=== PATIENT | male | born 1960 | race Caucasian/White ===

== ENCOUNTER 2017-05-17 15:23 | Emergency (ER) | payer BC, OTHER ==
[~2017-05-17 15:23] MED LIST: LISI20TA3 PO; MULT-513 PO; THIA1TAB11 PO
[2017-05-17 15:32] VITALS: TEMP 36.4
[2017-05-17 15:35] VITALS: O2SAT 97
--- NOTE | 2017-05-17 15:36 | EMERGENCY ROOM VISIT NOTE ---
History Report prepared by Nadeen: Edward Gupta Under the Supervision of: Dr. Kayla Iyer M.D. First contact with patient: 15:30 Chief Complaint: ALCOHOL OVERDOSE Stated Complaint: ETOH History of Present Illness This HPI is limited due to the alcohol intoxication level of the patient. The patient is a 57 year old male who presents to the Emergency Room via EMS from the [facility] for alcohol intoxication. Per EMS the [facility] staff was trying to get him to check out due to his behavior. When he realized he was being kicked out he became agitated and violent. Source of History: EMS History Limited By: intoxication Review of Systems ROS limited secondary to EtOH. Past Medical & Surgical Medical Problems: (1) Alcoholic Social History Smoking Status: Unknown if Ever Smoked Alcohol Use: heavy Marital Status: Housing Status: lives with significant other Occupation Status: employed Current/Historical Medications Scheduled Lisinopril (Prinivil), 20 MG PO DAILY Multivitamins/Minerals (Mvi With Minerals), 1 TAB PO DAILY Thiamine Mononitrate (Vitamin B1), 100 MG PO DAILY Allergies Coded Allergies: No Known Allergies (Unverified , 01/17/16) Physical Exam Vital Signs Date Time Temp Pulse Resp B/P (MAP) Pulse Ox O2 Delivery O2 Flow Rate FiO2 05/17/17 18:00 54 124/81 100 Room Air 05/17/17 17:03 83 123/75 100 Room Air 05/17/17 16:14 58 05/17/17 15:35 97 Nasal Cannula 05/17/17 15:32 36.4 72 120/80 99 Room Air Physical Exam Vital signs reviewed. General: Obese. Non-responsive to verbal stimuli, Odor of EtOH in the breath, disheveled 57-year-old male. No signs of trauma. HEENT: Mild scleral injection bilaterally, PERRLA, neck supple, dry mucous membranes. Cardiovascular: Regular rate and rhythm, no extra sounds. Pulmonary: Clear to auscultation bilaterally, normal work of breathing. Abdomen: Soft, nontender, nondistended, positive bowel sounds. Musculoskeletal: Upper and lower extremities atraumatic, no peripheral edema Skin: Warm, dry, no rash. Atraumatic. Neurologic: Patient is currently nonverbal, nonresponsive. Medical Decision & Procedures Laboratory Results 05/17/17 15:48 Red Blood Count 4.90, Mean Corpuscular Volume 91.6, Mean Corpuscular Hemoglobin 30.8, Mean Corpuscular Hemoglobin Concent 33.6, Mean Platelet Volume 9.9, Neutrophils (%) (Auto) 64.7, Lymphocytes (%) (Auto) 26.4, Monocytes (%) (Auto) 4.9, Eosinophils (%) (Auto) 3.2, Basophils (%) (Auto) 0.4, Neutrophils # (Auto) 3.01, Lymphocytes # (Auto) 1.23, Monocytes # (Auto) 0.23, Eosinophils # (Auto) 0.15, Basophils # (Auto) 0.02 05/17/17 15:48 Test 05/17/17 15:48 White Blood Count 4.66 K/uL (4.8-10.8) Red Blood Count 4.90 M/uL (4.7-6.1) Hemoglobin 15.1 g/dL (14.0-18.0) Hematocrit 44.9 % (42-52) Mean Corpuscular Volume 91.6 fL (80-100) Mean Corpuscular Hemoglobin 30.8 pg (25-34) Mean Corpuscular Hemoglobin Concent 33.6 g/dl (32-36) Platelet Count 231 K/uL (130-400) Mean Platelet Volume 9.9 fL (7.4-10.4) Neutrophils (%) (Auto) 64.7 % Lymphocytes (%) (Auto) 26.4 % Monocytes (%) (Auto) 4.9 % Eosinophils (%) (Auto) 3.2 % Basophils (%) (Auto) 0.4 % Neutrophils # (Auto) 3.01 K/uL (1.4-6.5) Lymphocytes # (Auto) 1.23 K/uL (1.2-3.4) Monocytes # (Auto) 0.23 K/uL (0.11-0.59) Eosinophils # (Auto) 0.15 K/uL (0-0.5) Basophils # (Auto) 0.02 K/uL (0-0.2) RDW Standard Deviation 46.3 fL (36.4-46.3) RDW Coefficient of Variation 13.9 % (11.5-14.5) Immature Granulocyte % (Auto) 0.4 % Immature Granulocyte # (Auto) 0.02 K/uL (0.00-0.02) Anion Gap 9.0 mmol/L (3-11) Estimated GFR () 115.4 Estimated GFR (Non- 99.6 BUN/Creatinine Ratio 19.3 (10-20) Calcium Level 8.5 mg/dl (8.5-10.1) Magnesium Level 2.2 mg/dl (1.8-2.4) Total Bilirubin 0.4 mg/dl (0.2-1) Direct Bilirubin 0.1 mg/dl (0-0.2) Aspartate Amino Transf (AST/SGOT) 22 U/L (15-37) Alanine Aminotransferase (ALT/SGPT) 31 U/L (12-78) Alkaline Phosphatase 51 U/L (45-117) Total Protein 6.9 gm/dl (6.4-8.2) Albumin 3.6 gm/dl (3.4-5.0) Lipase 136 U/L (73-393) Ethyl Alcohol mg/dL 259.9 mg/dl (0-3) Laboratory results per my review. Medications Administered Medications (Trade) Dose Ordered Sig/Lia Route Start Time Stop Time Status Last Admin Dose Admin Multivitamins 10 ml/Thiamine HCl 100 mg/Folic Acid 1 mg/Sodium Chloride 1,011.2 ml @ 300 mls/ hr [id number] ONCE IV 05/17/17 15:45 05/17/17 19:07 05/17/17 16:10 300 MLS/HR ED Course 1531: Past medical records reviewed. The patient was evaluated in room A12B. A complete history and physical examination was performed. 1545: Ordered banana bag@ 300 mL/hr IV. 1707: I reevaluated the patient at this time. He is now speaking coherently after previously being unresponsive. He claims that he "doesn't drink often." He states that we may call his parents to come pick him up. Medical Decision Differential diagnosis: Etiologies such as alcohol intoxication, toxicologic, infection, hypoglycemia, electrolyte abnormalities, cardiac sources, intracerebral event, neurologic, as well as others were entertained. This patient was evaluated and appeared to be unresponsive. He is apparently alcohol intoxicated for EMS report. The patient did require police intervention for agitation and disruptive behavior. He has been here 3 times previously for alcohol intoxication. Patient was placed on the cardiac surgeon. He has no signs of trauma but is somewhat unresponsive. He was hydrated with a banana bag and reassessed frequently. Approximately an hour and half after arrival the patient was reassessed and was easily arousable. He was answering questions appropriately. He is able to tolerate a by mouth trial. When asked if the patient had family to pick him up, patient stated that he would contact his parents. He denied significant alcohol intake today however he was informed that his blood alcohol is 260. He stated he drank excessive amounts of vodka. The patient was observed in the emergency department until he reached a more sober state. The patient was ambulatory and called his parents for a ride home. Blood Pressure Screening Patient's blood pressure: Normal blood pressure Impression Primary Impression: Acute alcohol intoxication Scribe Attestation The scribe's documentation has been prepared under my direction and personally reviewed by me in its entirety. I confirm that the note above accurately reflects all work, treatment, procedures, and medical decision making performed by me. Departure Information Dispostion Home / Self-Care Referrals Stephen Diaz M.D. (PCP) Forms HOME CARE DOCUMENTATION FORM, IMPORTANT VISIT INFORMATION Patient Instructions My [facility] Additional Instructions Diagnosis: Alcohol intoxication Please drink plenty of clear fluids, avoid alcohol. Continue any medications as prescribed. Follow-up with your physician for reevaluation and consider drug and alcohol counseling as indicated. Return to the emergency department for worsening of symptoms or any medical concerns.
[2017-05-17] MEDS ORDERED: MULTI-VITAMIN INFUSION INJ 10 ML, THIAMINE HCL INJ 100 MG, FoLIC ACID INJ 1 MG in SODIU... IV ONE (15:45)
[2017-05-17 16:39] LABS: BASO % 0.4 %; BASO ABS # 0.02 K/uL (0-0.2); EOS % 3.2 %; EOS ABS # 0.15 K/uL (0-0.5); HEMATOCRIT 44.9 % (42-52); HEMOGLOBIN 15.1 g/dL (14.0-18.0); IG# 0.02 K/uL (0.00-0.02); LYMPH % 26.4 %; LYMPH ABS # 1.23 K/uL (1.2-3.4); MEAN CELL VOLUME 91.6 fL (80-100); MEAN CORPUSCULAR HEMOGLOBIN 30.8 pg (25-34); MEAN CORPUSCULAR HGB CONC 33.6 g/dl (32-36); MEAN PLATELET VOLUME 9.9 fL (7.4-10.4); MONO % 4.9 %; MONO ABS # 0.23 K/uL (0.11-0.59); NEUT % 64.7 %; NEUT ABS # 3.01 K/uL (1.4-6.5); PLATELET COUNT 231 K/uL (130-400); RED CELL DISTRIBUTION WIDTH CV 13.9 % (11.5-14.5); RED CELL DISTRIBUTION WIDTH SD 46.3 fL (36.4-46.3); WHITE BLOOD COUNT 4.66 K/uL (4.8-10.8)
[2017-05-17 16:56] LABS: ALBUMIN 3.6 gm/dl (3.4-5.0); ALT/SGPT 31 U/L (12-78); BLOOD UREA NITROGEN 16 mg/dl (7-18); CALCIUM 8.5 mg/dl (8.5-10.1); CARBON DIOXIDE 25 mmol/L (21-32); CREATININE 0.82 mg/dl (0.60-1.40); GLUCOSE 92 mg/dl (70-99); LIPASE 136 U/L (73-393); POTASSIUM 3.4 mmol/L (3.5-5.1); SODIUM 138 mmol/L (136-145)
[2017-05-17 16:58] LABS: ALKALINE PHOSPHATASE 51 U/L (45-117); AST/SGOT 22 U/L (15-37); TOTAL PROTEIN 6.9 gm/dl (6.4-8.2)
--- NOTE | 2017-05-17 18:10 | EMERGENCY ROOM VISIT NOTE ---
ED Visit Note Received patient in signout. History and physical verified by me.
[2017-05-17 19:17] VITALS: BP 122/84; PULSE 71; O2SAT 97
== END 2017-05-17 19:23 | disposition home or self-care (01) ==
LOC: EDBD 15:23 → C.EDA 15:27
DX: F10.229 Alcohol dependence with intoxication, unspecified (principal); Y90.8 Blood alcohol level of 240 mg/100 ml or more; Z79.899 Other long term (current) drug therapy; E66.9 Obesity, unspecified

== ENCOUNTER 2017-06-10 16:26 | Emergency (ER) | payer OTHER ==
[~2017-06-10] VITALS: Ht 185.4 cm; Wt 124.0 kg
[2017-06-10 16:42] VITALS: TEMP 36.8; Ht 185.4 cm; Wt 124.0 kg
--- NOTE | 2017-06-10 17:07 | EMERGENCY ROOM VISIT NOTE ---
History First contact with patient: 16:40 Chief Complaint: ALCOHOL OVERDOSE Stated Complaint: ETOH Nursing Triage Summary: Patient arrives to ED via EMS and [facility]. Police report that patient was stumbling downtown and appeared intoxicated. Denies any vomiting. Patient reports that he has been drinking vodka today. Denies any falls or any physical complaints. Patient is not sure why he is here in the ED. Patient was able to walk self from EMS litter to ED bed. Patient A &O x4. History of Present Illness The patient is a 57 year old male who presents to the Emergency Room via EMS for evaluation of alcohol intoxication. Per EMS, the patient was found downtown drinking and was stumbling. He was stopped by police, who felt he needed to be evaluated in the ED. Patient admits to drinking about one quarter of a bottle of vodka today. He admits that he drinks daily and states he typically has one half bottle of vodka per day. He denies any history of alcohol withdrawal. He has no intentions to quit drinking alcohol at this time. He denies any complaints. He denies falling or hurting himself in any way. He denies any drug use today. Review of Systems A complete 10 point review of systems was reviewed with the patient with pertinent positives and negatives as per history of present illness. All else were negative. Past Medical/Surgical History Medical Problems: (1) Alcoholic Social History Smoking Status: Never Smoker Alcohol Use: heavy Marital Status: Housing Status: lives with significant other Occupation Status: employed Current/Historical Medications Scheduled Escitalopram (Lexapro), 10 MG PO DAILY Losartan Potassium (Losartan Potassium), 1 TAB PO DAILY Physical Exam Vital Signs Date Time Temp Pulse Resp B/P (MAP) Pulse Ox O2 Delivery O2 Flow Rate FiO2 06/10/17 19:45 66 110/69 100 Room Air 06/10/17 16:42 36.8 58 118/81 98 Room Air Physical Exam VITALS: Vitals are noted on the nurse's note and reviewed by myself. Vital signs stable. GENERAL: This is a 57-year-old male, sitting up in bed, appears to be visibly intoxicated but is cooperative with examiner, smells of ETOH. SKIN: The skin was without erythema, edema, or bruising. HEAD: Normocephalic atraumatic. EARS: External auditory canals clear. No hemotympanum. EYES: Pupils equal round and reactive to light and accommodation. NOSE: No deformities noted. MOUTH: Mucous membranes moist. No loose or chipped teeth. NECK: No cervical spine tenderness. HEART: Regular rate and rhythm without murmurs gallops or rubs. LUNGS: Clear to auscultation bilaterally without wheezes, rales or rhonchi. ABDOMEN: Soft, nontender. MUSCULOSKELETAL: Full range of motion throughout. Strength intact throughout. NEURO: Patient was alert and oriented to person place and time. Gross sensation intact. Patient cooperative with examiner and answers all questions appropriately. Medical Decision & Procedures Laboratory Results 06/10/17 18:24 Test 06/10/17 18:24 06/10/17 18:29 Anion Gap 5.0 mmol/L (3-11) Est Creatinine Clear Calc Drug Dose 126.5 ml/min Estimated GFR () 109.6 Estimated GFR (Non- 94.5 BUN/Creatinine Ratio 13.2 (10-20) Calcium Level 8.9 mg/dl (8.5-10.1) Ethyl Alcohol mg/dL 210.3 mg/dl (0-3) Medical Decision Differential diagnosis includes alcohol intoxication, drug use, infection, hypoglycemia, head trauma, among others. The patient is a 57-year-old male who presents today for evaluation of probable alcohol intoxication. Labs revealed an alcohol of 210. Kidney function was found to be within normal limits. Labs were otherwise unremarkable. There is no evidence of head trauma or infection on exam. The patient was placed on the campus monitor. He was alert and able to answer all questions appropriately. They were monitored for an appropriate amount of time and when they were more sober, they were reassessed and discharged home with a taxi. Patient was advised to follow-up with his primary care provider regarding his chronic alcohol use. Head Trauma GCS Score: 15 Medication Reconcilliation Current Medication List: was personally reviewed by me Blood Pressure Screening Patient's blood pressure: Normal blood pressure Impression Primary Impression: Alcohol abuse Departure Information Dispostion Home / Self-Care Condition GOOD Referrals Stephen Diaz M.D. (PCP) Patient Instructions My [facility] Additional Instructions Decrease your alcohol use. For pain control, you can use the following [id number] medicines (if >12 yo): - Regular strength (325mg/tab) Tylenol (acetaminophen) 2 tabs every 4-6 hours as needed. Do not exceed 12 tablets in a 24 hour period. Avoid taking more than 4 grams (4000 mg) of Tylenol per day. This includes any other sources of acetaminophen you may take on a regular basis. - Regular strength (200 mg/tab) Advil (ibuprofen) 1-2 tabs every 4-6 hours as needed. Do not exceed a dose of 3200 mg per day. Rest and stay well hydrated. Follow-up with your primary care provider as needed.
[2017-06-10] MEDS ORDERED: ESCI10TA17 PO (17:13)
[2017-06-10] MEDS ORDERED: CZR25 PO (17:13)
[2017-06-10 19:10] LABS: CALCIUM 8.9 mg/dl (8.5-10.1); CREATININE 0.91 mg/dl (0.60-1.40); POTASSIUM 3.2 mmol/L (3.5-5.1)
[2017-06-10 19:45] VITALS: BP 110/69; PULSE 66; O2SAT 100
== END 2017-06-10 20:15 | disposition home or self-care (01) ==
LOC: EDBD 16:26 → C.EDC 16:28
DX: F10.129 Alcohol abuse with intoxication, unspecified (principal); Y90.7 Blood alcohol level of 200-239 mg/100 ml

== ENCOUNTER 2023-08-31 14:16 | Inpatient (IN) ==
--- OUTSIDE RECORDS SUMMARY | 2023-08-31 14:22 | External Medical Summary | Summary of Care ---
Author Name Unknown Organization [facility] Address [address] [place] [address] Phone [phone] Care Team Providers Care Director Of Retail Marketing Name Role Phone Stephen Diaz MD Primary Care Provider [phone] Reason for Visit * Reason Comments dysphagia Encounter Details Date Type Department Care Team (Latest Contact Info) Description 07/16/2023 10:30 AM EDT [facility], [place] [address] [place] [address] Kamila Hoskins, [facility] [address] [place] [address] Oropharyngeal dysphagia*; Primary cancer of base of tongue (HCC) Allergies No known active allergiesdocumented as of this encounter (statuses as of 07/17/2023) Medications Medication Sig Dispensed Refills Start Date End Date Status Multiple Vitamins-Minerals (CENTRUM SILVER ULTRA MENS) Tablet Take 1 Tablet by mouth in the morning. 0 Active Triamcinolone Acetonide 0.1 % External Cream (Aristocort)Indicat ions:Stasis dermatitis of both legs Apply topically to affected area 2 times a day . To affected area - lower legs. 453 g 5 02/06/2022 Active Apixaban 5 MG Oral Tablet (Eliquis) Take 1 Tablet by mouth in the morning and 1 Tablet before bedtime. 60 Tablet 1 10/04/2022 Active Additional Information Patient not taking.Reported on 06/04/2023 Ondansetron HCl 8 MG Oral TabletIndications:O ropharyngeal cancer (HCC) Take 1 Tablet by mouth every 8 hours as needed for Nausea. 30 Tablet 0 11/06/2022 Active Prochlorperazine Maleate 10 MG Oral Tablet (Compazine)Indicati ons:Oropharyngeal cancer (HCC) Take 1 Tablet by mouth every 6 hours as needed for Nausea. 30 Tablet 0 11/06/2022 Active Escitalopram Oxalate 10 MG Oral Tablet (Lexapro)Indication s:Major depressive disorder, single episode, moderate (HCC) TAKE 1 TABLET BY MOUTH EVERY DAY 90 Tablet 2 12/02/2022 Active Losartan Potassium 100 MG Oral Tablet (Cozaar)Indications :HTN, goal below 140/90 TAKE 1 TABLET BY MOUTH EVERY DAY IN THE MORNING 90 Tablet 2 04/08/2023 Active amLODIPine Besylate 10 MG Oral Tablet (Norvasc)Indication s:HTN, goal below 140/90 Take 0.5 Tablets by mouth in the morning. 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 0 to 49.9 in adult 01/28/2023 03/07/2023 Overview: Per Obesity protocol - Per Obesity protocol - Per Obesity protocol - Per Obesity protocol Body mass index (BMI) of 50. 0 to 59.9 in adult 03/05/2022 01/31/2023 Overview: Per Obesity protocol - Per Obesity protocol - Per Obesity protocol Body mass index (BMI) of 45. 0 to 49.9 in adult 08/28/2021 03/08/2022 Overview: Per Obesity protocol - Per Obesity protocol Body mass index (BMI) of 40. 0 to 44.9 in adult 05/04/2019 08/31/2021 Overview: Per Obesity protocol documented as of this encounter (statuses as of 07/17/2023) Immunizations Name Administration Dates Next Due Pneumococcal Conjugate Vacci ne, 20-valent ([id number]) 02/06/2022 Season Influenza, Quad, PF, Adjuvanted, 65+ Yrs, IM (FLUAD) 01/25/2020 Seasonal Influenza, PF, 6 M & above, IM , (FluLaval or Fluzone) 02/01/2023,02/06/2022,2021,2017 TDAP (age 10 and older)(Boostrix) 09/05/2017 TDAP (age 11 and older)(Adacel) 04/22/2007 Zoster Vaccine Recombinant (Shingrix) 04/26/2020 ,12/01/2019 documented as of this encounter Social History Tobacco Use Types Packs/Day Years Used Date Smoking Tobacco: Never Passive Smoke Exposure: Never Smokeless Tobacco: Never Alcohol Use Standard Drinks/Week Comments Yes 15 (1 standard drink = 0.6 oz pu re alcohol) PHQ-2 Answer Date Recorded PHQ-2 Score 0 10/29/2019 Hunger Vital Sign Answer Date Recorded Within the past 12 months, y ou worried that your food would run out before you got the money to buy more. Never true 10/10/19 23 Within the past 12 months, t he food you bought just didn't last and you didn't have money to get more. Never true 10/09/2022 Sex and Gender Information Value Date Recorded Sex Assigned at Male 04/09/2019 12:46 PM EST Gender Identity Male 04/09/2019 12:46 PM EST Sexual Orientation Straight 04/09/2019 12 :46 PM EST Job Start Date Occupation Industry Not on file Not on file Not on file documented as of this encounter Functional Status Functional Status Response Date of Assess ment Are you deaf or do you have serious difficulty h earing? No 09/21/2022 Are you blind or do you have serious difficulty seeing, even when wearing glasses? No 09/21/2022 Do you have serious difficul ty walking or climbing stairs? (5 years old or older) No 09/21/2022 Do you have difficulty dress ing or bathing? (5 years old or older) No 09/21/2022 Because of a physical, menta l, or emotional condition, do you have difficulty doing errands alone such as visiting a doctor s office or shopping? (15 years old or older) No 09/22/19 Cognitive Status Response Date of Assessm ent Because of a physical, menta l, or emotional condition, do you have serious difficulty concentrating, remembering, or making decisions? (5 years old or older) No 09/21/2022 documented as of this encounter Progress Notes * Kamila Hoskins [facility] - 07/16/2023 4:00 PM EDT Images from the original note were not included. Flexible Endoscopic Evaluation of Swallowing (FEES) [facility] Referring MD: Dr. Ashford FEES Endoscopist: Kamila Hoskins CCC-[facility] Reason for Referral: Instrumental swallow assessment to assess oropharyngeal swallow function, oralfeeding safety and potential for diet advancement. The severity of the patients medical condition (described below) and/or dysphagia warranted a FEES study. 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 Initial imaging showed a large BOT lesion with bilateral cervical lymphadenopathy. Post treatment imaging shows residual avidity in the right BOT. Chemo/xrt completed Jan. - Did not have a pre-treatment NavDx so will hold off on this. Imaging shows stable nodes that are not obviously pathologic. Will plan on another CT in 6 months but will otherwise follow clinically. LUIS ENRIQUE on exam today. RTC 3-4 months or PRN. 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 There is no other head and neck pneumatic compression device, other than the Flexitouch, to address this region of lymphedema that is appropriate. Pt presents with highly sensitive skin and significant head and neck lymphedema which also makes the basic pump not appropriate. Patient has participated in 4 weeks or more of conservative treatment utilizing compression, elevation, and exercise with symptoms of head and neck lymphedema remaining. Patient will benefit from the Flexitouch advanced compression device to appropriate manage their lymphedema in the head and neck region. " Cognitive/communicative status: Pt alert; followed directions, communicated wants and needs, and conversed appropriately PO status/Dysphagia history: PO regular solids with thin liquids. First time seeing SPECIAL SH[facility]PER today. He is s/p chemoradiation 01/2023. Noting weight loss of 60 lbs during his treatment. Positive for occasional globus and coughing with PO intake. He does feel like he is aspirating, but denies concerns forpulmonary infection. Pneumonia History: pt denies recent PNA CT Chest 06/05/23 - No suspicious pulmonary lesion. Oral mechanism exam: Facial Symmetry Within functional limits Labial Function Within functional limits Lingual Function Within functional limits Velar Function DNT Dentition: Natural Protective mechanisms: Volitional Swallow Within Functional Limits Volitional Throat Clearing Did not test Volitional Cough Did not test Vocal Quality Mildly rough Tracheostomy Tube: Not Present Ventilator Status: Not Applicable Procedure: Patient was sitting upright in chair at a 90 degree angle The Ranjith Storz scope was inserted into the R nare. Pt given PO trials of thin liquids, applesauce, diced peaches, and ysabel cracker Patient tolerated the procedure well with the findings outlined below. Findings: View of larynx before PO trials showed adequate VF mobility during phonation. No pooling of secretions. Severe internal lymphedema at the epiglottis, posterior pharyngeal wall, false vocal folds, andbilteral arytenoids. Swallowing efficiency: Limited to absent epiglottic inversion given edema resulting in mod-max vallecular residue with all solids. Pt instructed in multiple, effortful swallows with lack of improvement. A liquid wash was successful in grossly clearing the vallecular residue. Airway protection: Aspiration of thin liquids (and juice from peaches) due to poor epiglottic inversion given the extent of his internal lymphedema. There was also laryngeal penetration of applesaucethat cleared with completion of a subsequent swallow. Pt with delayed cough which was effective in clearance, but continued aspiration after the swallow given the mechanical issues of his swallow at this time. Media Information: Post thin Post applesauce Post diced peaches Post peaches/aspiration Impression: Aspiration of thin liquids Mod-max residue of all solids; cleared with liquid wash DIGEST-FEES: Safety grade: S3 Efficiency grade: E3 Score (Interaction of Assigned Safety and Efficiency Grades): 3 (severe) Goals: 1) Pt will tolerate oral diet without risk of malnourishment or aspiration PNA Anticipated frequency/return follow up: Will see in follow up matched with Dr. Ashford Additional comments: -Pt has been asymptomatic of his aspiration at this time. We will not modify his diet given this. He was made aware of the risk for developing aspiration PNA. He will continue to stay mobile and complete thorough oral care. -Discussed lymphedema management therapy. RECOMMENDATIONS: PO status regular solids with thin liquids Meds as tolerated or crushed RTC matched with Dr. Ashford documented in this encounter Plan of Treatment Upcoming Encounters Date Type Department Care Team (Late st Contact Info) Description 08/12/2023 2:15 PM EDT Imaging Radiology [address] [address] 09/10/2023 2:15 PM EDT Office Visit Otolaryngology/Head & Neck/Facial Plastic Surgery [address] [address] Parisa Ashford MD [address] [address] 12/03/2023 3:00 PM EDT Office Visit [address] [address] Stephen Diaz MD [address] [place] [address] Scheduled Orders Name Type Priority Associated Diagnoses Orde r Schedule FLEX ENDO EVAL SWAL FUNC REC Procedures Routine Oropharyngeal dysphagia Primary cancer of base of tongue (HCC) Ordered: 07/17/2023 Scheduled Procedures Name Priority Associated Diagnoses Date/Ti me COLONOSCOPY FLEXIBLE PROXIMAL DIAGNOSTIC Recall History of colon polyps Health Maintenance Due Date Last Done Comments Albumin/Creatinine Ratio 02/04/1980 Depression Screening 10/28/2020 10/29/2019 COLONOSCOPY-EVERY 5 YRS AGES 18-100 12/05/2020 12/06/2015, 12/06/2015 COVID-19 Vaccine (3 - 2022- season) 2022 09/15/2020, 08/25/2020 GFR 05/22/2024 05/22/2023, 12/22, 01/07/2023, Additional history exists Diabetes Screening 05/22/2026 05/22/2023, 0 01/14/2023, 01/07/2023, Additional history exists DTaP,Tdap,and Td Vaccines (3 - Td or Tdap) 09/06/2027 09/05/2017, 04/22/2007 Lipid Panel 12/13/2027 12/12/2022, 08/20, 2021, Additional history exists Pneumococcal Vaccine: Pediatrics (0 to 5 Years) and At-Risk Patients (6 to 64 Years) Aged Out 02/06/2022 No longer eligible based on patient's age to complete this topic Influenza Vaccine (FLU shot) Completed , 02/06/2022, 2021, Additional history exists GARDASIL-HPV IMMUNIZATION SERIES Aged Out No longer eligible based on patient's age to complete this topic Hepatitis B Aged Out No longer eligi ble based on patient's age to complete this topic MENINGOCOCCAL (MENACTRA/MENVEO) Aged Out No longer eligible based on patient's age to complete this topic documented as of this encounter Medical Devices Not on filedocumented as of this encounter Visit Diagnoses Diagnosis Oropharyngeal dysphagia- Primary Dysphagia, oropharyngeal phase Primary cancer of base of tongue (HCC) documented in this encounter Advance Directives Latest Code Status on File Code Status Date Activated Date Inactivated Comments Full Code 09/21/2022 12:08 AM 10/04/2022 5:08 PM This order reflects the patients wishes and were consensually agreed upon. IF he is unable to decide for himself his parents will decide for him. Question Answer Comments Discussion of Advance Directives occurred with: Patient Care Teams Director Of Retail Marketing Relationship Specialty Start Date End Date Stephen Diaz MD [address] [place] [address] PCP - General Family Medicine 05/29/13 documented as of this encounter
--- OUTSIDE RECORDS SUMMARY | 2023-08-31 14:22 | External Medical Summary | Summary of Care ---
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) Procedures CT NECK W CONTRAST Parisa Ashford MD [address] [place] [address] Referral ID Status Reason Start Date Expiration Date V isits Requested Visits Authorized [id number] Pending Review 01/16/2024 [id number] Reason for Visit * Reason Comments Follow Up Encounter Details Date Type Department Care Team (Late st Contact Info) Description 07/16/2023 2:15 PM EDT Office Visit Otolaryngology/Head & Neck/Facial Plastic Surgery [address] [place] [address] Parisa Ashford MD [address] [place] [address] Primary cancer of base of tongue (HCC)*; Squamous cell carcinoma of oropharynx (HCC) Allergies No known active allergiesdocumented as of this encounter (statuses as of 07/16/2023) Medications Medication Sig Dispensed Refills Start Date [...] as of this encounter (statuses as of 07/16/2023) Active Problems Problem Noted Date Diagnosed Date Body mass index (BMI) of 40.0 to 44.9 in adult 1 05/04/2022 Overview: Per Obesity protocol - Per Obesity protocol - Per Obesity protocol - Per Obesity protocol - Per Obesity protocol Low blood pressure 12/03/2022 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 Encounter for antineoplastic chemotherapy 2022 Squamous cell carcinoma in situ (SCCIS) of [place] 09/30/2022 Atrial fibrillation 09/21/2022 Dyspnea on exertion 09/21/2022 Bradycardia, unspecified 02/06/2022 Major depressive disorder, single episode, moder ate 10/29/2019 Personal history of alcoholism 05/24/2016 Vitamin D deficiency 09/25/2013 HTN (hypertension) 09/25/2013 Dyslipidemia, goal LDL below 100 09/25/2013 Overview: 10 year CV risk = 5.9% Rosacea 05/29/2013 documented as of this encounter (statuses as of 07/16/2023) Resolved Problems Problem Noted Date Diagnosed Date [...] as of this encounter (statuses as of 07/16/2023) Immunizations Name Administration Dates Next Due Pneumococcal Conjugate Vacci ne, 20-valent ([id number]) 02/06/2022 Season Influenza, Quad, PF, Adjuvanted, 65+ [...] Passive Smoke Exposure: Never Smokeless Tobacco: Never Tobacco Cessation:Counseling Given: Not Answered Alcohol Use Standard Drinks/Week Comments Yes 15 [...] on file documented as of this encounter Last Filed Vital Signs Vital Sign Reading Time Taken Comments Blood Pressure - - Pulse - - Temperature 36.3 C (97.3 F) 07/16/2023 1:50 PM ED T Respiratory Rate - - Oxygen Saturation - - Inhaled Oxygen Concentration - - Weight - - Height - - Body Mass Index - - documented in this encounter Functional Status Functional Status Response [...] as of this encounter Progress Notes * Parisa Ashford MD - 07/16/2023 1:51 PM EDT [facility] Otolaryngology - Head and Neck Surgery Progress Note 07/16/2023 S: The patient feels like his submental area is more full. He also feels like it is getting a bit harder to swallow. He has been massaging the area but it has not helped. He otherwise feels like his is doing well. He is here for follow up CT of a residual [address] neck 06/05/23: IMPRESSION: 1. No right lateral/posterior tongue lesion. Finding at this site on 03/2023 PET/CT is favored to represent artifact secondary to dental hardware. 2. Enlarged 19 mm axial short axis right level VB and 16 mm right level IIA lymph nodes, stable in size compared with 03/2023. No additional cervical lymphadenopathy. 3. Post-radiation changes. 4. At least moderate right carotid bifurcation and left internal carotid artery proximal cervical segment stenoses. Neck CT angiogram with contrast may be performed for further evaluation. Chest CT was clear at the same time. O: Temp 36.3 C (97.3 F) (Infrared ) Gen: NAD, AAO Face: No lesions OC/OP: Neck: Past Medical History: Diagnosis Date HTN, goal below 140/90 Past Surgical History: Procedure Laterality Date BRONCHOSCOPY, DIAGNOSTIC N/A 10/03/2022 BRONCHOSCOPY DIAGNOSTIC WITH OR WITHOUT WASHING performed by Mazin Mccoy MD at ENDOSCOPY [facility] COLONOSCOPY, DIAGNOSTIC (RECTUM) 12/06/2015 adenomatous polyp, diverticulosis, repeat 5 yrs/COLONOSCOPY FLEXIBLE PROXIMAL DIAGNOSTIC performed by Darren Meyers MD at ENDOSCOPY [facility] ELECTROCONVERSION, EXTERNAL 09/26/2022 DC CARDIOVERSION performed by Hattie Terrell MD at CARDIAC LABS [facility] A/P: Booker Dobbins is a 63 year old male with a history of cT4 cN2 M0 p16 positive oropharyngealSCC (right BOT) who was treated with chemoradiotherapy. [...] lymphedema in the head and neck region. 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) Expected: 01/16/2024, Expires: 08/15/2024 CREATININE Lab Routine 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 IF he is unable to decide for himself his parents will decide for him. Question Answer Comments Discussion of Advance Directives occurred with: Patient Care Teams Ticket Dispenser Changer Relationship Specialty Start Date End Date Stephen Diaz MD [address] [place] [facility] [place] [address] PCP - General Family Medicine 05/29/13 documented as of this encounter
--- OUTSIDE RECORDS SUMMARY | 2023-08-31 14:22 | External Medical Summary | Summary of Care ---
Author Name Unknown Organization [facility] Address [address] [place] [address] Phone [phone] Care Team Providers Care Heavy Equipment Field Mechanic Name Role Phone Stephen Diaz MD Primary Care Provider [phone] Reason for Visit * Reason Comments dysphagia Encounter Details Date Type Department Care Team (Latest Contact Info) Description 07/16/2023 10:30 AM EDT Rehab Services Voice Lab, [place] [address] [place] [address] Kamila Hoskins, [facility]-[employer]ANT [address] [place] [address] Oropharyngeal dysphagia*; Primary cancer of base of tongue (HCC) Allergies No known active allergiesdocumented as of this encounter (statuses as of 07/29/2023) Medications Medication Sig Dispensed Refills Start Date [...] as of this encounter (statuses as of 07/29/2023) Active Problems Problem Noted Date Diagnosed Date [...] as of this encounter (statuses as of 07/29/2023) Resolved Problems Problem Noted Date Diagnosed Date [...] as of this encounter (statuses as of 07/29/2023) Immunizations Name Administration Dates Next Due Pneumococcal Conjugate Vacci ne, 20-valent ([id number]) 02/06/2022 Season Influenza, Quad, PF, Adjuvanted, 65+ [...] this encounter Progress Notes * Kamila Hoskins CCC-[employer] CONSULTANT - 07/16/2023 4:00 PM EDT Images from the original note were not included. Flexible Endoscopic Evaluation of Swallowing (FEES) [facility] Referring MD: Dr. Ashford FEES Endoscopist: Kamila Hoskins CCC-[employer] CONSULTANT Reason for Referral: Instrumental swallow assessment to assess oropharyngeal swallow function, oralfeeding safety and potential for diet advancement. The severity of the patients medical condition (described below) and/or dysphagia warranted a FEES study. Medical History: Per [facility] chart review, pt is a "63 year [...] solids with thin liquids. First time seeing [employer] CONSULTANT today. He is s/p chemoradiation 01/2023. Noting [...] complete thorough oral care. 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 There is no other head and neck pneumatic compression device, other than the Flexitouch, to address this region of lymphedema that is appropriate. Pt presents with highly sensitive skin, fibrosis, and significant head and neck lymphedema which also makes the basic pump not appropriate. Patient has participated in 4 weeks or more of conservative treatment utilizing compression, elevation, and exercise with symptoms of head and neck lymphedema remaining. Patient will benefit from the Flexitouchadvanced compression device to appropriate manage their lymphedema in the head and neck region. RECOMMENDATIONS: PO status regular solids with thin liquids Meds as tolerated or crushed RTC matched with Dr. Ashford documented in this encounter Plan of Treatment Upcoming Encounters Date Type Department Care Team (Late st Contact Info) Description 07/30/2023 1:30 PM EDT Laboratory Laboratory [address] [place], [place] [address] Urszula Patel [address] [place] [address] 07/30/2023 2:30 PM EDT Imaging Vascular Lab, [facility] 2nd [facility], [place] [address] [place] [address] 08/12/2023 2:15 PM EDT Imaging Radiology [facility] 1st [facility] [address] [place] [address] 09/10/2023 2:15 PM EDT Office Visit Otolaryngology/Head & Neck/Facial Plastic Surgery [address] [place] [address] Parisa Ashford MD [address] [place] [address] 09/10/2023 2:30 PM EDT Rehab Services Voice Lab, [place] [address] [place] [address] Kamila Hoskins, [facility]-[employer] CONSULTANT [address] [place] [address] 12/03/2023 3:00 PM EDT Office Visit [facility] [address] [place] [address] Stehpen Diaz MD [address] [place] [address] Scheduled Orders Name Type Priority Associated Diagnoses Orde r Schedule FLEX ENDO EVAL SWAL FUNC REC Procedures Routine Oropharyngeal dysphagia Primary cancer of base of tongue (HCC) Ordered: 07/17/2023 Scheduled Procedures Name Priority Associated Diagnoses Date/Ti me COLONOSCOPY FLEXIBLE PROXIMAL DIAGNOSTIC Recall History of colon polyps Health Maintenance Due Date Last Done Comments Albumin/Creatinine Ratio 02/04/1980 COLONOSCOPY-EVERY 5 YRS AGES 18-100 12/05/2020 12/06/2015, 12/06/2015 COVID-19 Vaccine (3 - 2022-24 season) 2022 09/15/2020, 08/25/2020 GFR 05/22/2024 05/22/2023, [...] Advance Directives occurred with: Patient Care Teams Heavy Equipment Field Mechanic Relationship Specialty Start Date End Date Stephen Diaz MD [address] [place] [address] PCP - General Family Medicine 05/29/13 documented as of this encounter
--- OUTSIDE RECORDS SUMMARY | 2023-08-31 14:22 | External Medical Summary ---
Author Name Unknown Address Unknown Organization [id number] [address] [place] [address] Laboratory Report Ordering Provider Test Date Status JESSICA CALZADA 07/30/2023 14:02:41 Final Observation Date Value Abnormality Reference (Units ) Status BUN 07/30/2023 14:02:41 16 6-20 (mg/dL) Final Creatinine 07/30/2023 14:02:41 0.8 0.6-1.2 (mg/dL) Final Glomerular filtration rate/1.73 sq M.predicted [Volume Rate/Area] in Serum, Plasma or Blood by Creatinine-based formula (CKD-EPI) 07/30/2023 14:02:41 >90 >=60 (mL/min) Final eGFR is calculated based on the CKD-EPI 2020 equation Sodium 07/30/2023 14:02:41 136 135-146 (m mol/L) Final Potassium 07/30/2023 14:02:41 3.9 3.5-5.1 (m mol/L) Final Cl 07/30/2023 14:02:41 101 98-107 (mm ol/L) Final CO2 07/30/2023 14:02:41 25 22-32 (mmo l/L) Final Anion gap 07/30/2023 14:02:41 10 7-15 (mmol /L) Final Glucose 07/30/2023 14:02:41 88 70-120 (mg /dL) Final Albumin 07/30/2023 14:02:41 3.8 3.8-5.0 (g /dL) Final AST (Aspartate aminotransferase) 07/30/2023 14:02:41 33 10-50 (U/L) Final Alk Phos 07/30/2023 14:02:41 65 35-130 (U/ L) Final Bilirubin, Total 07/30/2023 14:02:41 0.5 <=1 .2 (mg/dL) Final Calcium 07/30/2023 14:02:41 9.1 8.4-10.2 ( mg/dL) Final Protein 07/30/2023 14:02:41 7.0 6.0-8.3 (g /dL) Final ALT (Alanine aminotransferase) 07/30/2023 14:02:41 12 10-50 (U/L) Final Performing Location [facility] [place] [address] [facility] [id number]
--- OUTSIDE RECORDS SUMMARY | 2023-08-31 14:22 | External Medical Summary | Summary of Care ---
Author Name Unknown Organization [facility] Address [address] [place] [address] Phone [phone] Care Team Providers Care Fixture Relamper Name Role Phone Stephen Diaz MD Primary Care Provider [phone] Reason for Visit * Reason Comments Outpatient Testing Encounter Details Date Type Department Care Team (Late st Contact Info) Description 07/30/2023 2:10 PM EDT Laboratory Laboratory, [facility] [address] [place] [id number] [facility] [address] [place] [address] Oropharyngeal cancer (HCC) Allergies No known active allergiesdocumented as of this encounter (statuses as of 07/30/2023) Medications Medication Sig Dispensed Refills Start Date [...] as of this encounter (statuses as of 07/30/2023) Active Problems Problem Noted Date Diagnosed Date [...] as of this encounter (statuses as of 07/30/2023) Resolved Problems Problem Noted Date Diagnosed Date [...] as of this encounter (statuses as of 07/30/2023) Immunizations Name Administration Dates Next Due Pneumococcal Conjugate Vacci ne, 20-valent ([id number]) 02/06/2022 Season Influenza, Quad, PF, Adjuvanted, 65+ [...] No 09/21/2022 documented as of this encounter Plan of Treatment Upcoming Encounters Date Type Department Care Team (Late st Contact Info) Description 08/12/2023 2:15 PM EDT Imaging Radiology [address] [address] 09/10/2023 2:15 PM EDT Office Visit Otolaryngology/Head & Neck/Facial Plastic Surgery [address] [place] [address] Parisa Ashford MD [address] [place] [address] 09/10/2023 2:30 PM EDT Rehab Services Voice Lab, [place] [address] [place] [address] Kamila Hoskins, [facility]-INTERVENTIONAL PAIN PHYSICIAN [address] [place] [address] 12/03/2023 3:00 PM EDT Office Visit [facility] [address] [place] [address] Stephen Diaz MD [address] [place] [address] Scheduled Procedures Name Priority Associated Diagnoses Date/Ti me COLONOSCOPY FLEXIBLE PROXIMAL DIAGNOSTIC Recall History of colon polyps Health Maintenance Due Date Last Done Comments Albumin/Creatinine Ratio 02/04/1980 COLONOSCOPY-EVERY 5 YRS AGES 18-100 12/05/2020 12/06/2015, 12/06/2015 COVID-19 Vaccine (3 - 2022- season) 2022 09/15/2020, 08/25/2020 GFR 05/22/2024 07/30/2023, 04/24, 01/14/2023, Additional history exists Diabetes Screening 05/22/2026 07/30/2023, 0 05/22/2023, 01/14/2023, Additional history exists DTaP,Tdap,and Td Vaccines (3 [...] Not on filedocumented as of this encounter Procedures Procedure Name Priority Date/Time Associated Diagnosis Comments DIFFERENTIAL, AUTOMATED STAT 07/30/2023 2:02 PM EDT Oropharyngeal cancer (HCC) COMPREHENSIVE METABOLIC PANEL STAT 07/30/2023 2:02 PM EDT Oropharyngeal cancer (HCC) CBC STAT 07/30/2023 2:02 PM EDT Oropharyngeal cancer (HCC) CBC STAT 07/30/2023 2:02 PM EDT Oropharyngeal cancer (HCC) documented in this encounter Results * (ABNORMAL) DIFFERENTIAL, AUTOMATED (07/30/2023 2:02 PM EDT) WBC 3.86(L) 4.00 - 10.80 K/uL 07/30/2023 2:07 PM EDT [facility] [place] [facility] Neutrophils % 47.3 40.0 - 75.0 % 07/30/2023 2:07 PM EDT [facility] [place] [facility] Lymphocytes % 19.2 18.0 - 42.0 % 07/30/2023 2:07 PM EDT [facility] [place] [facility] Monocytes % 29.3(H) 1.0 - 11.0 % 07/30/2023 2:07 PM EDT [facility] [place] [facility] Eosinophils % 3.9 0.0 - 6.0 % 07/30/2023 2:07 PM EDT [facility] [place] [facility] Basophils % 0.3 0.0 - 2.0 % 07/30/2023 2:07 PM EDT [facility] [place] [facility] Absolute Neutrophils 1.83 1.80 - 7.70 K/uL 07/30/2023 2:07 PM EDT [facility] [place] [facility] Absolute Lymphocytes 0.74(L) 1.00 - 4.80 K/ul 07/30/2023 2:07 PM EDT [facility] [place] [facility] Absolute Monocytes 1.13(H) 0.00 - 1.10 K/uL 07/30/2023 2:07 PM EDT [facility] [place] [facility] Absolute Eosinophils 0.15 0.00 - 0.70 K/uL 07/30/2023 2:07 PM EDT [facility] [place] [facility] Absolute Basophils 0.01 0.00 - 0.20 K/uL 07/30/2023 2:07 PM EDT [facility] [place] [facility] Blood Venous blood specimen / Unknown Venipuncture / Unknown 07/30/2023 2:02 PM EDT 07/30/2023 2:02 PM EDT Jenifer Lopez MD LAB BLOOD [facility] [place] [address] [place] [address] * (ABNORMAL) CBC (07/30/2023 2:02 PM EDT) WBC 3.86(L) 4.00 - 10.80 K/uL 07/30/2023 2:07 PM EDT [facility] [place] [facility] RBC 3.62 4.50 - 5.25 M/uL 07/30/2023 2:07 PM EDT [facility] [place] [facility] HGB 10.9(L) 14.0 - 16.8 g/dL 07/30/2023 2:07 PM EDT [facility] [place] [facility] HCT 34.3(L) 40.0 - 48.4 % 07/30/2023 2:07 PM EDT [facility] [place] [facility] MCV 94.8 82.0 - 99.5 fL 07/30/2023 2:07 PM EDT [facility] [place] [address] MCH 30.1 27.0 - 34.0 pg 07/30/2023 2:07 PM EDT [facility] [place] [facility] MCHC 31.8 32.0 - 36.0 g/dL 07/30/2023 2:07 PM EDT [facility] [place] [address] RDW 14.8 11.5 - 15.5 % 07/30/2023 2:07 PM EDT [facility] [place] [address] PLT 246 140 - 400 K/uL 07/30/2023 2:07 PM EDT [facility] [place] [facility] MPV 9.9 6.6 - 11.1 fL 07/30/2023 2:07 PM EDT [facility] Blood Venous blood specimen / Unknown Venipuncture / Unknown 07/30/2023 2:02 PM EDT 07/30/2023 2:02 PM EDT Jenifer Lopez MD LAB BLOOD [facility] [address] [facility] [place] [address] * COMPREHENSIVE METABOLIC PANEL (07/30/2023 2:02 PM EDT) BUN 16 6 - 20 mg/dL 07/30/2023 2:26 PM EDT [facility] Creatinine 0.8 0.6 - 1.2 mg/dL 07/30/2023 2:26 PM EDT [facility] Estimated Glomerular Filtration Rate >90 >=60 mL/min 07/30/2023 2:26 PM EDT [facility] Comment:eGFR is calculated b ased on the CKD-EPI 2020 equation Sodium 136 135 - 146 mmol/L 07/30/2023 2:26 PM EDT [facility] Potassium 3.9 3.5 - 5.1 mmol/L 07/30/2023 2:26 PM EDT [facility] Chloride 101 98 - 107 mmol/L 07/30/2023 2:26 PM EDT [facility] CO2 25 22 - 32 mmol/L 07/30/2023 2:26 PM EDT [facility] [place] [facility] Anion Gap 10 7 - 15 mmol/L 07/30/2023 2:26 PM EDT [facility] Glucose 88 70 - 120 mg/dL 07/30/2023 2:26 PM EDT [facility] Albumin 3.8 3.8 - 5.0 g/dL 07/30/2023 2:26 PM EDT [facility] AST 33 10 - 50 U/L 07/30/2023 2:26 PM EDT [facility] Alkaline Phosphatase 65 35 - 130 U/L 07/30/2023 2:26 PM EDT [facility] [place] [facility] Bilirubin, Total 0.5 <=1.2 mg/dL 07/30/2023 2:26 PM EDT [facility] [place] [address] Calcium 9.1 8.4 - 10.2 mg/dL 07/30/2023 2:26 PM EDT [facility] [place] [facility] Protein 7.0 6.0 - 8.3 g/dL 07/30/2023 2:26 PM EDT [facility] [place] [address] ALT 12 10 - 50 U/L 07/30/2023 2:26 PM EDT [facility] [place] [facility] Blood Venous blood specimen / Unknown Venipuncture / Unknown 07/30/2023 2:02 PM EDT 07/30/2023 2:02 PM EDT Jenifer Lopez MD LAB BLOOD [facility] [place] [address] [facility] [place] [address] documented in this encounter Visit Diagnoses Diagnosis Oropharyngeal cancer (HCC) Malignant neoplasm of oropharynx, unspecified site [...] Advance Directives occurred with: Patient Care Teams Fixture Relamper Relationship Specialty Start Date End Date Stephen Diaz MD [address] [facility] [place] [address] PCP - General Family Medicine 05/29/13 documented as of this encounter
--- OUTSIDE RECORDS SUMMARY | 2023-08-31 14:22 | External Medical Summary | Summary of Care ---
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 0 Active Triamcinolone Acetonide 0.1 % External Cream (Aristocort)Nga cations:Stasis dermatitis of both legs Apply topically to affected area 2 times a day . To affected area - lower legs. 453 g 5 02/06/2022 Active Apixaban 5 MG Oral Tablet (Eliquis) Take 1 Tablet by mouth in the morning and 1 Tablet before bedtime. 60 Tablet 1 10/04/2022 Active Additional Information Patient not taking.Reported on 06/04/2023 Ondansetron HCl 8 MG Oral TabletIndication s:Oropharyngeal cancer (HCC) Take 1 Tablet by mouth every 8 hours as needed for Nausea. 30 Tablet 0 11/06/2022 Active Prochlorperazine Maleate 10 MG Oral Tablet (Compazine)Indic ations:Oropharyn geal cancer (HCC) Take 1 Tablet by mouth every 6 hours as needed for Nausea. 30 Tablet 0 11/06/2022 Active Escitalopram Oxalate 10 MG Oral Tablet (Lexapro)Indicat ions:Major depressive disorder, single episode, moderate (HCC) TAKE 1 TABLET BY MOUTH EVERY DAY 90 Tablet 2 12/02/2022 Active Losartan Potassium 100 MG Oral Tablet (Cozaar)Indicati ons:HTN, goal below 140/90 TAKE 1 TABLET BY MOUTH EVERY DAY IN THE MORNING 90 Tablet 2 04/08/2023 Active amLODIPine Besylate 10 MG Oral Tablet (Norvasc)Indicat ions:HTN, goal below 140/90 Take 0.5 Tablets by mouth in the morning. 90 Tablet 3 06/04/2023 Active Furosemide 40 MG Oral Tablet (Lasix)Indicatio ns:HTN, goal below 140/90 Take 1 Tablet by mouth in the morning. 90 Tablet 3 09/26/2022 4 Discontinue d(Medicatio n List Clean Up) OLANZapine 10 MG Oral Tablet (ZyPREXA)Indicat ions:Oropharynge al cancer (HCC) Take 10mg (1 tab) before bed x4 nights starting the day of chemotherapy 12 Tablet 0 11/11/2022 4 Discontinue d(Medicatio n List Clean Up) amLODIPine Besylate 10 MG Oral Tablet (Norvasc)Indicat ions:HTN, goal below 140/90 Take 0.5 Tablets by mouth in the morning. 90 Tablet 3 12/03/2022 4 Discontinue d(Refill) documented as of this encounter (statuses as of 06/07/2023) Active Problems Problem Noted Date Diagnosed Date [...] as of this encounter (statuses as of 06/07/2023) Resolved Problems Problem Noted Date Diagnosed Date [...] as of this encounter (statuses as of 06/07/2023) Immunizations Name Administration Dates Next Due Pneumococcal Conjugate Vacci ne, 20-valent ([id number]) 02/06/2022 Season Influenza, Quad, PF, Adjuvanted, 65+ [...] Sign Reading Time Taken Comments Blood Pressure 130/80 06/04/2023 3:14 PM EST Pulse 101 06/04/2023 3:14 PM EST Temperature 36.6 C (97.8 F) 06/04/2023 3:14 PM ES T Respiratory Rate 16 06/04/2023 3:14 PM EST Oxygen Saturation 99% 06/04/2023 3:14 PM EST Inhaled Oxygen Concentration - - Weight 121.8 kg (268 lb 9.6 oz) 06/04/2023 3:14 PM EST Height - - Body Mass Index 38.27 02/01/2023 3:55 PM EDT documented in this encounter Functional Status Functional [...] as of this encounter Progress Notes * Stephen Diaz MD - 06/04/2023 3:39 PM EST Subjective: Booker Dobbins is a 63 year old male. Chief Complaint Patient presents with Follow Up HPI: 63-year-old seen today per scheduled visit. 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 He finished all of his treatment in late December of 2022. He feels as if he has been doing well. He does have some hoar seness of his voice especially if he talks for awhile. Breathing is okay. We had talked about likelihood of sleep apnea in wanted to get him tested before the cancer diagnosis. He is willing to reschedule with sleep medicine. He had developed transient atrial fibrillation in the perioperative timeframe. He was on Eliquis therapy for awhile but is off of all medicine in that regard. Before surgeryhe had labile but usually uncontrolled blood pressure. He actually has been able to get off of a number of his blood pressure medicines and now is only on losartan 100 mg a day and amlodipine 5 mg a day. He still sees Dr. Lopez his oncologist as well as Dr. Gutierrez or 1 of his physician assistance inradiation Oncology. He is going to set up an [facility] He has some fullness in his anterior neck. Radiation Oncology told him they thought it was edema. He just had a PET-CT scan in March. This did not show any uptake peripherally. There was some uptake at the site of his original tumor in his thought that this most likely represented post surgical changes but persistent tumor at the site could not be totally ruled out. He is scheduled for CT scanof the neck as ordered by Dr. Lopez for tomorrow. He admits to drinking intermittently i.e. bingeing. Last time he drank alcohol was about 2 weeks ago. He does have arrangements to be [facility]. [facility] continues to [facility] at [facility] in [place]. [facility] with his mother in personal care in his father in skilled care. 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 Triamcinolone Acetonide 0.1 % External Cream (Aristocort) Apply topically to affected area 2 times a day . To affected area - lower legs. 453 g 5 Ondansetron HCl 8 MG Oral Tablet Take 1 Tablet by mouth every 8 hours as needed for Nausea. 30 Tablet 0 Prochlorperazine Maleate 10 MG Oral Tablet (Compazine) Take 1 Tablet by mouth every 6 hours as needed for Nausea. 30 Tablet 0 Escitalopram Oxalate 10 MG Oral Tablet (Lexapro) TAKE 1 TABLET BY MOUTH EVERY DAY 90 Tablet 2 amLODIPine Besylate 10 MG Oral Tablet (Norvasc) Take 0.5 Tablets by mouth in the morning. 90 Tablet3 Losartan Potassium 100 MG Oral Tablet (Cozaar) TAKE 1 TABLET BY MOUTH EVERY DAY IN THE MORNING 90 Tablet 2 Apixaban 5 MG Oral Tablet (Eliquis) Take 1 Tablet by mouth in the morning and 1 Tablet before bedtime. (Patient not taking: Reported on 06/04/2023) 60 Tablet 1 No current facility-administered medications for this visit. Review of patient's allergies indicates: No Known Allergies Objective: BP 130/80 | Pulse 101 | Temp 36.6 C (97.8 F) (Infrared ) | Resp 16 | Wt 121.8 kg (268 lb 9.6 oz) | SpO2 99% | BMI 38.27 kg/m | BSA 2.46 m Note his current weight 268 lb compared to about 300 lb before being diagnosed with the squamouscell cancer. Physical Exam: CONST: alert, pleasant, no acute distress HEAD: normocephalic, atraumatic NECK: Has a marked fullness in the anterior aspect of the neck Um under the chin. This is minimallytender. I do not feel any lumps within this bulky area- consistent with diffuse edema. EARS: canals normal, TMs normal Eyes - PERRLA, EOM'I OROPHARYNX: I do not see any mass in the right posterior pharynx or around the right tonsillar pillar where his original tumor was present. CV: regular rate and rhythm, no murmur CHEST: clear to auscultation bilaterally, no rales or wheezing ABD: soft, non tender, non distended, no masses or hepatosplenomegaly EXT: Trace to 1+ bilateral ankle edema, no joint swelling or deformities, ASSESSMENT/PLAN: HTN, goal below 140/90-markedly improved. Continue losartan 100 mg daily and amlodipine a total of 5 mg daily. Squamous cell in-situ U of tongue-he is done quite well with the treatment regimen. He will continue to follow with Dr. Reynolds in Radiation Oncology. He will get CT scan of the neck tomorrow High-risk sleep apnea-she is going to schedule evaluation with sleep medicine Alcoholism-highly encouraged to keep his appointment with [facility] and remain sober. He just had a CBC and comprehensive metabolic panel 2 weeks ago. I do not need any additional Stephen Diaz MD documented in this encounter Nursing Notes * Mona Marroquin LPN - 06/04/2023 3:12 PM EST Chief Complaint Patient presents with Follow Up documented in this encounter Plan of Treatment Upcoming Encounters Date Type Department Care Team (Late st Contact Info) Description 12/03/2023 3:00 PM EDT Office Visit [facility] [address] [place] [address] Stephen Diaz MD [address] [place] [address] Scheduled Procedures Name Priority Associated Diagnoses Date/Ti [...] as of this encounter Visit Diagnoses Diagnosis 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 IF he is unable to decide for himself his parents will decide for him. Question Answer Comments Discussion of Advance Directives occurred with: Patient Care Teams Electrical Assembler Relationship Specialty Start Date End Date Setphen Diaz MD [address] [place] [address] PCP - General Family Medicine 05/29/13 documented as of this encounter"
--- OUTSIDE RECORDS SUMMARY | 2023-08-31 14:22 | External Medical Summary | Summary of Care ---
Author Name Unknown Organization [facility] Address [address] [place] [address] Phone [phone] Care Team Providers Care Nursing Assistant Name Role Phone Stephen Diaz MD Primary Care Provider [phone] Encounter Details Date Type Department Care Team (Late st Contact Info) Description 07/19/2023 Orders Only PATIENT PORTAL DO NOT DELETE THIS DEPT USED BY W[facility] GALO [id number] Allergies No known active allergiesdocumented as of this encounter (statuses as of 07/19/2023) Medications Medication Sig Dispensed Refills Start Date [...] as of this encounter (statuses as of 07/19/2023) Active Problems Problem Noted Date Diagnosed Date Body mass index (BMI) of 40.0 to 44.9 in adult 1 05/04/2022 Overview: Per Obesity protocol - Per Obesity protocol - Per Obesity protocol - Per Obesity protocol - Per Obesity protocol Low blood pressure 12/03/2022 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 Encounter for antineoplastic chemotherapy 2022 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 Atrial fibrillation 09/21/2022 Dyspnea on exertion 09/21/2022 Bradycardia, unspecified 02/06/2022 Major depressive disorder, single episode, moder ate 10/29/2019 Personal history of alcoholism 05/24/2016 Vitamin D deficiency 09/25/2013 HTN (hypertension) 09/25/2013 Dyslipidemia, goal LDL below 100 09/25/2013 Overview: 10 year CV risk = 5.9% Rosacea 05/29/2013 documented as of this encounter (statuses as of 07/19/2023) Resolved Problems Problem Noted Date Diagnosed Date [...] as of this encounter (statuses as of 07/19/2023) Immunizations Name Administration Dates Next Due Pneumococcal Conjugate Vacci ne, 20-valent ([id number]) 02/06/2022 Season Influenza, Quad, PF, Adjuvanted, 65+ [...] Description 08/12/2023 2:15 PM EDT Imaging Radiology [address] [address] 09/10/2023 2:15 PM EDT Office Visit Otolaryngology/Head & Neck/Facial Plastic Surgery [address] [place] [address] Parisa Ashford MD [address] [place] [address] 12/03/2023 3:00 PM EDT Office Visit [facility] [address] [place] [address] Stephen Diaz MD [address], [place] [id number] Scheduled Procedures Name Priority Associated Diagnoses Date/Ti [...] Not on filedocumented as of this encounter Advance Directives Latest Code Status on File Code Status Date Activated Date Inactivated Comments Full Code 09/21/2022 12:08 AM 10/04/2022 5:08 PM This order reflects the patients wishes and were consensually agreed upon. IF he is unable to decide for himself his parents will decide for him. Question Answer Comments Discussion of Advance Directives occurred with: Patient Care Teams Nursing Assistant Relationship Specialty Start Date End Date Stephen Diaz MD [address] [place] [address] PCP - General Family Medicine 05/29/13 documented as of this encounter
--- OUTSIDE RECORDS SUMMARY | 2023-08-31 14:22 | External Medical Summary ---
Author Name Unknown Address Unknown Organization [facility] [address] [place] [address] Laboratory Report Ordering Provider Test Date Status JESSICA CALZADA 07/30/2023 14:02:41 Final Observation Date Value Abnormality Reference (Units ) Status SYNC LEUKOCYTES IN BLOOD BY AUTOMATED COUNT 07/30/2023 14:02:41 3.86 Below low normal 4.00-10.80 (K/uL) Final Segs 07/30/2023 14:02:41 47.3 40.0-75.0 (%) Final Lymphs % 07/30/2023 14:02:41 19.2 18.0-42.0 (%) Final Monos 07/30/2023 14:02:41 29.3 Above high normal 1.0-11.0 (%) Final Eosinophils 07/30/2023 14:02:41 3.9 0.0-6.0 (%) Final Basos 07/30/2023 14:02:41 0.3 0.0-2.0 (%) Final Absolute Segs 07/30/2023 14:02:41 1.83 1.80-7.70 (K/uL) Final Lymphs, absolute 07/30/2023 14:02:41 0.74 Below low normal 1.00-4.80 (K/ul) Final Monos, Abs 07/30/2023 14:02:41 1.13 Above high normal 0.00-1.10 (K/uL) Final Eos, Abs 07/30/2023 14:02:41 0.15 0.00-0.70 (K/uL) Final Basos, Abs 07/30/2023 14:02:41 0.01 0.00-0.20 (K/uL) Final Performing Location [facility] [address] [place] [address]
--- OUTSIDE RECORDS SUMMARY | 2023-08-31 14:22 | External Medical Summary | Summary of Care ---
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) Procedures CT NECK W CONTRAST Parisa Ashford MD [address] [place] [address] Referral ID Status Reason Start Date Expiration Date V isits Requested Visits Authorized [id number] Pending Review 01/16/2024 999 999 Reason for Visit * Reason Comments Follow Up Encounter Details Date Type Department Care Team (Late st Contact Info) Description 07/16/2023 2:15 PM EDT Office Visit Otolaryngology/Head & Neck/Facial Plastic Surgery [address] [place] [address] Parisa Ashford MD [address] [place] [address] Primary cancer of base of [...] Next Due Pneumococcal Conjugate Vacci ne, 20-valent ([id number]) 02/06/2022 Season Influenza, Quad, PF, Adjuvanted, 65+ [...] Ashford MD - 07/16/2023 1:51 PM EDT [facility] [place] - [place] and Neck Surgery Progress [...] performed by Mazin Mccoy MD at [place] [facility] [place]ONOSCOPY, DIAGNOSTIC (RECTUM) 12/06/2015 adenomatous polyp, diverticulosis, repeat 5 yrs/COLONOSCOPY FLEXIBLE PROXIMAL DIAGNOSTIC performed by Darren Meyers MD at ENDOSCOPY [facility] HE[facility] ELECTROCONVERSION, EXTERNAL 09/26/2022 DC CARDIOVERSION performed by Hattie Terrell MD at [facility]ARD[place] [facility] A/P: Booker Dobbins is a 63 year [...] Description 12/03/2023 3:00 PM EDT Office Visit [facility] [address] [place] [address] Stephen Diaz MD [address] [place] [address] Scheduled Orders Name Type Priority [...] Advance Directives occurred with: Patient Care Teams Research Microbiologist Relationship Specialty Start Date End Date Stephen Diaz MD [address] [place] [address] PCP - General Family Medicine 05/29/13 documented as of this encounter
--- OUTSIDE RECORDS SUMMARY | 2023-08-31 14:22 | External Medical Summary ---
Author Name Unknown Address Unknown Organization [facility]0G:[facility] [address] [place] [address] Laboratory Report Ordering Provider Test Date Status JESSICA CALZADA 07/30/2023 14:02:41 Final Observation Date Value Abnormality Reference (Units ) Status WBC, Total 07/30/2023 14:02:41 3.86 Below low normal 4. 00-10.80 (K/uL) Final RBC 07/30/2023 14:02:41 3.62 4.50-5.25 (M/uL) Final Hemoglobin 07/30/2023 14:02:41 10.9 Below low normal 14 .0-16.8 (g/dL) Final HCT 07/30/2023 14:02:41 34.3 Below low normal 40. 0-48.4 (%) Final MCV 07/30/2023 14:02:41 94.8 82.0-99.5 (fL) Final MCH 07/30/2023 14:02:41 30.1 27.0-34.0 (pg) Final MCHC 07/30/2023 14:02:41 31.8 32.0-36.0 (g/dL) Final RDW 07/30/2023 14:02:41 14.8 11.5-15.5 (%) Final Platelets 07/30/2023 14:02:41 246 140-400 (K /uL) Final MPV 07/30/2023 14:02:41 9.9 6.6-11.1 ( fL) Final Performing Location [facility] [address] [place] [address]
--- OUTSIDE RECORDS SUMMARY | 2023-08-31 14:23 | External Medical Summary | Summary of Care ---
Author Name Unknown Organization [facility] Address [address] [place] [address] Phone [phone] Care Team Providers Care Carpet Layer Helper Name Role Phone Stephen Diaz MD Primary Care Provider [phone] Encounter Details Date Type Department Care Team (Late st Contact Info) Description 06/04/2023 Population Health External Data Unspecified Department Allergies No known active allergiesdocumented as of this encounter (statuses as of 06/04/2023) Medications Medication Sig Dispensed Refills Start Date End Date Status Multiple Vitamins-Minerals (CENTRUM SILVER ULTRA MENS) Tablet Take 1 Tablet by mouth in the morning. 0 Active Triamcinolone Acetonide 0.1 % External Cream (Aristocort)Indica tions:Stasis dermatitis of both legs Apply topically to affected area 2 times a day . To affected area - lower legs. 453 g 5 02/06/2022 Active Furosemide 40 MG Oral Tablet (Lasix)Indications :HTN, goal below 140/90 Take 1 Tablet by mouth in the morning. 90 Tablet 3 09/26/2022 Active Apixaban 5 MG Oral Tablet (Eliquis) Take 1 Tablet by mouth in the morning and 1 Tablet before bedtime. 60 Tablet 1 10/04/2022 Active Ondansetron HCl 8 MG Oral TabletIndications: Oropharyngeal cancer (HCC) Take 1 Tablet by mouth every 8 hours as needed for Nausea. 30 Tablet 0 11/06/2022 Active Prochlorperazine Maleate 10 MG Oral Tablet (Compazine)Indicat ions:Oropharyngeal cancer (HCC) Take 1 Tablet by mouth every 6 hours as needed for Nausea. 30 Tablet 0 11/06/2022 Active OLANZapine 10 MG Oral Tablet (ZyPREXA)Indicatio ns:Oropharyngeal cancer (HCC) Take 10mg (1 tab) before bed x4 nights starting the day of chemotherapy 12 Tablet 0 11/11/2022 Active Escitalopram Oxalate 10 MG Oral Tablet (Lexapro)Indicatio ns:Major depressive disorder, single episode, moderate (HCC) TAKE 1 TABLET BY MOUTH EVERY DAY 90 Tablet 2 12/02/2022 Active amLODIPine Besylate 10 MG Oral Tablet (Norvasc)Indicatio ns:HTN, goal below 140/90 Take 0.5 Tablets by mouth in the morning. 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 09/30/2022 Atrial fibrillation 09/21/2022 Dyspnea on exertion 09/21/2022 Bradycardia, unspecified 02/06/2022 Major depressive disorder, single episode, moder ate 10/29/2019 Personal history of alcoholism 05/24/2016 Vitamin D deficiency 09/25/2013 HTN (hypertension) 09/25/2013 Dyslipidemia, goal LDL below 100 09/25/2013 Overview: 10 year CV risk = 5.9% Rosacea 05/29/2013 documented as of this encounter (statuses as of 06/04/2023) Resolved Problems Problem Noted Date Diagnosed Date [...] as of this encounter (statuses as of 06/04/2023) Immunizations Name Administration Dates Next Due Pneumococcal Conjugate Vacci ne, 20-valent ([id number]) 02/06/2022 Season Influenza, Quad, PF, Adjuvanted, 65+ Yrs, IM (FLUAD) 01/25/2020 Seasonal Influenza, PF, 6 M & above, IM , (FluLaval or Fluzone) 02/01/2023,02/06/2022,2021,2017 TDAP (age 10 and older)(Boostrix) 09/05/2017 TDAP (age 11 and older)(Adacel) 04/22/2007 Zoster Vaccine Recombinant (Shingrix) 04/26/2020 ,12/01/2019 documented as of this encounter Social History Tobacco Use Types Packs/Day Years Used Date Smoking Tobacco: Never Smokeless Tobacco: Never Alcohol Use Standard [...] Description 06/04/2023 3:00 PM EST Office Visit [facility] [address] [place] [address] Stephen Diaz MD [address] [place] [address] 06/05/2023 4:15 PM EST Imaging Radiology [address] [facility] [place] [address] 06/05/2023 4:30 PM EST Imaging Radiology [address] [facility] [place] [address] Scheduled Procedures Name Priority Associated Diagnoses Date/Ti [...] Advance Directives occurred with: Patient Care Teams Carpet Layer Helper Relationship Specialty Start Date End Date Stephen Diaz MD [address] [place] [address] PCP - General Family Medicine 05/29/13 documented as of this encounter
--- OUTSIDE RECORDS SUMMARY | 2023-08-31 14:23 | External Medical Summary | Summary of Care ---
Author Name Unknown Organization [facility] Address [address] [place] [address] Phone [phone] Care Team Providers Care Associate Curator Name Role Phone Stephen Diaz MD Primary Care Provider [phone] Encounter Details Date Type Department Care Team (Late st Contact Info) Description 05/29/2023 Population Health External Data Unspecified Department Allergies No known active allergiesdocumented as of this encounter (statuses as of 05/29/2023) Medications Medication Sig Dispensed Refills Start Date [...] as of this encounter (statuses as of 05/29/2023) Active Problems Problem Noted Date Diagnosed Date [...] as of this encounter (statuses as of 05/29/2023) Resolved Problems Problem Noted Date Diagnosed Date [...] as of this encounter (statuses as of 05/29/2023) Immunizations Name Administration Dates Next Due Pneumococcal Conjugate Vacci ne, 20-valent ([id number]) 02/06/2022 Season Influenza, Quad, PF, Adjuvanted, 65+ [...] Description 06/04/2023 3:00 PM EST Office Visit [facility] [address] [place] [address] Stephen Diaz MD [address] [place] [address] Scheduled Procedures Name Priority Associated Diagnoses Date/Ti me COLONOSCOPY FLEXIBLE PROXIMAL DIAGNOSTIC Recall History of colon polyps Health Maintenance Due Date Last Done Comments Albumin/Creatinine Ratio 02/04/1980 Depression Screening 10/28/2020 10/29/2019 COLONOSCOPY-EVERY 5 YRS AGES 18-100 12/05/2020 12/06/2015, 12/06/2015 COVID-19 Vaccine ( season) 2022 09/15/2020, 08/25/2020 GFR 05/22/2024 05/22/2023, [...] Advance Directives occurred with: Patient Care Teams Associate Curator Relationship Specialty Start Date End Date Stephen Diaz MD [address] [place] [facility] [place] [place] [address] PCP - General Family Medicine 05/29/13 documented as of this encounter
--- OUTSIDE RECORDS SUMMARY | 2023-08-31 14:23 | External Medical Summary | Summary of Care ---
Author Name Unknown Organization [facility] Address [address] [place] [address] Phone [phone] Care Team Providers Care Fire Hydrant Operator Name Role Phone Stephen Diaz MD Primary Care Provider [phone] Encounter Details Date Type Department Care Team (Late st Contact Info) Description 05/30/2023 Population Health External Data Unspecified Department Allergies No known active allergiesdocumented as of this encounter (statuses as of 05/30/2023) Medications Medication Sig Dispensed Refills Start Date [...] as of this encounter (statuses as of 05/30/2023) Active Problems Problem Noted Date Diagnosed Date [...] as of this encounter (statuses as of 05/30/2023) Resolved Problems Problem Noted Date Diagnosed Date [...] as of this encounter (statuses as of 05/30/2023) Immunizations Name Administration Dates Next Due Pneumococcal Conjugate Vacci ne, 20-valent ([id number]) 02/06/2022 Season Influenza, Quad, PF, Adjuvanted, 65+ [...] Description 06/04/2023 3:00 PM EST Office Visit [facility] [address] [place] [id number] Stephen Diaz MD [address] [place] [address] Scheduled Procedures Name Priority Associated [...] Advance Directives occurred with: Patient Care Teams Fire Hydrant Operator Relationship Specialty Start Date End Date Stephen Diaz MD [address] [place] [id number] PCP - General Family Medicine 05/29/13 documented as of this encounter
[2023-08-31 14:40] LABS: Base Excess ABG -8.7 mEq/L (-9-1.8); HCO3 ABG 23 mmol/L (19-24); PCO2 ABG 74 mmHg (35-46); PO2 ABG 65 mmHg (80-95)
[2023-08-31] MEDS: AMIODARONE 150MG / 100ML D5W IV ONE (14:42)
[2023-08-31 14:46] LABS: Basophils # (auto) 0.08 K/uL (0.00-0.20); Eosinophils # (auto) 0.11 K/uL (0.00-0.50); Eosinophils % (auto) 1.3 %; Hematocrit (blood only) 46.1 % (42.0-52.0); Hemoglobin 14.5 g/dl (14.0-18.0); Immature Granulocytes # (auto) 0.35 K/uL (0.01-0.20); Immature Granulocytes % (auto) 4.2 %; Lymphocytes # (auto) 2.88 K/uL (1.20-3.40); Lymphocytes % (auto) 34.8 %; Mean Corpuscular Hgb Conc 31.5 g/dL (32.0-36.0); Mean Corpuscular Volume 95.2 fL (80.0-100.0); Monocytes # (auto) 0.64 K/uL (0.11-0.59); Monocytes % (auto) 7.7 %; Neutrophils # (auto) 4.21 K/uL (1.40-6.50); Platelet Count 320 K/uL (130-400); RDW Coefficient of Variation 15.9 % (11.5-14.5); Red Blood Count 4.84 M/uL (4.70-6.10); White Blood Count 8.27 K/ul (4.8-10.8)
[2023-08-31 14:53] LABS: INR 1.1 (0.9-1.1); Partial Thromboplastin Time 27 Seconds (21-31); Prothrombin Time 11.7 Seconds (9.0-12.0)
[2023-08-31 14:53] LABS: Allen Test Pos (Pos); Oxygen Saturation ABG 87.1 % (90-95)
[2023-08-31] MEDS: NOREPINEPHRINE/D5W 4 MG/250 ML PLCT IV SCH (14:56)
[2023-08-31] MEDS ORDERED: PROPOFOL BOLUS FROM BAG IV PRN (14:59)
[2023-08-31 15:02] LABS: Alanine Aminotransferase 84 U/L (7-52); Albumin Level 3.8 gm/dl (3.4-5.0); Alkaline Phosphatase 71 U/L (34-104); Anion Gap 18 (3-11); Aspartate Aminotransferase 162 U/L (13-39); BUN Creatinine Ratio 10.5 (10-20); Bilirubin Direct 0.2 mg/dl (0-0.2); Bilirubin,Total 0.9 mg/dl (0.2-1.0); Blood Urea Nitrogen 9 mg/dl (6-23); Calcium 8.1 mg/dl (8.6-10.3); Carbon Dioxide 24 mmol/L (21-32); Chloride 100 mmol/L (98-107); Est GFR (African American) 108.5 ml/min; Est GFR (Non-African American) 93.6 ml/min; Glucose 120 mg/dl (70-99(Fasting)); Magnesium 2.1 mg/dl (1.7-2.4); Potassium 3.2 mmol/L (3.5-5.1); Sodium 142 mmol/L (136-145); Total Protein 6.8 gm/dl (6.0-8.3)
[2023-08-31] MEDS ORDERED: STAT IV Infusion **Titration per Protocol STA ×2 (15:02→17:25)
[2023-08-31 15:15] LABS: Troponin I High Sensitivity 140.1 pg/ml (0-20)
[2023-08-31] MEDS ORDERED: NOREPINEPHRINE/D5W 4 MG/250 ML PLCT IV SCH (15:15)
--- NOTE | 2023-08-31 15:15 | Communication Note ---
Date of Service: August 31, 2023 Patient seen in ED after heart alert activated en route. [facility] ~15 minutes of CPR for PEA until ROSC Unresponsive and intubated in ED. Patient with a history perioperative AF not on anticoagulation and prior RBBB. Other medical history included oral SCC in remission, HTN, SIMRAN and lymphedema with prior venous ulcers. Also reported history of alcoholism with prior fall/trauma. ECG post ROSC with EMS shows AF with very wide RBBB and lateral ST depressions. On follow-up ECG in ED AF with RVR, iRBBB with less prominent lateral ST changes. With no ST elevation or ventricular arrhythmia will defer urgent cardiac catheterization at this time. Can reconsider further ischemic evaluation pending clinical course.
--- NOTE | 2023-08-31 15:18 | Emergency Department Note ---
Impression & Plan Cardiac arrest, Acute alcohol intoxication, Respiratory arrest, Acidosis, Atrial fibrillation with RVR, Fracture, ribs ED Provider Note ED Provider Note NAME: SAGE OLIVERA AGE: 63 SEX: M : 1960 ARRIVES VIA: INFORMANT: EMS, outpatient records ED PROVIDER(S): Sly Almodovar MD CHIEF COMPLAINT: Found down, cardiac arrest, respiratory arrest MEDICAL DECISION MAKING: Patient presented as a postarrest. Unsure as to whether or not has cardiac or respiratory etiology as the patient's end-tidal was elevated in the 90s. This did improve upon presentation with persistent bagging. Patient did receive 2 A of bicarb a gram of calcium IV fluids and Acosta was placed as well as 2 peripheral IVs. The patient did seem to be trying to take breaths versus agonal breathing. Patient did have a manual blood pressure of 130/60 and did receive etomidate and rocuronium. Intubation was slightly difficult as the patient's arytenoids were severely enlarged tube was placed without complication with good bilateral breath sounds. Postintubation chest x-ray ordered along with blood work IV fluids amiodarone 150 mg. Patient did have a drop in his blood pressure which is mainly checked which was still low so Levophed was started which showed improvement in the patient's blood pressure. I did speak the on-call hospital service. After further discussion with Dr. Kowalski he does not believe that he requires cardiac catheterization at this time. I did speak with Dr. Flower and TELLY Marrero. Apple Picking Supervisor Dr. Gallardo was made aware of the patient by the inpatient service. Patient went over to CAT scan after improvement in the blood pressure on low-dose Levophed. After discussion with the inpatient service they will place on heparin in light of outpatient note shows that the patient may not be taking his Eliquis. Patient's blood work showed a white count of 8's. Hemoglobin is normal. The patient's platelet count was normal. Kidney function was normal. Initial lactate of 9.8. Calcium of 8.1. Patient's initial troponin of 140. Procalcitonin negative. Urinalysis without evidence of obvious infection. Alcohol level was positive at 305. The patient was admitted to the intensive care unit after CAT scans. Patient CT of the head was negative cervical spine negative. CT of the chest does show possible aspiration as well as rib fractures. CT abdomen pelvis showed no acute abnormalities. Critical Care: I have personally spent 125 minutes of critical care time in direct management of this patient. This includes bedside care, interpretation of diagnostic studies, and testing, discussion with consultants, patient, and family members, and other require inpatient management activities. This 125 minutes is in excess of all separately billable procedures. Procedures: Endotracheal Intubation performed by Dr. Almodovar Indication respiratory and cardiac arrest. The patient was on 100% oxygen via NRB prior to the procedure. Suction, airway equipment, RSI drugs, respiratory equipment, and appropriate personnel were prepared prior to the initiation of the procedure. A time out was taken. Induction was performed with etomidate and paralysis performed using rocuronium. After observing the clinical benefit of the medications, the patient did have a large tongue and the patient's arytenoids did appear to be edematous and there was fluid coming from the trachea, cords were visualized utilizing a MAC 3. A 7.5 size ETT tube was placed atraumatically to 25 cm using standard technique. The cuff inflated without signs of malfunction. There were bilateral breath sounds, positive colormetric change, no gastric sounds, a good capnography waveform, and post procedure pulse oximetry was 97%. Post intubation sedation with propofol there were no complications. Discussion w/ other healthcare providers: Dr. Kowalski interventional cardiology TELLY Marrero and Dr. Flower with [facility] inpatient medicine service Prior /Outside records reviewed: I reviewed and patient discharge note from Dr. 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 Medication list lists Eliquis the patient's note reports that he may not be on this. Differential diagnosis: Cardiac arrest, respiratory arrest, alcohol intoxication, drug use, acidosis, Diagnostics, as interpreted by me: ECG: Prior prehospital EKG shows atrial flutter versus fibrillation with a QRS, rate of [address] depressions in the lateral leads. A-fib with RVR, rate 150, normal QRS duration, normal axis no ST elevations ST depressions noted in the lateral leads. Incomplete right bundle branch block noted. Cardiac monitoring: An order was placed for continuous cardiac monitoring. The monitor shows a rate of 135 with irregularly irregular and tachycardic rhythm. Patient was placed on pulse oximetry Medical decision rules: None Imaging studies: I informally interpreted the patient's Chest x-ray that shows satisfactory positioning of the ET tube but is above the lilliana with formal report to follow. HPI: Patient presents as a cardiac arrest who did get ROSC. Report was that the patient was found down on the [address] on [facility] in [place]. EMS arrived noticed patient to be apneic and pulseless. They provided CPR for 15 minutes given 3 rounds of epi and had return of spontaneous circulation. No shocks. The patient was noted to be in wide-complex tachycardia prior to arrival and upon presentation. Patient does have a known history of A-fib per review of the patient's medical records and may be on Eliquis. Patient also with a history of squamous cell carcinoma. Patient is unable to provide any history given the patient's acuity. PAST MEDICAL HISTORY: See Below PAST SURGICAL HISTORY: See Below SOCIAL HISTORY: See Below HOME MEDICATIONS: See Below ALLERGIES: See Below VITALS: See Below PHYSICAL EXAMINATION: GENERAL: Severe distress. I gel in place with [id number] respirations being administered EYE EXAM: Normal conjunctiva. PERRL, no anisocoria and EOM's grossly intact w/o pain. OROPHARYNX: Moist mucus membranes, grossly normal dentition. Large tongue. Arytenoid cartilage did appear to be swollen. NECK: Trachea midline, no stridor. Supple, no nuchal rigidity, no adenopathy, non-tender. No signs of meningismus. FROM of the neck with good chin to chest and neck extension. LUNGS: Clear to auscultation. Normal chest wall mechanics. HEART: Tachycardic and irregularly irregular, no MRG. ABDOMEN: Abdomen soft, no masses. BACK: No obvious bruising. SKIN: No rashes and no bruising. UPPER EXTREMITIES: Upper extremities are grossly normal. LOWER EXTREMITIES: Grossly normal, no edema. IO in LLE. NEURO EXAM: GCS of 3T no spontaneous movement of extremities. Past Med/Surg History Medical History (Updated 09/03/23 @ 12:49 by Sly Almodovar MD) Compound fracture right humerous History of cardioversion (09/26/22) Hattie Terrell [place] [facility] [facility] [facility] [place] History History of bronchoscopy (10/03/22) Mazin Mccoy MD [place] [facility] History of colonoscopy (12/06/15) Darren Meyers MD at [facility]COPY [facility] Family History Father Prostate cancer Mother No problems noted. Sister No problems noted. Sister No problems noted. Sister No problems noted. Brother No problems noted. Daughter No problems noted. Daughter No problems noted. Social History Smoking Status: Never smoker packs per day: 1; Second Hand Exposure: No; Do You Dip or Chew Tobacco: No; Hx Alcohol Use: Yes Hx Substance Use: No Preferred Language: Yakut Communication Ability: Unable Visual Impairment: Limited Hearing Ability: Normal Airdox Fitter Required: No Beliefs That Will Affect Care: None How many Children do You have: 2 Feels Safe at Home: Yes Childhood Exposure to Second-Hand Smoke: No Diet: regular during the past year weight has: remained stable Dental Care, Regularly: No Assistive Devices: Glasses Allergies Allergies Allergy/AdvReac Type Severity Reaction Status Date / Time No Known Allergies Allergy Unverified 01/15/23 08:15 Home Meds Home Medications Medication Instructions Recorded Confirmed amlodipine 5 mg tablet 5 mg PO DAILY 02/29/20 08/31/23 escitalopram oxalate 10 mg tablet 10 mg PO DAILY 02/29/20 08/31/23 losartan 100 mg tablet (Cozaar) 100 mg PO DAILY 10/16/22 08/31/23 multivitamin 1 tab PO DAILY 10/16/22 08/31/23 Results & Data (ED) Vital Signs Vital Signs - 24 hr 08/31/23 14:17 08/31/23 14:21 08/31/23 14:25 Temperature 35.9 C L Temperature Source Acosta Cath ( Temp Sensing) Pulse Rate 167 H 170 H 169 H Pulse Rate [Apical] Pulse Rate from SpO2 Sensor 168 H 155 H Respiratory Rate 18 25 H 21 Respiratory Effort / Characteristics Mechanically Ventilated Blood Pressure 132/68 Blood Pressure [Right Arm] Blood Pressure Mean 89 Blood Pressure Mean [Right Arm] Pulse Oximetry 100 100 100 Oxygen Delivery Method Mechanical Vent Mechanical Vent Fraction of Inspired Oxygen Sepsis Recent Fever Within 48 Hours No Sepsis New/Unexplained Change in Mental Status Yes Sepsis Action Taken by Nursing Physician Notified End-Tidal CO2 49 08/31/23 14:30 08/31/23 14:35 08/31/23 14:35 Temperature Temperature Source Pulse Rate 174 H Pulse Rate [Apical] Pulse Rate from SpO2 Sensor 156 H Respiratory Rate 14 Respiratory Effort / Characteristics Blood Pressure Blood Pressure [Right Arm] Blood Pressure Mean Blood Pressure Mean [Right Arm] Pulse Oximetry 100 100 100 Oxygen Delivery Method Mechanical Vent Mechanical Vent Fraction of Inspired Oxygen Sepsis Recent Fever Within 48 Hours Sepsis New/Unexplained Change in Mental Status Sepsis Action Taken by Nursing End-Tidal CO2 49 08/31/23 14:35 08/31/23 14:35 08/31/23 14:35 Temperature 35.7 C L Temperature Source Pulse Rate 157 H Pulse Rate [Apical] 165 H Pulse Rate from SpO2 Sensor 158 H Respiratory Rate 17 Respiratory Effort / Characteristics Blood Pressure Blood Pressure [Right Arm] 85/72 L Blood Pressure Mean Blood Pressure Mean [Right Arm] 76 Pulse Oximetry 100 100 Oxygen Delivery Method Mechanical Vent Fraction of Inspired Oxygen Sepsis Recent Fever Within 48 Hours Sepsis New/Unexplained Change in Mental Status Sepsis Action Taken by Nursing End-Tidal CO2 36 08/31/23 14:37 08/31/23 14:37 08/31/23 14:40 Temperature 35.7 C L 36.0 C L Temperature Source Pulse Rate 149 H 154 H Pulse Rate [Apical] Pulse Rate from SpO2 Sensor 150 H 142 H Respiratory Rate 24 24 Respiratory Effort / Characteristics Blood Pressure 85/72 L Blood Pressure [Right Arm] Blood Pressure Mean 75 Blood Pressure Mean [Right Arm] Pulse Oximetry 96 94 Oxygen Delivery Method Fraction of Inspired Oxygen Sepsis Recent Fever Within 48 Hours Sepsis New/Unexplained Change in Mental Status Sepsis Action Taken by Nursing End-Tidal CO2 39 36 08/31/23 14:41 08/31/23 14:41 08/31/23 14:45 Temperature 36.0 C L 36.2 C L Temperature Source Pulse Rate 146 H 130 H Pulse Rate [Apical] Pulse Rate from SpO2 Sensor 138 H 124 H Respiratory Rate 24 24 Respiratory Effort / Characteristics Blood Pressure 96/46 L Blood Pressure [Right Arm] Blood Pressure Mean 75 Blood Pressure Mean [Right Arm] Pulse Oximetry 94 97 Oxygen Delivery Method Fraction of Inspired Oxygen Sepsis Recent Fever Within 48 Hours Sepsis New/Unexplained Change in Mental Status Sepsis Action Taken by Nursing End-Tidal CO2 36 34 08/31/23 14:47 08/31/23 14:47 08/31/23 14:50 Temperature 36.1 C L 36.2 C L Temperature Source Pulse Rate 128 H 122 H Pulse Rate [Apical] Pulse Rate from SpO2 Sensor 117 H 91 H Respiratory Rate 24 24 Respiratory Effort / Characteristics Blood Pressure 53/34 L Blood Pressure [Right Arm] Blood Pressure Mean 44 Blood Pressure Mean [Right Arm] Pulse Oximetry 94 91 Oxygen Delivery Method Fraction of Inspired Oxygen Sepsis Recent Fever Within 48 Hours Sepsis New/Unexplained Change in Mental Status Sepsis Action Taken by Nursing End-Tidal CO2 34 33 08/31/23 14:52 08/31/23 14:52 08/31/23 14:55 Temperature 36.3 C L 36.3 C L Temperature Source Pulse Rate 115 H 120 H Pulse Rate [Apical] Pulse Rate from SpO2 Sensor 99 H 92 H Respiratory Rate 24 24 Respiratory Effort / Characteristics Blood Pressure 46/35 L Blood Pressure [Right Arm] Blood Pressure Mean 37 Blood Pressure Mean [Right Arm] Pulse Oximetry 91 90 Oxygen Delivery Method Fraction of Inspired Oxygen Sepsis Recent Fever Within 48 Hours Sepsis New/Unexplained Change in Mental Status Sepsis Action Taken by Nursing End-Tidal CO2 33 31 08/31/23 14:56 08/31/23 14:56 08/31/23 15:00 Temperature 36.3 C L 36.3 C L Temperature Source Pulse Rate 130 H 140 H Pulse Rate [Apical] Pulse Rate from SpO2 Sensor 75 140 H Respiratory Rate 24 24 Respiratory Effort / Characteristics Blood Pressure 51/31 L Blood Pressure [Right Arm] Blood Pressure Mean 35 Blood Pressure Mean [Right Arm] Pulse Oximetry 90 93 Oxygen Delivery Method Fraction of Inspired Oxygen Sepsis Recent Fever Within 48 Hours Sepsis New/Unexplained Change in Mental Status Sepsis Action Taken by Nursing End-Tidal CO2 31 33 08/31/23 15:00 08/31/23 15:02 08/31/23 15:05 Temperature 36.3 C L Temperature Source Pulse Rate 150 H 138 H Pulse Rate [Apical] Pulse Rate from SpO2 Sensor 143 H Respiratory Rate 24 24 Respiratory Effort / Characteristics Blood Pressure 74/55 L Blood Pressure [Right Arm] Blood Pressure Mean 61 Blood Pressure Mean [Right Arm] Pulse Oximetry 95 94 Oxygen Delivery Method Fraction of Inspired Oxygen 100 Sepsis Recent Fever Within 48 Hours Sepsis New/Unexplained Change in Mental Status Sepsis Action Taken by Nursing End-Tidal CO2 37 33 08/31/23 15:05 08/31/23 15:10 08/31/23 15:11 Temperature 36.2 C L Temperature Source Pulse Rate 142 H Pulse Rate [Apical] Pulse Rate from SpO2 Sensor 139 H Respiratory Rate 20 Respiratory Effort / Characteristics Blood Pressure 79/57 L 69/51 L Blood Pressure [Right Arm] Blood Pressure Mean 59 59 Blood Pressure Mean [Right Arm] Pulse Oximetry 94 Oxygen Delivery Method Fraction of Inspired Oxygen Sepsis Recent Fever Within 48 Hours Sepsis New/Unexplained Change in Mental Status Sepsis Action Taken by Nursing End-Tidal CO2 31 08/31/23 15:11 08/31/23 15:15 08/31/23 15:15 Temperature 36.2 C L 36.1 C L Temperature Source Pulse Rate 143 H 141 H Pulse Rate [Apical] Pulse Rate from SpO2 Sensor 135 H 134 H Respiratory Rate 24 24 Respiratory Effort / Characteristics Blood Pressure Blood Pressure [Right Arm] Blood Pressure Mean Blood Pressure Mean [Right Arm] Pulse Oximetry 99 100 99 Oxygen Delivery Method Mechanical Vent Mechanical Vent Fraction of Inspired Oxygen Sepsis Recent Fever Within 48 Hours Sepsis New/Unexplained Change in Mental Status Sepsis Action Taken by Nursing End-Tidal CO2 35 36 08/31/23 15:17 08/31/23 15:17 Temperature 36.0 C L Temperature Source Pulse Rate 138 H Pulse Rate [Apical] Pulse Rate from SpO2 Sensor 104 H Respiratory Rate 24 Respiratory Effort / Characteristics Blood Pressure 75/52 L Blood Pressure [Right Arm] Blood Pressure Mean 59 Blood Pressure Mean [Right Arm] Pulse Oximetry 100 Oxygen Delivery Method Fraction of Inspired Oxygen Sepsis Recent Fever Within 48 Hours Sepsis New/Unexplained Change in Mental Status Sepsis Action Taken by Nursing End-Tidal CO2 33 Home Medications Current Medication List: was personally reviewed by me Laboratory Data Attestation: I reviewed the patient's lab results. 09/03/23 04:15 09/03/23 04:15 Lab Results 08/31/23 08/31/23 08/31/23 Range/Units 14:29 14:30 14:33 WBC 8.27 (4.8-10.8) K/ul RBC 4.84 (4.70-6.10) M/uL Hgb 14.5 (14.0-18.0) g/dl Hct 46.1 (42.0-52.0) % MCV 95.2 (80.0-100.0) fL MCH 30.0 (25.0-34.0) pg MCHC 31.5 L (32.0-36.0) g/dL RDW Std Deviation 56.0 H (36.4-46.3) fL RDW Coeff of Edouard 15.9 H (11.5-14.5) % Plt Count 320 (130-400) K/uL MPV 10.0 (9.4-12.4) fL Immature Gran % (Auto) 4.2 % Neut % (Auto) 51.0 % Lymph % (Auto) 34.8 % Newton % (Auto) 7.7 % Eos % (Auto) 1.3 % Baso % (Auto) 1.0 % Neut # (Auto) 4.21 (1.40-6.50) K/uL Lymph # (Auto) 2.88 (1.20-3.40) K/uL Newton # (Auto) 0.64 H (0.11-0.59) K/uL Eos # (Auto) 0.11 (0.00-0.50) K/uL Baso # (Auto) 0.08 (0.00-0.20) K/uL Immature Gran # (Auto) 0.35 H (0.01-0.20) K/uL PT 11.7 (9.0-12.0) Seconds INR 1.1 (0.9-1.1) APTT 27 (21-31) Seconds PTT Ratio 1.0 ABG pH (7.35-7.45) ABG pCO2 74 H (35-46) mmHg ABG pO2 65 L (80-95) mmHg ABG HCO3 23 (19-24) mmol/L ABG O2 Saturation 87.1 L (90-95) % ABG Base Excess -8.7 (-9-1.8) mEq/L Ramírez Test Pos (Pos) Oxygen Given HEART ALERT Sodium 142 (136-145) mmol/L Potassium 3.2 L (3.5-5.1) mmol/L Chloride 100 (98-107) mmol/L Carbon Dioxide 24 (21-32) mmol/L Anion Gap 18 H (3-11) BUN 9 (6-23) mg/dl Creatinine 0.86 (0.6-1.4) mg/dl Est Cr Clr Drug Dosing Not Reportable Est GFR ( Amer) 108.5 ml/min Est GFR (Non-Af Amer) 93.6 ml/min BUN/Creatinine Ratio 10.5 (10-20) Glucose 120 H (70-99(Fasting)) mg/dl Lactate 9.8 H* (0.4-2.0) mmol/L Calcium 8.1 L (8.6-10.3) mg/dl Magnesium 2.1 (1.7-2.4) mg/dl Total Bilirubin 0.9 (0.2-1.0) mg/dl Direct Bilirubin 0.2 (0-0.2) mg/dl AST 162 H (13-39) U/L ALT 84 H (7-52) U/L Alkaline Phosphatase 71 (34-104) U/L Troponin I High Sens 140.1 H* (0-20) pg/ml Total Protein 6.8 (6.0-8.3) gm/dl Albumin 3.8 (3.4-5.0) gm/dl Procalcitonin < 0.02 (0-0.5) ng/ml Urine Color Urine Appearance (Clear) Urine pH (4.5-7.5) Ur Specific Ivor (1.000-1.030) Urine Protein (Negative) Urine Glucose (UA) (Negative) Urine Ketones (Negative) Urine Blood (Negative) Urine Nitrite (Negative) Urine Bilirubin (Negative) Urine Urobilinogen (Negative) Ur Leukocyte Esterase (Negative) Urine WBC (Auto) (0-5) /hpf Urine RBC (Auto) (0-2) /hpf U Hyaline Cast (Auto) (0-2) /lpf U Epithel Cells (Auto) (0-2) /hpf Urine Bacteria (Auto) (None Seen) Urine Opiates Screen (Neg) Ur Methadone, Qual (Neg) Urine Barbiturates (Neg) Ur Phencyclidine (PCP) (Neg) U Amphetamin/Meth Scrn (Neg) MDMA (Ecstasy) Screen (Neg) U Benzodiazepines Scrn (Neg) Ur Cocaine Metabolite (Neg) U Marijuana (THC) Screen (Neg) Ethyl Alcohol mg/dL 305.3 H (<10.0) mg/dl 08/31/23 Range/Units 14:35 WBC (4.8-10.8) K/ul RBC (4.70-6.10) M/uL Hgb (14.0-18.0) g/dl Hct (42.0-52.0) % MCV (80.0-100.0) fL MCH (25.0-34.0) pg MCHC (32.0-36.0) g/dL RDW Std Deviation (36.4-46.3) fL RDW Coeff of Edouard (11.5-14.5) % Plt Count (130-400) K/uL MPV (9.4-12.4) fL Immature Gran % (Auto) % Neut % (Auto) % Lymph % (Auto) % Newton % (Auto) % Eos % (Auto) % Baso % (Auto) % Neut # (Auto) (1.40-6.50) K/uL Lymph # (Auto) (1.20-3.40) K/uL Newton # (Auto) (0.11-0.59) K/uL Eos # (Auto) (0.00-0.50) K/uL Baso # (Auto) (0.00-0.20) K/uL Immature Gran # (Auto) (0.01-0.20) K/uL PT (9.0-12.0) Seconds INR (0.9-1.1) APTT (21-31) Seconds PTT Ratio ABG pH (7.35-7.45) ABG pCO2 (35-46) mmHg ABG pO2 (80-95) mmHg ABG HCO3 (19-24) mmol/L ABG O2 Saturation (90-95) % ABG Base Excess (-9-1.8) mEq/L Ramírez Test (Pos) Oxygen Given Sodium (136-145) mmol/L Potassium (3.5-5.1) mmol/L Chloride (98-107) mmol/L Carbon Dioxide (21-32) mmol/L Anion Gap (3-11) BUN (6-23) mg/dl Creatinine (0.6-1.4) mg/dl Est Cr Clr Drug Dosing Est GFR ( Amer) ml/min Est GFR (Non-Af Amer) ml/min BUN/Creatinine Ratio (10-20) Glucose (70-99(Fasting)) mg/dl Lactate (0.4-2.0) mmol/L Calcium (8.6-10.3) mg/dl Magnesium (1.7-2.4) mg/dl Total Bilirubin (0.2-1.0) mg/dl Direct Bilirubin (0-0.2) mg/dl AST (13-39) U/L ALT (7-52) U/L Alkaline Phosphatase (34-104) U/L Troponin I High Sens (0-20) pg/ml Total Protein (6.0-8.3) gm/dl Albumin (3.4-5.0) gm/dl Procalcitonin (0-0.5) ng/ml Urine Color Yellow Urine Appearance Clear (Clear) Urine pH 7.0 (4.5-7.5) Ur Specific Ivor 1.008 (1.000-1.030) Urine Protein 1+ H (Negative) Urine Glucose (UA) Negative (Negative) Urine Ketones Negative (Negative) Urine Blood Negative (Negative) Urine Nitrite Negative (Negative) Urine Bilirubin Negative (Negative) Urine Urobilinogen Negative (Negative) Ur Leukocyte Esterase Trace H (Negative) Urine WBC (Auto) 0-5 (0-5) /hpf Urine RBC (Auto) 0-2 (0-2) /hpf U Hyaline Cast (Auto) 3-5 H (0-2) /lpf U Epithel Cells (Auto) 3-5 H (0-2) /hpf Urine Bacteria (Auto) None Seen (None Seen) Urine Opiates Screen Neg (Neg) Ur Methadone, Qual Neg (Neg) Urine Barbiturates Neg (Neg) Ur Phencyclidine (PCP) Neg (Neg) U Amphetamin/Meth Scrn Neg (Neg) MDMA (Ecstasy) Screen Neg (Neg) U Benzodiazepines Scrn Neg (Neg) Ur Cocaine Metabolite Neg (Neg) U Marijuana (THC) Screen Neg (Neg) Ethyl Alcohol mg/dL (<10.0) mg/dl Administered Medications Enoxaparin Sodium (Enoxaparin 150 Mg/Ml Syr) 135 mg SQ Q12H [facility] Stop: 10/03/23 11:59 Last Admin: 09/03/23 11:17 Dose: 135 mg Documented By: GOVIND Propofol (Diprivan) 1,000 mg in 100 mls @ 28.56 mls/hr IV .Q3H31M RADHA; Protocol Stop: 09/03/23 14:59 Last Admin: 09/03/23 11:26 Dose: 35 mcg/kg/min, 28.6 mls/hr Documented By: GOVIND Co-signed By: ERIC Titration: 09/03/23 11:23 Dose: Infused Documented By: DMB Co-signed By: ERIC Admin: 09/03/23 07:53 Dose: 35 mcg/kg/min, 28.6 mls/hr Documented By: DMB Co-signed By: GPF Titration: 09/03/23 07:51 Dose: Infused Documented By: DMB Co-signed By: GPF Titration: 09/03/23 06:58 Dose: 35 mcg/kg/min, 28.6 mls/hr Documented By: CP Co-signed By: JACEYB Admin: 09/03/23 04:21 Dose: 35 mcg/kg/min, 28.6 mls/hr Documented By: CP Co-signed By: JT Titration: 09/03/23 04:11 Dose: Infused Documented By: CP Co-signed By: JT Admin: 09/03/23 00:41 Dose: 35 mcg/kg/min, 28.6 mls/hr Documented By: CP Co-signed By: JT Titration: 09/03/23 00:39 Dose: Infused Documented By: CP Co-signed By: JT Admin: 09/02/23 21:09 Dose: 35 mcg/kg/min, 28.6 mls/hr Documented By: CP Co-signed By: SG Titration: 09/02/23 21:09 Dose: Infused Documented By: CP Co-signed By: SG Titration: 09/02/23 20:22 Dose: 35 mcg/kg/min, 28.6 mls/hr Documented By: Titration: 09/02/23 19:03 Dose: 30 mcg/kg/min, 24.5 mls/hr Documented By: CP Co-signed By: AMS Admin: 09/02/23 18:55 Dose: Not Given Documented By: Admin: 09/02/23 18:54 Dose: Not Given Documented By: Admin: 09/02/23 17:37 Dose: 30 mcg/kg/min, 24.5 mls/hr Documented By: ES Co-signed By: AMS Titration: 09/02/23 17:37 Dose: Infused Documented By: ES Co-signed By: AMS Titration: 09/02/23 15:33 Dose: 30 mcg/kg/min, 24.5 mls/hr Documented By: Titration: 09/02/23 13:20 Dose: 20 mcg/kg/min, 16.3 mls/hr Documented By: Admin: 09/02/23 13:13 Dose: 30 mcg/kg/min, 24.5 mls/hr Documented By: AMS Co-signed By: ES Titration: 09/02/23 13:11 Dose: Infused Documented By: AMS Co-signed By: ES Titration: 09/02/23 12:41 Dose: 30 mcg/kg/min, 24.5 mls/hr Documented By: Titration: 09/02/23 10:42 Dose: 30 mcg/kg/min, 24.5 mls/hr Documented By: Admin: 09/02/23 07:29 Dose: Not Given Documented By: Titration: 09/02/23 06:53 Dose: 0 mcg/kg/min, 0 mls/hr Documented By: Admin: 09/02/23 05:44 Dose: Not Given Documented By: Admin: 09/02/23 04:48 Dose: 30 mcg/kg/min, 24.5 mls/hr Documented By: CF Co-signed By: SHERRY Titration: 09/02/23 04:05 Dose: Infused Documented By: CF Co-signed By: AKD Admin: 09/02/23 00:00 Dose: 30 mcg/kg/min, 24.5 mls/hr Documented By: CF Co-signed By: MAYTE Titration: 09/02/23 00:00 Dose: Infused Documented By: CF Co-signed By: JT Admin: 09/01/23 19:56 Dose: 30 mcg/kg/min, 24.5 mls/hr Documented By: CF Co-signed By: TMG Titration: 09/01/23 19:18 Dose: Infused Documented By: CF Co-signed By: TMG Titration: 09/01/23 18:56 Dose: 30 mcg/kg/min, 24.5 mls/hr Documented By: CF Co-signed By: AML Titration: 09/01/23 17:40 Dose: 30 mcg/kg/min, 24.5 mls/hr Documented By: Titration: 09/01/23 17:00 Dose: 25 mcg/kg/min, 20.4 mls/hr Documented By: Titration: 09/01/23 16:30 Dose: 20 mcg/kg/min, 16.3 mls/hr Documented By: Admin: 09/01/23 13:54 Dose: Not Given Documented By: Admin: 09/01/23 13:20 Dose: 15 mcg/kg/min, 12.2 mls/hr Documented By: CB Co-signed By: AML Titration: 09/01/23 12:24 Dose: Infused Documented By: Titration: 09/01/23 09:10 Dose: 30 mcg/kg/min, 24.5 mls/hr Documented By: Titration: 09/01/23 09:05 Dose: 25 mcg/kg/min, 20.4 mls/hr Documented By: Titration: 09/01/23 09:00 Dose: 20 mcg/kg/min, 16.3 mls/hr Documented By: Titration: 09/01/23 08:15 Dose: 0 mcg/kg/min, 0 mls/hr Documented By: Admin: 09/01/23 07:29 Dose: 45 mcg/kg/min, 36.7 mls/hr Documented By: AML Co-signed By: CB Titration: 09/01/23 07:23 Dose: Infused Documented By: AML Co-signed By: CB Admin: 09/01/23 04:39 Dose: 45 mcg/kg/min, 36.7 mls/hr Documented By: CF Co-signed By: CP Titration: 09/01/23 04:16 Dose: Infused Documented By: CF Co-signed By: CP Titration: 09/01/23 04:14 Dose: 45 mcg/kg/min, 36.7 mls/hr Documented By: Titration: 09/01/23 03:53 Dose: 40 mcg/kg/min, 32.6 mls/hr Documented By: Titration: 09/01/23 03:45 Dose: 35 mcg/kg/min, 28.6 mls/hr Documented By: Titration: 09/01/23 00:40 Dose: 30 mcg/kg/min, 24.5 mls/hr Documented By: Titration: 09/01/23 00:35 Dose: 25 mcg/kg/min, 20.4 mls/hr Documented By: Titration: 09/01/23 00:30 Dose: 20 mcg/kg/min, 16.3 mls/hr Documented By: Admin: 09/01/23 00:08 Dose: 18.14 mcg/kg/min, 14.8 mls/hr Documented By: CF Co-signed By: HILDA Titration: 09/01/23 00:08 Dose: Infused Documented By: CF Co-signed By: CP Admin: 08/31/23 19:29 Dose: 18.14 mcg/kg/min, 14.8 mls/hr Documented By: AML Co-signed By: REKHA Pantoprazole Sodium 40 mg/ (Syringe) 10 mls @ 5 mls/min IV DAILY@1100 RADHA Stop: 10/01/23 10:59 Last Admin: 09/03/23 11:17 Dose: 5 mls/min Documented By: Admin: 09/02/23 11:45 Dose: 5 mls/min Documented By: Admin: 09/01/23 11:12 Dose: 5 mls/min Documented By: AML Thiamine HCl 100 mg/ Syringe 10 mls @ 2 mls/min IV BID RADHA Stop: 09/30/23 20:59 Last Admin: 09/03/23 07:46 Dose: 2 mls/min Documented By: Admin: 09/02/23 19:50 Dose: 2 mls/min Documented By: Admin: 09/02/23 09:37 Dose: 2 mls/min Documented By: Admin: 09/01/23 20:06 Dose: 2 mls/min Documented By: Admin: 09/01/23 09:04 Dose: 2 mls/min Documented By: Admin: 08/31/23 20:54 Dose: 2 mls/min Documented By: CF Acetaminophen (Ofirmev) 1,000 mg in 100 mls @ 400 mls/hr IV Q8H PRN PRN Reason: temp > 37.5 or pain Stop: 09/04/23 17:39 Last Infusion: 09/02/23 12:53 Dose: Infused Documented By: Admin: 09/02/23 12:34 Dose: 400 mls/hr Documented By: AMS Magnesium Sulfate/Dextrose (Magnesium Sulfate / D5w) 1 gm in 100 mls @ 50 mls/hr IV Q2H RADHA Stop: 09/03/23 13:44 Last Admin: 09/03/23 11:18 Dose: 50 mls/hr Documented By: Infusion: 09/03/23 11:18 Dose: Infused Documented By: Admin: 09/03/23 09:25 Dose: 50 mls/hr Documented By: Infusion: 09/03/23 09:25 Dose: Infused Documented By: Admin: 09/03/23 07:33 Dose: 50 mls/hr Documented By: Infusion: 09/03/23 07:33 Dose: Infused Documented By: Admin: 09/03/23 05:52 Dose: 50 mls/hr Documented By: HILDA Losartan Potassium (Losartan Potassium 50 Mg Tab) 100 mg PO QAM RADHA Stop: 10/02/23 13:44 Last Admin: 09/03/23 07:47 Dose: 100 mg Documented By: Admin: 09/02/23 13:42 Dose: Not Given Documented By: ES Metoprolol Tartrate (Metoprolol Tartrate 1 Mg/Ml Vial) 5 mg IV Q6 RADHA Stop: 10/01/23 11:59 Last Admin: 09/03/23 11:18 Dose: Not Given Documented By: Admin: 09/03/23 05:53 Dose: 5 mg Documented By: Admin: 09/02/23 23:41 Dose: 5 mg Documented By: Admin: 09/02/23 17:41 Dose: 5 mg Documented By: Admin: 09/02/23 11:45 Dose: 5 mg Documented By: Admin: 09/02/23 05:09 Dose: 5 mg Documented By: Admin: 09/01/23 23:35 Dose: 5 mg Documented By: Admin: 09/01/23 17:53 Dose: 5 mg Documented By: Admin: 09/01/23 11:57 Dose: 5 mg Documented By: AML Miscellaneous (Icu Electrolyte Replacement Protocol) 1 each N/A BID@ RADHA; Protocol Stop: 09/07/23 17:59 Last Admin: 09/03/23 05:36 Dose: Not Given Documented By: Admin: 09/02/23 13:43 Dose: Not Given Documented By: Admin: 09/02/23 05:05 Dose: 1 each Documented By: Admin: 09/01/23 18:36 Dose: Not Given Documented By: Admin: 09/01/23 06:27 Dose: 1 each Documented By: Admin: 08/31/23 20:43 Dose: 1 each Documented By: CF Nutritional Formula (Peptamen Intense Vhp 1.0 Chava 1,000 Ml Bag) 1,000 ml OG UD RADHA; Protocol Stop: 10/03/23 10:29 Last Admin: 09/03/23 12:07 Dose: 1,000 ml Documented By: DMB Sterile Water (Tube Feeding Water Flush) 30 ml OG Q4 RADHA Stop: 10/03/23 10:29 Last Admin: 09/03/23 12:07 Dose: 30 ml Documented By: DMB Discontinued Medications Acetaminophen (Acetaminophen 325 Mg Tab) 650 mg PO Q4H PRN PRN Reason: Pain or Fever Stop: 09/30/23 15:19 Last Admin: 09/01/23 13:58 Dose: 650 mg Documented By: Admin: 09/01/23 06:44 Dose: 650 mg Documented By: CF Amiodarone HCl/Dextrose (Amiodarone 360mg / 200ml D5w) Confirm Administered Dose 360 mg IV .STK-MED ONE Stop: 08/31/23 14:21 Last Admin: 08/31/23 17:45 Dose: Not Given Documented By: CB Amiodarone HCl/Dextrose (Amiodarone 150mg / 100ml D5w) Confirm Administered Dose 150 mg IV .STK-MED ONE Stop: 08/31/23 14:22 Last Admin: 08/31/23 14:42 Dose: 150 mg Documented By: ES(2) Co-signed By: SHAUN Fentanyl Citrate (Fentanyl Citrate Pf 100 Mcg/2 Ml Vial) Confirm Administered Dose 100 mcg .ROUTE .STK-MED ONE Stop: 08/31/23 14:48 Last Admin: 08/31/23 15:28 Dose: Not Given Documented By: ES(2) Gadobutrol (Gadobutrol 65ml Vial) 12 ml IV ONCE ONE Stop: 09/01/23 15:11 Last Admin: 09/01/23 15:11 Dose: 12 ml Documented By: ISAIAS Heparin Sodium (Porcine) (Heparin (Porcine) 1000 Unit/Ml 10 Ml (Financial Planner Use Only)) Confirm Administered Dose 10,000 units .ROUTE .STK-MED ONE Stop: 08/31/23 14:48 Last Admin: 08/31/23 15:28 Dose: Not Given Documented By: ES(2) Heparin Sodium (Porcine) (Heparin Sod 5,000 Unit/0.5 Ml Vial) 5,000 units SQ Q12 RADHA Stop: 09/30/23 20:59 Last Admin: 09/03/23 07:47 Dose: 5,000 units Documented By: Admin: 09/02/23 19:50 Dose: 5,000 units Documented By: Admin: 09/02/23 09:37 Dose: 5,000 units Documented By: Admin: 09/01/23 20:06 Dose: 5,000 units Documented By: Admin: 09/01/23 09:02 Dose: 5,000 units Documented By: Admin: 08/31/23 20:53 Dose: 5,000 units Documented By: CF Heparin Sodium/Sodium Chloride (Heparin In Nss Infusion 1000 Unit/500 Ml (2 U/Ml) Bag) Confirm Administered Dose 3,000 units IV .STK-MED ONE Stop: 08/31/23 14:49 Last Admin: 08/31/23 15:28 Dose: Not Given Documented By: ES(2) Sodium Chloride (Nss) 1,000 mls @ 999 mls/hr IV .Q1H1M RADHA Stop: 08/31/23 16:00 Last Infusion: 08/31/23 15:26 Dose: Infused Documented By: ES(2) Admin: 08/31/23 15:26 Dose: 999 mls/hr Documented By: ES(2) Sodium Chloride (Nss) 1,000 mls @ 999 mls/hr IV .Q1H1M RADHA Stop: 08/31/23 17:00 Last Infusion: 08/31/23 16:36 Dose: Infused Documented By: Admin: 08/31/23 15:32 Dose: 999 mls/hr Documented By: ES(2) Infusion: 08/31/23 15:26 Dose: Infused Documented By: ES(2) Admin: 08/31/23 15:26 Dose: 999 mls/hr Documented By: ES(2) Piperacillin Sod/Tazobactam Sod (Zosyn) 4.5 gm in 100 mls @ 200 mls/hr IV NOW STA Stop: 08/31/23 15:28 Last Infusion: 08/31/23 16:00 Dose: Infused Documented By: Admin: 08/31/23 15:30 Dose: 200 mls/hr Documented By: ML Norepinephrine Bitartrate (Levophed/D5w) 4 mg in 250 mls @ 0 mls/hr IV .Q0M [facility]; Protocol Stop: 09/30/23 14:59 Last Titration: 09/01/23 20:07 Dose: Infused Documented By: Admin: 09/01/23 03:53 Dose: Not Given Documented By: Titration: 08/31/23 17:51 Dose: 0 mcg/kg/min, 0 mls/hr Documented By: Titration: 08/31/23 17:51 Dose: 0 mcg/kg/min, 0 mls/hr Documented By: Titration: 08/31/23 16:00 Dose: 0.1 mcg/kg/min, 51 mls/hr Documented By: Titration: 08/31/23 15:59 Dose: 0.15 mcg/kg/min, 76.5 mls/hr Documented By: Titration: 08/31/23 15:26 Dose: 0.12 mcg/kg/min, 61.2 mls/hr Documented By: ES(2) Titration: 08/31/23 15:13 Dose: 0.15 mcg/kg/min, 76.5 mls/hr Documented By: ES(2) Admin: 08/31/23 14:56 Dose: 0.1 mcg/kg/min, 51 mls/hr Documented By: ES(2) Co-signed By: ML Piperacillin Sod/Tazobactam (Sod 4.5 gm/ Dextrose) 100 mls @ 25 mls/hr IV Q8H [facility]; Protocol Stop: 09/02/23 20:59 Last Infusion: 09/02/23 17:14 Dose: Infused Documented By: Admin: 09/02/23 12:53 Dose: 25 mls/hr Documented By: Infusion: 09/02/23 09:10 Dose: Infused Documented By: Admin: 09/02/23 05:04 Dose: 25 mls/hr Documented By: Infusion: 09/02/23 00:19 Dose: Infused Documented By: Admin: 09/01/23 20:06 Dose: 25 mls/hr Documented By: Infusion: 09/01/23 17:26 Dose: Infused Documented By: Admin: 09/01/23 13:25 Dose: 25 mls/hr Documented By: Infusion: 09/01/23 09:40 Dose: Infused Documented By: Admin: 09/01/23 04:39 Dose: 25 mls/hr Documented By: Infusion: 09/01/23 00:57 Dose: Infused Documented By: Admin: 08/31/23 20:54 Dose: 25 mls/hr Documented By: CF Multivitamins 10 ml/ Thiamine HCl 100 mg/ Folic Acid 1 mg/Sodium Chloride 1,011.2 mls @ 500 mls/hr IV .Q2H2M ONE Stop: 08/31/23 19:46 Last Infusion: 08/31/23 20:30 Dose: Infused Documented By: Admin: 08/31/23 18:01 Dose: 500 mls/hr Documented By: CHERI Phenylephrine HCl (Phenylephrine/Nss) 25 mg in 250 mls @ 41.01 mls/hr IV .Q6H6M RADHA; Protocol Stop: 09/30/23 17:29 Last Admin: 09/02/23 05:10 Dose: Not Given Documented By: Admin: 09/02/23 00:19 Dose: Not Given Documented By: Titration: 09/01/23 20:06 Dose: Infused Documented By: REKHA Co-signed By: TMG Admin: 09/01/23 18:37 Dose: Not Given Documented By: Admin: 09/01/23 12:53 Dose: Not Given Documented By: Admin: 09/01/23 06:26 Dose: Not Given Documented By: Admin: 09/01/23 03:54 Dose: Not Given Documented By: Titration: 09/01/23 02:42 Dose: 0 mcg/kg/min, 0 mls/hr Documented By: CF Co-signed By: ARR Titration: 08/31/23 18:12 Dose: 0.3 mcg/kg/min, 24.6 mls/hr Documented By: CB Co-signed By: AML Admin: 08/31/23 17:51 Dose: 0.5 mcg/kg/min, 41 mls/hr Documented By: CB Co-signed By: WS Magnesium Sulfate/Dextrose (Magnesium Sulfate / D5w) 1 gm in 100 mls @ 50 mls/hr IV Q2H RADHA Stop: 09/01/23 04:59 Last Infusion: 09/01/23 05:03 Dose: Infused Documented By: Admin: 09/01/23 02:41 Dose: 50 mls/hr Documented By: Infusion: 09/01/23 02:41 Dose: Infused Documented By: Admin: 09/01/23 00:45 Dose: 50 mls/hr Documented By: Infusion: 09/01/23 00:45 Dose: Infused Documented By: Admin: 08/31/23 22:52 Dose: 50 mls/hr Documented By: Infusion: 08/31/23 22:52 Dose: Infused Documented By: Admin: 08/31/23 20:53 Dose: 50 mls/hr Documented By: CF Potassium Chloride (K Seymour / Wtr) 20 meq in 100 mls @ 50 mls/hr IV Q2H RADHA Stop: 09/01/23 04:59 Last Infusion: 09/01/23 05:03 Dose: Infused Documented By: Admin: 09/01/23 02:42 Dose: 50 mls/hr Documented By: Infusion: 09/01/23 02:42 Dose: Infused Documented By: Admin: 09/01/23 00:45 Dose: 50 mls/hr Documented By: Infusion: 09/01/23 00:45 Dose: Infused Documented By: Admin: 08/31/23 22:52 Dose: 50 mls/hr Documented By: Infusion: 08/31/23 22:52 Dose: Infused Documented By: Admin: 08/31/23 21:02 Dose: 50 mls/hr Documented By: CF Sodium Phosphate 15 mmol/ (Sodium Chloride) 255 mls @ 100 mls/hr IV ONE ONE Stop: 09/01/23 09:32 Last Infusion: 09/01/23 13:02 Dose: Infused Documented By: Admin: 09/01/23 07:26 Dose: 100 mls/hr Documented By: AML Lorazepam 4 mg/ Syringe 3.5 mls @ 2 mls/min IV NOW STA Stop: 09/01/23 07:49 Last Admin: 09/01/23 07:54 Dose: 2 mls/min Documented By: AML Lorazepam 4 mg/ Syringe 4 mls @ 2 mls/min IV NOW STA Stop: 09/01/23 13:09 Last Admin: 09/01/23 13:31 Dose: 2 mls/min Documented By: CB Magnesium Sulfate/Dextrose (Magnesium Sulfate / D5w) 1 gm in 100 mls @ 50 mls/hr IV Q2H RADHA Stop: 09/02/23 09:14 Last Infusion: 09/02/23 09:34 Dose: Infused Documented By: Admin: 09/02/23 07:29 Dose: 50 mls/hr Documented By: Infusion: 09/02/23 07:29 Dose: Infused Documented By: Admin: 09/02/23 05:45 Dose: 50 mls/hr Documented By: CF Potassium Chloride (K Seymour / Wtr) 20 meq in 100 mls @ 50 mls/hr IV Q2H RADHA Stop: 09/02/23 13:05 Last Infusion: 09/02/23 13:36 Dose: Infused Documented By: Admin: 09/02/23 11:44 Dose: 50 mls/hr Documented By: Infusion: 09/02/23 11:34 Dose: Infused Documented By: Admin: 09/02/23 09:34 Dose: 50 mls/hr Documented By: Infusion: 09/02/23 09:28 Dose: Infused Documented By: Admin: 09/02/23 07:28 Dose: 50 mls/hr Documented By: Infusion: 09/02/23 07:28 Dose: Infused Documented By: Admin: 09/02/23 05:45 Dose: 50 mls/hr Documented By: CF Potassium Chloride (K Seym[place] / Wtr) 20 meq in 100 mls @ 50 mls/hr IV Q2H [facility] Stop: 09/03/23 09:44 Last Infusion: 09/03/23 09:53 Dose: Infused Documented By: Admin: 09/03/23 07:33 Dose: 50 mls/hr Documented By: Infusion: 09/03/23 07:33 Dose: Infused Documented By: Admin: 09/03/23 05:52 Dose: 50 mls/hr Documented By: HILDA Ioversol (Optiray 350) Confirm Administered Dose 1 ml .ROUTE .STK-MED ONE Stop: 08/31/23 14:49 Last Admin: 08/31/23 15:28 Dose: Not Given Documented By: ML(2) Ioversol (Optiray 320 125ml) 120 ml IV ONCE ONE Stop: 08/31/23 15:53 Last Admin: 08/31/23 15:52 Dose: 120 ml Documented By: ALF Ioversol (Optiray 320 100ml) 93 ml IV ONCE ONE Stop: 08/31/23 20:45 Last Admin: 08/31/23 20:45 Dose: 93 ml Documented By: SHERINE Lorazepam (Lorazepam 2 Mg/1 Ml Vial) Confirm Administered Dose 4 mg .ROUTE .STK- MED ONE Stop: 09/01/23 07:51 Last Admin: 09/01/23 08:10 Dose: Not Given Documented By: AML Metoprolol Tartrate (Metoprolol Tartrate 1 Mg/Ml Vial) 5 mg IV NOW STA Stop: 09/01/23 07:05 Last Admin: 09/01/23 07:28 Dose: 5 mg Documented By: AML Midazolam HCl (Midazolam Hcl 1 Mg/Ml 2ml Vial) Confirm Administered Dose 2 mg .ROUTE .STK-MED ONE Stop: 08/31/23 14:48 Last Admin: 08/31/23 15:28 Dose: Not Given Documented By: ES(2) Miscellaneous (Rapid Sequence Induction Bag) Confirm Administered Dose 1 each N/A .STK-MED ONE Stop: 08/31/23 14:15 Last Admin: 08/31/23 15:27 Dose: 1 each Documented By: ES(2) Miscellaneous (Stat Iv Infusion Titration Per Protocol) 1 each N/A NOW STA Stop: 08/31/23 15:00 Last Admin: 08/31/23 15:29 Dose: 1 each Documented By: ES(2) Nicardipine HCl (Nicardipine Hcl Inj 2.5 Mg/Ml 10 Ml Amp) Confirm Administered Dose 25 mg .ROUTE .STK-MED ONE Stop: 08/31/23 14:48 Last Admin: 08/31/23 15:28 Dose: Not Given Documented By: ES(2) Nitroglycerin/Dextrose (Nitroglycerin/D5w 100mcg/Ml 20ml Syr) Confirm Administered Dose 2,000 mcg .ROUTE .STK-MED ONE Stop: 08/31/23 14:49 Last Admin: 08/31/23 15:28 Dose: Not Given Documented By: ES(2) Norepinephrine Bitartrate (Norepinephrine/D5w 4 Mg/250 Ml) Confirm Administered Dose 4 mg IV .STK-MED ONE Stop: 08/31/23 14:54 Last Admin: 08/31/23 15:29 Dose: Not Given Documented By: ML(2) Pneumococcal 20-Valent Conj Vacc (Pneumococcal Vaccine (Pcv20) 20-Michelle Conj-Dip Crm/Pf 0.5 Ml Syr) 0.5 ml IM .ONCE ONE Stop: 09/01/23 09:01 Last Admin: 09/02/23 07:29 Dose: Not Given Documented By: ML Propofol (Propofol Iv Emulsion 10 Mg/Ml 100 Ml Vial) Confirm Administered Dose 1,000 mg IV .STK-MED ONE Stop: 08/31/23 14:32 Last Admin: 08/31/23 15:32 Dose: Not Given Documented By: ML(2) Sodium Bicarbonate (Sodium Bicarb 8.4% Inj 50 Meq/50 Ml Syr) 50 meq IV NOW STA Stop: 08/31/23 17:19 Last Admin: 08/31/23 17:27 Dose: 50 meq Documented By: AMB Vecuronium Alpine (Vecuronium Alpine 10 Mg Vial) Confirm Administered Dose 10 mg IV .STK-MED ONE Stop: 09/02/23 10:48 Last Admin: 09/02/23 10:53 Dose: 10 mg Documented By: [facility] Co-signed By: ML Imaging Data Radiologist's Impression: Chest X-Ray 08/31/23 14:45 XR chest 1V portable, XR chest 1V portable CLINICAL HISTORY: post intub TECHNIQUE: Single frontal radiograph of the chest was obtained at 1445 and 1517 hours Comparison: Comparison is made to chest radiograph 07/14/2020 FINDINGS: 1445 hours: Endotracheal tube terminates 5.7 cm from the lilliana. Cardiomegaly is noted. Patchy airspace opacities most prominent in the left upper lobe superimposed upon interstitial thickening. Possible small left pleural effusion. 1517 hours: Endotracheal tube now terminates 6.0 cm from the lilliana. IMPRESSION: 1. Satisfactory position of endotracheal tube. 2. Patchy airspace opacities most prominent in the left upper lobe. ACT 112: Negative or not required by law. Electronically signed by: Aníbal Vallecillo M.D. 08/31/2023 3:28 PM Abdomen/Pelvis CT 08/31/23 14:57 CT abd pelvis IV con only CLINICAL HISTORY: found down TECHNIQUE: Helical axial images of the abdomen and pelvis were obtained and displayed. Automated dose lowering techniques and/or adjustment according to patient size were utilized for this exam. This exam was performed with intravenous contrast. COMPARISON: None available at the time of this dictation. FINDINGS: Lower chest: For findings above the diaphragm, please see CT chest performed same day. Liver: Unremarkable. No focal lesions are seen. Gallbladder and biliary tree: No calcified gallstones. Normal caliber wall. No intra- or extrahepatic biliary ductal dilation. Pancreas: Unremarkable, no focal lesions. Spleen: Unremarkable. Adrenals: Unremarkable. Kidneys and ureters: Renal cysts are seen. Bladder: Acosta catheter is seen. Reproductive organs: Unremarkable. Bowel: Diverticulosis is seen without diverticulitis. The appendix is normal. Lymph nodes Retroperitoneal: Unremarkable. Pelvic: Unremarkable. Mesenteric: Unremarkable. Peritoneum: Normal. Vessels: Unremarkable. Abdominal wall: Unremarkable. Bones: Degenerative changes in the visualized spine. Partial visualization of multiple anterior rib fractures. IMPRESSION: No acute abnormalities below the diaphragm. ACT 112: Negative or not required by law. Electronically signed by: Aníbal Vallecillo M.D. 08/31/2023 4:37 PM Chest X-Ray 08/31/23 14:59 XR chest 1V portable, XR chest 1V portable CLINICAL HISTORY: post intub TECHNIQUE: Single frontal radiograph of the chest was obtained at 1445 and 1517 hours Comparison: Comparison is made to chest radiograph 07/14/2020 FINDINGS: 1445 hours: Endotracheal tube terminates 5.7 cm from the lilliana. Cardiomegaly is noted. Patchy airspace opacities most prominent in the left upper lobe superimposed upon interstitial thickening. Possible small left pleural effusion. 1517 hours: Endotracheal tube now terminates 6.0 cm from the lilliana. IMPRESSION: 1. Satisfactory position of endotracheal tube. 2. Patchy airspace opacities most prominent in the left upper lobe. ACT 112: Negative or not required by law. Electronically signed by: Aníbal Vallecillo M.D. 08/31/2023 3:28 PM Chest CTA 08/31/23 15:00 CT angio chest PE protocol CLINICAL HISTORY: PE TECHNIQUE: Multidetector row helical CT of the chest was performed with angiographic protocol. Coronal and sagittal reformations were obtained. Coronal and sagittal MIPS were obtained from the axial data set and were submitted for review. Automated dose lowering techniques and/or adjustment according to patient size were utilized for this exam. Comparison: Comparison is made to chest radiograph 08/31/2023 FINDINGS: Lungs and pleura: Consolidative opacities are seen in left greater than right dependent lungs. Heart and pericardium: Heart size is normal. No pericardial effusion. Vessels: No evidence of pulmonary embolism. Mediastinum and kristie: Subcentimeter lymph nodes are seen. Chest wall and lower neck: Unremarkable. Abdomen: Unremarkable. Bones: Multiple bilateral anterior rib fractures are seen near the costochondral junction. These include the right second through eighth ribs and left second through seventh ribs. IMPRESSION: 1. No evidence of pulmonary embolus. 2. Bilateral dependent consolidative opacities are compatible with aspiration this patient status post resuscitation. 3. Multiple rib fractures compatible with recent resuscitation. ACT 112: Negative or not required by law. Electronically signed by: Aníbal Vallecillo M.D. 08/31/2023 4:[address] 08/31/23 15:00 CT head/brain wo con CLINICAL HISTORY: cardiac arrest Technique: Contiguous axial CT images of the head were acquired from the base of the skull to the vertex without intravenous contrast administration. Images were viewed in brain, subdural and bone windows. Automated dose lowering techniques and/or adjustment according to patient size were utilized for this exam. Comparison: Comparison is made to CT head 06/24/2020 Findings: Areas of decreased attenuation are present in the periventricular and subcortical white matter bilaterally consistent with small vessel ischemic disease. Generalized cerebral atrophy with commensurate enlargement of the ventricles, sulci, and cisterns is also present. There is no acute intracranial hemorrhage or evidence of acute territorial infarction. No shift of the midline structures, mass effect, or extra-axial abnormalities are shown. Atherosclerotic calcifications are present in the intracranial segments of the internal carotid arteries. Imaged portions of the paranasal sinuses and mastoid air cells are clear. The orbits appear normal. There are no acute fractures of the calvaria or scalp swelling. Impression: No acute intracranial hemorrhage, no evidence of acute territorial infarction or other acute intracranial disease process. ACT 112: Negative or not required by law. Electronically signed by: Aníbal Vallecillo M.D. 08/31/2023 4:[address] 08/31/23 15:15 CT cervical spine wo con CLINICAL HISTORY: found down TECHNIQUE: Multidetector row helical CT of the cervical spine was performed without administration of intravenous contrast. Coronal and sagittal reformations were obtained. Automated dose lowering techniques and/or adjustment according to patient size were utilized for this exam. Comparison: None available at the time of this dictation. FINDINGS: No acute fractures or subluxations are identified. Degenerative changes are seen in the visualized spine. The alignment is normal. Airspace opacities in the bilateral lungs may be secondary to aspiration in this patient status post resuscitation. IMPRESSION: Degenerative changes without evidence of acute bony injury. ACT 112: Negative or not required by law. Electronically signed by: Aníbal Vallecillo M.D. 08/31/2023 4:25 PM Discharge Plan Visit Data Chief Complaint: Cardiac Arrest/CPR ED Provider: Sly Almodovar Discharge Problem: Cardiac arrest, Acute alcohol intoxication, Respiratory arrest, Acidosis, Atrial fibrillation with RVR, Fracture, ribs Patient Disposition: Admitted As Inpatient Discharge Instructions Interventions: ED Discharge Assessment Last Done: 08/31/23 16:10 Discharge Problem: Acute alcohol intoxication Qualifiers: Complication of substance-induced condition: with unspecified complication Q ualified Code(s): F10.929 - Alcohol use, unspecified with intoxication, unspecified Fracture, ribs Qualifiers: Encounter type: initial encounter Fracture type: closed Laterality: bilateral Q ualified Code(s): S22.43XA - Multiple fractures of ribs, bilateral, initial encounter for closed fracture
[2023-08-31] MEDS ORDERED: ALUMINUM/MAGNESIUM SUSP 30 ML UDC PO PRN (15:20)
[2023-08-31] MEDS ORDERED: MAGNESIUM HYDROXIDE SUSP 30 ML UDC PO PRN (15:20)
[2023-08-31] MEDS ORDERED: POLYETHYLENE (MIRALAX) 17 GM PACK PO PRN (15:20)
[2023-08-31] MEDS ORDERED: ONDANSETRON INJ 2 MG/ML 2 ML VIAL IV PRN (15:20)
[2023-08-31] MEDS: SODIUM CHLORIDE 0.9% 1,000 ML IV SCH ×2 (15:26)
[2023-08-31] MEDS: RAPID SEQUENCE INDUCTION BAG ONE (15:27)
[2023-08-31] MEDS: HEPARIN (PORCINE) 1000 UNIT/ML 10 ML (CATH LAB USE ONLY) ONE (15:28)
[2023-08-31] MEDS: OPTIRAY 350 ONE (15:28)
[2023-08-31] MEDS: fentaNYL citrate PF 100 MCG/2 ML VIAL ONE (15:28)
[2023-08-31] MEDS: MIDAZOLAM HCL 1 MG/ML 2ML VIAL ONE (15:28)
[2023-08-31] MEDS: niCARdipine HCL INJ 2.5 MG/ML 10 ML AMP ONE (15:28)
[2023-08-31] MEDS: NITROGLYCERIN/D5W 100MCG/ML 20ML SYR ONE (15:28)
[2023-08-31] MEDS: STAT IV Infusion **Titration per Protocol STA (15:29)
[2023-08-31] MEDS: NOREPINEPHRINE/D5W 4 MG/250 ML IV ONE (15:29)
[2023-08-31] MEDS: PIPERACILLIN/TAZOBACTAM 4.5 GM/100 ML BAG IV STA (15:30)
--- NOTE | 2023-08-31 15:30 | History & Physical Report ---
Date of Service August 31, 2023 Assessment & Plan (1) Cardiac arrest: (2) Squamous cell carcinoma of oropharynx: (3) Hypertension: (4) Alcohol abuse: (5) Dyslipidemia: (6) Lymphedema: Plan Mr. Booker Dobbins is a 63 year old male who presents to the ED via EMS after experiencing PEA cardiac arrest on [facility]. Found down by by-stander and unknown downtime. Approximately 15 minutes CPR administered to patient with epi and ROSC thereafter. Pt was intubated by EMS. Heart alert activated prior to arrival. ECG in ED shows AF with RBBB and lateral ST depressions which improved ROSC. Dr. Kowalski aware of patient and based on no ST elevation or ventricular arrhythmia, no heart cath performed. 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 Elevated lactate 9.8, Troponin 140, alcohol level > 305, no leukocytosis, hypokalemic 3.2. Head CT negative. Chest CTA negative for AAA but suggestive of L sided PNA; suspect aspiration during intubation. Reportedly patient self discontinued Eliquis and given known AF and cardiac arrest will consider heparinizing patient and discuss with ICU attending. Reportedly patient has a brother in [place] that ED doctor was able to talk to who indicated that he received a text from him some time this morning. He also reports that he does use alcohol reguarly and has been in and out of [facility] for treatment/AA. Pt will be admitted to ICU for further evaluation and management of acute mixed respiratory failure and known cardiac arrest with likely aspiration. Goal to wean off of inotropic support as able. ECHO ordered. Will trend lactate and Troponin. Suspect he will require central line access. Empirically given Zosyn; will continue for now for broad spectrum coverage. Discussed in depth with Dr. Gallardo in ICU. S/P Cardiac arrest: Acute Admit to ICU THREE cycles CPR in field with Epi s/p ROSC ECG AF RVR with RBBB No leukocytosis Lactate 9.8; trend Troponin 140 trend 1 and Q6 x2 ECHO ordered Intubated #7.0 FiO2 100% 2LNSB in ED; continue IVF 150ml/hour Hypotensive requiring vasoactive support with Levophed in ED Head CT negative for ICH, SDH Chest CTA: negative for PE, suspect bilateral consolidative opacities; suspect aspiration. Numerous rib fractures CSCT negative AF RVR: Known h/o AF and non-compliance with anticoagulation Heparin drip considered in the setting of post cardiac arrest, non compliance and cancer history Given complexity; discussed with ICU; hold Heparin for now Acute hypoxic/hypercapnic (Mixed) respiratory failure: ? aspiration PNA: ABG: Lactate 9.8; trend until < 2.[address] negative Chest CTA: negative for PE, suspect bilateral consolidative opacities; suspect aspiration. Numerous rib fractures Empirically treat for now and adjust based on sputum/MRSA cultures Alcohol abuse: Chronic has been in and out [facility] and reportedly has struggled with sobriety serum Alcohol level > 305 Disposition: PCP: Joe Code Status: Full Code VTE Prophylaxis: Teds + SCDs I spent a total of 87 minutes coordinating, documenting, and providing care for this patient excluding time spent in the performance of separately billed services. All of the aforementioned completed while collaborating with the assigned attending physician for a full treatment plan. Please see their addendum for further details. History of Present Illness Chief Complaint: s/p cardiac arrest Primary Care Provider: Stephen Diaz MD Mr. Booker Dobbins is a 63 year old male who presents to the ED via EMS after experiencing PEA cardiac arrest on [facility]. Found down by by-stander and unknown downtime. Approximately 15 minutes CPR administered to patient with epi and ROSC thereafter. Pt was intubated by EMS. Heart alert activated prior to arrival. ECG in ED shows AF with RBBB and lateral ST depressions which improved ROSC. Dr. Kowalski aware of patient and based on no ST elevation or ventricular arrhythmia, no heart cath performed. 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 Elevated lactate 9.8, Troponin 140, alcohol level > 305, no leukocytosis, hypokalemic 3.2. Head CT negative. Chest CTA negative for AAA but suggestive of L sided PNA; suspect aspiration during intubation. Reportedly patient self discontinued Eliquis and given known AF and cardiac arrest will consider heparinizing patient and discuss with ICU attending. Reportedly patient has a brother in [place] that ED doctor was able to talk to who indicated that he received a text from him some time this morning. He also reports that he does use alcohol reguarly and has been in and out of [facility] for treatment/AA. Pt will be admitted to ICU for further evaluation and management of acute mixed respiratory failure and known cardiac arrest with likely aspiration. Goal to wean off of inotropic support as able. ECHO ordered. Will trend lactate and Troponin. Suspect he will require central line access. Empirically given Zosyn; will continue for now for broad spectrum coverage. Discussed in depth with Dr. Gallardo in ICU. Allergies Allergy/AdvReac Type Severity Reaction Status Date / Time No Known Allergies Allergy Unverified 01/15/23 08:15 Home Medications Medication Instructions Recorded Confirmed Type amlodipine 5 mg tablet 5 mg PO DAILY 02/29/20 08/31/23 History escitalopram oxalate 10 mg tablet 10 mg PO DAILY 02/29/20 08/31/23 History losartan 100 mg tablet (Cozaar) 100 mg PO DAILY 10/16/22 08/31/23 History multivitamin 1 tab PO DAILY 10/16/22 08/31/23 History Past Med/Surg History Medical History (Updated 08/31/23 @ 17:07 by Star Gallardo MD) Cardiac arrest Squamous cell carcinoma of oropharynx Compound fracture right humerous Dyslipidemia History of cardioversion (09/26/22) Hattie Terrell MD at [facility] [place] Alcohol abuse Hypertension Surgical History History of bronchoscopy (10/03/22) Mazin Mccoy MD at ENDOSCOPY [facility] History of colonoscopy (12/06/15) Darren Meyers MD at ENDOSCOPY [facility] Family History Father Prostate cancer Mother No problems noted. Sister No problems noted. Sister No problems noted. Sister No problems noted. Brother No problems noted. Daughter No problems noted. Daughter No problems noted. 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 Dr. Flower physical examination findings Results & Data Results & Data Vital Signs (Past 12 Hours) Vital Signs Temp Pulse Pulse Resp BP BP Pulse Ox 08/31/23 15:15 36.1 C L 141 H 24 99 08/31/23 15:15 100 08/31/23 15:11 36.2 C L 143 H 24 99 08/31/23 15:11 69/51 L 08/31/23 15:10 36.2 C L 142 H 20 94 08/31/23 15:05 79/57 L 08/31/23 15:05 36.3 C L 138 H 24 94 08/31/23 15:02 150 H 24 95 08/31/23 15:00 74/55 L 08/31/23 15:00 36.3 C L 140 H 24 93 08/31/23 14:56 36.3 C L 130 H 24 90 08/31/23 14:56 51/31 L 08/31/23 14:55 36.3 C L 120 H 24 90 08/31/23 14:52 46/35 L 08/31/23 14:52 36.3 C L 115 H 24 91 08/31/23 14:50 36.2 C L 122 H 24 91 08/31/23 14:47 53/34 L 08/31/23 14:47 36.1 C L 128 H 24 94 08/31/23 14:45 36.2 C L 130 H 24 97 08/31/23 14:41 36.0 C L 146 H 24 94 08/31/23 14:41 96/46 L 08/31/23 14:40 36.0 C L 154 H 24 94 08/31/23 14:37 35.7 C L 149 H 24 96 08/31/23 14:37 85/72 L 08/31/23 14:35 35.7 C L 157 H 17 100 08/31/23 14:35 100 08/31/23 14:35 165 H 85/72 L 08/31/23 14:35 100 08/31/23 14:35 100 08/31/23 14:30 174 H 14 100 08/31/23 14:25 169 H 21 100 08/31/23 14:21 170 H 25 H 100 08/31/23 14:17 35.9 C L 167 H 18 132/68 100 O2 Del Method FiO2 08/31/23 15:15 Mechanical Vent 08/31/23 15:15 Mechanical Vent 08/31/23 15:11 08/31/23 15:11 08/31/23 15:10 08/31/23 15:05 08/31/23 15:05 08/31/23 15:02 100 08/31/23 15:00 08/31/23 15:00 08/31/23 14:56 08/31/23 14:56 08/31/23 14:55 08/31/23 14:52 08/31/23 14:52 08/31/23 14:50 08/31/23 14:47 08/31/23 14:47 08/31/23 14:45 08/31/23 14:41 08/31/23 14:41 08/31/23 14:40 08/31/23 14:37 08/31/23 14:37 08/31/23 14:35 08/31/23 14:35 Mechanical Vent 08/31/23 14:35 08/31/23 14:35 Mechanical Vent 08/31/23 14:35 Mechanical Vent 08/31/23 14:30 08/31/23 14:25 08/31/23 14:21 Mechanical Vent 08/31/23 14:17 Mechanical Vent Laboratory Results Short CBC 08/31/23 Range/Units 14:29 WBC 8.27 (4.8-10.8) K/ul Hgb 14.5 (14.0-18.0) g/dl Hct 46.1 (42.0-52.0) % Plt Count 320 (130-400) K/uL BMP 08/31/23 14:29 Sodium 142 Potassium 3.2 L Chloride 100 Carbon Dioxide 24 BUN 9 Creatinine 0.86 Glucose 120 H Calcium 8.1 L Liver Function 08/31/23 Range/Units 14:29 Total Bilirubin 0.9 (0.2-1.0) mg/dl Direct Bilirubin 0.2 (0-0.2) mg/dl AST 162 H (13-39) U/L ALT 84 H (7-52) U/L Alkaline Phosphatase 71 (34-104) U/L Albumin 3.8 (3.4-5.0) gm/dl Diagnostic Findings Chest X-Ray 08/31/23 14:45 XR chest 1V portable, XR chest 1V portable CLINICAL HISTORY: post intub TECHNIQUE: Single frontal radiograph of the chest was obtained at 1445 and 1517 hours Comparison: Comparison is made to chest radiograph 07/14/2020 FINDINGS: 1445 hours: Endotracheal tube terminates 5.7 cm from the lilliana. Cardiomegaly is noted. Patchy airspace opacities most prominent in the left upper lobe superimposed upon interstitial thickening. Possible small left pleural effusion. 1517 hours: Endotracheal tube now terminates 6.0 cm from the lilliana. IMPRESSION: 1. Satisfactory position of endotracheal tube. 2. Patchy airspace opacities most prominent in the left upper lobe. ACT 112: Negative or not required by law. Electronically signed by: Aníbal Vallecillo M.D. 08/31/2023 3:28 PM Chest X-Ray 08/31/23 14:59 XR chest 1V portable, XR chest 1V portable CLINICAL HISTORY: post intub TECHNIQUE: Single frontal radiograph of the chest was obtained at 1445 and 1517 hours Comparison: Comparison is made to chest radiograph 07/14/2020 FINDINGS: 1445 hours: Endotracheal tube terminates 5.7 cm from the lilliana. Cardiomegaly is noted. Patchy airspace opacities most prominent in the left upper lobe superimposed upon interstitial thickening. Possible small left pleural effusion. 1517 hours: Endotracheal tube now terminates 6.0 cm from the lilliana. IMPRESSION: 1. Satisfactory position of endotracheal tube. 2. Patchy airspace opacities most prominent in the left upper lobe. ACT 112: Negative or not required by law. Electronically signed by: Aníbal Vallecillo M.D. 08/31/2023 3:28 PM Code Status & VTE Plan Code Status Full Code in the event of cardiac or respiratory arrest VTE Prophylaxis Plan VTE Prophylaxis will be ordered: Yes Supervising Physician Co-Signing Physician Notes I have seen and discussed the case with the collaborating advanced practitioner. I agree with the above H&P. I have reviewed and confirmed the patients medical history, the findings on physical examination, and the patients diagnosis and treatment plan with Latosha VARNER and agree with the information documented. In short, Mr. Booker Dobbins is a 63 year old male with a history of cT4 cN2 M0 p16 positive oropharyngeal SCC (right base of tongue) s/p chemoradiotherapy 01/2023, chronic lower extremity lymphedema, alcohol misuse, atrial fibrillation who is admitted for management of PEA arrest, potentially though to be secondary to respiratory failure. Patient was found down for unknown period of time. Underwent 3 cycles of CPR with epi and subsequent ROSC. Patient intubated in ED with periintubation hypotension noted. Code heart alert activated, however, low suspicion for cardiac etiology at this time. Patient sedated and intubated at time of exam Labs notable for anion gap 18, K 3.2, lactate 9.8, transaminitis AST 162 and ALT 84, trop 140 EKG with A fib RVR CT Chest 1. No evidence of pulmonary embolus. 2. Bilateral dependent consolidative opacities are compatible with aspiration this patient status post resuscitation. 3. Multiple rib fractures compatible with recent resuscitation. GENERAL APPEARANCE: sedated HEENT: NC, AT. MMM. clear conjunctiva, intubated NECK: thick HEART: tachcardic to 140s, irregular LUNGS: CTAB, moving air well, synchronize with vent ABDOMEN: Soft, nontender, nondistended with good bowel sounds heard. EXTREMITIES: Without cyanosis, clubbing, BLE nonpitting edema NEUROLOGICAL: sedated, no obvious deficits, unable to perform formal neuro exam Skin: lymphedematous changes of BLE #PEA arrest s/p ROSC Out of hospital cardiac arrest with PEA noted in field. ROSC achieved after 3 rounds of compression. EKG notable for a fib RVR CT chest without visible embolus, pericardial effusion, stable vasculature CTH without acute process Troponin 140 -Trend to peak -TTE pending ICU admission Post arrest management Vent management per print finisher Briefly on levophed, titration of pressors per print finisher Electrolyte replacement per ICU protocol Targeted temperature management per print finisher Consider Heparin drip iso a fib/malignancy/post-arrest #Mixed acidosis, multifactorial #Acute hypoxic hypercapnic respiratory failure #Aspiration pneumonitis CO2 74, gap 18, lactate 9.2 Unclear cause of circumstances around arrest Trend lactate s/p IVF Empiric abx coverage at this time, MRSA nare pending CT head negative, CT chest with bilateral opacities c/w aspiration #Atrial fibrillation with RVR Prescribed eliquis, not compliant per reports in PCP documentation Rate control as appropriate per hemodynamics #Alcohol intoxication -Potential etiology to some degree, EtOH level 305.3 on admission -currently on propofol for sedation, however, will add appropriate protocol as liberated from vent/sedation #HTN hold home losartan until hemodynamics stabilize rest of plan as above I spent a total of 35 minutes coordinating, documenting, and providing care for this patient excluding time spent in the performance of separately billed services. All of the aforementioned completed outside of collaborating with the assigned advanced practitioner for a full treatment plan. I have reviewed the advanced practitioner's documentation, and I agree with, and take responsibility for the plan of care
[2023-08-31 15:31] LABS: Appearance Urine Clear (Clear); Bacteria Urine Automated None Seen (None Seen); Bilirubin Urine Negative (Negative); Blood Urine Negative (Negative); Color Urine Yellow; Glucose Urine UA Negative (Negative); Ketones Urine Negative (Negative); Leukocyte Esterase Urine Trace (Negative); Nitrite Urine Negative (Negative); Protein Urine 1+ (Negative); RBC Urine Automated 0-2 /hpf (0-2); Specific Gravity Urine 1.008 (1.000-1.030); Urobilinogen Urine Negative (Negative); WBC Urine Automated 0-5 /hpf (0-5)
[2023-08-31] MEDS: PROPOFOL IV EMULSION 10 MG/ML 100 ML VIAL IV ONE (15:32)
[2023-08-31] MEDS: OPTIRAY 320 125ml IV ONE (15:52)
[2023-08-31 16:07] LABS: Hematocrit (blood only) 43.6 % (42.0-52.0); Hemoglobin 13.9 g/dl (14.0-18.0); Mean Corpuscular Hgb Conc 31.9 g/dL (32.0-36.0); Platelet Count 342 K/uL (130-400); RDW Coefficient of Variation 15.9 % (11.5-14.5); RDW Standard Deviation 55.4 fL (36.4-46.3); Red Blood Count 4.64 M/uL (4.70-6.10); White Blood Count 13.33 K/ul (4.8-10.8)
--- NOTE | 2023-08-31 16:16 | Critical Care Consultation ---
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 At least 15 minutes as from the time he was found by EMS before they had return of spontaneous circu lation was 15 minutes. He is at high risk of anoxic encephalopathy. He has pressor dependent hypotension as well as atrial fibrillation with rapid ventricular response. Recommendations: 1. Neurologic: At high risk for anoxic brain injury. Initial CT scan unrevealing. Patient is not requiring any sedation currently. Will see how he does. Depending on clinical course, may require additional evaluation including EEG and MRI of the brain. Will try and update family when available. Hold Celexa. Will place on thiamine as well as folate. Will give 1 banana bag now 2. Cardiovascular: Shock state. Will trend lactate. Check echocardiogram. Trend troponins. Hold heparin until we can ascertain where we are with neurological status. Will assess for volume responsiveness with passive leg raise. Hold losartan and amlodipine 3. Pulmonary: Continue vent settings. Follow-up blood gas now. Check respiratory cultures. 4. ID: At least aspiration pneumonia. Currently on Zosyn. Await respiratory cultures. Check procalcitonin and follow white blood cell count. Hold vancomycin for MRSA coverage for now as he has not had this in the past. Await PCR from the nares 5. Endocrine: Glycemic control per protocol. 6. Renal: Hypokalemia. Creatinine is normal now. Initiate electrolyte replacement protocol. 7. GI: ER was unable to place enteric access. Will have our ICU nurses try to get an enteric tube in place. N.p.o. for now. He has elevated transaminases likely shock liver which would suggest a prolonged downtime. 8. Heme-onc: History of squamous cell carcinoma the base of the tongue. The patient is critically ill at this point in time with significant possibility of clinical deterioration and or . Unclear outcome. Will have discussion with family once they are present and readdressing CODE STATUS would be entirely appropriate as given his prolonged downtime and advanced oropharyngeal cancer as well as medical noncompliance would make additional CPR efforts unlikely to improve his overall outcome. A total of 65 minutes in critical care time was spent in evaluation management stabilization this patient exclusive of procedures History of Present Illness Attending Physician: Radha Flower MD History of Present Illness Asked by hospitalist to assist in evaluation management this patient with [id number] cardiac arrest. History is obtained from discussion with the admitting service as well as review of the electronic medical record. The patient is intubated and unable to provide any history. No family accompanies him. 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 Per the ER physician report patient was reportedly found down. EMS was activated and the patient was apneic and pulseless on arrival to EMS. Unknown downtime. He received CPR for 15 minutes and was given 3 rounds of epi with return of spontaneous circulation. He was never defibrillated and rhythm appears to be PEA. He was initially evaluated by cardiology as a heart alert but his EKG improved with taoist of blood pressure and is not felt to require urgent cardiac catheterization. He was brought to the ICU with an IO in place on Levophed running through peripheral IV. He been intubated. At the ER reportedly was unable to obtain enteric access. I assessed the patient immediately on arrival. A central line and arterial line were urgently placed. Please see separate procedure notes. There was some concern about placement of the endotracheal tube however on review of the CT scan it appears to be in good position Allergies Allergy/AdvReac Type Severity Reaction Status Date / Time No Known Allergies Allergy Unverified 01/15/23 08:15 Home Medications Medication Instructions Recorded Confirmed Type amlodipine 5 mg tablet 5 mg PO DAILY 02/29/20 08/31/23 History escitalopram oxalate 10 mg tablet 10 mg PO DAILY 02/29/20 08/31/23 History losartan 100 mg tablet (Cozaar) 100 mg PO DAILY 10/16/22 08/31/23 History multivitamin 1 tab PO DAILY 10/16/22 08/31/23 History Patient History Medical History (Updated 08/31/23 @ 17:07 by Star Gallardo MD) Cardiac arrest Squamous cell carcinoma of oropharynx Compound fracture right humerous Dyslipidemia History of cardioversion (09/26/22) Hattie Terrell MD at [facility] [place] Alcohol abuse Hypertension Surgical History History of bronchoscopy (10/03/22) Mazin Mccoy MD at ENDOSCOPY [facility] [place] History of colonoscopy (12/06/15) Darren Meyers MD at ENDOSCOPY [facility] Family History Father Prostate cancer Mother No problems noted. Sister No problems noted. Sister No problems noted. Sister No problems noted. Brother No problems noted. Daughter No problems noted. Daughter No problems noted. Social History Smoking Status: Never smoker packs per day: 1; Second Hand Exposure: No; Do You Dip or Chew Tobacco: No; Hx Alcohol Use: Yes Hx Substance Use: No Preferred Language: Bel[place]an Communication Ability: Effective Visual Impairment: Limited Hearing Ability: Normal Site Controller Required: No Beliefs That Will Affect Care: None How many Children do You have: 2 Feels Safe at Home: Yes Childhood Exposure to Second-Hand Smoke: No Diet: regular during the past year weight has: remained stable Dental Care, Regularly: No Assistive Devices: Glasses Review of Systems Review of Systems: Unobtainable due to endotracheal tube Physical Exam Constitutional: + obese and + mechanically ventilated Unresponsive. Off all sedation Neck: trachea midline, no thyromegaly Respiratory: Intubated. Not overbreathing ventilator. Coarse breath sounds bilaterally Cardiovascular: Rate/Rhythm: + tachycardic and + irregularly irregular Gastrointestinal (Abdomen): normal bowel sounds, soft, nontender, no hepatosplenomegaly Musculoskeletal: Extremities: extremities normal to inspection Skin: no rashes, warm and dry Neurologic: Pupils are small but possibly reactive. Oculocephalics negative. No withdrawal to painful stimulus in the upper or lower extremities or with supraocular pressure. No gag or cough Lymphatic: no cervical lymphadenopathy Results & Data Results & Data Vital Signs (Past 12 Hours) Vital Signs Temp Pulse Pulse Resp BP BP Pulse Ox 08/31/23 15:30 35.5 C L 131 H 24 100 08/31/23 15:25 143/110 H 08/31/23 15:25 35.8 C L 134 H 24 100 08/31/23 15:20 115/82 08/31/23 15:20 36.0 C L 142 H 24 100 08/31/23 15:17 75/52 L 08/31/23 15:17 36.0 C L 138 H 24 100 08/31/23 15:15 36.1 C L 141 H 24 99 08/31/23 15:15 100 08/31/23 15:11 36.2 C L 143 H 24 99 08/31/23 15:11 69/51 L 08/31/23 15:10 36.2 C L 142 H 20 94 08/31/23 15:05 79/57 L 08/31/23 15:05 36.3 C L 138 H 24 94 08/31/23 15:02 150 H 24 95 08/31/23 15:00 74/55 L 08/31/23 15:00 36.3 C L 140 H 24 93 08/31/23 14:56 36.3 C L 130 H 24 90 08/31/23 14:56 51/31 L 08/31/23 14:55 36.3 C L 120 H 24 90 08/31/23 14:52 46/35 L 08/31/23 14:52 36.3 C L 115 H 24 91 08/31/23 14:50 36.2 C L 122 H 24 91 08/31/23 14:47 53/34 L 08/31/23 14:47 36.1 C L 128 H 24 94 08/31/23 14:45 36.2 C L 130 H 24 97 08/31/23 14:41 36.0 C L 146 H 24 94 08/31/23 14:41 96/46 L 08/31/23 14:40 36.0 C L 154 H 24 94 08/31/23 14:37 35.7 C L 149 H 24 96 08/31/23 14:37 85/72 L 08/31/23 14:35 35.7 C L 157 H 17 100 08/31/23 14:35 100 08/31/23 14:35 165 H 85/72 L 08/31/23 14:35 100 08/31/23 14:35 100 08/31/23 14:30 174 H 14 100 08/31/23 14:25 169 H 21 100 08/31/23 14:21 170 H 25 H 100 08/31/23 14:17 35.9 C L 167 H 18 132/68 100 O2 Del Method FiO2 08/31/23 15:30 08/31/23 15:25 08/31/23 15:25 08/31/23 15:20 08/31/23 15:20 08/31/23 15:17 08/31/23 15:17 08/31/23 15:15 Mechanical Vent 08/31/23 15:15 Mechanical Vent 08/31/23 15:11 08/31/23 15:11 08/31/23 15:10 08/31/23 15:05 08/31/23 15:05 08/31/23 15:02 100 08/31/23 15:00 08/31/23 15:00 08/31/23 14:56 08/31/23 14:56 08/31/23 14:55 08/31/23 14:52 08/31/23 14:52 08/31/23 14:50 08/31/23 14:47 08/31/23 14:47 08/31/23 14:45 08/31/23 14:41 08/31/23 14:41 08/31/23 14:40 08/31/23 14:37 08/31/23 14:37 08/31/23 14:35 08/31/23 14:35 Mechanical Vent 08/31/23 14:35 08/31/23 14:35 Mechanical Vent 08/31/23 14:35 Mechanical Vent 08/31/23 14:30 08/31/23 14:25 08/31/23 14:21 Mechanical Vent 08/31/23 14:17 Mechanical Vent Critical Care Results & Data Vital Signs (Past 12 Hours) Vital Signs Temp Pulse Pulse Resp BP BP Pulse Ox 08/31/23 16:30 103/80 08/31/23 16:30 34.9 C L 115 H 20 95 08/31/23 16:27 102/71 08/31/23 16:27 34.9 C L 123 H 20 08/31/23 16:21 96/70 L 08/31/23 16:21 34.9 C L 132 H 20 95 08/31/23 16:20 34.9 C L 125 H 20 93 08/31/23 16:12 120 H 20 95 05/11/24 16:10 145/105 H 05/11/24 16:10 34.8 C L 116 H 19 97 08/31/23 16:08 117 H 24 96 08/31/23 16:08 154/116 H 08/31/23 16:07 122 H 22 08/31/23 15:30 35.5 C L 131 H 24 100 08/31/23 15:25 143/110 H 08/31/23 15:25 35.8 C L 134 H 24 100 08/31/23 15:20 115/82 08/31/23 15:20 36.0 C L 142 H 24 100 08/31/23 15:17 75/52 L 08/31/23 15:17 36.0 C L 138 H 24 100 08/31/23 15:15 36.1 C L 141 H 24 99 08/31/23 15:15 100 08/31/23 15:11 36.2 C L 143 H 24 99 08/31/23 15:11 69/51 L 08/31/23 15:10 36.2 C L 142 H 20 94 08/31/23 15:05 79/57 L 08/31/23 15:05 36.3 C L 138 H 24 94 08/31/23 15:02 150 H 24 95 08/31/23 15:00 74/55 L 08/31/23 15:00 36.3 C L 140 H 24 93 08/31/23 14:56 36.3 C L 130 H 24 90 08/31/23 14:56 51/31 L 08/31/23 14:55 36.3 C L 120 H 24 90 08/31/23 14:52 46/35 L 08/31/23 14:52 36.3 C L 115 H 24 91 08/31/23 14:50 36.2 C L 122 H 24 91 08/31/23 14:47 53/34 L 08/31/23 14:47 36.1 C L 128 H 24 94 08/31/23 14:45 36.2 C L 130 H 24 97 08/31/23 14:41 36.0 C L 146 H 24 94 08/31/23 14:41 96/46 L 08/31/23 14:40 36.0 C L 154 H 24 94 08/31/23 14:37 35.7 C L 149 H 24 96 08/31/23 14:37 85/72 L 08/31/23 14:35 35.7 C L 157 H 17 100 08/31/23 14:35 100 08/31/23 14:35 165 H 85/72 L 08/31/23 14:35 100 08/31/23 14:35 100 08/31/23 14:30 174 H 14 100 08/31/23 14:25 169 H 21 100 08/31/23 14:21 170 H 25 H 100 08/31/23 14:17 35.9 C L 167 H 18 132/68 100 O2 Del Method FiO2 08/31/23 16:30 08/31/23 16:30 08/31/23 16:27 08/31/23 16:27 08/31/23 16:21 08/31/23 16:21 08/31/23 16:20 08/31/23 16:12 80 08/31/23 16:10 08/31/23 16:10 08/31/23 16:08 08/31/23 16:08 08/31/23 16:07 08/31/23 15:30 08/31/23 15:25 08/31/23 15:25 08/31/23 15:20 08/31/23 15:20 08/31/23 15:17 08/31/23 15:17 08/31/23 15:15 Mechanical Vent 08/31/23 15:15 Mechanical Vent 08/31/23 15:11 08/31/23 15:11 08/31/23 15:10 08/31/23 15:05 08/31/23 15:05 08/31/23 15:02 100 08/31/23 15:00 08/31/23 15:00 08/31/23 14:56 08/31/23 14:56 08/31/23 14:55 08/31/23 14:52 08/31/23 14:52 08/31/23 14:50 08/31/23 14:47 08/31/23 14:47 08/31/23 14:45 08/31/23 14:41 08/31/23 14:41 08/31/23 14:40 08/31/23 14:37 08/31/23 14:37 08/31/23 14:35 08/31/23 14:35 Mechanical Vent 08/31/23 14:35 08/31/23 14:35 Mechanical Vent 08/31/23 14:35 Mechanical Vent 08/31/23 14:30 08/31/23 14:25 08/31/23 14:21 Mechanical Vent 08/31/23 14:17 Mechanical Vent Lab & Micro Results (Past 24 Hours) RBC 4.64 M/uL (4.70-6.10) L 08/31/23 WBC 13.33 K/ul (4.8-10.8) H 08/31/23 Hgb 13.9 g/dl (14.0-18.0) L 08/31/23 Hct 43.6 % (42.0-52.0) 08/31/23 MCV 94.0 fL (80.0-100.0) 08/31/23 MCH 30.0 pg (25.0-34.0) 08/31/23 MCHC 31.9 g/dL (32.0-36.0) L 08/31/23 RDW Standard Deviation 55.4 fL (36.4-46.3) H 08/31/23 RDW Coefficient of Variation 15.9 % (11.5-14.5) H 08/31/23 Plt Count 342 K/uL (130-400) 08/31/23 MPV 10.0 fL (9.4-12.4) 08/31/23 Neutrophils (%) (Auto) 51.0 % 08/31/23 Lymphocytes (%) (Auto) 34.8 % 08/31/23 Monocytes # (Auto) 0.64 K/uL (0.11-0.59) H 08/31/23 Eosinophils # (Auto) 0.11 K/uL (0.00-0.50) 08/31/23 Immature Granulocyte % (Auto) 4.2 % 08/31/23 Neutrophils # (Auto) 4.21 K/uL (1.40-6.50) 08/31/23 Lymphocytes # (Auto) 2.88 K/uL (1.20-3.40) 08/31/23 Monocytes # (Auto) 0.64 K/uL (0.11-0.59) H 08/31/23 Eosinophils # (Auto) 0.11 K/uL (0.00-0.50) 08/31/23 Basophils # (Auto) 0.08 K/uL (0.00-0.20) 08/31/23 Immature Granulocyte # (Auto) 0.35 K/uL (0.01-0.20) H 08/30 Na 142 mmol/L (136-145) 08/31/23 K 3.2 mmol/L (3.5-5.1) L 08/31/23 Cl 100 mmol/L (98-107) 08/31/23 CO2 24 mmol/L (21-32) 08/31/23 Anion Gap 18 (3-11) H 08/31/23 BUN 9 mg/dl (6-23) 08/31/23 Creatinine 0.86 mg/dl (0.6-1.4) 08/31/23 Estimated GFR ( Amer) 108.5 ml/min 08/31/23 Estimated GFR (Non-Af Amer) 93.6 ml/min 08/31/23 BUN/Creatinine Ratio 10.5 (10-20) 08/31/23 Glu 120 mg/dl (70-99(Fasting)) H 08/31/23 Ca 8.1 mg/dl (8.6-10.3) L 08/31/23 Total Bilirubin 0.9 mg/dl (0.2-1.0) 08/31/23 Direct Bilirubin 0.2 mg/dl (0-0.2) 08/31/23 AST 162 U/L (13-39) H 08/31/23 ALT 84 U/L (7-52) H 08/31/23 Alkaline Phosphatase 71 U/L (34-104) 08/31/23 TP 6.8 gm/dl (6.0-8.3) 08/31/23 Albumin 3.8 gm/dl (3.4-5.0) 08/31/23 Mg 2.1 mg/dl (1.7-2.4) 08/31/23 14:29 Calcium Level 8.1 mg/dl (8.6-10.3) L 08/31/23 14:29 Prothromb Time International Ratio 1.1 (0.9-1.1) 08/31/23 14:2 9 Arterial Blood pH Pending 08/31/23 14:33 Arterial Blood Partial Pressure CO2 74 mmHg (35-46) H 08/31/23 14:33 Arterial Blood Partial Pressure O2 65 mmHg (80-95) L 08/31/23 1 4:33 Arterial Blood HCO3 23 mmol/L (19-24) 08/31/23 14:33 Arterial Blood Base Excess -8.7 mEq/L (-9-1.8) 08/31/23 14:33 Arterial Blood Oxygen Saturation 87.1 % (90-95) L 08/31/23 14:3 3 Blood Gas Oxygen Given 08/31/23 14:33 Ramírez Test Pos (Pos) 08/31/23 14:33 Diagnostic Findings (Past 24 Hours) Chest X-Ray 08/31/23 14:45 XR chest 1V portable, XR chest 1V portable CLINICAL HISTORY: post intub TECHNIQUE: Single frontal radiograph of the chest was obtained at 1445 and 1517 hours Comparison: Comparison is made to chest radiograph 07/14/2020 FINDINGS: 1445 hours: Endotracheal tube terminates 5.7 cm from the lilliana. Cardiomegaly is noted. Patchy airspace opacities most prominent in the left upper lobe superimposed upon interstitial thickening. Possible small left pleural effusion. 1517 hours: Endotracheal tube now terminates 6.0 cm from the lilliana. IMPRESSION: 1. Satisfactory position of endotracheal tube. 2. Patchy airspace opacities most prominent in the left upper lobe. ACT 112: Negative or not required by law. Electronically signed by: Aníbal Vallecillo M.D. 08/31/2023 3:28 PM Abdomen/Pelvis CT 08/31/23 14:57 CT abd pelvis IV con only CLINICAL HISTORY: found down TECHNIQUE: Helical axial images of the abdomen and pelvis were obtained and displayed. Automated dose lowering techniques and/or adjustment according to patient size were utilized for this exam. This exam was performed with in travenous contrast. COMPARISON: None available at the time of this dictation. FINDINGS: Lower chest: For findings above the diaphragm, please see CT chest performed same day. Liver: Unremarkable. No focal lesions are seen. Gallbladder and biliary tree: No calcified gallstones. Normal caliber wall. No intra- or extrahepatic biliary ductal dilation. Pancreas: Unremarkable, no focal lesions. Spleen: Unremarkable. Adrenals: Unremarkable. Kidneys and ureters: Renal cysts are seen. Bladder: Acosta catheter is seen. Reproductive organs: Unremarkable. Bowel: Diverticulosis is seen without diverticulitis. The appendix is normal. Lymph nodes Retroperitoneal: Unremarkable. Pelvic: Unremarkable. Mesenteric: Unremarkable. Peritoneum: Normal. Vessels: Unremarkable. Abdominal wall: Unremarkable. Bones: Degenerative changes in the visualized spine. Partial visualization of multiple anterior rib fractures. IMPRESSION: No acute abnormalities below the diaphragm. ACT 112: Negative or not required by law. Electronically signed by: Aníbal Vallecillo M.D. 08/31/2023 4:37 PM Chest X-Ray 08/31/23 14:59 XR chest 1V portable, XR chest 1V portable CLINICAL HISTORY: post intub TECHNIQUE: Single frontal radiograph of the chest was obtained at 1445 and 1517 hours Comparison: Comparison is made to chest radiograph 07/14/2020 FINDINGS: 1445 hours: Endotracheal tube terminates 5.7 cm from the lilliana. Cardiomegaly is noted. Pa tchy airspace opacities most prominent in the left upper lobe superimposed upon interstitial thickening. Possible small left pleural effusion. 1517 hours: Endotracheal tube now terminates 6.0 cm from the lilliana. IMPRESSION: 1. Satisfactory position of endotracheal tube. 2. Patchy airspace opacities most prominent in the left upper lobe. ACT 112: Negative or not required by law. Electronically signed by: Aníbal Vallecillo M.D. 08/31/2023 3:28 PM Chest CTA 08/31/23 15:00 CT angio chest PE protocol CLINICAL HISTORY: PE TECHNIQUE: Multidetector row helical CT of the chest was performed with angiographic protocol. Coronal and sagittal reformations were obtained. Coronal and sagittal MIPS were obtained from the axial data set and were submitted for review. Automated dose lowering techniques and/or adjustment according to patient size were utilized for this exam. Comparison: Comparison is made to chest radiograph 08/31/2023 FINDINGS: Lungs and pleura: Consolidative opacities are seen in left greater than right dependent lungs. Heart and pericardium: Heart size is normal. No pericardial effusion. Vessels: No evidence of pulmonary embolism. Mediastinum and kristie: Subcentimeter lymph nodes are seen. Chest wall and lower neck: Unremarkable. Abdomen: Unremarkable. Bones: Multiple bilateral anterior rib fractures are seen near the costochondral junction. These include the right second through eighth ribs and left second through seventh ribs. IMPRESSION: 1. No evidence of pulmonary embolus. 2. Bilateral dependent consolidative opacities are compatible with aspiration this patient status post resuscitation. 3. Multiple rib fractures compatible with recent resuscitation. ACT 112: Negative or not required by law. Electronically signed by: Aníbal Vallecillo M.D. 08/31/2023 4:[address] 08/31/23 15:00 CT head/brain wo con CLINICAL HISTORY: cardiac arrest Technique: Contiguous axial CT images of the head were acquired from the base of the skull to the vertex without intravenous contrast administration. Images were viewed in brain, subdural and bone windows. Automated dose lowering techniques and/or adjustment according to patient size were utilized for this exam. Comparison: Comparison is made to CT head 06/24/2020 Findings: Areas of decreased attenuation are present in the periventricular and sub cortical white matter bilaterally consistent with small vessel ischemic disease. Generalized cerebral atrophy with commensurate enlargement of the ventricles, sulci, and cisterns is also present. There is no acute intracranial hemorrhage or evidence of acute territorial infarction. No shift of the midline structures, mass effect, or extra-axial abnormalities are shown. Atherosclerotic calcifications are present in the intracranial segments of the internal carotid arteries. Imaged portions of the paranasal sinuses and mastoid air cells are clear. The orbits appear normal. There are no acute fractures of the calvaria or scalp swelling. Impression: No acute intracranial hemorrhage, no evidence of acute territorial infarction or other acute intracranial disease process. ACT 112: Negative or not required by law. Electronically signed by: Aníbal Vallecillo M.D. 08/31/2023 4:[address] 08/31/23 15:15 CT cervical spine wo con CLINICAL HISTORY: found down TECHNIQUE: Multidetector row helical CT of the cervical spine was performed without administration of intravenous contrast. Coronal and sagittal reformations were obtained. Automated dose lowering techniques and/or adjustment according to patient size were utilized for this exam. Comparison: None available at the time of this dictation. FINDINGS: No acute fractures or subluxations are identified. Degenerative changes are seen in the visualized spine. The alignment is normal. Airspace opacities in the bilateral lungs may be secondary to aspiration in this patient status post resuscitation. IMPRESSION: Degenerative changes without evidence of acute bony injury. ACT 112: Negative or not required by law. Electronically signed by: Aníbal Vallecillo M.D. 08/31/2023 4:25 PM I & O Totals 24 Hours 08/30/23 08/31/23 09/01/23 06:59 06:59 06:59 Intake Total 3164.685 / 3164.685 Balance 3164.685 / 3164.685 Cumulative 08/31/23 14:10 thru 08/31/23 16:36 Intake Total 3164.685 Balance 3164.685 RT Ventilator Mngmt (Last Documented) Ventilator Ordered Settings Ventilator Support Mode Assist Control 08/31/23 16:12 Respiratory Rate 20 08/31/23 16:30 Ventilator Tidal Volume 500 08/31/23 16:12 Setting Minute Ventilation 10.0 08/31/23 16:12 Positive End Expiratory 8 08/31/23 16:12 Pressure Fraction of Inspired Oxygen 80 08/31/23 16:12 Peak Inspiratory Flow 57 08/31/23 16:12 Ventilator - PT Measurements Respiratory Rate 20 Exhaled Tidal Volume 500 Minute Ventilation 10.0 Peak Inspiratory Airway 22 Pressure Plateau Pressure 18.1 Respiratory Cycle Inspiratory: 1:3.3 Expiratory Ratio Inspiratory Phase Time 0.70 End-Tidal CO2 29 Static Lung Compliance 49.50 Dynamic Lung Compliance 35.71 Normal Static Lung Compliance 48.00 Coding Level of Care Code 51907 CRITICAL CARE 1ST 30-74M Diagnoses Cardiac arrest I46.9 Alcoholic intoxication F10.920 Complication of substance-induced condition: uncomplicated Ribs, multiple fractures S22.49XA Acute respiratory acidosis J96.02 Acute lactic acidosis E87.21 Squamous cell carcinoma of oropharynx C10.9 (2) Alcoholic intoxication Complication of substance-induced condition: uncomplicated Qualified Code(s): F10.920 - Alcohol use, unspecified with intoxication, uncomplicated
--- NOTE | 2023-08-31 16:23 | CT Scan Report ---
CT head/brain wo con CLINICAL HISTORY: cardiac arrest Technique: Contiguous axial CT images of the head were acquired from the base of the skull to the norris luca without intravenous contrast administration. Images were viewed in brain, subdural and bone [facility] . Automated dose lowering techniques and/or adjustment according to patient size were utilized for this exam. Comparison: Comparison is made to CT head 06/24/2020 Findings: Areas of decreased attenuation are present in the periventricular and subcortical white matter bilate rally consistent with small vessel ischemic disease. Generalized cerebral atrophy with commensurate e nlargement of the ventricles, sulci, and cisterns is also present. There is no acute intracranial hem orrhage or evidence of acute territorial infarction. No shift of the midline structures, mass effect, or extra-axial abnormalities are shown. Atherosclerotic calcifications are present in the intracran ial segments of the internal carotid arteries. Imaged portions of the paranasal sinuses and mastoid air cells are clear. The orbits appear normal. There are no acute fractures of the calvaria or scalp swelling. Impression: No acute intracranial hemorrhage, no evidence of acute territorial infarction or other acute intracra nial disease process. ACT 112: Negative or not required by law. Electronically signed by: Aníbal Vallecillo M.D. 08/31/2023 4:22 PM
--- NOTE | 2023-08-31 16:26 | CT Scan Report ---
CT cervical spine wo con CLINICAL HISTORY: found down TECHNIQUE: Multidetector row helical CT of the cervical spine was performed without administration of intravenous contrast. Coronal and sagittal reformations were obtained. Automated dose lowering techn iques and/or adjustment according to patient size were utilized for this exam. Comparison: None available at the time of this dictation. FINDINGS: No acute fractures or subluxations are identified. Degenerative changes are seen in the visualized sp ine. The alignment is normal. Airspace opacities in the bilateral lungs may be secondary to aspiratio n in this patient status post resuscitation. IMPRESSION: Degenerative changes without evidence of acute bony injury. ACT 112: Negative or not required by law. Electronically signed by: Aníbal Vallecillo M.D. 08/31/2023 4:25 PM
--- NOTE | 2023-08-31 16:34 | CT Scan Report ---
CT angio chest PE protocol CLINICAL HISTORY: PE TECHNIQUE: Multidetector row helical CT of the chest was performed with angiographic protocol. Bell l and sagittal reformations were obtained. Coronal and sagittal MIPS were obtained from the axial suzie a set and were submitted for review. Automated dose lowering techniques and/or adjustment according to patient size were utilized for this exam. Comparison: Comparison is made to chest radiograph 08/31/2023 FINDINGS: Lungs and pleura: Consolidative opacities are seen in left greater than right dependent lungs. Heart and pericardium: Heart size is normal. No pericardial effusion. Vessels: No evidence of pulmonary embolism. Mediastinum and kristie: Subcentimeter lymph nodes are seen. Chest wall and lower neck: Unremarkable. Abdomen: Unremarkable. Bones: Multiple bilateral anterior rib fractures are seen near the costochondral junction. These incl ude the right second through eighth ribs and left second through seventh ribs. IMPRESSION: 1. No evidence of pulmonary embolus. 2. Bilateral dependent consolidative opacities are compatible with aspiration this patient status po st resuscitation. 3. Multiple rib fractures compatible with recent resuscitation. ACT 112: Negative or not required by law. Electronically signed by: Aníbal Vallecillo M.D. 08/31/2023 4:32 PM
--- NOTE | 2023-08-31 16:39 | CT Scan Report ---
CT abd pelvis IV con only CLINICAL HISTORY: found down TECHNIQUE: Helical axial images of the abdomen and pelvis were obtained and displayed. Automated dose lowering techniques and/or adjustment according to patient size were utilized for this exam. This e xam was performed with intravenous contrast. COMPARISON: None available at the time of this dictation. FINDINGS: Lower chest: For findings above the diaphragm, please see CT chest performed same day. Liver: Unremarkable. No focal lesions are seen. Gallbladder and biliary tree: No calcified gallstones. Normal caliber wall. No intra- or extrahepatic biliary ductal dilation. Pancreas: Unremarkable, no focal lesions. Spleen: Unremarkable. Adrenals: Unremarkable. Kidneys and ureters: Renal cysts are seen. Bladder: Acosta catheter is seen. Reproductive organs: Unremarkable. Bowel: Diverticulosis is seen without diverticulitis. The appendix is normal. Lymph nodes Retroperitoneal: Unremarkable. Pelvic: Unremarkable. Mesenteric: Unremarkable. Peritoneum: Normal. Vessels: Unremarkable. Abdominal wall: Unremarkable. Bones: Degenerative changes in the visualized spine. Partial visualization of multiple anterior rib f ractures. IMPRESSION: No acute abnormalities below the diaphragm. ACT 112: Negative or not required by law. Electronically signed by: Aníbal Vallecillo M.D. 08/31/2023 4:37 PM
[2023-08-31 16:50] LABS: Troponin I High Sensitivity 248.7 pg/ml (0-20)
--- NOTE | 2023-08-31 16:58 | Procedure Note ---
Procedure Note Date of Service August 31, 2023 Note CENTRAL LINE PROCEDURE NOTE: Procedure: Central Line Placement Provider: Star Gallardo MD Indication: Central Drug Administration, Poor Venous Access, Multiple Lab Draws Necessary, etc. Anesthesia: 5 cc 1% lidocaine locally Site: Left subclavian Procedure was emergent. Patient intubated and unable to provide consent. No family immediately available A time-out was completed verifying correct patient, procedure, site, positioni ng, and implants(s) or special equipment if applicable. Patients left clavicular area cleansed and draped in the typical sterile fashion using Chloraprep. Using landmarks, 5 cc of lidocaine was infiltrated into the skin and subcutaneous tissues just inferior to the clavicle. Using an 18-gauge needle, the subclavian vein was accessed on the first attempt. Good venous blood return was maintained prior to removal of syringe from introducer needle. Using Seldinger Technique, a guide wire was advanced through the introducer needle without resistance. The introducer needle was removed. A small incision was made in penetrating fashion at the guide wire insertion site utilizing an 11 blade scalpel. The dilator was advanced to the vessel without resistance. The dilator was exchanged for the triple lumen catheter which was advanced into the vessel without resistance. The guide wire was removed intact from the catheter without issue. Claves were placed on each catheter tip with confirmation of good blood flow from each lumen. Each port was easily flushed with sterile saline. The catheter was placed at the hub and sutured in place. BioPatch was applied to the catheter and a sterile Tegaderm dressing was applied over the catheter with careful attention to sterility. Patient tolerated procedure well. No immediate complications were met. Post procedure x-ray pending Coding CPT Codes Tubes, Drains, and Vasc Access - Tubes, Drains, and Vasc Access: [id number] Place catheter in vein superior or inferior vena cava ([id number]) [facility] [place] Codes (Charges) Tubes, Drains, and Vasc Access Procedure 1: Tubes, Drains, and Vasc Access: [id number] Place catheter in vein superior or inferior vena cava
--- NOTE | 2023-08-31 17:00 | Procedure Note ---
Procedure Note Date of Service August 31, 2023 Note ARTERIAL LINE PROCEDURE NOTE: Procedure: Arterial Line Placement Provider: Star Gallardo MD Indication: Monitoring on Pressors Anesthesia: None Procedure was emergent. Patient is intubated and on the ventilator and unable to provide consent. No family immediately available A time-out was completed verifying correct patient, procedure, site, positioning, and implant(s) or special equipment if applicable. Allens test was performed to ensure adequate perfusion. Patients left wrist was prepped and draped in the usual sterile fashion. Ultrasound guidance was used to aid needle placement. A 20g Arrow arterial line was introduced into the left radial artery. Catheter was threaded, and the needle was removed with appropriate blood return. Good waveform was observed. The patient tolerated the procedure well. []Confirmation of placement with ultrasound. []Images saved to medical record. Blood Loss: Minimal Complications: None Coding CPT Codes Tubes, Drains, and Vasc Access - Tubes, Drains, and Vasc Access: [id number] Arterial Cath/Cannulation Sampling/Monitoring/Transfusion ([id number]) Tubes, Drains, and Vasc Access - Tubes, Drains, and Vasc Access: [id number] Ultra sound Guidance For Vascular ([id number]) [facility] [place] (Charges) Tubes, Drains, and Vasc Access Procedure 1: Tubes, Drains, and Vasc Access: [id number] Arterial Cath/Cannulation Sampling/Monitoring/Transfusion Procedure 2: Tubes, Drains, and Vasc Access: [id number] Ultrasound Guidance For Vascular
[2023-08-31 17:15] LABS: Chol HDL Ratio 2.2 (0-5)
--- NOTE | 2023-08-31 17:25 | XRay Report ---
XR chest 1V portable CLINICAL HISTORY: left cvc placement TECHNIQUE: Single frontal radiograph of the chest was obtained. Comparison: Comparison is made to chest radiograph 08/31/2023 FINDINGS: Endotracheal tube terminates 4 mm from the lilliana. A left venous catheter terminates in a left-sided SVC. Cardiomegaly is noted. Multifocal airspace opacities are seen. No evidence of pleural effusion o r pneumothorax. IMPRESSION: 1. Left venous catheter terminates in a left sided SVC which drains to the right atrium via a promin ent coronary sinus. 2. Airspace opacities are again seen compatible with contusion/aspiration. ACT 112: Negative or not required by law. Electronically signed by: Aníbal Vallecillo M.D. 08/31/2023 5:24 PM
[2023-08-31] MEDS: SODIUM BICARB 8.4% INJ 50 MEQ/50 ML SYR IV STA (17:27)
--- NOTE | 2023-08-31 17:27 | XRay Report ---
XR KUB/Abdomen 1 view CLINICAL HISTORY: OG placement TECHNIQUE: 1 view of the abdomen was obtained. Comparison: Comparison is made to CT abdomen pelvis 08/31/2023 FINDINGS: Enteric tube side-port is at the level of the diaphragm. Degenerative changes are seen in the visuali zed skeleton. The bowel gas pattern is nonobstructive. IMPRESSION: Enteric tube side-port is at the level of the diaphragm. Enteric tube can be advanced approximately 5 cm for improved positioning. ACT 112: Negative or not required by law. Electronically signed by: Aníbal Vallecillo M.D. 08/31/2023 5:26 PM
[2023-08-31 17:28] LABS: Amphetamines+Metham, Urine Neg (Neg); Barbiturates, Urine Neg (Neg); Benzodiazepine, Urine Neg (Neg); Cocaine, Urine Neg (Neg); MDMA (Ecstacy), Urine Neg (Neg); Marijuana, Urine Neg (Neg); Methadone, Urine Neg (Neg); Opiate, Urine Neg (Neg); Phencyclidine, Urine Neg (Neg)
[2023-08-31 17:32] LABS: iSTAT Art Bld Gas pCO2 Correct 32 mmHg (35-46); iSTAT Art Bld Gas pH Corrected 7.302 (7.35-7.45); iSTAT Arterial Blood Gas HCO3 16 meg/L (19-24); iSTAT Arterial Blood Gas pCO2 36 mmHg (35-46); iSTAT Arterial Blood Gas pH 7.27 (7.35-7.45); iSTAT Arterial Blood Gas pO2 107 mmHg (80-95); iSTAT Arterial Blood Gas pO2 C 95; iSTAT Carbon Dioxide 17 mmol/L (24-31); iSTAT FiO2 80 %; iSTAT Hematocrit 40 % (42-52); iSTAT Hemoglobin 13.6 g/dl (14.0-18.0); iSTAT Potassium 3.2 mmol/L (3.3-5.0); iSTAT Site L Radial; iSTAT Sodium 139 mmol/L (135-144)
[2023-08-31] MEDS: AMIODARONE 360MG / 200ML D5W IV ONE (17:45)
[2023-08-31] MEDS: PHENYLEPHRINE/NSS 25 MG/250 ML BAG IV SCH (17:51)
[2023-08-31] MEDS: MULTI-VITAMIN INFUSION 10 ML, THIAMINE HCL 100 MG, FOLIC ACID 1 MG in SODIUM CHLORIDE 0... IV ONE (18:01)
[2023-08-31] MEDS ORDERED: ROCURONIUM BROMIDE 10 MG/ML 5 ML VIAL IV ONE (18:40)
[2023-08-31] MEDS ORDERED: ETOMIDATE 2 MG/ML 20 ML VIAL IV ONE (18:40)
[2023-08-31 19:11] LABS: BUN Creatinine Ratio 12.2 (10-20); Calcium 8.2 mg/dl (8.6-10.3); Creatinine Clr Calc Pharmacy 107.8 ml/min; Est GFR (African American) 110.6 ml/min; Est GFR (Non-African American) 95.4 ml/min; Magnesium 1.5 mg/dl (1.7-2.4); Phosphorus 4.2 mg/dl (2.5-4.9); Potassium 3.3 mmol/L (3.5-5.1)
[2023-08-31] MEDS: propofoL 1,000 MG/100 ML VIAL IV SCH (19:29)
--- NOTE | 2023-08-31 20:08 | XRay Report ---
XR chest 1V portable CLINICAL HISTORY: subcutaneous air, r/o pneumothorax TECHNIQUE: Single frontal radiograph of the chest was obtained. Comparison: Comparison is made to chest radiograph 08/31/2023 FINDINGS: Endotracheal tube terminates 3.8 cm in the lilliana. Enteric tube is not completely visualized with the tip and side port appear to lie below the lilliana. Left venous catheter is again seen. Multifocal air space opacities are seen. Stable cardiomegaly. No evidence of pleural effusion or pneumothorax. IMPRESSION: Multifocal airspace opacities without evidence of pneumothorax. ACT 112: Negative or not required by law. Electronically signed by: Aníbal Vallecillo M.D. 08/31/2023 8:07 PM
[2023-08-31] MEDS: ICU ELECTROLYTE REPLACEMENT PROTOCOL SCH (20:43)
[2023-08-31] MEDS: OPTIRAY 320 100ml IV ONE (20:45)
[2023-08-31] MEDS: HEPARIN SOD 5,000 UNIT/0.5 ML VIAL SQ SCH (20:53)
[2023-08-31] MEDS: MAGNESIUM SULFATE / D5W 1 GM/100 ML BAG IV SCH (20:53)
[2023-08-31] MEDS: THIAMINE HCL 100 MG in SYRINGE 9 ML IV SCH (20:54)
[2023-08-31] MEDS: PIPERACILLIN/TAZOBACTAM 4.5 GM in DEXTROSE 5% MINI-B 100 ML IV SCH (20:54)
[2023-08-31] MEDS: POTASSIUM CHLORIDE / WTR 20 MEQ/100 ML PLCT IV SCH (21:02)
--- NOTE | 2023-08-31 23:01 | CT Scan Report ---
Exam(s): CT NECK With Contrast IV Amt: optiray 320 93ml EXAM: CT Neck With Intravenous Contrast CLINICAL HISTORY: Reason for exam: subcutaneous air. TECHNIQUE: Axial computed tomography images of the neck with intravenous contrast. CTDI is 22.67 mGy and DLP is 670.57 mGy-cm. Automated exposure control was utilized for the study. A dose lowering technique was utilized adhering to the principles of ALARA. CONTRAST: Patient received optiray 320 93ml of IV contrast COMPARISON: 09/10/2022 FINDINGS: No subcutaneous air. Diffuse soft tissue edema right greater than left. Obscuration of the normal fat planes. No fluid collection. Endotracheal tube and esophagogastric tubes in place. The vasculature is patent. No clearly identified mass or adenopathy. No acute osseous abnormality. Interstitial and airspace opacities at the lung apices. IMPRESSION: 1. No subcutaneous air. 2. Diffuse soft tissue edema right greater than left. Obscuration of the normal fat planes. No fluid collection. 3. Interstitial and airspace opacities at the lung apices. Electronically signed by: Nathan Corrales MD 08/31/23 23:00 PM
[2023-09-01 04:54] LABS: iSTAT Art Bld Gas pCO2 Correct 31 mmHg (35-46); iSTAT Arterial Blood Gas HCO3 20 meg/L (19-24); iSTAT Arterial Blood Gas pCO2 29 mmHg (35-46); iSTAT Arterial Blood Gas pH 7.44 (7.35-7.45); iSTAT Arterial Blood Gas pO2 87 mmHg (80-95); iSTAT Arterial Blood Gas pO2 C 93; iSTAT Carbon Dioxide 20 mmol/L (24-31); iSTAT FiO2 40 %; iSTAT Hematocrit 40 % (42-52); iSTAT Hemoglobin 13.6 g/dl (14.0-18.0); iSTAT Site Art Line; iSTAT Sodium 137 mmol/L (135-144)
[2023-09-01 05:04] LABS: Basophils # (auto) 0.03 K/uL (0.00-0.20); Basophils % (auto) 0.4 %; Eosinophils # (auto) 0.01 K/uL (0.00-0.50); Eosinophils % (auto) 0.1 %; Hematocrit (blood only) 39.8 % (42.0-52.0); Hemoglobin 13.1 g/dl (14.0-18.0); Immature Granulocytes # (auto) 0.02 K/uL (0.01-0.20); Immature Granulocytes % (auto) 0.2 %; Lymphocytes # (auto) 0.27 K/uL (1.20-3.40); Lymphocytes % (auto) 3.2 %; Mean Corpuscular Hemoglobin 29.9 pg (25.0-34.0); Mean Corpuscular Hgb Conc 32.9 g/dL (32.0-36.0); Mean Corpuscular Volume 90.9 fL (80.0-100.0); Mean Platelet Volume 10.2 fL (9.4-12.4); Monocytes % (auto) 10.6 %; Neutrophils # (auto) 7.26 K/uL (1.40-6.50); Neutrophils % (auto) 85.5 %; Platelet Count 242 K/uL (130-400); RDW Coefficient of Variation 15.9 % (11.5-14.5); RDW Standard Deviation 53.2 fL (36.4-46.3); Red Blood Count 4.38 M/uL (4.70-6.10); White Blood Count 8.49 K/ul (4.8-10.8)
[2023-09-01 05:14] LABS: Albumin Level 3.6 gm/dl (3.4-5.0); BUN Creatinine Ratio 15.4 (10-20); Bilirubin Direct 0.3 mg/dl (0-0.2); Calcium 8.2 mg/dl (8.6-10.3); Creatinine Clr Calc Pharmacy 113.4 ml/min; Est GFR (African American) 112.9 ml/min; Est GFR (Non-African American) 97.4 ml/min; Magnesium 2.1 mg/dl (1.7-2.4); Phosphorus 2.3 mg/dl (2.5-4.9); Total Protein 6.2 gm/dl (6.0-8.3)
[2023-09-01 05:27] LABS: Prothrombin Time 11.2 Seconds (9.0-12.0)
[2023-09-01 05:29] LABS: Troponin I High Sensitivity 320.4 pg/ml (0-20)
[2023-09-01] MEDS ORDERED: SODIUM PHOSPHATE 3 MMOL/1 ML INFUSION IV STA (06:33)
[2023-09-01] MEDS: ACETAMINOPHEN 325 MG TAB PO PRN (06:44)
[2023-09-01] MEDS ORDERED: SODIUM PHOSPHATE 21 MMOL in SODIUM CHLORIDE 0.9% 500 ML IV ONE (07:00)
[2023-09-01] MEDS: SODIUM PHOSPHATE 15 MMOL in SODIUM CHLORIDE 0.9% 250 ML IV ONE (07:26)
[2023-09-01] MEDS: METOPROLOL TARTRATE 1 MG/ML VIAL IV STA (07:28)
[2023-09-01] MEDS: LORAZEPAM IV STA (07:54)
[2023-09-01] MEDS: LORazepam 2 MG/1 ML VIAL ONE (08:10)
--- NOTE | 2023-09-01 09:03 | XRay Report ---
XR chest 1V portable CLINICAL HISTORY: Resp failure TECHNIQUE: Single frontal radiograph of the chest was obtained. Comparison: Comparison is made to chest radiograph 08/31/2023 FINDINGS: Lines and tubes are stable. Cardiomegaly is noted. Airspace opacities have improved from the prior ex am. No evidence of pleural effusion or pneumothorax. IMPRESSION: Lines and tubes are stable. Airspace opacities have slightly improved compatible with improving aspir ation/contusion. ACT 112: Negative or not required by law. Electronically signed by: Aníbal Vallecillo M.D. 09/01/2023 9:02 AM
--- NOTE | 2023-09-01 10:17 | Critical Care Progress Note ---
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 At least 15 minutes as from the time he was found by EMS before they had return of spontaneous circulation was 15 minutes. He is at high risk of anoxic encephalopathy. He has pressor dependent hypotension as well as atrial fibrillation with rapid ventricular response. 24-hour events: Patient was admitted to the intensive care unit. Initially was unresponsive but then was biting the tube and not performing any purposeful movement so propofol was initiated. Pressors have been weaned off he was actually hypertensive. This morning he had upward eye deviation which resolved with administration of 4 mg of Ativan. EEG is pending. Recommendations: 1. Neurologic: At high risk for anoxic brain injury. Initial CT scan unrevealing. Concern for anoxic encephalopathy. Will obtain MRI of the brain. EEG pending. May need formal neurology consultation. 2. Cardiovascular: Shock state. Lactate trending down. Now slightly hypertensive intermittently. Trend troponins. Hold heparin until we can ascertain where we are with neurological status. Patient was not volume responsive. If hypertension persists, can restart losartan. 3. Pulmonary: Continue vent settings. Follow-up blood gas now. Check respiratory cultures. 4. ID: At least aspiration pneumonia. Currently on Zosyn. Await respiratory cultures. Check procalcitonin and follow white blood cell count. 5. Endocrine: Glycemic control per protocol. 6. Renal: Hypokalemia. Creatinine is normal now. Initiate electrolyte replacement protocol. 7. GI: Enteric access in place n.p.o. for now. Transaminases will continue to be trended. May need to consider initiation of tube feedings within the next 24 hours 8. Heme-onc: History of squamous cell carcinoma the base of the tongue. Therapy currently on hold. Will need to get PET scan from [facility] pushed in tomorrow The patient is critically ill at this point in time with significant possibility of clinical deterioration and or . Unclear outcome. Will have discussion with family once they are present and readdressing CODE STATUS would be entirely appropriate as given his prolonged downtime and advanced oropharyngeal cancer as well as medical noncompliance would make additional CPR efforts unlikely to improve his overall outcome. A total of 80 minutes in critical care time was spent in evaluation management stabilization this patient exclusive of procedures Had long discussions with the family (over 45 minutes). Jo Sanchez (sister) [phone] is primary contact. Family is taking current status under consideration and considering CODE STATUS. There is an estranged ex- who is not really involved in his care but there are also some children. All of his siblings and his mother were on the call. Mother would like to come to bedside as she lives in [place] but the rest of the family lives out of the area. They are going to update the children and get back to us regarding CODE STATUS. For now they would like to continue care and reassess his neurological status in 72 hours. Admission and Anticipated Discharge Date Admission Date: August 31, 2023 Subjective Remains intubated and sedated Review of Systems Review of Systems: Unobtainable due to endotracheal tube Physical Exam Constitutional: + obese and + mechanically ventilated Neck: trachea midline, no thyromegaly Cardiovascular: Rate/Rhythm: + tachycardic and + irregularly irregular Gastrointestinal (Abdomen): normal bowel sounds, soft, nontender, no hepatosplenomegaly Musculoskeletal: Extremities: extremities normal to inspection Skin: no rashes, warm and dry Lymphatic: no cervical lymphadenopathy Results & Data Results & Data Vital Signs (Past 12 Hours) Vital Signs Temp Pulse Resp BP Pulse Ox Pulse Ox O2 Del Method 09/01/23 08:30 116/82 09/01/23 08:30 37.5 C 94 H 18 97 09/01/23 08:17 101 H 115/77 09/01/23 08:16 97/84 L 09/01/23 08:16 97/84 L 09/01/23 08:16 37.6 C H 92 H 18 09/01/23 08:01 37.6 C H 106 H 23 98 09/01/23 08:01 128/105 H 09/01/23 08:01 128/105 H 09/01/23 08:00 37.7 C H 101 H 12 99 09/01/23 08:00 Mechanical Vent 09/01/23 08:00 09/01/23 07:50 96 H 20 98 09/01/23 07:46 143/110 H 09/01/23 07:46 37.7 C H 97 H 20 09/01/23 07:43 96 H 165/108 H 09/01/23 07:31 160/109 H 09/01/23 07:31 37.7 C H 121 H 24 97 09/01/23 07:30 37.7 C H 117 H 24 97 09/01/23 07:30 09/01/23 07:28 119 H 181/109 H 09/01/23 07:16 168/112 H 09/01/23 07:16 37.8 C H 130 H 26 H 97 09/01/23 07:01 37.8 C H 121 H 26 H 97 09/01/23 07:01 157/114 H 09/01/23 07:00 37.8 C H 129 H 27 H 97 09/01/23 07:00 133 H 09/01/23 06:46 155/102 H 09/01/23 06:46 37.9 C H 118 H 27 H 97 09/01/23 06:30 37.9 C H 127 H 26 H 98 09/01/23 06:30 161/111 H 09/01/23 06:16 148/97 H 09/01/23 06:16 37.9 C H 132 H 27 H 97 09/01/23 06:15 37.9 C H 121 H 26 H 97 09/01/23 06:01 151/122 H 09/01/23 06:01 37.9 C H 113 H 26 H 09/01/23 06:00 37.9 C H 112 H 27 H 97 09/01/23 05:45 168/129 H 09/01/23 05:45 37.9 C H 130 H 23 97 09/01/23 05:30 143/116 H 09/01/23 05:30 38.0 C H 127 H 29 H 98 09/01/23 05:15 139/110 H 09/01/23 05:15 38.0 C H 120 H 27 H 97 09/01/23 05:00 143/107 H 09/01/23 05:00 38.0 C H 112 H 27 H 98 09/01/23 04:45 151/111 H 09/01/23 04:45 38.1 C H 116 H 35 H 96 09/01/23 04:31 145/100 H 09/01/23 04:31 38.1 C H 128 H 28 H 09/01/23 04:30 38.1 C H 132 H 28 H 99 09/01/23 04:16 161/95 H 09/01/23 04:16 38.1 C H 133 H 29 H 99 09/01/23 04:15 38.1 C H 124 H 29 H 99 09/01/23 04:00 09/01/23 04:00 38.1 C H 130 H 30 H 99 09/01/23 04:00 162/117 H 09/01/23 04:00 133 H 161/95 H 09/01/23 03:45 38.1 C H 128 H 30 H 99 09/01/23 03:45 155/126 H 09/01/23 03:43 126 H 35 H 99 09/01/23 03:30 156/113 H 09/01/23 03:30 38.1 C H 119 H 31 H 99 09/01/23 03:15 151/110 H 09/01/23 03:15 38.1 C H 113 H 28 H 99 09/01/23 03:02 117 H 32 H 71 L 09/01/23 03:02 136/114 H 09/01/23 03:00 131 H 30 H 99 09/01/23 02:46 153/124 H 09/01/23 02:46 124 H 28 H 09/01/23 02:45 126 H 31 H 97 09/01/23 02:30 37.9 C H 116 H 31 H 98 09/01/23 02:30 167/117 H 09/01/23 02:15 37.9 C H 127 H 24 97 09/01/23 02:15 154/113 H 09/01/23 02:00 158/110 H 09/01/23 02:00 37.8 C H 113 H 25 H 98 09/01/23 01:45 156/116 H 09/01/23 01:45 37.8 C H 116 H 26 H 98 09/01/23 01:30 155/117 H 09/01/23 01:30 37.7 C H 112 H 24 98 09/01/23 01:25 37.7 C H 104 H 26 H 98 09/01/23 01:25 153/105 H 09/01/23 01:15 37.6 C H 102 H 24 98 09/01/23 01:15 145/124 H 09/01/23 01:10 98 09/01/23 01:00 37.6 C H 110 H 22 99 09/01/23 01:00 151/108 H 09/01/23 00:45 37.5 C 107 H 25 H 98 09/01/23 00:45 154/111 H 09/01/23 00:30 37.5 C 101 H 24 99 09/01/23 00:30 143/113 H 09/01/23 00:15 37.4 C 94 H 24 99 09/01/23 00:15 141/103 H 09/01/23 00:00 90 09/01/23 00:00 37.4 C 95 H 27 H 99 09/01/23 00:00 141/102 H 09/01/23 00:00 107 H 154/111 H 09/01/23 00:00 08/31/23 23:47 95 H 23 100 08/31/23 23:45 142/101 H 08/31/23 23:45 37.3 C 90 22 08/31/23 23:30 37.2 C 91 H 22 100 08/31/23 23:30 146/104 H 08/31/23 23:15 136/107 H 08/31/23 23:15 37.1 C 94 H 24 100 08/31/23 23:00 128/98 08/31/23 23:00 37.0 C 100 H 19 100 08/31/23 22:45 134/98 08/31/23 22:45 37.0 C 97 H 21 100 08/31/23 22:30 36.9 C 103 H 22 100 08/31/23 22:30 129/102 H O2 Del Method FiO2 09/01/23 08:30 09/01/23 08:30 09/01/23 08:17 09/01/23 08:16 09/01/23 08:16 09/01/23 08:16 09/01/23 08:01 09/01/23 08:01 09/01/23 08:01 09/01/23 08:00 09/01/23 08:00 30 09/01/23 08:00 30 09/01/23 07:50 30 09/01/23 07:46 09/01/23 07:46 05/12/24 07:43 09/01/23 07:31 09/01/23 07:31 09/01/23 07:30 09/01/23 07:30 30 09/01/23 07:28 09/01/23 07:16 09/01/23 07:16 09/01/23 07:01 09/01/23 07:01 09/01/23 07:00 09/01/23 07:00 09/01/23 06:46 09/01/23 06:46 09/01/23 06:30 09/01/23 06:30 09/01/23 06:16 09/01/23 06:16 09/01/23 06:15 09/01/23 06:01 09/01/23 06:01 09/01/23 06:00 09/01/23 05:45 09/01/23 05:45 09/01/23 05:30 09/01/23 05:30 09/01/23 05:15 09/01/23 05:15 09/01/23 05:00 09/01/23 05:00 09/01/23 04:45 09/01/23 04:45 09/01/23 04:31 09/01/23 04:31 09/01/23 04:30 09/01/23 04:16 09/01/23 04:16 09/01/23 04:15 09/01/23 04:00 40 09/01/23 04:00 09/01/23 04:00 09/01/23 04:00 09/01/23 03:45 09/01/23 03:45 09/01/23 03:43 40 09/01/23 03:30 09/01/23 03:30 09/01/23 03:15 09/01/23 03:15 09/01/23 03:02 09/01/23 03:02 09/01/23 03:00 09/01/23 02:46 09/01/23 02:46 09/01/23 02:45 09/01/23 02:30 09/01/23 02:30 09/01/23 02:15 09/01/23 02:15 09/01/23 02:00 09/01/23 02:00 09/01/23 01:45 09/01/23 01:45 09/01/23 01:30 09/01/23 01:30 09/01/23 01:25 09/01/23 01:25 09/01/23 01:15 09/01/23 01:15 09/01/23 01:10 Mechanical Vent 09/01/23 01:00 09/01/23 01:00 09/01/23 00:45 09/01/23 00:45 09/01/23 00:30 09/01/23 00:30 09/01/23 00:15 09/01/23 00:15 09/01/23 00:00 09/01/23 00:00 09/01/23 00:00 09/01/23 00:00 09/01/23 00:00 60 08/31/23 23:47 40 08/31/23 23:45 08/31/23 23:45 08/31/23 23:30 08/31/23 23:30 08/31/23 23:15 08/31/23 23:15 08/31/23 23:00 08/31/23 23:00 08/31/23 22:45 08/31/23 22:45 08/31/23 22:30 08/31/23 22:30 Critical Care Results & Data Vital Signs (Past 12 Hours) Vital Signs Temp Pulse Resp BP Pulse Ox Pulse Ox O2 Del Method 09/01/23 08:30 116/82 09/01/23 08:30 37.5 C 94 H 18 97 09/01/23 08:17 101 H 115/77 09/01/23 08:16 97/84 L 09/01/23 08:16 97/84 L 09/01/23 08:16 37.6 C H 92 H 18 09/01/23 08:01 37.6 C H 106 H 23 98 09/01/23 08:01 128/105 H 09/01/23 08:01 128/105 H 09/01/23 08:00 37.7 C H 101 H 12 99 09/01/23 08:00 Mechanical Vent 09/01/23 08:00 09/01/23 07:50 96 H 20 98 09/01/23 07:46 143/110 H 09/01/23 07:46 37.7 C H 97 H 20 09/01/23 07:43 96 H 165/108 H 09/01/23 07:31 160/109 H 09/01/23 07:31 37.7 C H 121 H 24 97 09/01/23 07:30 37.7 C H 117 H 24 97 09/01/23 07:30 09/01/23 07:28 119 H 181/109 H 09/01/23 07:16 168/112 H 09/01/23 07:16 37.8 C H 130 H 26 H 97 09/01/23 07:01 37.8 C H 121 H 26 H 97 09/01/23 07:01 157/114 H 09/01/23 07:00 37.8 C H 129 H 27 H 97 09/01/23 07:00 133 H 09/01/23 06:46 155/102 H 09/01/23 06:46 37.9 C H 118 H 27 H 97 09/01/23 06:30 37.9 C H 127 H 26 H 98 09/01/23 06:30 161/111 H 09/01/23 06:16 148/97 H 09/01/23 06:16 37.9 C H 132 H 27 H 97 09/01/23 06:15 37.9 C H 121 H 26 H 97 09/01/23 06:01 151/122 H 09/01/23 06:01 37.9 C H 113 H 26 H 09/01/23 06:00 37.9 C H 112 H 27 H 97 09/01/23 05:45 168/129 H 09/01/23 05:45 37.9 C H 130 H 23 97 09/01/23 05:30 143/116 H 09/01/23 05:30 38.0 C H 127 H 29 H 98 09/01/23 05:15 139/110 H 09/01/23 05:15 38.0 C H 120 H 27 H 97 09/01/23 05:00 143/107 H 09/01/23 05:00 38.0 C H 112 H 27 H 98 09/01/23 04:45 151/111 H 09/01/23 04:45 38.1 C H 116 H 35 H 96 09/01/23 04:31 145/100 H 09/01/23 04:31 38.1 C H 128 H 28 H 05/12/24 04:30 38.1 C H 132 H 28 H 99 09/01/23 04:16 161/95 H 09/01/23 04:16 38.1 C H 133 H 29 H 99 09/01/23 04:15 38.1 C H 124 H 29 H 99 09/01/23 04:00 09/01/23 04:00 38.1 C H 130 H 30 H 99 09/01/23 04:00 162/117 H 09/01/23 04:00 133 H 161/95 H 09/01/23 03:45 38.1 C H 128 H 30 H 99 09/01/23 03:45 155/126 H 09/01/23 03:43 126 H 35 H 99 09/01/23 03:30 156/113 H 09/01/23 03:30 38.1 C H 119 H 31 H 99 09/01/23 03:15 151/110 H 09/01/23 03:15 38.1 C H 113 H 28 H 99 09/01/23 03:02 117 H 32 H 71 L 09/01/23 03:02 136/114 H 09/01/23 03:00 131 H 30 H 99 09/01/23 02:46 153/124 H 09/01/23 02:46 124 H 28 H 09/01/23 02:45 126 H 31 H 97 09/01/23 02:30 37.9 C H 116 H 31 H 98 09/01/23 02:30 167/117 H 09/01/23 02:15 37.9 C H 127 H 24 97 09/01/23 02:15 154/113 H 09/01/23 02:00 158/110 H 09/01/23 02:00 37.8 C H 113 H 25 H 98 09/01/23 01:45 156/116 H 09/01/23 01:45 37.8 C H 116 H 26 H 98 09/01/23 01:30 155/117 H 09/01/23 01:30 37.7 C H 112 H 24 98 09/01/23 01:25 37.7 C H 104 H 26 H 98 09/01/23 01:25 153/105 H 09/01/23 01:15 37.6 C H 102 H 24 98 09/01/23 01:15 145/124 H 09/01/23 01:10 98 09/01/23 01:00 37.6 C H 110 H 22 99 09/01/23 01:00 151/108 H 09/01/23 00:45 37.5 C 107 H 25 H 98 09/01/23 00:45 154/111 H 09/01/23 00:30 37.5 C 101 H 24 99 09/01/23 00:30 143/113 H 09/01/23 00:15 37.4 C 94 H 24 99 09/01/23 00:15 141/103 H 09/01/23 00:00 90 09/01/23 00:00 37.4 C 95 H 27 H 99 09/01/23 00:00 141/102 H 09/01/23 00:00 107 H 154/111 H 09/01/23 00:00 08/31/23 23:47 95 H 23 100 08/31/23 23:45 142/101 H 08/31/23 23:45 37.3 C 90 22 08/31/23 23:30 37.2 C 91 H 22 100 08/31/23 23:30 146/104 H 08/31/23 23:15 136/107 H 08/31/23 23:15 37.1 C 94 H 24 100 08/31/23 23:00 128/98 08/31/23 23:00 37.0 C 100 H 19 100 08/31/23 22:45 134/98 08/31/23 22:45 37.0 C 97 H 21 100 08/31/23 22:30 36.9 C 103 H 22 100 08/31/23 22:30 129/102 H O2 Del Method FiO2 09/01/23 08:30 09/01/23 08:30 09/01/23 08:17 09/01/23 08:16 09/01/23 08:16 09/01/23 08:16 09/01/23 08:01 09/01/23 08:01 09/01/23 08:01 09/01/23 08:00 09/01/23 08:00 30 09/01/23 08:00 30 09/01/23 07:50 30 09/01/23 07:46 09/01/23 07:46 09/01/23 07:43 09/01/23 07:31 09/01/23 07:31 09/01/23 07:30 09/01/23 07:30 30 09/01/23 07:28 09/01/23 07:16 09/01/23 07:16 09/01/23 07:01 09/01/23 07:01 09/01/23 07:00 09/01/23 07:00 09/01/23 06:46 09/01/23 06:46 09/01/23 06:30 09/01/23 06:30 09/01/23 06:16 09/01/23 06:16 09/01/23 06:15 09/01/23 06:01 09/01/23 06:01 09/01/23 06:00 09/01/23 05:45 09/01/23 05:45 09/01/23 05:30 09/01/23 05:30 09/01/23 05:15 09/01/23 05:15 09/01/23 05:00 09/01/23 05:00 09/01/23 04:45 09/01/23 04:45 09/01/23 04:31 09/01/23 04:31 09/01/23 04:30 09/01/23 04:16 09/01/23 04:16 09/01/23 04:15 09/01/23 04:00 40 09/01/23 04:00 09/01/23 04:00 09/01/23 04:00 09/01/23 03:45 09/01/23 03:45 09/01/23 03:43 40 09/01/23 03:30 09/01/23 03:30 09/01/23 03:15 09/01/23 03:15 09/01/23 03:02 09/01/23 03:02 09/01/23 03:00 09/01/23 02:46 09/01/23 02:46 09/01/23 02:45 09/01/23 02:30 09/01/23 02:30 09/01/23 02:15 09/01/23 02:15 09/01/23 02:00 09/01/23 02:00 09/01/23 01:45 09/01/23 01:45 09/01/23 01:30 09/01/23 01:30 09/01/23 01:25 09/01/23 01:25 09/01/23 01:15 09/01/23 01:15 09/01/23 01:10 Mechanical Vent 09/01/23 01:00 09/01/23 01:00 09/01/23 00:45 09/01/23 00:45 09/01/23 00:30 09/01/23 00:30 09/01/23 00:15 09/01/23 00:15 09/01/23 00:00 09/01/23 00:00 09/01/23 00:00 09/01/23 00:00 09/01/23 00:00 60 08/31/23 23:47 40 08/31/23 23:45 08/31/23 23:45 08/31/23 23:30 08/31/23 23:30 08/31/23 23:15 08/31/23 23:15 08/31/23 23:00 08/31/23 23:00 08/31/23 22:45 08/31/23 22:45 08/31/23 22:30 08/31/23 22:30 Lab & Micro Results (Past 24 Hours) RBC 4.38 M/uL (4.70-6.10) L 09/01/23 WBC 8.49 K/ul (4.8-10.8) 09/01/23 Hgb 13.1 g/dl (14.0-18.0) L 09/01/23 Hct 39.8 % (42.0-52.0) L 09/01/23 MCV 90.9 fL (80.0-100.0) 09/01/23 MCH 29.9 pg (25.0-34.0) 09/01/23 MCHC 32.9 g/dL (32.0-36.0) 09/01/23 RDW Standard Deviation 53.2 fL (36.4-46.3) H 09/01/23 RDW Coefficient of Variation 15.9 % (11.5-14.5) H 09/01/23 Plt Count 242 K/uL (130-400) 09/01/23 MPV 10.2 fL (9.4-12.4) 09/01/23 Neutrophils (%) (Auto) 85.5 % 09/01/23 Lymphocytes (%) (Auto) 3.2 % 09/01/23 Monocytes # (Auto) 0.90 K/uL (0.11-0.59) H 09/01/23 Eosinophils # (Auto) 0.01 K/uL (0.00-0.50) 09/01/23 Immature Granulocyte % (Auto) 0.2 % 09/01/23 Neutrophils # (Auto) 7.26 K/uL (1.40-6.50) H 09/01/23 Lymphocytes # (Auto) 0.27 K/uL (1.20-3.40) L 09/01/23 Monocytes # (Auto) 0.90 K/uL (0.11-0.59) H 09/01/23 Eosinophils # (Auto) 0.01 K/uL (0.00-0.50) 09/01/23 Basophils # (Auto) 0.03 K/uL (0.00-0.20) 09/01/23 Immature Granulocyte # (Auto) 0.02 K/uL (0.01-0.20) 4 Na 137 mmol/L (136-145) 09/01/23 K 4.0 mmol/L (3.5-5.1) 09/01/23 Cl 104 mmol/L (98-107) 09/01/23 CO2 19 mmol/L (21-32) L 09/01/23 Anion Gap 14 (3-11) H 09/01/23 BUN 12 mg/dl (6-23) 09/01/23 Creatinine 0.78 mg/dl (0.6-1.4) 09/01/23 Estimated GFR ( Amer) 112.9 ml/min 09/01/23 Estimated GFR (Non-Af Amer) 97.4 ml/min 09/01/23 BUN/Creatinine Ratio 15.4 (10-20) 09/01/23 Glu 79 mg/dl (70-99(Fasting)) 09/01/23 Ca 8.2 mg/dl (8.6-10.3) L 09/01/23 Phosphorus Level 2.3 mg/dl (2.5-4.9) L 09/01/23 Total Bilirubin 1.0 mg/dl (0.2-1.0) 09/01/23 Direct Bilirubin 0.3 mg/dl (0-0.2) H 09/01/23 AST 194 U/L (13-39) H 09/01/23 ALT 83 U/L (7-52) H 09/01/23 Alkaline Phosphatase 56 U/L (34-104) 09/01/23 TP 6.2 gm/dl (6.0-8.3) 09/01/23 Albumin 3.6 gm/dl (3.4-5.0) 09/01/23 Mg 2.1 mg/dl (1.7-2.4) 09/01/23 04:36 Calcium Level 8.2 mg/dl (8.6-10.3) L 09/01/23 04:36 Prothromb Time International Ratio 1.0 (0.9-1.1) 09/01/23 04:3 6 Arterial Blood pH (7.35-7.45) 08/31/23 14:33 Arterial Blood Partial Pressure CO2 74 mmHg (35-46) H 08/31/23 14:33 Arterial Blood Partial Pressure O2 65 mmHg (80-95) L 08/31/23 1 4:33 Arterial Blood HCO3 23 mmol/L (19-24) 08/31/23 14:33 Arterial Blood Base Excess -8.7 mEq/L (-9-1.8) 08/31/23 14:33 Arterial Blood Oxygen Saturation 87.1 % (90-95) L 08/31/23 14:3 3 Blood Gas Oxygen Given HEART ALERT 08/31/23 14:33 Ramírez Test NA 09/01/23 04:39 Microbiology 09/01/23 08:00 Gram Stain - Final Sputum,Vent Suction Diagnostic Findings (Past 24 Hours) Chest X-Ray 08/31/23 14:45 XR chest 1V portable, XR chest 1V portable CLINICAL HISTORY: post intub TECHNIQUE: Single frontal radiograph of the chest was obtained at 1445 and 1517 hours Comparison: Comparison is made to chest radiograph 07/14/2020 FINDINGS: 1445 hours: Endotracheal tube terminates 5.7 cm from the lilliana. Cardiomegaly is noted. Patchy airspace opacities most prominent in the left upper lobe superimposed upon interstitial thickening. Possible small left pleural effusion. 1517 hours: Endotracheal tube now terminates 6.0 cm from the lilliana. IMPRESSION: 1. Satisfactory position of endotracheal tube. 2. Patchy airspace opacities most prominent in the left upper lobe. ACT 112: Negative or not required by law. Electronically signed by: Aníbal Vallecillo M.D. 08/31/2023 3:28 PM Abdomen/Pelvis CT 08/31/23 14:57 CT abd pelvis IV con only CLINICAL HISTORY: found down TECHNIQUE: Helical axial images of the abdomen and pelvis were obtained and displayed. Automated dose lowering techniques and/or adjustment according to patient size were utilized for this exam. This exam was performed with intravenous contrast. COMPARISON: None available at the time of this dictation. FINDINGS: Lower chest: For findings above the diaphragm, please see CT chest performed same day. Liver: Unremarkable. No focal lesions are seen. Gallbladder and biliary tree: No calcified gallstones. Normal caliber wall. No intra- or extrahepatic biliary ductal dilation. Pancreas: Unremarkable, no focal lesions. Spleen: Unremarkable. Adrenals: Unremarkable. Kidneys and ureters: Renal cysts are seen. Bladder: Acosta catheter is seen. Reproductive organs: Unremarkable. Bowel: Diverticulosis is seen without diverticulitis. The appendix is normal. Lymph nodes Retroperitoneal: Unremarkable. Pelvic: Unremarkable. Mesenteric: Unremarkable. Peritoneum: Normal. Vessels: Unremarkable. Abdominal wall: Unremarkable. Bones: Degenerative changes in the visualized spine. Partial visualization of multiple anterior rib fractures. IMPRESSION: No acute abnormalities below the diaphragm. ACT 112: Negative or not required by law. Electronically signed by: Aníbal Vallecillo M.D. 08/31/2023 4:37 PM Chest X-Ray 08/31/23 14:59 XR chest 1V portable, XR chest 1V portable CLINICAL HISTORY: post intub TECHNIQUE: Single frontal radiograph of the chest was obtained at 1445 and 1517 hours Comparison: Comparison is made to chest radiograph 07/14/2020 FINDINGS: 1445 hours: Endotracheal tube terminates 5.7 cm from the lilliana. Cardiomegaly is noted. Patchy airspace opacities most prominent in the left upper lobe superimposed upon interstitial thickening. Possible small left pleural effusion. 1517 hours: Endotracheal tube now terminates 6.0 cm from the lilliana. IMPRESSION: 1. Satisfactory position of endotracheal tube. 2. Patchy airspace opacities most prominent in the left upper lobe. ACT 112: Negative or not required by law. Electronically signed by: Aníbal Vallecillo M.D. 08/31/2023 3:28 PM Chest CTA 08/31/23 15:00 CT angio chest PE protocol CLINICAL HISTORY: PE TECHNIQUE: Multidetector row helical CT of the chest was performed with angiographic protocol. Coronal and sagittal reformations were obtained. Coronal and sagittal MIPS were obtained from the axial data set and were submitted for review. Automated dose lowering techniques and/or adjustment according to patient size were utilized for this exam. Comparison: Comparison is made to chest radiograph 08/31/2023 FINDINGS: Lungs and pleura: Consolidative opacities are seen in left greater than right dependent lungs. Heart and pericardium: Heart size is normal. No pericardial effusion. Vessels: No evidence of pulmonary embolism. Mediastinum and kristie: Subcentimeter lymph nodes are seen. Chest wall and lower neck: Unremarkable. Abdomen: Unremarkable. Bones: Multiple bilateral anterior rib fractures are seen near the costochondral junction. These include the right second through eighth ribs and left second through seventh ribs. IMPRESSION: 1. No evidence of pulmonary embolus. 2. Bilateral dependent consolidative opacities are compatible with aspiration this patient status post resuscitation. 3. Multiple rib fractures compatible with recent resuscitation. ACT 112: Negative or not required by law. Electronically signed by: Aníbal Vallecillo M.D. 08/31/2023 4:[address] 08/31/23 15:00 CT head/brain wo con CLINICAL HISTORY: cardiac arrest Technique: Contiguous axial CT images of the head were acquired from the base of the skull to the vertex without intravenous contrast administration. Images were viewed in brain, subdural and bone windows. Automated dose lowering techniques and/or adjustment according to patient size were utilized for this exam. Comparison: Comparison is made to CT head 06/24/2020 Findings: Areas of decreased attenuation are present in the periventricular and subcortical white matter bilaterally consistent with small vessel ischemic disease. Generalized cerebral atrophy with commensurate enlargement of the ventricles, sulci, and cisterns is also present. There is no acute intracranial hemorrhage or evidence of acute territorial infarction. No shift of the midline structures, mass effect, or extra-axial abnormalities are shown. Atherosclerotic calcifications are present in the intracranial segments of the internal carotid arteries. Imaged portions of the paranasal sinuses and mastoid air cells are clear. The orbits appear normal. There are no acute fractures of the calvaria or scalp swelling. Impression: No acute intracranial hemorrhage, no evidence of acute territorial infarction or other acute intracranial disease process. ACT 112: Negative or not required by law. Electronically signed by: Aníbal Vallecillo M.D. 08/31/2023 4:[address] 08/31/23 15:15 CT cervical spine wo con CLINICAL HISTORY: found down TECHNIQUE: Multidetector row helical CT of the cervical spine was performed without administration of intravenous contrast. Coronal and sagittal r eformations were obtained. Automated dose lowering techniques and/or adjustment according to patient size were utilized for this exam. Comparison: None available at the time of this dictation. FINDINGS: No acute fractures or subluxations are identified. Degenerative changes are seen in the visualized spine. The alignment is normal. Airspace opacities in the bilateral lungs may be secondary to aspiration in this patient status post resuscitation. IMPRESSION: Degenerative changes without evidence of acute bony injury. ACT 112: Negative or not required by law. Electronically signed by: Aníbal Vallecillo M.D. 08/31/2023 4:25 PM Chest X-Ray 08/31/23 16:46 XR chest 1V portable CLINICAL HISTORY: left cvc placement TECHNIQUE: Single frontal radiograph of the chest was obtained. Comparison: Comparison is made to chest radiograph 08/31/2023 FINDINGS: Endotracheal tube terminates 4 mm from the lilliana. A left venous catheter terminates in a left-sided SVC. Cardiomegaly is noted. Multifocal airspace opacities are seen. No evidence of pleural effusion or pneumothorax. IMPRESSION: 1. Left venous catheter terminates in a left sided SVC which drains to the rig ht atrium via a prominent coronary sinus. 2. Airspace opacities are again seen compatible with contusion/aspiration. ACT 112: Negative or not required by law. Electronically signed by: Aníbal Valleicllo M.D. 08/31/2023 5:24 PM KUB X-Ray 08/31/23 17:01 XR KUB/Abdomen 1 view CLINICAL HISTORY: OG placement TECHNIQUE: 1 view of the abdomen was obtained. Comparison: Comparison is made to CT abdomen pelvis 08/31/2023 FINDINGS: Enteric tube side-port is at the level of the diaphragm. Degenerative changes a re seen in the visualized skeleton. The bowel gas pattern is nonobstructive. IMPRESSION: Enteric tube side-port is at the level of the diaphragm. Enteric tube can be advanced approximately 5 cm for improved positioning. ACT 112: Negative or not required by law. Electronically signed by: Aníbal Vallecillo M.D. 08/31/2023 5:26 PM Chest X-Ray 08/31/23 19:29 XR chest 1V portable CLINICAL HISTORY: subcutaneous air, r/o pneumothorax TECHNIQUE: Single frontal radiograph of the chest was obtained. Comparison: Comparison is made to chest radiograph 08/31/2023 FINDINGS: Endotracheal tube terminates 3.8 cm in the lilliana. Enteric tube is not completely visualized with the tip and side port appear to lie below the lilliana. Left venous catheter is again seen. Multifocal airspace opacities are seen. Stable cardiomegaly. No evidence of pleural effusion or pneumothorax. IMPRESSION: Multifocal airspace opacities without evidence of pneumothorax. ACT 112: Negative or not required by law. Electronically signed by: Aníbal Vallecillo M.D. 08/31/2023 8:07 PM Soft Tissue Neck CT 08/31/23 19:43 Exam(s): CT NECK With Contrast IV Amt: optiray 320 93ml EXAM: CT Neck With Intravenous Contrast CLINICAL HISTORY: Reason for exam: subcutaneous air. TECHNIQUE: Axial computed tomography images of the neck with intravenous contrast. CTDI is 22.67 mGy and DLP is 670.57 mGy-cm. Automated exposure control was utilized for the study. A dose lowering technique was utilized adhering to the principles of ALARA. CONTRAST: Patient received optiray 320 93ml of IV contrast COMPARISON: 09/10/2022 FINDINGS: No subcutaneous air. Diffuse soft tissue edema right greater than left. Obscuration of the normal fat planes. No fluid collection. Endotracheal tube and esophagogastric tubes in place. The vasculature is patent. No clearly identified mass or adenopathy. No acute osseous abnormality. Interstitial and airspace opacities at the lung apices. IMPRESSION: 1. No subcutaneous air. 2. Diffuse soft tissue edema right greater than left. Obscuration of the normal fat planes. No fluid collection. 3. Interstitial and airspace opacities at the lung apices. Electronically signed by: Nathan Corrales MD 08/31/23 23:00 PM Chest X-Ray 09/01/23 07:00 XR chest 1V portable CLINICAL HISTORY: Resp failure TECHNIQUE: Single frontal radiograph of the chest was obtained. Comparison: Comparison is made to chest radiograph 08/31/2023 FINDINGS: Lines and tubes are stable. Cardiomegaly is noted. Airspace opacities have improved from the prior exam. No evidence of pleural effusion or pneumothorax. IMPRESSION: Lines and tubes are stable. Airspace opacities have slightly improved compatible with improving aspiration/contusion. ACT 112: Negative or not required by law. Electronically signed by: Aníbal Vallecillo M.D. 09/01/2023 9:02 AM I & O Totals 24 Hours 08/31/23 09/01/23 09/02/23 06:59 06:59 06:59 Intake Total 5537.115 / 5537.115 231.195 / 231.195 Output Total 2405 / 2505 210 / 210 Balance 3132.115 / 3032.115 21.195 / 21.195 Cumulative 08/31/23 14:10 thru 09/01/23 09:40 Intake Total 5768.310 Output Total 2615 Balance 3153.310 RT Ventilator Mngmt (Last Documented) Ventilator Ordered Settings Ventilator Support Mode Assist Control 09/01/23 08:00 Respiratory Rate 18 09/01/23 08:30 Ventilator Tidal Volume 500 09/01/23 08:00 Setting Minute Ventilation 10.5 09/01/23 07:50 Ventilator Positive Pressure 8 09/01/23 08:00 Support Setting Positive End Expiratory 8 09/01/23 08:00 Pressure Fraction of Inspired Oxygen 30 09/01/23 08:00 Peak Inspiratory Flow 57 08/31/23 16:12 Machine Comment Set rate decreased from 20 to 08/31/23 17:[address] Gallardo post ABG Ventilator - PT Measurements Respiratory Rate 18 Exhaled Tidal Volume 505 Minute Ventilation 10.5 Peak Inspiratory Airway 26 Pressure Plateau Pressure 17 Respiratory Cycle Inspiratory: 1:3.0 Expiratory Ratio Inspiratory Phase Time 0.7 End-Tidal CO2 33 Static Lung Compliance 56.11 Dynamic Lung Compliance 28.06 Normal Static Lung Compliance 47.00 Patient Measurements Comment Sputum sample obtained and sent to lab. 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
[2023-09-01] MEDS: PANTOprazole 40 MG in SYRINGE 0 ML IV SCH (11:12)
--- NOTE | 2023-09-01 11:25 | Hospitalist Progress Note ---
Date of Service September 01, 2023 Assessment & Plan (1) Cardiac arrest: (2) Squamous cell carcinoma of oropharynx: (3) Hypertension: (4) Alcohol abuse: (5) Dyslipidemia: (6) Lymphedema: Plan Mr. Booker Dobbins is a 63 year old male who presents to the ED via EMS after experiencing PEA cardiac arrest on [facility]. Found down by by-stander and unknown downtime. Approximately 15 minutes CPR administered to patient with epi and ROSC thereafter. Pt was intubated by EMS. Heart alert activated prior to arrival. ECG in ED shows AF with RBBB and lateral ST depressions which improved ROSC. no heart cath performed. 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 Elevated lactate 9.8, Troponin 140, alcohol level > 305, no leukocytosis, hypokalemic 3.2. Head CT negative No acute findings Chest CTA negative for AAA but suggestive of L sided PNA. Patient admitted to ICU for further management PEA cardiac arrest, unknown downtime, ROSC after 15 minutes of CPR and 3 rounds of epinephrine Head CT negative for ICH, SDH Chest CTA: negative for PE, suspect bilateral consolidative opacities; suspect aspiration. Numerous rib fractures CSCT negative ECG On admission personally reviewed;AF RVR with RBBB No leukocytosis Lactate 9.8 On admission; down trended Troponin 140 > 248 > 320 Echo shows EF of 40 to 45% with moderate LVH, mild to moderate global hypokinesis of left ventricle High risks of anoxic brain injury due to significant downtime. MRI brain pending. Family want to continue care and reassess neurological status in 72 h ours as per asic design engineer Rest per ICU AF RVR: Known h/o AF and non-compliance with anticoagulation Off Heparin presently Acute hypoxic/hypercapnic (Mixed) respiratory failure: Aspiration pneumonia Lactate 9.8; trend until < 2.0 Chest CTA: negative for PE, suspect bilateral consolidative opacities; suspect aspiration. Numerous rib fractures; right second through 8th ribs and left through seventh ribs Continue Zosyn for now; Alcohol abuse: Chronic has been in and out of [facility] and reportedly has struggled with sobriety serum Alcohol level > 305 Disposition: PCP: Joe Code Status: Full Code VTE Prophylaxis: Teds + SCDs Time spent evaluating patient, direct bedside care, chart review, placing orders, interpretation of diagnostic studies, discussion with consultants, patient, and family members, as well as other required patient management activities is 50 minutes Please note the above document was generated using voice recognition software. It may contain grammatical, syntax or spelling errors. Any formal questions or concerns about the content, text or information contained within the body of this dictation should be directly addressed to the provider for clarification Admission and Anticipated Discharge Date Admission Date: August 31, 2023 Subjective Mechanically ventilated; on propofol for sedation Not on vasopressors Review of Systems Review of Systems: Unobtainable due to reduced consciousness Physical Exam Physical Exam: General; mechanically ventilated, sedated Cardiovascular; irregular, no murmur heard Respiratory; bilateral mechanical breath sounds GI; soft, nondistended Skin : no rashes Results & Data Results & Data Vital Signs (Past 12 Hours) Vital Signs Temp Pulse Resp BP Pulse Ox Pulse Ox O2 Del Method 09/01/23 08:30 116/82 09/01/23 08:30 37.5 C 94 H 18 97 09/01/23 08:17 101 H 115/77 09/01/23 08:16 97/84 L 09/01/23 08:16 97/84 L 09/01/23 08:16 37.6 C H 92 H 18 09/01/23 08:01 37.6 C H 106 H 23 98 09/01/23 08:01 128/105 H 09/01/23 08:01 128/105 H 09/01/23 08:00 37.7 C H 101 H 12 99 09/01/23 08:00 Mechanical Vent 09/01/23 08:00 09/01/23 07:50 96 H 20 98 09/01/23 07:46 143/110 H 09/01/23 07:46 37.7 C H 97 H 20 09/01/23 07:43 96 H 165/108 H 09/01/23 07:31 160/109 H 09/01/23 07:31 37.7 C H 121 H 24 97 09/01/23 07:30 37.7 C H 117 H 24 97 09/01/23 07:30 09/01/23 07:28 119 H 181/109 H 09/01/23 07:16 168/112 H 09/01/23 07:16 37.8 C H 130 H 26 H 97 09/01/23 07:01 37.8 C H 121 H 26 H 97 09/01/23 07:01 157/114 H 09/01/23 07:00 37.8 C H 129 H 27 H 97 09/01/23 07:00 133 H 09/01/23 06:46 155/102 H 09/01/23 06:46 37.9 C H 118 H 27 H 97 09/01/23 06:30 37.9 C H 127 H 26 H 98 09/01/23 06:30 161/111 H 09/01/23 06:16 148/97 H 09/01/23 06:16 37.9 C H 132 H 27 H 97 09/01/23 06:15 37.9 C H 121 H 26 H 97 09/01/23 06:01 151/122 H 09/01/23 06:01 37.9 C H 113 H 26 H 09/01/23 06:00 37.9 C H 112 H 27 H 97 09/01/23 05:45 168/129 H 09/01/23 05:45 37.9 C H 130 H 23 97 09/01/23 05:30 143/116 H 09/01/23 05:30 38.0 C H 127 H 29 H 98 09/01/23 05:15 139/110 H 09/01/23 05:15 38.0 C H 120 H 27 H 97 09/01/23 05:00 143/107 H 09/01/23 05:00 38.0 C H 112 H 27 H 98 09/01/23 04:45 151/111 H 09/01/23 04:45 38.1 C H 116 H 35 H 96 09/01/23 04:31 145/100 H 09/01/23 04:31 38.1 C H 128 H 28 H 09/01/23 04:30 38.1 C H 132 H 28 H 99 09/01/23 04:16 161/95 H 09/01/23 04:16 38.1 C H 133 H 29 H 99 09/01/23 04:15 38.1 C H 124 H 29 H 99 09/01/23 04:00 09/01/23 04:00 38.1 C H 130 H 30 H 99 09/01/23 04:00 162/117 H 05/12/24 04:00 133 H 161/95 H 09/01/23 03:45 38.1 C H 128 H 30 H 99 09/01/23 03:45 155/126 H 09/01/23 03:43 126 H 35 H 99 09/01/23 03:30 156/113 H 09/01/23 03:30 38.1 C H 119 H 31 H 99 09/01/23 03:15 151/110 H 09/01/23 03:15 38.1 C H 113 H 28 H 99 09/01/23 03:02 117 H 32 H 71 L 09/01/23 03:02 136/114 H 09/01/23 03:00 131 H 30 H 99 09/01/23 02:46 153/124 H 09/01/23 02:46 124 H 28 H 09/01/23 02:45 126 H 31 H 97 09/01/23 02:30 37.9 C H 116 H 31 H 98 09/01/23 02:30 167/117 H 09/01/23 02:15 37.9 C H 127 H 24 97 09/01/23 02:15 154/113 H 09/01/23 02:00 158/110 H 09/01/23 02:00 37.8 C H 113 H 25 H 98 09/01/23 01:45 156/116 H 09/01/23 01:45 37.8 C H 116 H 26 H 98 09/01/23 01:30 155/117 H 09/01/23 01:30 37.7 C H 112 H 24 98 09/01/23 01:25 37.7 C H 104 H 26 H 98 09/01/23 01:25 153/105 H 09/01/23 01:15 37.6 C H 102 H 24 98 09/01/23 01:15 145/124 H 09/01/23 01:10 98 09/01/23 01:00 37.6 C H 110 H 22 99 09/01/23 01:00 151/108 H 09/01/23 00:45 37.5 C 107 H 25 H 98 09/01/23 00:45 154/111 H 09/01/23 00:30 37.5 C 101 H 24 99 09/01/23 00:30 143/113 H 09/01/23 00:15 37.4 C 94 H 24 99 09/01/23 00:15 141/103 H 09/01/23 00:00 90 09/01/23 00:00 37.4 C 95 H 27 H 99 09/01/23 00:00 141/102 H 09/01/23 00:00 107 H 154/111 H 09/01/23 00:00 08/31/23 23:47 95 H 23 100 08/31/23 23:45 142/101 H 08/31/23 23:45 37.3 C 90 22 08/31/23 23:30 37.2 C 91 H 22 100 08/31/23 23:30 146/104 H O2 Del Method FiO2 09/01/23 08:30 09/01/23 08:30 09/01/23 08:17 09/01/23 08:16 09/01/23 08:16 09/01/23 08:16 09/01/23 08:01 09/01/23 08:01 09/01/23 08:01 09/01/23 08:00 09/01/23 08:00 30 09/01/23 08:00 30 09/01/23 07:50 30 09/01/23 07:46 09/01/23 07:46 09/01/23 07:43 09/01/23 07:31 09/01/23 07:31 09/01/23 07:30 09/01/23 07:30 30 09/01/23 07:28 09/01/23 07:16 09/01/23 07:16 09/01/23 07:01 09/01/23 07:01 09/01/23 07:00 09/01/23 07:00 09/01/23 06:46 09/01/23 06:46 09/01/23 06:30 09/01/23 06:30 09/01/23 06:16 09/01/23 06:16 09/01/23 06:15 09/01/23 06:01 09/01/23 06:01 09/01/23 06:00 09/01/23 05:45 09/01/23 05:45 09/01/23 05:30 09/01/23 05:30 09/01/23 05:15 09/01/23 05:15 09/01/23 05:00 09/01/23 05:00 09/01/23 04:45 09/01/23 04:45 09/01/23 04:31 09/01/23 04:31 09/01/23 04:30 09/01/23 04:16 09/01/23 04:16 09/01/23 04:15 09/01/23 04:00 40 09/01/23 04:00 09/01/23 04:00 09/01/23 04:00 09/01/23 03:45 09/01/23 03:45 09/01/23 03:43 40 09/01/23 03:30 09/01/23 03:30 09/01/23 03:15 09/01/23 03:15 09/01/23 03:02 09/01/23 03:02 09/01/23 03:00 09/01/23 02:46 09/01/23 02:46 09/01/23 02:45 09/01/23 02:30 09/01/23 02:30 09/01/23 02:15 09/01/23 02:15 09/01/23 02:00 09/01/23 02:00 09/01/23 01:45 09/01/23 01:45 09/01/23 01:30 09/01/23 01:30 09/01/23 01:25 09/01/23 01:25 09/01/23 01:15 09/01/23 01:15 09/01/23 01:10 Mechanical Vent 09/01/23 01:00 09/01/23 01:00 09/01/23 00:45 09/01/23 00:45 09/01/23 00:30 09/01/23 00:30 09/01/23 00:15 09/01/23 00:15 09/01/23 00:00 09/01/23 00:00 09/01/23 00:00 09/01/23 00:00 09/01/23 00:00 60 08/31/23 23:47 40 08/31/23 23:45 08/31/23 23:45 08/31/23 23:30 08/31/23 23:30
[2023-09-01] MEDS: METOPROLOL TARTRATE 1 MG/ML VIAL IV SCH (11:57)
[2023-09-01] MEDS: LORazepam 4 MG in SYRINGE 2 ML IV STA (13:31)
--- NOTE | 2023-09-01 13:35 | Electroencephalogram ---
EEG Procedure Note Date of Service September 01, 2023 Start / End Times Start Time: 1235 End Time: [address] Gallardo History 63 year old with altered mental status Home Medication List Medication Instructions Recorded Confirmed Type amlodipine 5 mg tablet 5 mg PO DAILY 02/29/20 08/31/23 History escitalopram oxalate 10 mg tablet 10 mg PO DAILY 02/29/20 08/31/23 History losartan 100 mg tablet (Cozaar) 100 mg PO DAILY 10/16/22 08/31/23 History multivitamin 1 tab PO DAILY 10/16/22 08/31/23 History Inpatient Medication List Acetaminophen (Acetaminophen 325 Mg Tab) 650 mg PO Q4H PRN PRN Reason: Pain or Fever Stop: 09/30/23 15:19 Last Admin: 09/01/23 06:44 Dose: 650 mg Documented By: CF Heparin Sodium (Porcine) (Heparin Sod 5,000 Unit/0.5 Ml Vial) 5,000 units SQ Q12 [facility] Stop: 09/30/23 20:59 Last Admin: 09/01/23 09:02 Dose: 5,000 units Documented By: Admin: 08/31/23 20:53 Dose: 5,000 units Documented By: CF Propofol (Diprivan) 1,000 mg in 100 mls @ 12.24 mls/hr IV .Q8H11M [facility]; Protocol Stop: 09/03/23 14:59 Last Admin: 09/01/23 13:20 Dose: 15 mcg/kg/min, 12.2 mls/hr Documented By: CB Co-signed By: AML Titration: 09/01/23 12:24 Dose: Infused Documented By: Titration: 09/01/23 09:10 Dose: 30 mcg/kg/min, 24.5 mls/hr Documented By: Titration: 09/01/23 09:05 Dose: 25 mcg/kg/min, 20.4 mls/hr Documented By: Titration: 09/01/23 09:00 Dose: 20 mcg/kg/min, 16.3 mls/hr Documented By: Titration: 09/01/23 08:15 Dose: 0 mcg/kg/min, 0 mls/hr Documented By: Admin: 09/01/23 07:29 Dose: 45 mcg/kg/min, 36.7 mls/hr Documented By: AML Co-signed By: CB Titration: 09/01/23 07:23 Dose: Infused Documented By: AML Co-signed By: CB Admin: 09/01/23 04:39 Dose: 45 mcg/kg/min, 36.7 mls/hr Documented By: CF Co-signed By: CP Titration: 09/01/23 04:16 Dose: Infused Documented By: CF Co-signed By: CP Titration: 09/01/23 04:14 Dose: 45 mcg/kg/min, 36.7 mls/hr Documented By: Titration: 09/01/23 03:53 Dose: 40 mcg/kg/min, 32.6 mls/hr Documented By: Titration: 09/01/23 03:45 Dose: 35 mcg/kg/min, 28.6 mls/hr Documented By: Titration: 09/01/23 00:40 Dose: 30 mcg/kg/min, 24.5 mls/hr Documented By: Titration: 09/01/23 00:35 Dose: 25 mcg/kg/min, 20.4 mls/hr Documented By: Titration: 09/01/23 00:30 Dose: 20 mcg/kg/min, 16.3 mls/hr Documented By: Admin: 09/01/23 00:08 Dose: 18.14 mcg/kg/min, 14.8 mls/hr Documented By: CF Co-signed By: CP Titration: 09/01/23 00:08 Dose: Infused Documented By: CF Co-signed By: CP Admin: 08/31/23 19:29 Dose: 18.14 mcg/kg/min, 14.8 mls/hr Documented By: AML Co-signed By: CF Norepinephrine Bitartrate (Levophed/D5w) 4 mg in 250 mls @ 0 mls/hr IV .Q0M [facility]; Protocol Stop: 09/30/23 14:59 Last Admin: 09/01/23 03:53 Dose: Not Given Documented By: Titration: 08/31/23 17:51 Dose: 0 mcg/kg/min, 0 mls/hr Documented By: Titration: 08/31/23 17:51 Dose: 0 mcg/kg/min, 0 mls/hr Documented By: Titration: 08/31/23 16:00 Dose: 0.1 mcg/kg/min, 51 mls/hr Documented By: Titration: 08/31/23 15:59 Dose: 0.15 mcg/kg/min, 76.5 mls/hr Documented By: Titration: 08/31/23 15:26 Dose: 0.12 mcg/kg/min, 61.2 mls/hr Documented By: Titration: 08/31/23 15:13 Dose: 0.15 mcg/kg/min, 76.5 mls/hr Documented By: Admin: 08/31/23 14:56 Dose: 0.1 mcg/kg/min, 51 mls/hr Documented By: ES Co-signed By: ML Piperacillin Sod/Tazobactam (Sod 4.5 gm/ Dextrose) 100 mls @ 25 mls/hr IV Q8H [facility]; Protocol Stop: 09/02/23 20:59 Last Infusion: 09/01/23 09:40 Dose: Infused Documented By: Admin: 09/01/23 04:39 Dose: 25 mls/hr Documented By: Infusion: 09/01/23 00:57 Dose: Infused Documented By: Admin: 08/31/23 20:54 Dose: 25 mls/hr Documented By: CF Pantoprazole Sodium 40 mg/ (Syringe) 10 mls @ 5 mls/min IV DAILY@1100 RAD[facility] Stop: 10/01/23 10:59 Last Admin: 09/01/23 11:12 Dose: 5 mls/min Documented By: AML Thiamine HCl 100 mg/ Syringe 10 mls @ 2 mls/min IV BID RADHA Stop: 09/30/23 20:59 Last Admin: 09/01/23 09:04 Dose: 2 mls/min Documented By: Admin: 08/31/23 20:54 Dose: 2 mls/min Documented By: CF Phenylephrine HCl (Phenylephrine/Nss) 25 mg in 250 mls @ 41.01 mls/hr IV .Q6H6M [facility]; Protocol Stop: 09/30/23 17:29 Last Admin: 09/01/23 12:53 Dose: Not Given Documented By: Admin: 09/01/23 06:26 Dose: Not Given Documented By: Admin: 09/01/23 03:54 Dose: Not Given Documented By: Titration: 09/01/23 02:42 Dose: 0 mcg/kg/min, 0 mls/hr Documented By: CF Co-signed By: ARR Titration: 08/31/23 18:12 Dose: 0.3 mcg/kg/min, 24.6 mls/hr Documented By: CHERI Co-signed By: AML Admin: 08/31/23 17:51 Dose: 0.5 mcg/kg/min, 41 mls/hr Documented By: CB Co-signed By: WS Metoprolol Tartrate (Metoprolol Tartrate 1 Mg/Ml Vial) 5 mg IV Q6 [facility] Stop: 10/01/23 11:59 Last Admin: 09/01/23 11:57 Dose: 5 mg Documented By: AML Miscellaneous (Icu Electrolyte Replacement Protocol) 1 each N/A BID@ [facility]; Protocol Stop: 09/07/23 17:59 Last Admin: 09/01/23 06:27 Dose: 1 each Documented By: Admin: 08/31/23 20:43 Dose: 1 each Documented By: CF Discontinued Medications Amiodarone HCl/Dextrose (Amiodarone 360mg / 200ml D5w) Confirm Administered Dose 360 mg IV .STK-MED ONE Stop: 08/31/23 14:21 Last Admin: 08/31/23 17:45 Dose: Not Given Documented By: CHERI Amiodarone HCl/Dextrose (Amiodarone 150mg / 100ml D5w) Confirm Administered Dose 150 mg IV .STK-MED ONE Stop: 08/31/23 14:22 Last Admin: 08/31/23 14:42 Dose: 150 mg Documented By: ML Co-signed By: SHAUN Fentanyl Citrate (Fentanyl Citrate Pf 100 Mcg/2 Ml Vial) Confirm Administered Dose 100 mcg .ROUTE .STK-MED ONE Stop: 08/31/23 14:48 Last Admin: 08/31/23 15:28 Dose: Not Given Documented By: ML Heparin Sodium (Porcine) (Heparin (Porcine) 1000 Unit/Ml 10 Ml (Food Safety Technician Use Only)) Confirm Administered Dose 10,000 units .ROUTE .STK-MED ONE Stop: 08/31/23 14:48 Last Admin: 08/31/23 15:28 Dose: Not Given Documented By: ES Heparin Sodium/Sodium Chloride (Heparin In Nss Infusion 1000 Unit/500 Ml (2 U/Ml) Bag) Confirm Administered Dose 3,000 units IV .STK-MED ONE Stop: 08/31/23 14:49 Last Admin: 08/31/23 15:28 Dose: Not Given Documented By: ML Sodium Chloride (Nss) 1,000 mls @ 999 mls/hr IV .Q1H1M [facility] Stop: 08/31/23 16:00 Last Infusion: 08/31/23 15:26 Dose: Infused Documented By: Admin: 08/31/23 15:26 Dose: 999 mls/hr Documented By: ML Sodium Chloride (Nss) 1,000 mls @ 999 mls/hr IV .Q1H1M [facility] Stop: 08/31/23 17:00 Last Infusion: 08/31/23 16:36 Dose: Infused Documented By: Admin: 08/31/23 15:32 Dose: 999 mls/hr Documented By: Infusion: 08/31/23 15:26 Dose: Infused Documented By: Admin: 08/31/23 15:26 Dose: 999 mls/hr Documented By: ML Piperacillin Sod/Tazobactam Sod (Zosyn) 4.5 gm in 100 mls @ 200 mls/hr IV NOW STA Stop: 08/31/23 15:28 Last Infusion: 08/31/23 16:00 Dose: Infused Documented By: Admin: 08/31/23 15:30 Dose: 200 mls/hr Documented By: ML Multivitamins 10 ml/ Thiamine HCl 100 mg/ Folic Acid 1 mg/Sodium Chloride 1,011.2 mls @ 500 mls/hr IV .Q2H2M ONE Stop: 08/31/23 19:46 Last Infusion: 08/31/23 20:30 Dose: Infused Documented By: Admin: 08/31/23 18:01 Dose: 500 mls/hr Documented By: CB Magnesium Sulfate/Dextrose (Magnesium Sulfate / D5w) 1 gm in 100 mls @ 50 mls/hr IV Q2H [facility] Stop: 09/01/23 04:59 Last Infusion: 09/01/23 05:03 Dose: Infused Documented By: Admin: 09/01/23 02:41 Dose: 50 mls/hr Documented By: Infusion: 09/01/23 02:41 Dose: Infused Documented By: Admin: 09/01/23 00:45 Dose: 50 mls/hr Documented By: Infusion: 09/01/23 00:45 Dose: Infused Documented By: Admin: 08/31/23 22:52 Dose: 50 mls/hr Documented By: Infusion: 08/31/23 22:52 Dose: Infused Documented By: Admin: 08/31/23 20:53 Dose: 50 mls/hr Documented By: CF Potassium Chloride (K Se[place]our / Wtr) 20 meq in 100 mls @ 50 mls/hr IV Q2H [facility] Stop: 09/01/23 04:59 Last Infusion: 09/01/23 05:03 Dose: Infused Documented By: Admin: 09/01/23 02:42 Dose: 50 mls/hr Documented By: Infusion: 09/01/23 02:42 Dose: Infused Documented By: Admin: 09/01/23 00:45 Dose: 50 mls/hr Documented By: Infusion: 09/01/23 00:45 Dose: Infused Documented By: Admin: 08/31/23 22:52 Dose: 50 mls/hr Documented By: Infusion: 08/31/23 22:52 Dose: Infused Documented By: Admin: 08/31/23 21:02 Dose: 50 mls/hr Documented By: CF Sodium Phosphate 15 mmol/ (Sodium Chloride) 255 mls @ 100 mls/hr IV ONE ONE Stop: 09/01/23 09:32 Last Infusion: 09/01/23 13:02 Dose: Infused Documented By: Admin: 09/01/23 07:26 Dose: 100 mls/hr Documented By: AML Lorazepam 4 mg/ Syringe 3.5 mls @ 2 mls/min IV NOW STA Stop: 09/01/23 07:49 Last Admin: 09/01/23 07:54 Dose: 2 mls/min Documented By: AML Ioversol (Optiray 350) Confirm Administered Dose 1 ml .ROUTE .STK-MED ONE Stop: 08/31/23 14:49 Last Admin: 08/31/23 15:28 Dose: Not Given Documented By: ES Ioversol (Optiray 320 125ml) 120 ml IV ONCE ONE Stop: 08/31/23 15:53 Last Admin: 08/31/23 15:52 Dose: 120 ml Documented By: ALF Ioversol (Optiray 320 100ml) 93 ml IV ONCE ONE Stop: 08/31/23 20:45 Last Admin: 08/31/23 20:45 Dose: 93 ml Documented By: SHERINE Lorazepam (Lorazepam 2 Mg/1 Ml Vial) Confirm Administered Dose 4 mg .ROUTE .STK- MED ONE Stop: 09/01/23 07:51 Last Admin: 09/01/23 08:10 Dose: Not Given Documented By: AML Metoprolol Tartrate (Metoprolol Tartrate 1 Mg/Ml Vial) 5 mg IV NOW STA Stop: 09/01/23 07:05 Last Admin: 09/01/23 07:28 Dose: 5 mg Documented By: AML Midazolam HCl (Midazolam Hcl 1 Mg/Ml 2ml Vial) Confirm Administered Dose 2 mg .ROUTE .STK-MED ONE Stop: 08/31/23 14:48 Last Admin: 08/31/23 15:28 Dose: Not Given Documented By: ML Miscellaneous (Rapid Sequence Induction Bag) Confirm Administered Dose 1 each N/A .STK-MED ONE Stop: 08/31/23 14:15 Last Admin: 08/31/23 15:27 Dose: 1 each Documented By: ML Carl (Stat Iv Infusion Titration Per Protocol) 1 each N/A NOW STA Stop: 08/31/23 15:00 Last Admin: 08/31/23 15:29 Dose: 1 each Documented By: ML Nicardipine HCl (Nicardipine Hcl Inj 2.5 Mg/Ml 10 Ml Amp) Confirm Administered Dose 25 mg .ROUTE .STK-MED ONE Stop: 08/31/23 14:48 Last Admin: 08/31/23 15:28 Dose: Not Given Documented By: ML Nitroglycerin/Dextrose (Nitroglycerin/D5w 100mcg/Ml 20ml Syr) Confirm Administered Dose 2,000 mcg .ROUTE .STK-MED ONE Stop: 08/31/23 14:49 Last Admin: 08/31/23 15:28 Dose: Not Given Documented By: ML Norepinephrine Bitartrate (Norepinephrine/D5w 4 Mg/250 Ml) Confirm Administered Dose 4 mg IV .STK-MED ONE Stop: 08/31/23 14:54 Last Admin: 08/31/23 15:29 Dose: Not Given Documented By: ML Propofol (Propofol Iv Emulsion 10 Mg/Ml 100 Ml Vial) Confirm Administered Dose 1,000 mg IV .STK-MED ONE Stop: 08/31/23 14:32 Last Admin: 08/31/23 15:32 Dose: Not Given Documented By: ES Sodium Bicarbonate (Sodium Bicarb 8.4% Inj 50 Meq/50 Ml Syr) 50 meq IV NOW STA Stop: 08/31/23 17:19 Last Admin: 08/31/23 17:27 Dose: 50 meq Documented By: AMB Description This is a 21 electrode EEG with a single channel dedicated to limited EKG. The electrodes were placed in accordance with the International 10-20 system. Interpretation The predominant background activity consists of an irregular 5Hz activity, of up to 40 mV in amplitude,seen symmetrically distributed over the posterior head regions bilaterally, spreading anteriorly. This activity has no attenuation with alerting procedures. Photic stimulation and hyperventilation were not performed. A minimal amount of muscle and movement artifact activity contaminated the recording, as well as frequent eye blink artifact, yet did not hinder interpretation to any significant degree. Throughout the recording was the presence of irregular 4-5 Hz activity seen diffusely in all head regions of low to medium amplitude. No focal abnormalities or potentially epileptogenic discharges were seen. In summary, this EEG was abnormal and showed mild to moderate generalized neuronal dysfunction (slowing).No focal abnormalities or potentially epileptogenic discharges were seen. Clinical Correlation The absence of potentially epileptogenic activity does not exclude a seizure disorder, since interictally, EEGs can be normal. However the patient was having movements without clinical accompaniment, excluding ongoing seizures. The general slowing is consistent with a mild to moderate encephalopathy, which could be due to a wide variety of causes. Clinical correlation is required. [facility] EEG Procedure Codes Indication for Procedure (1) Cardiac arrest: (2) Acute encephalopathy: Neurology Neurology: 84259 EEG include record awake & drowsy
[2023-09-01] MEDS: GADOBUTROL 65ML VIAL IV ONE (15:11)
--- NOTE | 2023-09-01 16:31 | Magnetic Resonance Report ---
MR brain wo/w con CLINICAL HISTORY: anoxic brain injury TECHNIQUE: Multiplanar and multisequence MR images of the brain were obtained prior to and following administration of gadolinium contrast. Comparison: Comparison is made to CT head 08/31/2023 FINDINGS: No abnormal restricted diffusion is identified. Foci of T2 and FLAIR hyperintensity are noted in the paraventricular areas consistent with chronic small vessel ischemic disease. Ex vacuo ventriculomegal y and sulcal enlargement is noted compatible with diffuse volume loss. No mass or abnormal enhancemen t is seen. There is no mass effect or midline shift. There is no evidence of acute intraparenchymal h emorrhage. No extra axial fluid collections are seen. The corpus callosum, pituitary gland, and cereb ellar tonsils appear grossly unremarkable. Flow voids of the major intracranial arterial vessels are identified. Bilateral maxillary sinus disea se is seen. Soft tissue thickening in the ethmoid and sphenoid sinus noted. IMPRESSION: 1. No acute abnormality and in particular no abnormal restricted diffusion to suggest hypoxic ischem ic encephalopathy or stroke. No cortical laminar necrosis. 2. Mild sinus disease. ACT 112: Negative or not required by law. Electronically signed by: Aníbal Vallecillo M.D. 09/01/2023 4:29 PM
[2023-09-02 04:48] LABS: Basophils # (auto) 0.03 K/uL (0.00-0.20); Basophils % (auto) 0.5 %; Eosinophils # (auto) 0.05 K/uL (0.00-0.50); Eosinophils % (auto) 0.9 %; Hematocrit (blood only) 35.1 % (42.0-52.0); Hemoglobin 11.4 g/dl (14.0-18.0); Immature Granulocytes # (auto) 0.02 K/uL (0.01-0.20); Immature Granulocytes % (auto) 0.4 %; Lymphocytes # (auto) 0.36 K/uL (1.20-3.40); Lymphocytes % (auto) 6.4 %; Mean Corpuscular Hemoglobin 29.7 pg (25.0-34.0); Mean Corpuscular Hgb Conc 32.5 g/dL (32.0-36.0); Mean Corpuscular Volume 91.4 fL (80.0-100.0); Mean Platelet Volume 10.6 fL (9.4-12.4); Monocytes # (auto) 0.57 K/uL (0.11-0.59); Monocytes % (auto) 10.2 %; Neutrophils # (auto) 4.58 K/uL (1.40-6.50); Neutrophils % (auto) 81.6 %; Platelet Count 125 K/uL (130-400); RDW Standard Deviation 53.7 fL (36.4-46.3); Red Blood Count 3.84 M/uL (4.70-6.10); White Blood Count 5.61 K/ul (4.8-10.8)
[2023-09-02 04:54] LABS: INR 1.1 (0.9-1.1); Prothrombin Time 11.9 Seconds (9.0-12.0)
[2023-09-02 05:01] LABS: BUN Creatinine Ratio 24.2 (10-20); Bilirubin Direct 0.5 mg/dl (0-0.2); Bilirubin,Total 1.5 mg/dl (0.2-1.0); Creatinine Clr Calc Pharmacy 142.6 ml/min; Est GFR (African American) 124.1 ml/min; Est GFR (Non-African American) 107.1 ml/min; Magnesium 1.8 mg/dl (1.7-2.4); Potassium 3.4 mmol/L (3.5-5.1); Total Protein 5.3 gm/dl (6.0-8.3)
[2023-09-02] MEDS: MAGNESIUM SULFATE / D5W 1 GM/100 ML BAG IV SCH (05:45)
[2023-09-02] MEDS: POTASSIUM CHLORIDE / WTR 20 MEQ/100 ML PLCT IV SCH (05:45)
[2023-09-02 05:52] LABS: Troponin I High Sensitivity 33.4 pg/ml (0-20)
--- NOTE | 2023-09-02 07:21 | XRay Report ---
XR chest 1V portable CLINICAL HISTORY: Respiratory failure. COMPARISON STUDY: Chest CT August 31, 2023. Chest radiograph September 01, 2023. FINDINGS: The tip of the endotracheal tube is 3 cm above the lilliana. Tip of nasogastric tube is below the lower aspect of this image but at least within the stomach. Left subclavian central line is with in a left-sided SVC. There is no pneumothorax. No definite pleural effusion is identified. Bibasilar consolidation persists. This is greater on the left. Cardiomegaly. No evidence for overt pulmonary ed papa. IMPRESSION: 1. Satisfactory positioning of the endotracheal tube. 2. No pneumothorax. 3. Persistent bibasilar consolidation suggestive of pneumonia or aspiration pneumonitis. ACT 112: Negative or not required by law. Electronically signed by: Ebenezer Zhou M.D. 09/02/2023 7:19 AM
[2023-09-02] MEDS: PNEUMOCOCCAL VACCINE (PCV20) 20-VAL CONJ-DIP CRM/PF 0.5 ML SYR IM ONE (07:29)
--- NOTE | 2023-09-02 08:53 | Critical Care Progress Note ---
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 At least 15 minutes as from the time he was found by EMS before they had return of spontaneous circulation was 15 minutes. He is at high risk of anoxic encephalopathy. He has pressor dependent hypotension as well as atrial fibrillation with rapid ventricular response. 24-hour events: Patient was admitted to the intensive care unit. Initially was unresponsive but then was biting the tube and not performing any purposeful movement so propofol was initiated. Pressors have been weaned off he was actually hypertensive. This morning he had upward eye deviation which resolved with administration of 4 mg of Ativan. EEG is pending. Recommendations: 1. Neurologic: At high risk for anoxic brain injury. Initial CT scan unrevealing. Concern for anoxic encephalopathy. MRI of the brain reviewed. EEG reviewed. -The diagnostic conundrum is that the patient has a longstanding history and risk factors for alcohol induced encephalopathy as well as high risk factors for anoxic brain injury. In the ideal setting the patient would be off all sedatives and allow for reassessment of his mental status. However, given the patient's significant anatomic changes related to lymphedema versus local recurrence versus radiation therapy versus a combination of the aforementioned issues the patient is unable to maintain a patent airway and reasonably be able to clear his secretions 2. Cardiovascular: Shock state: Resolved -History of paroxysmal atrial fibrillation on anticoagulants -History of hypertension -Restart losartan 100 mg daily -Patient previously on Norvasc 5 mg would use alternative agent if additional agents needed for elevated blood pressure secondary to risk of edema as patient is already having issues with lymphedema -Documented history of diastolic heart failure in [facility] records. 3. Pulmonary: Acute hypercapnic respiratory failure secondary to anatomical issues: Mass, lymphedema, status postradiation -Patient failed trial of extubation. Patient had reassuring RSBI, minimal vent settings and cuff leak immediately after extubation patient was rather rhonchorous: Improved with bilateral nasal trumpets -I did a limited laryngoscopy through the nasal trumpets, patient's false and true vocal cords were both edematous, there appeared to be postradiation changes -On bronchoscopic evaluation patient had excessive dynamic airway collapse with forced exhalation -During intubation the true and false vocal cords appeared to be more edematous, I feel this is secondary to intermittent obstruction related to anatomic changes 4. ID: Continue antibiotics for 24 hours however the patient is no leukocytosis and I believe has experienced aspiration pneumonitis secondary to abnormal glottic anatomy 5. Endocrine: Glycemic control per protocol. 6. Renal: Hypokalemia. Very mild hypokalemia 7. GI: Enteric access in place, can start trickle tube feeds. -Transaminases improving 8. Heme-onc: History of squamous cell carcinoma the base of the tongue. Completed radiation and chemotherapy. Would benefit from evaluation by ENT Had long discussions with the family (75 minutes). Jo Sanchez (sister) [phone] is primary contact. Included in this morning's meeting was patient's other sister Gail and patient's mother. Family reports patient is still legally however the has been and essentially estranged for the previous 8 years. Her name is Harleen Dobbins phone [phone] The patient has 2 adult children, Brenda who resides in [place] phone [phone] and AGNIESZKA who resides in [facility] phone [phone]: The daughters are aware there is and not been a formal discussion if they want to be the primary medical decision makers per [place] statutes The patient has both parents living, the mother Baylee phone [phone], family reports she has a medical background as a nurse is hard of hearing and is aware of the situation The patient's father is Ferdinand he resides in an assisted care, they report he has cognitive decline and they have not made him aware of the current situation. The patient also has a brother Bartolo who resides in [place] phone [phone]. Family reports by enlarge part the patient has been rather private. They know he has a long-term struggle with alcoholism. They believe he engages in daily use this has increased since the turn of the year and he possibly blacks out 3-4 times a week. When he is involved in family group texts there will be periods when he is absent for days and they feel this might be secondary to alcohol use and dependency. I discussed the case with the [facility] treatment team I was able to review a January 14, [address] Lopez. Patient has biopsy confirmed squamous cell carcinoma with lymph node positivity. He underwent cisplatin which was discontinued secondary to neurosensory hearing loss and he completed a course of radiation therapy. Additional records from otolaryngology dated July 16, 2023 left recommendation of neck lymphedema from a T4 N2 M0 p16 positive oropharyngeal squamous cell carcinoma: Right base of tongue. In reviewing family practice notes the patient had been complaining of increasing cough and difficulty swallowing and there was concern for worsening lymphedema versus recurrence of neck mass. I had an additional meeting (30 minutes) with family after patient was reintubated and additional information was obtained. Family is in a difficult position that the patient does not show significant neurologic injury on MRI, EEG largely unremarkable which does not show status epilepticus (family appropriately question would this show intermittent seizures and I explained it would not) there was a report of possible seizure-like activity on presentation. Certainly patient has significant risk factors for encephalopathy related to alcohol use as well as high risk characteristics for anoxic injury. I do believe the patient has suffered for some form of a brain injury however to what extent would be very difficult to elucidate without being off all sedatives. However, patient's anatomy and airway proved difficult to be able to reliably extubate the patient and allow the patient to clear neurologically. If the goal is to continue aggressive treatment I would suggest the patient be transferred to [facility] with his primary ear nose and throat surgeon and oncology team for further evaluation and management as I highly suspect the patient would necessitate tracheostomy to facilitate liberation from a ventilator given multiple neurologic issues. Patient's sisters and his daughters as well as mother are anticipated to be at the bedside in the next 24 hours, we will continue current care, patient is to remain DNR in event of cardiac arrest, and family is weighing options of transfer for further evaluation and management versus terminal extubation. I believe if we were to terminally extubate at this institution the patient's mental status would would not improve and he would likely pass away from hypercapnic/obstructive respiratory failure. I agree with DNR in event of cardiac arrest. I have personally spent 165 minutes of critical care time in the direct management of this patient. This is a life/limb threatening event. This includes time spent evaluating patient, direct bedside care, chart review, placing orders, interpretation of diagnostic studies, discussion with consultants, patient, and/or family members regarding treatment decisions, as well as other required patient management activities. This time is exclusive of all separately billable procedures, and teaching time and separate from and in addition to any other critical care service time. Admission and Anticipated Discharge Date Admission Date: August 31, 2023 Subjective Patient has been on minimal vent sliding's and off sedatives for greater than 6 hours. Physical Exam Physical Exam: General: Off sedatives greater than 6 hours Neuro: Glascow Coma Scale: Eyes: 4, Verbal 1T, Motor 4, Total 9T. Skin: Warm, dry, Head: Atraumatic Ears, nose, mouth and throat: airway obscured by endotracheal tube Cardiovascular: Normal peripheral perfusion, tachycardia on bedside monitor Respiratory: Ventilator settings reviewed: Minimal vent setting Gastrointestinal: Non distended Musculoskeletal: No deformity Results & Data Results & Data Vital Signs (Past 12 Hours) Vital Signs Temp Pulse Resp BP Pulse Ox Pulse Ox O2 Del Method 09/02/23 08:09 108 H 30 H 96 09/02/23 05:45 112/87 09/02/23 05:45 34.9 C L 66 18 100 09/02/23 05:31 34.8 C L 67 18 99 09/02/23 05:31 117/95 09/02/23 05:23 63 124/100 09/02/23 05:15 124/100 09/02/23 05:15 34.7 C L 62 18 100 09/02/23 05:09 72 123/92 09/02/23 05:00 123/92 09/02/23 05:00 34.7 C L 74 18 100 09/02/23 04:46 34.7 C L 71 18 100 09/02/23 04:46 117/83 09/02/23 04:31 34.6 C L 67 18 100 09/02/23 04:31 125/94 09/02/23 04:15 117/90 09/02/23 04:15 34.5 C L 67 18 100 09/02/23 04:00 121/91 09/02/23 04:00 34.5 C L 66 18 100 09/02/23 04:00 09/02/23 04:00 66 112/87 09/02/23 03:45 112/90 09/02/23 03:45 34.5 C L 65 18 100 09/02/23 03:30 120/93 09/02/23 03:30 34.4 C L 62 18 100 09/02/23 03:20 66 18 09/02/23 03:16 34.5 C L 65 18 09/02/23 03:16 119/92 09/02/23 03:00 34.4 C L 61 18 09/02/23 03:00 124/93 09/02/23 02:45 119/91 09/02/23 02:45 34.4 C L 65 18 09/02/23 02:31 34.4 C L 62 18 09/02/23 02:31 112/81 09/02/23 02:15 34.4 C L 67 17 09/02/23 02:15 119/93 09/02/23 02:00 115/91 09/02/23 02:00 34.5 C L 62 18 09/02/23 01:45 34.5 C L 68 17 09/02/23 01:45 118/89 09/02/23 01:30 34.5 C L 61 18 09/02/23 01:30 117/93 09/02/23 01:15 117/87 09/02/23 01:15 34.5 C L 68 16 09/02/23 01:00 124/95 09/02/23 01:00 34.5 C L 67 18 09/02/23 00:45 34.6 C L 66 18 09/02/23 00:45 127/91 09/02/23 00:30 34.6 C L 68 18 09/02/23 00:30 119/96 09/02/23 00:16 122/94 09/02/23 00:16 34.6 C L 64 18 100 09/02/23 00:00 127/96 09/02/23 00:00 34.6 C L 62 18 09/02/23 00:00 66 09/02/23 00:00 09/02/23 00:00 66 112/87 09/01/23 23:50 67 130/93 09/01/23 23:45 128/96 09/01/23 23:45 34.6 C L 67 18 100 09/01/23 23:35 67 136/99 09/01/23 23:24 67 23 100 09/01/23 23:04 100 Mechanical Vent 09/01/23 22:30 35.0 C L 74 18 100 09/01/23 22:30 131/91 09/01/23 22:15 124/96 09/01/23 22:15 35.0 C L 79 22 100 09/01/23 22:01 35.3 C L 74 18 100 09/01/23 22:01 122/92 09/01/23 22:00 35.3 C L 70 22 100 09/01/23 21:45 128/94 09/01/23 21:45 35.3 C L 71 22 100 09/01/23 21:31 35.5 C L 73 18 100 09/01/23 21:31 116/97 09/01/23 21:30 35.5 C L 77 22 100 09/01/23 21:16 35.7 C L 74 18 100 09/01/23 21:16 132/96 09/01/23 21:15 35.8 C L 73 19 100 09/01/23 21:00 132/101 H 09/01/23 21:00 35.8 C L 74 19 100 FiO2 09/02/23 08:09 30 09/02/23 05:45 09/02/23 05:45 09/02/23 05:31 09/02/23 05:31 09/02/23 05:23 09/02/23 05:15 09/02/23 05:15 09/02/23 05:09 09/02/23 05:00 09/02/23 05:00 09/02/23 04:46 09/02/23 04:46 09/02/23 04:31 09/02/23 04:31 09/02/23 04:15 09/02/23 04:15 09/02/23 04:00 09/02/23 04:00 09/02/23 04:00 30 09/02/23 04:00 09/02/23 03:45 09/02/23 03:45 09/02/23 03:30 09/02/23 03:30 09/02/23 03:20 30 09/02/23 03:16 09/02/23 03:16 09/02/23 03:00 09/02/23 03:00 09/02/23 02:45 09/02/23 02:45 09/02/23 02:31 09/02/23 02:31 09/02/23 02:15 09/02/23 02:15 09/02/23 02:00 09/02/23 02:00 09/02/23 01:45 09/02/23 01:45 09/02/23 01:30 09/02/23 01:30 09/02/23 01:15 09/02/23 01:15 09/02/23 01:00 09/02/23 01:00 09/02/23 00:45 09/02/23 00:45 09/02/23 00:30 09/02/23 00:30 09/02/23 00:16 09/02/23 00:16 09/02/23 00:00 09/02/23 00:00 09/02/23 00:00 09/02/23 00:00 30 09/02/23 00:00 09/01/23 23:50 09/01/23 23:45 09/01/23 23:45 09/01/23 23:35 09/01/23 23:24 30 09/01/23 23:04 09/01/23 22:30 09/01/23 22:30 09/01/23 22:15 09/01/23 22:15 09/01/23 22:01 09/01/23 22:01 09/01/23 22:00 09/01/23 21:45 09/01/23 21:45 09/01/23 21:31 09/01/23 21:31 09/01/23 21:30 09/01/23 21:16 09/01/23 21:16 09/01/23 21:15 09/01/23 21:00 09/01/23 21:00 Critical Care Results & Data Vital Signs (Past 12 Hours) Vital Signs Temp Pulse Resp BP Pulse Ox O2 Del Method FiO2 09/02/23 12:24 92 H 103/76 09/02/23 11:54 126 H 18 98 40 09/02/23 11:45 128 H 116/92 09/02/23 11:02 116/92 09/02/23 11:02 37.3 C 117 H 18 100 09/02/23 11:00 80 09/02/23 11:00 37.2 C 123 H 18 100 09/02/23 10:46 162/134 H 09/02/23 10:31 37.0 C 120 H 4 L 92 09/02/23 10:31 169/129 H 09/02/23 10:16 36.9 C 116 H 53 H 88 L 09/02/23 10:16 183/140 H 09/02/23 10:00 174/125 H 09/02/23 10:00 36.9 C 120 H 39 H 91 09/02/23 09:45 153/125 H 09/02/23 09:45 36.9 C 128 H 41 H 93 09/02/23 09:30 156/111 H 09/02/23 09:30 36.8 C 115 H 54 H 90 09/02/23 09:16 36.7 C 120 H 46 H 92 09/02/23 09:16 160/125 H 09/02/23 09:15 127 H 09/02/23 09:01 161/110 H 09/02/23 09:01 36.6 C 116 H 53 H 90 09/02/23 09:00 36.6 C 119 H 55 H 91 09/02/23 08:46 36.4 C L 118 H 36 H 92 09/02/23 08:46 168/113 H 09/02/23 08:31 167/126 H 09/02/23 08:31 36.3 C L 108 H 50 H 85 L 09/02/23 08:16 163/127 H 09/02/23 08:16 36.0 C L 113 H 25 H 95 09/02/23 08:09 108 H 30 H 96 30 09/02/23 08:00 Mechanical Vent 30 09/02/23 08:00 179/135 H 09/02/23 08:00 35.9 C L 100 H 23 96 09/02/23 08:00 30 09/02/23 07:46 35.6 C L 99 H 20 100 09/02/23 07:46 158/123 H 09/02/23 07:32 141/109 H 09/02/23 07:32 35.4 C L 89 34 H 09/02/23 07:17 35.2 C L 88 23 95 09/02/23 07:17 153/121 H 05/13/24 07:02 35.0 C L 84 22 93 09/02/23 07:02 150/118 H 09/02/23 07:00 35.0 C L 81 19 94 09/02/23 05:45 112/87 09/02/23 05:45 34.9 C L 66 18 100 09/02/23 05:31 34.8 C L 67 18 99 09/02/23 05:31 117/95 09/02/23 05:23 63 124/100 09/02/23 05:15 124/100 09/02/23 05:15 34.7 C L 62 18 100 09/02/23 05:09 72 123/92 09/02/23 05:00 123/92 09/02/23 05:00 34.7 C L 74 18 100 09/02/23 04:46 34.7 C L 71 18 100 09/02/23 04:46 117/83 09/02/23 04:31 34.6 C L 67 18 100 09/02/23 04:31 125/94 09/02/23 04:15 117/90 09/02/23 04:15 34.5 C L 67 18 100 09/02/23 04:00 121/91 09/02/23 04:00 34.5 C L 66 18 100 09/02/23 04:00 30 09/02/23 04:00 66 112/87 09/02/23 03:45 112/90 09/02/23 03:45 34.5 C L 65 18 100 09/02/23 03:30 120/93 09/02/23 03:30 34.4 C L 62 18 100 09/02/23 03:20 66 18 100 30 09/02/23 03:16 34.5 C L 65 18 100 09/02/23 03:16 119/92 09/02/23 03:00 34.4 C L 61 18 100 09/02/23 03:00 124/93 09/02/23 02:45 119/91 09/02/23 02:45 34.4 C L 65 18 100 09/02/23 02:31 34.4 C L 62 18 100 09/02/23 02:31 112/81 09/02/23 02:15 34.4 C L 67 17 100 09/02/23 02:15 119/93 09/02/23 02:00 115/91 09/02/23 02:00 34.5 C L 62 18 100 09/02/23 01:45 34.5 C L 68 17 100 09/02/23 01:45 118/89 Lab & Micro Results (Past 24 Hours) RBC 3.84 M/uL (4.70-6.10) L 09/02/23 WBC 5.61 K/ul (4.8-10.8) 09/02/23 Hgb 11.4 g/dl (14.0-18.0) L 09/02/23 Hct 35.1 % (42.0-52.0) L 09/02/23 MCV 91.4 fL (80.0-100.0) 09/02/23 MCH 29.7 pg (25.0-34.0) 09/02/23 MCHC 32.5 g/dL (32.0-36.0) 09/02/23 RDW Standard Deviation 53.7 fL (36.4-46.3) H 09/02/23 RDW Coefficient of Variation 16.0 % (11.5-14.5) H 09/02/23 Plt Count 125 K/uL (130-400) L 09/02/23 MPV 10.6 fL (9.4-12.4) 09/02/23 Neutrophils (%) (Auto) 81.6 % 09/02/23 Lymphocytes (%) (Auto) 6.4 % 09/02/23 Monocytes # (Auto) 0.57 K/uL (0.11-0.59) 09/02/23 Eosinophils # (Auto) 0.05 K/uL (0.00-0.50) 09/02/23 Immature Granulocyte % (Auto) 0.4 % 09/02/23 Neutrophils # (Auto) 4.58 K/uL (1.40-6.50) 09/02/23 Lymphocytes # (Auto) 0.36 K/uL (1.20-3.40) L 09/02/23 Monocytes # (Auto) 0.57 K/uL (0.11-0.59) 09/02/23 Eosinophils # (Auto) 0.05 K/uL (0.00-0.50) 09/02/23 Basophils # (Auto) 0.03 K/uL (0.00-0.20) 09/02/23 Immature Granulocyte # (Auto) 0.02 K/uL (0.01-0.20) 4 Na 136 mmol/L (136-145) 09/02/23 K 3.4 mmol/L (3.5-5.1) L 09/02/23 Cl 104 mmol/L (98-107) 09/02/23 CO2 25 mmol/L (21-32) 09/02/23 Anion Gap 7 (3-11) 09/02/23 BUN 15 mg/dl (6-23) 09/02/23 Creatinine 0.62 mg/dl (0.6-1.4) 09/02/23 Estimated GFR ( Amer) 124.1 ml/min 09/02/23 Estimated GFR (Non-Af Amer) 107.1 ml/min 09/02/23 BUN/Creatinine Ratio 24.2 (10-20) H 09/02/23 Glu 100 mg/dl (70-99(Fasting)) H 09/02/23 Ca 8.0 mg/dl (8.6-10.3) L 09/02/23 Total Bilirubin 1.5 mg/dl (0.2-1.0) H 09/02/23 Direct Bilirubin 0.5 mg/dl (0-0.2) H 09/02/23 AST 59 U/L (13-39) H 09/02/23 ALT 47 U/L (7-52) 09/02/23 Alkaline Phosphatase 47 U/L (34-104) 09/02/23 TP 5.3 gm/dl (6.0-8.3) L 09/02/23 Albumin 3.0 gm/dl (3.4-5.0) L 09/02/23 Mg 1.8 mg/dl (1.7-2.4) 09/02/23 04:03 Calcium Level 8.0 mg/dl (8.6-10.3) L 09/02/23 04:03 Prothromb Time International Ratio 1.1 (0.9-1.1) 09/02/23 04:0 3 Microbiology 09/01/23 08:00 Gram Stain - Final Sputum,Vent Suction Sputum Culture - Preliminary Light normal barbara present, final report to follow. 08/31/23 15:17 Aerobic Blood Culture - Preliminary Blood No growth in Aerobic bottle after 24 hours. Anaerobic Blood Culture - Preliminary No growth in Anaerobic bottle after 24 hours. 08/31/23 15:20 Aerobic Blood Culture - Preliminary Blood No growth in Aerobic bottle after 24 hours. Anaerobic Blood Culture - Preliminary No growth in Anaerobic bottle after 24 hours. Diagnostic Findings (Past 24 Hours) Brain MRI 09/01/23 11:10 MR brain wo/w con CLINICAL HISTORY: anoxic brain injury TECHNIQUE: Multiplanar and multisequence MR images of the brain were obtained prior to and following administration of gadolinium contrast. Comparison: Comparison is made to CT head 08/31/2023 FINDINGS: No abnormal restricted diffusion is identified. Foci of T2 and FLAIR hyperintensity are noted in the paraventricular areas consistent with chronic small vessel ischemic disease. Ex vacuo ventriculomegaly and sulcal enlargement is noted compatible with diffuse volume loss. No mass or abnormal enhancement is seen. There is no mass effect or midline shift. There is no evidence of acute intraparenchymal hemorrhage. No extra axial fluid collections are seen. The corpus callosum, pituitary gland, and cerebellar tonsils appear grossly unremarkable. Flow voids of the major intracranial arterial vessels are identified. Bilateral maxillary sinus disease is seen. Soft tissue thickening in the ethmoid and sphenoid sinus noted. IMPRESSION: 1. No acute abnormality and in particular no abnormal restricted diffusion to suggest hypoxic ischemic encephalopathy or stroke. No cortical laminar necrosis. 2. Mild sinus disease. ACT 112: Negative or not required by law. Electronically signed by: Aníbal Vallecillo M.D. 09/01/2023 4:29 PM Chest X-Ray 09/02/23 07:00 XR chest 1V portable CLINICAL HISTORY: Respiratory failure. COMPARISON STUDY: Chest CT August 31, 2023. Chest radiograph September 01, 2023. FINDINGS: The tip of the endotracheal tube is 3 cm above the lilliana. Tip of nasogastric tube is below the lower aspect of this image but at least within the stomach. Left subclavian central line is within a left-sided SVC. There is no pneumothorax. No definite pleural effusion is identified. Bibasilar consolidation persists. This is greater on the left. Cardiomegaly. No evidence f or overt pulmonary edema. IMPRESSION: 1. Satisfactory positioning of the endotracheal tube. 2. No pneumothorax. 3. Persistent bibasilar consolidation suggestive of pneumonia or aspiration pneumonitis. ACT 112: Negative or not required by law. Electronically signed by: Ebenezer Zhou M.D. 09/02/2023 7:19 AM I & O Totals 24 Hours 09/01/23 09/02/23 09/03/23 06:59 06:59 06:59 Intake Total 5537.115 / 5537.115 1105.675 / 1105.675 851.816 / 851.816 Output Total 2405 / 2505 940 / 940 225 / 225 Balance 3132.115 / 3032.115 165.675 / 165.675 626.816 / 626.816 Cumulative 08/31/23 14:10 thru 09/02/23 13:36 Intake Total 7494.606 Output Total 3570 Balance 3924.606 RT Ventilator Mngmt (Last Documented) Ventilator Ordered Settings Ventilator Support Mode Assist Control 09/02/23 11:54 Respiratory Rate 18 09/02/23 11:54 Ventilator Tidal Volume 500 09/02/23 11:54 Setting Minute Ventilation 9.2 09/02/23 11:54 Positive End Expiratory 12 09/02/23 11:54 Pressure Fraction of Inspired Oxygen 40 09/02/23 11:54 Peak Inspiratory Flow 57 09/02/23 11:54 Machine Comment Set rate decreased from 20 to 08/31/23 17:[address] Gallardo post ABG Ventilator - PT Measurements Respiratory Rate 18 Exhaled Tidal Volume 501 Minute Ventilation 9.2 Peak Inspiratory Airway 26 Pressure Plateau Pressure 31.7 Respiratory Cycle Inspiratory: 1:3.8 Expiratory Ratio Inspiratory Phase Time 0.70 End-Tidal CO2 22 Static Lung Compliance 25.43 Dynamic Lung Compliance 35.79 Normal Static Lung Compliance 48.00 Patient Measurements Comment Pt extibated per Dr. Valdez Coding Level of Care Code 19500 CRITICAL CARE 1ST 30-74M Additional Critical Care Time Additional 30min Critical Care Time: Yes - 07769 x 3 (90 addl min) Total Critical Care Time: 165 Diagnoses Cardiac arrest I46.9 Alcoholic intoxication F10.920 Complication of substance-induced condition: uncomplicated Ribs, multiple fractures S22.49XA Acute respiratory acidosis J96.02 Acute lactic acidosis E87.21 Squamous cell carcinoma of oropharynx C10.9 Additional Codes Critical Care Time - Additional 30min Critical Care Time: Yes - 86938 x 3 (90 addl min) ([id number]) (2) Alcoholic intoxication Complication of substance-induced condition: uncomplicated Qualified Code(s): F10.920 - Alcohol use, unspecified with intoxication, uncomplicated
[2023-09-02] MEDS ORDERED: LORazepam 1 MG in SYRINGE 0.5 ML IV PRN ×2 (10:29→10:38)
[2023-09-02] MEDS ORDERED: Ativan IV Alcohol Withdrawal--Active Protocol IV PRN (10:29)
[2023-09-02] MEDS ORDERED: LORazepam 2 MG in SYRINGE 1 ML IV PRN (10:29)
[2023-09-02] MEDS ORDERED: LORazepam 3 MG in SYRINGE 1.5 ML IV PRN (10:29)
[2023-09-02] MEDS: VECURONIUM BROMIDE 10 MG VIAL IV ONE (10:53)
[2023-09-02] MEDS: ACETAMINOPHEN 1,000 MG/100 ML VIAL IV PRN (12:34)
[2023-09-02] MEDS: LOSARTAN POTASSIUM 50 MG TAB PO SCH (13:42)
--- NOTE | 2023-09-02 14:41 | Hospitalist Progress Note ---
Date of Service September 02, 2023 Assessment & Plan (1) Cardiac arrest: (2) Squamous cell carcinoma of oropharynx: (3) Hypertension: (4) Alcohol abuse: (5) Dyslipidemia: (6) Lymphedema: Plan Mr. Booker Dobbins is a 63 year old male who presents to the ED via EMS after experiencing PEA cardiac arrest on [facility]. Found down by by-stander and unknown downtime. Approximately 15 minutes CPR administered to patient with epi and ROSC thereafter. Pt was intubated by EMS. Heart alert activated prior to arrival. ECG in ED shows AF with RBBB and lateral ST depressions which improved ROSC. no heart cath performed. 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 Elevated lactate 9.8, Troponin 140, alcohol level > 305, no leukocytosis, hypokalemic 3.2. Head CT negative No acute findings Chest CTA negative for AAA but suggestive of L sided PNA. Patient admitted to ICU for further management PEA cardiac arrest, unknown downtime, ROSC after 15 minutes of CPR and 3 rounds of epinephrine Head CT negative for ICH, SDH Chest CTA: negative for PE, suspect bilateral consolidative opacities; suspect aspiration. Numerous rib fractures CSCT negative ECG On admission personally reviewed;AF RVR with RBBB No leukocytosis Lactate 9.8 On admission; down trended Troponin 140 > 248 > 320 Echo shows EF of 40 to 45% with moderate LVH, mild to moderate global hypokinesis of left ventricle MRI brain shows no acute abnormality. EEG was abnormal and showed mild to moderate generalized slowing. No focal abnormality. Patient was extubated on September 02, 2023; required reintubation. His mentation is difficult to reliably assess given history of alcohol use disorder and possibility of anoxic brain injury. He also has oropharyngeal squamous cell carcinoma which can lead to reliably extubate him. As per insurance verification clerk, patient may need to be transferred to higher level of care if opted for aggressive treatment. Family to decide regarding terminal extubation or possible transfer to tertiary care center. AF RVR: Known h/o AF and non-compliance with anticoagulation Off Heparin presently Acute hypoxic/hypercapnic (Mixed) respiratory failure: Aspiration pneumonia Lactate 9.8;trended down Chest CTA: negative for PE, suspect bilateral consolidative opacities; suspect aspiration. Numerous rib fractures; right second through 8th ribs and left through seventh ribs Continue Zosyn for now; Sputum culture showed light normal barbara. Alcohol abuse: Chronic has been in and out of [facility] and reportedly has struggled with sobriety serum Alcohol level > 305 Disposition: PCP: Joe Code Status:No CPR, okay for intubation VTE Prophylaxis: Teds + SCDs Time spent evaluating patient, direct bedside care, chart review, placing orders, interpretation of diagnostic studies, discussion with consultants, patient, and family members, as well as other required patient management activities is 50 minutes Please note the above document was generated using voice recognition software. It may contain grammatical, syntax or spelling errors. Any formal questions or concerns about the content, text or information contained within the body of this dictation should be directly addressed to the provider for clarification Admission and Anticipated Discharge Date Admission Date: August 31, 2023 Subjective Patient was extubated earlier in the morning; had to be reintubated. He is currently sedated with propofol. Hemodynamically stable Telemetry shows atrial fibrillation Review of Systems Review of Systems: All systems reviewed & are unremarkable except as noted in Subjective Physical Exam Physical Exam: General; mechanically ventilated, sedated Cardiovascular; irregular, no murmur heard Respiratory; bilateral mechanical breath sounds GI; soft, nondistended. Acosta in place draining clear urine Skin : no rashes Results & Data Results & Data Vital Signs (Past 12 Hours) Vital Signs Temp Pulse Resp BP Pulse Ox O2 Del Method FiO2 09/02/23 14:00 37.8 C H 100 H 23 99 09/02/23 14:00 122/93 09/02/23 13:01 97/60 L 09/02/23 13:01 37.8 C H 93 H 35 H 98 09/02/23 12:24 92 H 103/76 09/02/23 12:00 103/76 09/02/23 12:00 37.6 C H 116 H 32 H 95 09/02/23 11:54 126 H 18 98 40 09/02/23 11:45 128 H 116/92 09/02/23 11:02 116/92 09/02/23 11:02 37.3 C 117 H 18 100 09/02/23 11:00 80 09/02/23 11:00 37.2 C 123 H 18 100 09/02/23 10:46 162/134 H 09/02/23 10:31 37.0 C 120 H 4 L 92 09/02/23 10:31 169/129 H 09/02/23 10:16 36.9 C 116 H 53 H 88 L 09/02/23 10:16 183/140 H 09/02/23 10:00 174/125 H 09/02/23 10:00 36.9 C 120 H 39 H 91 09/02/23 09:45 153/125 H 09/02/23 09:45 36.9 C 128 H 41 H 93 09/02/23 09:30 156/111 H 09/02/23 09:30 36.8 C 115 H 54 H 90 09/02/23 09:16 36.7 C 120 H 46 H 92 09/02/23 09:16 160/125 H 09/02/23 09:15 127 H 09/02/23 09:01 161/110 H 09/02/23 09:01 36.6 C 116 H 53 H 90 09/02/23 09:00 36.6 C 119 H 55 H 91 09/02/23 08:46 36.4 C L 118 H 36 H 92 09/02/23 08:46 168/113 H 09/02/23 08:31 167/126 H 09/02/23 08:31 36.3 C L 108 H 50 H 85 L 09/02/23 08:16 163/127 H 09/02/23 08:16 36.0 C L 113 H 25 H 95 09/02/23 08:09 108 H 30 H 96 30 09/02/23 08:00 Mechanical Vent 30 09/02/23 08:00 179/135 H 09/02/23 08:00 35.9 C L 100 H 23 96 09/02/23 08:00 30 09/02/23 07:46 35.6 C L 99 H 20 100 09/02/23 07:46 158/123 H 09/02/23 07:32 141/109 H 09/02/23 07:32 35.4 C L 89 34 H 09/02/23 07:17 35.2 C L 88 23 95 09/02/23 07:17 153/121 H 09/02/23 07:02 35.0 C L 84 22 93 09/02/23 07:02 150/118 H 09/02/23 07:00 35.0 C L 81 19 94 09/02/23 05:45 112/87 09/02/23 05:45 34.9 C L 66 18 100 09/02/23 05:31 34.8 C L 67 18 99 09/02/23 05:31 117/95 09/02/23 05:23 63 124/100 09/02/23 05:15 124/100 09/02/23 05:15 34.7 C L 62 18 100 09/02/23 05:09 72 123/92 09/02/23 05:00 123/92 09/02/23 05:00 34.7 C L 74 18 100 09/02/23 04:46 34.7 C L 71 18 100 09/02/23 04:46 117/83 09/02/23 04:31 34.6 C L 67 18 100 09/02/23 04:31 125/94 09/02/23 04:15 117/90 09/02/23 04:15 34.5 C L 67 18 100 09/02/23 04:00 121/91 09/02/23 04:00 34.5 C L 66 18 100 09/02/23 04:00 30 09/02/23 04:00 66 112/87 09/02/23 03:45 112/90 09/02/23 03:45 34.5 C L 65 18 100 09/02/23 03:30 120/93 09/02/23 03:30 34.4 C L 62 18 100 09/02/23 03:20 66 18 100 30 09/02/23 03:16 34.5 C L 65 18 100 09/02/23 03:16 119/92 09/02/23 03:00 34.4 C L 61 18 100 09/02/23 03:00 124/93 09/02/23 02:45 119/91 09/02/23 02:45 34.4 C L 65 18 100
--- NOTE | 2023-09-02 17:14 | Electrocardiogram Report ---
Test Reason : Blood Pressure : / mmHG Vent. Rate : 150 BPM Atrial Rate : 000 BPM P-R Int : 000 ms QRS Dur : 098 ms QT Int : 340 ms P-R-T Axes : 000 054 001 degrees QTc Int : 537 ms Atrial fibrillation with rapid ventricular response with premature ventricular or aberrantly conducte d complexes Low voltage QRS Incomplete right bundle branch block Abnormal ECG Confirmed by Riley Maldonado ([id number]) on 09/02/2023 5:13:49 PM Referred By: REFERRED SELF Confirmed By:Deepak Maldonado
[2023-09-03 04:44] LABS: Basophils # (auto) 0.03 K/uL (0.00-0.20); Basophils % (auto) 0.5 %; Eosinophils # (auto) 0.12 K/uL (0.00-0.50); Eosinophils % (auto) 2.2 %; Hematocrit (blood only) 35.2 % (42.0-52.0); Hemoglobin 11.6 g/dl (14.0-18.0); Immature Granulocytes # (auto) 0.03 K/uL (0.01-0.20); Immature Granulocytes % (auto) 0.5 %; Lymphocytes # (auto) 0.46 K/uL (1.20-3.40); Lymphocytes % (auto) 8.3 %; Mean Corpuscular Hemoglobin 30.1 pg (25.0-34.0); Mean Corpuscular Volume 91.2 fL (80.0-100.0); Mean Platelet Volume 11.2 fL (9.4-12.4); Monocytes # (auto) 0.47 K/uL (0.11-0.59); Monocytes % (auto) 8.5 %; Neutrophils # (auto) 4.45 K/uL (1.40-6.50); Platelet Count 131 K/uL (130-400); RDW Coefficient of Variation 16.2 % (11.5-14.5); RDW Standard Deviation 54.9 fL (36.4-46.3); Red Blood Count 3.86 M/uL (4.70-6.10); White Blood Count 5.56 K/ul (4.8-10.8)
[2023-09-03 04:53] LABS: Albumin Level 2.9 gm/dl (3.4-5.0); BUN Creatinine Ratio 26.3 (10-20); Bilirubin Direct 0.5 mg/dl (0-0.2); Bilirubin,Total 1.2 mg/dl (0.2-1.0); Calcium 8.2 mg/dl (8.6-10.3); Est GFR (African American) 128.5 ml/min; Est GFR (Non-African American) 110.8 ml/min; Magnesium 1.7 mg/dl (1.7-2.4); Potassium 3.7 mmol/L (3.5-5.1); Total Protein 5.3 gm/dl (6.0-8.3)
[2023-09-03 05:05] LABS: Prothrombin Time 10.9 Seconds (9.0-12.0)
[2023-09-03] MEDS: POTASSIUM CHLORIDE / WTR 20 MEQ/100 ML PLCT IV SCH (05:52)
[2023-09-03] MEDS: MAGNESIUM SULFATE / D5W 1 GM/100 ML BAG IV SCH (05:52)
--- NOTE | 2023-09-03 07:09 | XRay Report ---
SINGLE VIEW CHEST CLINICAL HISTORY: Respiratory failure FINDINGS: 2 AP, portable, upright chest radiographs are compared to study dated 09/02/2023 and correla teddy with chest CT dated 08/31/2023. An endotracheal tube, an enteric tube, and a left subclavian centr al venous catheter are unchanged in position. The heart is enlarged. The pulmonary vasculature is non congested. Chronic interstitial thickening is similar to previous. Bibasilar consolidation is similar previous, left greater than right. Small pleural effusions are suspected. No pneumothorax is seen. T he skeletal structures are osteopenic. The bony thorax is grossly intact. IMPRESSION: 1. Stable lines and tubes. 2. Cardiomegaly without radiographic evidence of congestive failure. 3. Bibasilar consolidation is similar to previous, left greater than right. Radiographic follow-up to resolution is recommended. ACT 112: Negative or not required by law. Electronically signed by: David Valles M.D. 09/03/2023 7:08 AM
--- NOTE | 2023-09-03 09:33 | Critical Care Progress Note ---
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 At least 15 minutes as from the time he was found by EMS before they had return of spontaneous circulation was 15 minutes. He is at high risk of anoxic encephalopathy. 24-hour events: Patient was reintubated after trial of extubation yesterday Recommendations: 1. Neurologic: At high risk for anoxic brain injury. Initial CT scan unrevealing. Concern for anoxic encephalopathy. MRI of the brain reviewed. EEG reviewed. -The diagnostic conundrum is that the patient has a longstanding history and risk factors for alcohol induced encephalopathy as well as high risk factors for anoxic brain injury. In the ideal setting the patient would be off all sedatives and allow for reassessment of his mental status. However, given the patient's significant anatomic changes related to lymphedema versus local recurrence versus radiation therapy versus a combination of the aforementioned issues the patient is unable to maintain a patent airway and reasonably be able to clear his secretions 2. Cardiovascular: Shock state: Resolved -History of paroxysmal atrial fibrillation on anticoagulants -History of hypertension -losartan 100 mg daily -Patient previously on Norvasc 5 mg would use alternative agent if additional agents needed for elevated blood pressure secondary to risk of edema as patient is already having issues with lymphedema -Documented history of diastolic heart failure in [facility] records. 3. Pulmonary: Acute hypercapnic respiratory failure secondary to anatomical issues: Mass, lymphedema, status postradiation -Patient failed trial of extubation. 4. ID: Continue antibiotics for 24 hours however the patient is no leukocytosis and I believe has experienced aspiration pneumonitis secondary to abnormal glottic anatomy 5. Endocrine: Glycemic control per protocol. 6. Renal: Hypokalemia. 7. GI: Enteric access in place, can start trickle tube feeds. -Transaminases improving 8. Heme-onc: History of squamous cell carcinoma the base of the tongue. Completed radiation and chemotherapy. Would benefit from evaluation by ENT Had discussions with the family (60 minutes) at bedside with palliative care and family. Provided clinical update, as well as discussions of the diagnostic limitations. Patient not showing reassuring neurologic signs and high risk clinical history of arrest. We discussed various options ranging from palliat eliceo extubation and comfort measures to continuing aggressive care which would likely translate to advanced surgical planning for tracheostomy to facilitate successful liberation from ventilator and placement for presumptive trach dependency, this also included options of relocation out of state as there are not long-term care facilities capable of managing a trach within a reasonable proximity to family members. At this time we will continue current care as family ways decisions regarding best approach in accordance with the patient's longstanding wishes. I have personally spent 95 minutes of critical care time in the direct management of this patient. This is a life/limb threatening event. This includes time spent evaluating patient, direct bedside care, chart review, placing orders, interpretation of diagnostic studies, discussion with consultants, patient, and/or family members regarding treatment decisions, as well as other required patient management activities. This time is exclusive of all separately billable procedures, and teaching time and separate from and in addition to any other critical care service time. Admission and Anticipated Discharge Date Admission Date: August 31, 2023 Subjective No overnight events Review of Systems Review of Systems: Unobtainable due to endotracheal tube Physical Exam Physical Exam: General: Off sedatives greater than 6 hours Neuro: Sedated Skin: Warm, dry, Head: Atraumatic Ears, nose, mouth and throat: airway obscured by endotracheal tube Neck: Submental swelling: Unchanged Cardiovascular: Normal peripheral perfusion, tachycardia on bedside monitor Respiratory: Ventilator settings reviewed: Minimal vent setting Gastrointestinal: Non distended Musculoskeletal: No deformity Results & Data Results & Data Vital Signs (Past 12 Hours) Vital Signs Temp Pulse Resp BP Pulse Ox O2 Del Method FiO2 09/03/23 08:30 35.1 C L 57 L 18 100 09/03/23 08:00 128/100 09/03/23 08:00 35.0 C L 57 L 18 100 09/03/23 08:00 Mechanical Vent 30 09/03/23 08:00 30 09/03/23 07:37 61 19 100 30 09/03/23 07:30 34.9 C L 61 19 100 09/03/23 07:00 34.8 C L 60 18 100 09/03/23 07:00 139/100 09/03/23 05:59 64 133/97 09/03/23 05:53 65 133/97 09/03/23 05:50 34.8 C L 64 18 09/03/23 05:40 34.8 C L 71 18 09/03/23 05:30 34.8 C L 68 18 09/03/23 05:20 34.7 C L 65 18 09/03/23 05:10 34.7 C L 61 18 09/03/23 05:00 34.7 C L 61 18 09/03/23 05:00 133/09/03/23 04:50 34.7 C L 57 L 18 09/03/23 04:40 34.7 C L 68 18 09/03/23 04:30 34.8 C L 62 18 09/03/23 04:20 34.8 C L 58 L 18 09/03/23 04:10 34.8 C L 67 18 09/03/23 04:01 117/09/03/23 04:01 34.8 C L 62 18 09/03/23 04:00 34.9 C L 61 18 09/03/23 04:00 30 09/03/23 03:50 34.8 C L 63 18 09/03/23 03:40 34.8 C L 61 18 09/03/23 03:30 34.9 C L 62 18 09/03/23 03:20 34.9 C L 62 18 09/03/23 03:10 34.9 C L 65 18 09/03/23 03:09 18 09/03/23 03:00 145/107 H 09/03/23 03:00 35.0 C L 57 L 21 09/03/23 02:50 35.0 C L 64 21 09/03/23 02:40 35.1 C L 59 L 18 09/03/23 02:30 35.2 C L 65 20 09/03/23 02:20 35.3 C L 62 18 09/03/23 02:10 35.3 C L 63 18 09/03/23 02:01 35.4 C L 62 18 09/03/23 02:01 129/09/03/23 02:00 35.4 C L 68 18 09/03/23 01:50 35.5 C L 61 18 09/03/23 01:40 35.5 C L 60 10 L 09/03/23 01:30 35.6 C L 69 18 09/03/23 01:20 35.7 C L 56 L 27 H 09/03/23 01:10 35.8 C L 61 20 09/03/23 01:00 143/106 H 09/03/23 01:00 35.9 C L 66 24 09/03/23 00:50 36.0 C L 62 31 H 09/03/23 00:40 36.1 C L 65 23 09/03/23 00:30 36.2 C L 69 25 H 09/03/23 00:20 36.3 C L 65 19 09/03/23 00:10 36.4 C L 70 18 09/03/23 00:00 36.5 C 72 18 09/03/23 00:00 132/96 09/03/23 00:00 30 09/02/23 23:50 36.6 C 69 32 H 09/02/23 23:44 67 136/108 H 09/02/23 23:41 71 136/108 H 09/02/23 23:40 36.7 C 83 21 09/02/23 23:30 36.8 C 77 33 H 09/02/23 23:20 36.9 C 74 18 09/02/23 23:19 18 09/02/23 23:10 36.9 C 79 32 H 09/02/23 23:01 37.0 C 77 18 09/02/23 23:01 136/108 H 09/02/23 23:00 37.0 C 84 18 09/02/23 22:50 37.1 C 84 18 09/02/23 22:40 37.2 C 86 18 09/02/23 22:30 37.3 C 79 19 09/02/23 22:20 37.3 C 89 16 09/02/23 22:10 37.4 C 79 18 09/02/23 22:00 130/103 H 09/02/23 22:00 37.5 C 77 18 09/02/23 21:50 37.6 C H 80 18 09/02/23 21:40 37.6 C H 82 18 100 Critical Care Results & Data Vital Signs (Past 12 Hours) Vital Signs Temp Pulse Resp BP Pulse Ox O2 Del Method FiO2 09/03/23 08:30 35.1 C L 57 L 18 09/03/23 08:00 128/100 09/03/23 08:00 35.0 C L 57 L 18 09/03/23 08:00 Mechanical Vent 30 09/03/23 08:00 30 09/03/23 07:37 61 19 100 30 09/03/23 07:30 34.9 C L 61 19 100 09/03/23 07:00 34.8 C L 60 18 09/03/23 07:00 139/100 09/03/23 05:59 64 133/97 09/03/23 05:53 65 133/97 09/03/23 05:50 34.8 C L 64 18 09/03/23 05:40 34.8 C L 71 18 09/03/23 05:30 34.8 C L 68 18 09/03/23 05:20 34.7 C L 65 18 09/03/23 05:10 34.7 C L 61 18 09/03/23 05:00 34.7 C L 61 18 09/03/23 05:00 133/97 09/03/23 04:50 34.7 C L 57 L 18 09/03/23 04:40 34.7 C L 68 18 09/03/23 04:30 34.8 C L 62 18 09/03/23 04:20 34.8 C L 58 L 18 09/03/23 04:10 34.8 C L 67 18 09/03/23 04:01 117/84 09/03/23 04:01 34.8 C L 62 18 09/03/23 04:00 34.9 C L 61 18 09/03/23 04:00 30 09/03/23 03:50 34.8 C L 63 18 09/03/23 03:40 34.8 C L 61 18 09/03/23 03:30 34.9 C L 62 18 09/03/23 03:20 34.9 C L 62 18 09/03/23 03:10 34.9 C L 65 18 09/03/23 03:09 18 09/03/23 03:00 145/107 H 09/03/23 03:00 35.0 C L 57 L 21 09/03/23 02:50 35.0 C L 64 21 09/03/23 02:40 35.1 C L 59 L 18 09/03/23 02:30 35.2 C L 65 20 09/03/23 02:20 35.3 C L 62 18 09/03/23 02:10 35.3 C L 63 18 09/03/23 02:01 35.4 C L 62 18 09/03/23 02:01 129/94 09/03/23 02:00 35.4 C L 68 18 09/03/23 01:50 35.5 C L 61 18 09/03/23 01:40 35.5 C L 60 10 L 09/03/23 01:30 35.6 C L 69 18 09/03/23 01:20 35.7 C L 56 L 27 H 09/03/23 01:10 35.8 C L 61 20 09/03/23 01:00 143/106 H 09/03/23 01:00 35.9 C L 66 24 09/03/23 00:50 36.0 C L 62 31 H 09/03/23 00:40 36.1 C L 65 23 09/03/23 00:30 36.2 C L 69 25 H 09/03/23 00:20 36.3 C L 65 19 09/03/23 00:10 36.4 C L 70 18 09/03/23 00:00 36.5 C 72 18 09/03/23 00:00 132/96 09/03/23 00:00 09/02/23 23:50 36.6 C 69 32 H 09/02/23 23:44 67 136/108 H 09/02/23 23:41 71 136/108 H 09/02/23 23:40 36.7 C 83 21 09/02/23 23:30 36.8 C 77 33 H 09/02/23 23:20 36.9 C 74 18 09/02/23 23:19 18 09/02/23 23:10 36.9 C 79 32 H 09/02/23 23:01 37.0 C 77 18 100 09/02/23 23:01 136/108 H 09/02/23 23:00 37.0 C 84 18 100 09/02/23 22:50 37.1 C 84 18 100 09/02/23 22:40 37.2 C 86 18 100 09/02/23 22:30 37.3 C 79 19 100 09/02/23 22:20 37.3 C 89 16 100 09/02/23 22:10 37.4 C 79 18 100 09/02/23 22:00 130/103 H 09/02/23 22:00 37.5 C 77 18 100 09/02/23 21:50 37.6 C H 80 18 100 09/02/23 21:40 37.6 C H 82 18 100 Lab & Micro Results (Past 24 Hours) RBC 3.99 M/uL (4.70-6.10) L 09/04/23 WBC 6.21 K/ul (4.8-10.8) 09/04/23 Hgb 11.7 g/dl (14.0-18.0) L 09/04/23 Hct 35.8 % (42.0-52.0) L 09/04/23 MCV 89.7 fL (80.0-100.0) 09/04/23 MCH 29.3 pg (25.0-34.0) 09/04/23 MCHC 32.7 g/dL (32.0-36.0) 09/04/23 RDW Standard Deviation 52.6 fL (36.4-46.3) H 09/04/23 RDW Coefficient of Variation 15.9 % (11.5-14.5) H 09/04/23 Plt Count 157 K/uL (130-400) 09/04/23 MPV 11.1 fL (9.4-12.4) 09/04/23 Neutrophils (%) (Auto) 82.1 % 09/04/23 Lymphocytes (%) (Auto) 5.3 % 09/04/23 Monocytes # (Auto) 0.56 K/uL (0.11-0.59) 09/04/23 Eosinophils # (Auto) 0.14 K/uL (0.00-0.50) 09/04/23 Immature Granulocyte % (Auto) 0.8 % 09/04/23 Neutrophils # (Auto) 5.10 K/uL (1.40-6.50) 09/04/23 Lymphocytes # (Auto) 0.33 K/uL (1.20-3.40) L 09/04/23 Monocytes # (Auto) 0.56 K/uL (0.11-0.59) 09/04/23 Eosinophils # (Auto) 0.14 K/uL (0.00-0.50) 09/04/23 Basophils # (Auto) 0.03 K/uL (0.00-0.20) 09/04/23 Immature Granulocyte # (Auto) 0.05 K/uL (0.01-0.20) 4 Na 132 mmol/L (136-145) L 09/04/23 K 3.9 mmol/L (3.5-5.1) 09/04/23 Cl 102 mmol/L (98-107) 09/04/23 CO2 23 mmol/L (21-32) 09/04/23 Anion Gap 7 (3-11) 09/04/23 BUN 15 mg/dl (6-23) 09/04/23 Creatinine 0.68 mg/dl (0.6-1.4) 09/04/23 Estimated GFR ( Amer) 119.5 ml/min 09/04/23 Estimated GFR (Non-Af Amer) 103.1 ml/min 09/04/23 BUN/Creatinine Ratio 22.1 (10-20) H 09/04/23 Glu 77 mg/dl (70-99(Fasting)) 09/04/23 Ca 8.2 mg/dl (8.6-10.3) L 09/04/23 Total Bilirubin 1.0 mg/dl (0.2-1.0) 09/04/23 Direct Bilirubin 0.4 mg/dl (0-0.2) H 09/04/23 AST 24 U/L (13-39) 09/04/23 ALT 23 U/L (7-52) 09/04/23 Alkaline Phosphatase 49 U/L (34-104) 09/04/23 TP 5.5 gm/dl (6.0-8.3) L 09/04/23 Albumin 2.9 gm/dl (3.4-5.0) L 09/04/23 Mg 1.7 mg/dl (1.7-2.4) 09/04/23 04:39 Calcium Level 8.2 mg/dl (8.6-10.3) L 09/04/23 04:39 Microbiology 09/01/23 08:00 Gram Stain - Final Sputum,Vent Suction Sputum Culture - Final Light normal barbara. 08/31/23 15:17 Aerobic Blood Culture - Preliminary Blood No growth in Aerobic bottle after 48 hours. Anaerobic Blood Culture - Preliminary No growth in Anaerobic bottle after 48 hours. 08/31/23 15:20 Aerobic Blood Culture - Preliminary Blood No growth in Aerobic bottle after 48 hours. Anaerobic Blood Culture - Preliminary No growth in Anaerobic bottle after 48 hours. Diagnostic Findings (Past 24 Hours) Chest X-Ray 09/03/23 07:00 SINGLE VIEW CHEST CLINICAL HISTORY: Respiratory failure FINDINGS: 2 AP, portable, upright chest radiographs are compared to study dated 09/02/2023 and correlated with chest CT dated 08/31/2023. An endotracheal tube, an enteric tube, and a left subclavian central venous catheter are unchanged in position. The heart is enlarged. The pulmonary vasculature is noncongested. Chronic interstitial thickening is similar to previous. Bibasilar consolidation is similar previous, left greater than right. Small pleural effusions are suspected. No pneumothorax is seen. The skeletal structures are osteopenic. The bony thorax is grossly intact. IMPRESSION: 1. Stable lines and tubes. 2. Cardiomegaly without radiographic evidence of congestive failure. 3. Bibasilar consolidation is similar to previous, left greater than right. Radiographic follow-up to resolution is recommended. ACT 112: Negative or not required by law. Electronically signed by: David Valles M.D. 09/03/2023 7:08 AM I & O Totals 24 Hours 09/02/23 09/03/23 09/04/23 06:59 06:59 06:59 Intake Total 1105.675 / 8098.493 6363.196 / 1403.196 325.163 / 325.163 Output Total 940 / 940 985 / 985 45 / 45 Balance 165.675 / 165.675 418.196 / 418.196 280.163 / 280.163 Cumulative 08/31/23 14:10 thru 09/03/23 09:25 Intake Total 8371.149 Output Total 4375 Balance 3996.149 RT Ventilator Mngmt (Last Documented) Ventilator Ordered Settings Ventilator Support Mode Assist Control 09/03/23 08:00 Respiratory Rate 18 09/03/23 08:30 Ventilator Tidal Volume 500 09/03/23 08:00 Setting Minute Ventilation 8.7 09/03/23 07:37 Positive End Expiratory 10 09/03/23 08:00 Pressure Fraction of Inspired Oxygen 30 09/03/23 08:00 Peak Inspiratory Flow 57 09/02/23 15:12 Machine Comment Set rate decreased from 20 to 08/31/23 17:[address] Gallardo post ABG Ventilator - PT Measurements Respiratory Rate 18 Exhaled Tidal Volume 555 Minute Ventilation 8.7 Peak Inspiratory Airway 23 Pressure Plateau Pressure 17 Respiratory Cycle Inspiratory: 1:3.8 Expiratory Ratio Inspiratory Phase Time 0.70 End-Tidal CO2 22 Static Lung Compliance 79.29 Dynamic Lung Compliance 42.69 Normal Static Lung Compliance 48.00 Patient Measurements Comment Pt extibated per Dr. Valdez Coding Level of Care Code 10513 CRITICAL CARE 1ST 30-74M Additional Critical Care Time Additional 30min Critical Care Time: Yes - 55625 Total Critical Care Time: 95 Diagnoses Cardiac arrest I46.9 Alcoholic intoxication F10.920 Complication of substance-induced condition: uncomplicated Ribs, multiple fractures S22.49XA Acute respiratory acidosis J96.02 Acute lactic acidosis E87.21 Squamous cell carcinoma of oropharynx C10.9 Additional Codes Critical Care Time - Additional 30min Critical Care Time: Yes - 26240 ([id number]) (2) Alcoholic intoxication Complication of substance-induced condition: uncomplicated Qualified Code(s): F10.920 - Alcohol use, unspecified with intoxication, uncomplicated
--- NOTE | 2023-09-03 11:07 | Palliative Care Consultation ---
Date of Consultation September 03, 2023 Assessment & Plan (1) Dyspnea and respiratory abnormalities: (2) Weakness generalized: (3) Altered mental status: (4) Discussion about advance care planning held with family member: family meeting planned for 2pm, see separate ACP note (5) Palliative care by specialist: Met with family. Provided overview of Palliative Medicine, a subspecialty that provides specialized medical care for people living with a serious illness by offering a focus on quality of life through reduction of symptom burden/more control over their illness, for both the patient and family. His sister Jo and his Mom are familiar with our department from prior encounter with Booker's sister who from stroke related complications last year. 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 Cancer has been treated and there is no new disease noted on recent imaging July 2023 or PETCT Mar 2023. Thank you for allowing us to participate in the ongoing care of this patient. Please don't hesitate to call or page with any additional concerns. Dr. 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 Initial imaging showed a large BOT lesion with bilateral cervical lymphadenopathy. Post treatment imaging shows residual avidity in the right BOT. Chemo/xrt completed Jan. He had an OOH cardiac arrest with unknown downtime and 15+ min for ROSC with OOH CPR He remains intubated and sedated following a failed extubation trial. He is unable to protect his airway He has severe ETOH abuse, longstanding and chronic, was unable to remain sober for sustained durations and experienced troubles with addiction thru cancer treatment/missed appt etc. Per [facility] EMR Link review: Cancer Diagnosis: Newly diagnosed SCC, HPV from biopsy of his tongue on 09/21/2022,stage T4 N2. Current Treatment: Initial plan was treated with cisplatin concurrent with radiation therapy. He has hearing screening done which showed bilateral hearing loss. The chemo will be changed to carboplatin weekly Previous Treatment: None Oncologic History : 62-year-old male with past medical history significant for hypertension presented with increasing shortness of breath, increasing mass and swelling on the right side of the neck and swelling in the lower extremity. Patient was found to be in AFib and diastolic heart failure exacerbation was cardioverted with subsequent reversion to normal sinus rhythm. Echo noted biatrial dilation, LVEF 50%, mild dilated RV, aortic root and thoracic aortic dilation. CT scan of neck was done on 09/21/2022 which revealedlarge right tongue base mass crossing midline in the deep tongue, with supraglottic larynx and hypopharyngeal extension. Apparent decreased upper aerodigestive caliber, particularly the supraglottic larynx,there was extensive multi station right neck lymphadenopathy with features of extranodal extension, invasion of sternocleidomastoid muscle and submandibular gland,Infiltrative soft tissue involving the ipsilateral carotid artery segments, with mild mass effect related narrowing, and suspicion for carotid sheath invasion,Long segment severe narrowing of the right IJV, also from mass effect compressed between the primary tumor and lymphadenopathy. 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 Final Diagnosis A. 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 at 0911 Clinical History Right tongue base mass Gross Description A. Throat.Oropharynx/nasopharynx, biopsyReceived in formalin with a container labeled with "Booker Dobbins", "[id number]" and "1960" and " throat". Received are multiple fragments of elizondo-pink and rubbery soft tissue that measure 1.1 x 0.9 x 0.3 cm in aggregate. No resection margin is grossly identified on any portion of tissue. The specimen is submitted entirely and intact in A1.Gross By: NS Microscopic Description Immunohistochemical stain for p16 is positive in the tumor cells with adequate control. In situ hybridization for high risk HPV is positive in the tumor cells with adequate control. Findings support the above diagnosis. PD-L1 Immunohistochemical Evaluation of PD-L1 Expression in Tumor Cells and Infiltrating Immune CellsResult:Antibody CloneBlockCPS/IntensityInterpretation (CPS)PD-L1 (SP263)A120%/ 3+20% (>=1)CPS=Combined Positive Score (percentage of positive tumor and immune cells relative to total number of tumor cells). CT scan of the abdomen pelvis was done on 09/27/2022 which revealed multiple enlarged retroperitoneal and left common and external iliac lymph node measuring up to 1.6 cm and so short axis. PET scan was done on 08/06 which showed large lobulated right cervical mass with large pharyngeal mass consistent with biopsy-proven squamous cell carcinoma with smaller left cervical lymph nodes. 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 Patient was seen by Dr. Gutierrez and simulation is done. Overall clinically he is feeling better. He has some difficulty in swallowing specialist solid food. He denies any headache, dizziness, vision, chest pain, palpitation abdominal pain or distention, nausea, vomiting fever, night sweats. He quit smoking about 30 years ago. He used to smoke 1 pack per day for10 years.He used to drink 15 cansalcohol on weekly basis. He is not drinking for last 2 months. Family history significant for father was diagnosed of prostate cancer. ASSESSMENT: 62-year-old male with past medical history significant for hypertension presented with complaint of increasing shortness of breath, neck swelling and increasing edema of the lower extremity. He was in AFib with diastolic heart failure. He was also found to have mass at the base of the tongue with the neck mass. Biopsy from the mass from the base of the tongue is consistent with squamous carcinoma, HPV mediated. Patient has locally advanced disease T4 N2. He was seen by radiation oncology Dr. Gutierrez and had simulation done. Initial plan was to treat him with cisplatin concurrent with radiation therapy but had a hearing screening done which revealed sensorineural hearing loss.Currently he is receiving carboplatin concurrent with radiation therapy. He had episode of fall because of the drinking alcohol and was admitted to the hospital. Discussed with the patient in detail about the diagnosis and prognosis. Also discussed with him in detail about the effect of the alcohol on overall outcome. Alcohol can increase the toxicity of the chemotherapy. He has [facility] on [facility]. He had last drink on 12/11/2022. He understand risk and benefit of continuing alcohol drinking during the treatment. For now will continue carboplatin concurrent with radiation therapy. PLAN: As above. He will return clinic for follow-up in 3 weeks. The patient voiced understanding of all of the above. All questions and concerns were addressed in an apparently satisfactory manner. Jenifer Lopez MD Booker is seen bedside, this morning, no family present He is sedated and intubated does not respond to verbal or noxious stimuli Allergies Allergy/AdvReac Type Severity Reaction Status Date / Time No Known Allergies Allergy Unverified 01/15/23 08:15 Home Medications Medication Instructions Recorded Confirmed Type amlodipine 5 mg tablet 5 mg PO DAILY 02/29/20 08/31/23 History escitalopram oxalate 10 mg tablet 10 mg PO DAILY 02/29/20 08/31/23 History losartan 100 mg tablet (Cozaar) 100 mg PO DAILY 10/16/22 08/31/23 History multivitamin 1 tab PO DAILY 10/16/22 08/31/23 History Patient History Medical History (Updated 09/03/23 @ 23:05 by Josette Liz, ANDI) Compound fracture right humerous History of cardioversion (09/26/22) Hattie Terrell [place] [facility] [facility] [place] of bronchoscopy (10/03/22) Mazin Mccoy [place] [facility] [place]oscopy (12/06/15) Darren Meyers MD at [facility]COPY [facility] [address] Family History Father Prostate cancer Mother No problems noted. Sister No problems noted. Sister No problems noted. Sister No problems noted. Brother No problems noted. Daughter No problems noted. Daughter No problems noted. Social History Smoking Status: Never smoker packs per day: 1; Second Hand Exposure: No; Do You Dip or Chew Tobacco: No; Hx Alcohol Use: Yes Hx Substance Use: No Preferred Language: Persian Communication Ability: Unable Visual Impairment: Limited Hearing Ability: Normal Apartment House Manager Required: No Beliefs That Will Affect Care: None How many Children do You have: 2 Feels Safe at Home: Yes Childhood Exposure to Second-Hand Smoke: No Diet: regular during the past year weight has: remained stable Dental Care, Regularly: No Assistive Devices: Glasses Review of Systems Review of Systems: Unobtainable due to endotracheal tube and Unobtainable due to reduced consciousness Physical Exam Constitutional: + acute distress, + ill appearing, + alt ered mental status and + mechanically ventilated Eyes: + abnormal light reflex ENMT: radiation changes to neck with right submandibular swelling noted +ETT to vent He is not presently over breathing the vent Neck: + submandibular swelling, + midline defo rmity and + short neck Respiratory: symmetric chest movement (on MV) Auscultation: + diminished lung sounds and + rales Cardiovascular: Rate/Rhythm: + irregularly irregular Extremities: + pedal edema and + edema Gastrointestinal (Abdomen): Inspection/Auscultation: + abdomen distended and normal bowel sounds Musculoskeletal: gen weakness Skin: pale, cool, scattered ecchymoses Neurologic: Comatose Patient: + response to noxious stimuli absent unable to follow commands no response to verbal or noxious stimuli pupils sluggish, no EOM noted Genitourinary: +Acosta Results & Data Vital Signs (Past 12 Hours) Vital Signs Temp Pulse Resp BP Pulse Ox O2 Del Method FiO2 09/03/23 08:30 35.1 C L 57 L 18 09/03/23 08:00 128/100 09/03/23 08:00 35.0 C L 57 L 18 09/03/23 08:00 Mechanical Vent 30 09/03/23 08:00 30 09/03/23 07:37 61 19 100 30 09/03/23 07:30 34.9 C L 61 19 09/03/23 07:00 34.8 C L 60 18 09/03/23 07:00 139/100 09/03/23 05:59 64 133/97 09/03/23 05:53 65 133/97 09/03/23 05:50 34.8 C L 64 18 09/03/23 05:40 34.8 C L 71 18 09/03/23 05:30 34.8 C L 68 18 09/03/23 05:20 34.7 C L 65 18 09/03/23 05:10 34.7 C L 61 18 09/03/23 05:00 34.7 C L 61 18 09/03/23 05:00 133/97 09/03/23 04:50 34.7 C L 57 L 18 09/03/23 04:40 34.7 C L 68 18 09/03/23 04:30 34.8 C L 62 18 09/03/23 04:20 34.8 C L 58 L 18 09/03/23 04:10 34.8 C L 67 18 09/03/23 04:01 117/84 09/03/23 04:01 34.8 C L 62 18 09/03/23 04:00 34.9 C L 61 18 09/03/23 04:00 30 09/03/23 03:50 34.8 C L 63 18 09/03/23 03:40 34.8 C L 61 18 09/03/23 03:30 34.9 C L 62 18 09/03/23 03:20 34.9 C L 62 18 09/03/23 03:10 34.9 C L 65 18 09/03/23 03:09 18 09/03/23 03:00 145/107 H 09/03/23 03:00 35.0 C L 57 L 21 09/03/23 02:50 35.0 C L 64 21 09/03/23 02:40 35.1 C L 59 L 18 09/03/23 02:30 35.2 C L 65 20 09/03/23 02:20 35.3 C L 62 18 09/03/23 02:10 35.3 C L 63 18 09/03/23 02:01 35.4 C L 62 18 09/03/23 02:01 129/94 09/03/23 02:00 35.4 C L 68 18 09/03/23 01:50 35.5 C L 61 18 09/03/23 01:40 35.5 C L 60 10 L 09/03/23 01:30 35.6 C L 69 18 09/03/23 01:20 35.7 C L 56 L 27 H 09/03/23 01:10 35.8 C L 61 20 09/03/23 01:00 143/106 H 09/03/23 01:00 35.9 C L 66 24 09/03/23 00:50 36.0 C L 62 31 H 09/03/23 00:40 36.1 C L 65 23 09/03/23 00:30 36.2 C L 69 25 H 09/03/23 00:20 36.3 C L 65 19 09/03/23 00:10 36.4 C L 70 18 09/03/23 00:00 36.5 C 72 18 09/03/23 00:00 132/96 09/03/23 00:00 30 09/02/23 23:50 36.6 C 69 32 H 09/02/23 23:44 67 136/108 H 09/02/23 23:41 71 136/108 H 09/02/23 23:40 36.7 C 83 21 09/02/23 23:30 36.8 C 77 33 H 09/02/23 23:20 36.9 C 74 18 09/02/23 23:19 18 09/02/23 23:10 36.9 C 79 32 H 99 Laboratory Results 09/03/23 09/03/23 09/03/23 Range/Units 18:01 17:59 12:02 WBC (4.8-10.8) K/ul RBC (4.70-6.10) M/uL Hgb (14.0-18.0) g/dl POC Hgb (14.0-18.0) g/dl Hct (42.0-52.0) % POC Hct (42-52) % MCV (80.0-100.0) fL MCH (25.0-34.0) pg MCHC (32.0-36.0) g/dL RDW Std Deviation (36.4-46.3) fL RDW Coeff of Edouard (11.5-14.5) % Plt Count (130-400) K/uL MPV (9.4-12.4) fL Immature Gran % (Auto) % Neut % (Auto) % Lymph % (Auto) % [place] % (Auto) % Eos % (Auto) % Baso % (Auto) % Neut # (Auto) (1.40-6.50) K/uL Lymph # (Auto) (1.20-3.40) K/uL [place] # (Auto) (0.11-0.59) K/uL Eos # (Auto) (0.00-0.50) K/uL Baso # (Auto) (0.00-0.20) K/uL Immature Gran # (Auto) (0.01-0.20) K/uL PT (9.0-12.0) Seconds INR (0.9-1.1) APTT (21-31) Seconds PTT Ratio Sample Site POC pH (7.35-7.45) POC pCO2 (35-46) mmHg POC pO2 (80-95) mmHg POC HCO3 (19-24) lazaro/L POC Total CO2 (24-31) mmol/L POC Base Excess (-9-1.8) lazaro/L ABG pH (7.35-7.45) ABG pH (Temp Correct) (7.35-7.45) ABG pCO2 (35-46) mmHg ABG pCO2 (Temp Corrct (35-46) mmHg ABG pO2 (80-95) mmHg POC ABG pO2 at Pt Temp ABG HCO3 (19-24) mmol/L POC ABG O2 Sat (90-95) % ABG O2 Saturation (90-95) % ABG Base Excess (-9-1.8) mEq/L Ramírez Test (Pos) Oxygen Given O2 Delivery Device POC O2 Rate Minute Ventilation POC FiO2 % Tidal Volume PEEP POC Sodium (135-144) mmol/L Sodium (136-145) mmol/L POC Potassium (3.3-5.0) mmol/L Potassium (3.5-5.1) mmol/L Chloride (98-107) mmol/L Carbon Dioxide (21-32) mmol/L Anion Gap (3-11) BUN (6-23) mg/dl Creatinine (0.6-1.4) mg/dl Est Cr Clr Drug Dosing Est GFR ( Amer) ml/min Est GFR (Non-Af Amer) ml/min BUN/Creatinine Ratio (10-20) Glucose (70-99(Fasting)) mg/dl POC Glucose 74 52 L* 96 (70-99) mg/dl POC Glucose (other) (70-99) mg/dl Lactate (0.4-2.0) mmol/L Calcium (8.6-10.3) mg/dl Phosphorus (2.5-4.9) mg/dl Magnesium (1.7-2.4) mg/dl Total Bilirubin (0.2-1.0) mg/dl Direct Bilirubin (0-0.2) mg/dl AST (13-39) U/L ALT (7-52) U/L Alkaline Phosphatase (34-104) U/L Troponin I High Sens (0-20) pg/ml Total Protein (6.0-8.3) gm/dl Albumin (3.4-5.0) gm/dl Triglycerides (0-150) mg/dl Cholesterol (0-200) mg/dl LDL Cholesterol, Calc mg/dl VLDL Cholesterol, Calc (0-30) mg/dl HDL Cholesterol mg/dl Cholesterol/HDL Ratio (0-5) Procalcitonin (0-0.5) ng/ml Urine Color Urine Appearance (Clear) Urine pH (4.5-7.5) Ur Specific [place] (1.000-1.030) Urine Protein (Negative) Urine Glucose (UA) (Negative) Urine Ketones (Negative) Urine Blood (Negative) Urine Nitrite (Negative) Urine Bilirubin (Negative) Urine Urobilinogen (Negative) Ur Leukocyte Esterase (Negative) Urine WBC (Auto) (0-5) /hpf Urine RBC (Auto) (0-2) /hpf U Hyaline Cast (Auto) (0-2) /lpf U Epithel Cells (Auto) (0-2) /hpf Urine Bacteria (Auto) (None Seen) Nasal Screen MRSA (PCR) (Negative) Urine Opiates Screen (Neg) Ur Methadone, Qual (Neg) Urine Barbiturates (Neg) Ur Phencyclidine (PCP) (Neg) U Amphetamin/Meth Scrn (Neg) MDMA (Ecstasy) Screen (Neg) U Benzodiazepines Scrn (Neg) Ur Cocaine Metabolite (Neg) U Marijuana (THC) Screen (Neg) Ethyl Alcohol mg/dL (<10.0) mg/dl 09/03/23 09/03/23 09/03/23 Range/Units 11:59 08:02 04:15 WBC 5.56 (4.8-10.8) K/ul RBC 3.86 L (4.70-6.10) M/uL Hgb 11.6 L (14.0-18.0) g/dl POC Hgb (14.0-18.0) g/dl Hct 35.2 L (42.0-52.0) % POC Hct (42-52) % MCV 91.2 (80.0-100.0) fL MCH 30.1 (25.0-34.0) pg MCHC 33.0 (32.0-36.0) g/dL RDW Std Deviation 54.9 H (36.4-46.3) fL RDW Coeff of Edouard 16.2 H (11.5-14.5) % Plt Count 131 (130-400) K/uL MPV 11.2 (9.4-12.4) fL Immature Gran % (Auto) 0.5 % Neut % (Auto) 80.0 % Lymph % (Auto) 8.3 % [place] % (Auto) 8.5 % Eos % (Auto) 2.2 % Baso % (Auto) 0.5 % Neut # (Auto) 4.45 (1.40-6.50) K/uL Lymph # (Auto) 0.46 L (1.20-3.40) K/uL [place] # (Auto) 0.47 (0.11-0.59) K/uL Eos # (Auto) 0.12 (0.00-0.50) K/uL Baso # (Auto) 0.03 (0.00-0.20) K/uL Immature Gran # (Auto) 0.03 (0.01-0.20) K/uL PT 10.9 (9.0-12.0) Seconds INR 1.0 (0.9-1.1) APTT (21-31) Seconds PTT Ratio Sample Site POC pH (7.35-7.45) POC pCO2 (35-46) mmHg POC pO2 (80-95) mmHg POC HCO3 (19-24) lazaro/L POC Total CO2 (24-31) mmol/L POC Base Excess (-9-1.8) lazaro/L ABG pH (7.35-7.45) ABG pH (Temp Correct) (7.35-7.45) ABG pCO2 (35-46) mmHg ABG pCO2 (Temp Corrct (35-46) mmHg ABG pO2 (80-95) mmHg POC ABG pO2 at Pt Temp ABG HCO3 (19-24) mmol/L POC ABG O2 Sat (90-95) % ABG O2 Saturation (90-95) % ABG Base Excess (-9-1.8) mEq/L Ramírez Test (Pos) Oxygen Given O2 Delivery Device POC O2 Rate Minute Ventilation POC FiO2 % Tidal Volume PEEP POC Sodium (135-144) mmol/L Sodium 134 L (136-145) mmol/L POC Potassium (3.3-5.0) mmol/L Potassium 3.7 (3.5-5.1) mmol/L Chloride 102 (98-107) mmol/L Carbon Dioxide 25 (21-32) mmol/L Anion Gap 7 (3-11) BUN 15 (6-23) mg/dl Creatinine 0.57 L (0.6-1.4) mg/dl Est Cr Clr Drug Dosing 179.0 Est GFR ( Amer) 128.5 ml/min Est GFR (Non-Af Amer) 110.8 ml/min BUN/Creatinine Ratio 26.3 H (10-20) Glucose 83 (70-99(Fasting)) mg/dl POC Glucose 69 L* 102 H (70-99) mg/dl POC Glucose (other) (70-99) mg/dl Lactate (0.4-2.0) mmol/L Calcium 8.2 L (8.6-10.3) mg/dl Phosphorus (2.5-4.9) mg/dl Magnesium 1.7 (1.7-2.4) mg/dl Total Bilirubin 1.2 H (0.2-1.0) mg/dl Direct Bilirubin 0.5 H (0-0.2) mg/dl AST 30 (13-39) U/L ALT 32 (7-52) U/L Alkaline Phosphatase 46 (34-104) U/L Troponin I High Sens (0-20) pg/ml Total Protein 5.3 L (6.0-8.3) gm/dl Albumin 2.9 L (3.4-5.0) gm/dl Triglycerides (0-150) mg/dl Cholesterol (0-200) mg/dl LDL Cholesterol, Calc mg/dl VLDL Cholesterol, Calc (0-30) mg/dl HDL Cholesterol mg/dl Cholesterol/HDL Ratio (0-5) Procalcitonin (0-0.5) ng/ml Urine Color Urine Appearance (Clear) Urine pH (4.5-7.5) Ur Specific [place] (1.000-1.030) Urine Protein (Negative) Urine Glucose (UA) (Negative) Urine Ketones (Negative) Urine Blood (Negative) Urine Nitrite (Negative) Urine Bilirubin (Negative) Urine Urobilinogen (Negative) Ur Leukocyte Esterase (Negative) Urine WBC (Auto) (0-5) /hpf Urine RBC (Auto) (0-2) /hpf U Hyaline Cast (Auto) (0-2) /lpf U Epithel Cells (Auto) (0-2) /hpf Urine Bacteria (Auto) (None Seen) Nasal Screen MRSA (PCR) (Negative) Urine Opiates Screen (Neg) Ur Methadone, Qual (Neg) Urine Barbiturates (Neg) Ur Phencyclidine (PCP) (Neg) U Amphetamin/Meth Scrn (Neg) MDMA (Ecstasy) Screen (Neg) U Benzodiazepines Scrn (Neg) Ur Cocaine Metabolite (Neg) U Marijuana (THC) Screen (Neg) Ethyl Alcohol mg/dL (<10.0) mg/dl 09/02/23 09/01/23 09/01/23 Range/Units 04:03 23:19 17:48 WBC 5.61 (4.8-10.8) K/ul RBC 3.84 L (4.70-6.10) M/uL Hgb 11.4 L (14.0-18.0) g/dl POC Hgb (14.0-18.0) g/dl Hct 35.1 L (42.0-52.0) % POC Hct (42-52) % MCV 91.4 (80.0-100.0) fL MCH 29.7 (25.0-34.0) pg MCHC 32.5 (32.0-36.0) g/dL RDW Std Deviation 53.7 H (36.4-46.3) fL RDW Coeff of Edouard 16.0 H (11.5-14.5) % Plt Count 125 L (130-400) K/uL MPV 10.6 (9.4-12.4) fL Immature Gran % (Auto) 0.4 % Neut % (Auto) 81.6 % Lymph % (Auto) 6.4 % [place] % (Auto) 10.2 % Eos % (Auto) 0.9 % Baso % (Auto) 0.5 % Neut # (Auto) 4.58 (1.40-6.50) K/uL Lymph # (Auto) 0.36 L (1.20-3.40) K/uL [place] # (Auto) 0.57 (0.11-0.59) K/uL Eos # (Auto) 0.05 (0.00-0.50) K/uL Baso # (Auto) 0.03 (0.00-0.20) K/uL Immature Gran # (Auto) 0.02 (0.01-0.20) K/uL PT 11.9 (9.0-12.0) Seconds INR 1.1 (0.9-1.1) APTT (21-31) Seconds PTT Ratio Sample Site POC pH (7.35-7.45) POC pCO2 (35-46) mmHg POC pO2 (80-95) mmHg POC HCO3 (19-24) lazaro/L POC Total CO2 (24-31) mmol/L POC Base Excess (-9-1.8) lazaro/L ABG pH (7.35-7.45) ABG pH (Temp Correct) (7.35-7.45) ABG pCO2 (35-46) mmHg ABG pCO2 (Temp Corrct (35-46) mmHg ABG pO2 (80-95) mmHg POC ABG pO2 at Pt Temp ABG HCO3 (19-24) mmol/L POC ABG O2 Sat (90-95) % ABG O2 Saturation (90-95) % ABG Base Excess (-9-1.8) mEq/L Ramírez Test (Pos) Oxygen Given O2 Delivery Device POC O2 Rate Minute Ventilation POC FiO2 % Tidal Volume PEEP POC Sodium (135-144) mmol/L Sodium 136 (136-145) mmol/L POC Potassium (3.3-5.0) mmol/L Potassium 3.4 L (3.5-5.1) mmol/L Chloride 104 (98-107) mmol/L Carbon Dioxide 25 (21-32) mmol/L Anion Gap 7 (3-11) BUN 15 (6-23) mg/dl Creatinine 0.62 (0.6-1.4) mg/dl Est Cr Clr Drug Dosing 142.6 Est GFR ( Amer) 124.1 ml/min Est GFR (Non-Af Amer) 107.1 ml/min BUN/Creatinine Ratio 24.2 H (10-20) Glucose 100 H (70-99(Fasting)) mg/dl POC Glucose 112 H 96 (70-99) mg/dl POC Glucose (other) (70-99) mg/dl Lactate (0.4-2.0) mmol/L Calcium 8.0 L (8.6-10.3) mg/dl Phosphorus (2.5-4.9) mg/dl Magnesium 1.8 (1.7-2.4) mg/dl Total Bilirubin 1.5 H (0.2-1.0) mg/dl Direct Bilirubin 0.5 H (0-0.2) mg/dl AST 59 H (13-39) U/L ALT 47 (7-52) U/L Alkaline Phosphatase 47 (34-104) U/L Troponin I High Sens 33.4 H D (0-20) pg/ml Total Protein 5.3 L (6.0-8.3) gm/dl Albumin 3.0 L (3.4-5.0) gm/dl Triglycerides (0-150) mg/dl Cholesterol (0-200) mg/dl LDL Cholesterol, Calc mg/dl VLDL Cholesterol, Calc (0-30) mg/dl HDL Cholesterol mg/dl Cholesterol/HDL Ratio (0-5) Procalcitonin (0-0.5) ng/ml Urine Color Urine Appearance (Clear) Urine pH (4.5-7.5) Ur Specific [place] (1.000-1.030) Urine Protein (Negative) Urine Glucose (UA) (Negative) Urine Ketones (Negative) Urine Blood (Negative) Urine Nitrite (Negative) Urine Bilirubin (Negative) Urine Urobilinogen (Negative) Ur Leukocyte Esterase (Negative) Urine WBC (Auto) (0-5) /hpf Urine RBC (Auto) (0-2) /hpf U Hyaline Cast (Auto) (0-2) /lpf U Epithel Cells (Auto) (0-2) /hpf Urine Bacteria (Auto) (None Seen) Nasal Screen MRSA (PCR) (Negative) Urine Opiates Screen (Neg) Ur Methadone, Qual (Neg) Urine Barbiturates (Neg) Ur Phencyclidine (PCP) (Neg) U Amphetamin/Meth Scrn (Neg) MDMA (Ecstasy) Screen (Neg) U Benzodiazepines Scrn (Neg) Ur Cocaine Metabolite (Neg) U Marijuana (THC) Screen (Neg) Ethyl Alcohol mg/dL (<10.0) mg/dl 09/01/23 09/01/23 09/01/23 Range/Units 11:52 04:39 04:36 WBC 8.49 (4.8-10.8) K/ul RBC 4.38 L (4.70-6.10) M/uL Hgb 13.1 L (14.0-18.0) g/dl POC Hgb 13.6 L (14.0-18.0) g/dl Hct 39.8 L (42.0-52.0) % POC Hct 40 L (42-52) % MCV 90.9 (80.0-100.0) fL MCH 29.9 (25.0-34.0) pg MCHC 32.9 (32.0-36.0) g/dL RDW Std Deviation 53.2 H (36.4-46.3) fL RDW Coeff of Edouard 15.9 H (11.5-14.5) % Plt Count 242 (130-400) K/uL MPV 10.2 (9.4-12.4) fL Immature Gran % (Auto) 0.2 % Neut % (Auto) 85.5 % Lymph % (Auto) 3.2 % [place] % (Auto) 10.6 % Eos % (Auto) 0.1 % Baso % (Auto) 0.4 % Neut # (Auto) 7.26 H (1.40-6.50) K/uL Lymph # (Auto) 0.27 L (1.20-3.40) K/uL [place] # (Auto) 0.90 H (0.11-0.59) K/uL Eos # (Auto) 0.01 (0.00-0.50) K/uL Baso # (Auto) 0.03 (0.00-0.20) K/uL Immature Gran # (Auto) 0.02 (0.01-0.20) K/uL PT 11.2 (9.0-12.0) Seconds INR 1.0 (0.9-1.1) APTT (21-31) Seconds PTT Ratio Sample Site Art Line POC pH 7.44 (7.35-7.45) POC pCO2 29 L (35-46) mmHg POC pO2 87 (80-95) mmHg POC HCO3 20 (19-24) lazaro/L POC Total CO2 20 L (24-31) mmol/L POC Base Excess -5.0 (-9-1.8) lazaro/L ABG pH (7.35-7.45) ABG pH (Temp Correct) 7.420 (7.35-7.45) ABG pCO2 (35-46) mmHg ABG pCO2 (Temp Corrct 31 L (35-46) mmHg ABG pO2 (80-95) mmHg POC ABG pO2 at Pt Temp 93 ABG HCO3 (19-24) mmol/L POC ABG O2 Sat 97.0 H (90-95) % ABG O2 Saturation (90-95) % ABG Base Excess (-9-1.8) mEq/L Ramírez Test NA (Pos) Oxygen Given O2 Delivery Device Ventilator POC O2 Rate 18 Minute Ventilation POC FiO2 40 % Tidal Volume 500 PEEP 8 POC Sodium 137 (135-144) mmol/L Sodium 137 (136-145) mmol/L POC Potassium 4.0 (3.3-5.0) mmol/L Potassium 4.0 D (3.5-5.1) mmol/L Chloride 104 (98-107) mmol/L Carbon Dioxide 19 L (21-32) mmol/L Anion Gap 14 H (3-11) BUN 12 (6-23) mg/dl Creatinine 0.78 (0.6-1.4) mg/dl Est Cr Clr Drug Dosing 113.4 Est GFR ( Amer) 112.9 ml/min Est GFR (Non-Af Amer) 97.4 ml/min BUN/Creatinine Ratio 15.4 (10-20) Glucose 79 (70-99(Fasting)) mg/dl POC Glucose 85 (70-99) mg/dl POC Glucose (other) (70-99) mg/dl Lactate (0.4-2.0) mmol/L Calcium 8.2 L (8.6-10.3) mg/dl Phosphorus 2.3 L D (2.5-4.9) mg/dl Magnesium 2.1 (1.7-2.4) mg/dl Total Bilirubin 1.0 (0.2-1.0) mg/dl Direct Bilirubin 0.3 H (0-0.2) mg/dl AST 194 H (13-39) U/L ALT 83 H (7-52) U/L Alkaline Phosphatase 56 (34-104) U/L Troponin I High Sens 320.4 H* (0-20) pg/ml Total Protein 6.2 (6.0-8.3) gm/dl Albumin 3.6 (3.4-5.0) gm/dl Triglycerides (0-150) mg/dl Cholesterol (0-200) mg/dl LDL Cholesterol, Calc mg/dl VLDL Cholesterol, Calc (0-30) mg/dl HDL Cholesterol mg/dl Cholesterol/HDL Ratio (0-5) Procalcitonin 0.25 (0-0.5) ng/ml Urine Color Urine Appearance (Clear) Urine pH (4.5-7.5) Ur Specific [place] (1.000-1.030) Urine Protein (Negative) Urine Glucose (UA) (Negative) Urine Ketones (Negative) Urine Blood (Negative) Urine Nitrite (Negative) Urine Bilirubin (Negative) Urine Urobilinogen (Negative) Ur Leukocyte Esterase (Negative) Urine WBC (Auto) (0-5) /hpf Urine RBC (Auto) (0-2) /hpf U Hyaline Cast (Auto) (0-2) /lpf U Epithel Cells (Auto) (0-2) /hpf Urine Bacteria (Auto) (None Seen) Nasal Screen MRSA (PCR) (Negative) Urine Opiates Screen (Neg) Ur Methadone, Qual (Neg) Urine Barbiturates (Neg) Ur Phencyclidine (PCP) (Neg) U Amphetamin/Meth Scrn (Neg) MDMA (Ecstasy) Screen (Neg) U Benzodiazepines Scrn (Neg) Ur Cocaine Metabolite (Neg) U Marijuana (THC) Screen (Neg) Ethyl Alcohol mg/dL (<10.0) mg/dl 09/01/23 08/31/23 08/31/23 Range/Units 01:50 22:19 21:14 WBC (4.8-10.8) K/ul RBC (4.70-6.10) M/uL Hgb (14.0-18.0) g/dl POC Hgb (14.0-18.0) g/dl Hct (42.0-52.0) % POC Hct (42-52) % MCV (80.0-100.0) fL MCH (25.0-34.0) pg MCHC (32.0-36.0) g/dL RDW Std Deviation (36.4-46.3) fL RDW Coeff of Edouard (11.5-14.5) % Plt Count (130-400) K/uL MPV (9.4-12.4) fL Immature Gran % (Auto) % Neut % (Auto) % Lymph % (Auto) % [place] % (Auto) % Eos % (Auto) % Baso % (Auto) % Neut # (Auto) (1.40-6.50) K/uL Lymph # (Auto) (1.20-3.40) K/uL [place] # (Auto) (0.11-0.59) K/uL Eos # (Auto) (0.00-0.50) K/uL Baso # (Auto) (0.00-0.20) K/uL Immature Gran # (Auto) (0.01-0.20) K/uL PT (9.0-12.0) Seconds INR (0.9-1.1) APTT (21-31) Seconds PTT Ratio Sample Site POC pH (7.35-7.45) POC pCO2 (35-46) mmHg POC pO2 (80-95) mmHg POC HCO3 (19-24) lazaro/L POC Total CO2 (24-31) mmol/L POC Base Excess (-9-1.8) lazaro/L ABG pH (7.35-7.45) ABG pH (Temp Correct) (7.35-7.45) ABG pCO2 (35-46) mmHg ABG pCO2 (Temp Corrct (35-46) mmHg ABG pO2 (80-95) mmHg POC ABG pO2 at Pt Temp ABG HCO3 (19-24) mmol/L POC ABG O2 Sat (90-95) % ABG O2 Saturation (90-95) % ABG Base Excess (-9-1.8) mEq/L Ramírez Test (Pos) Oxygen Given O2 Delivery Device POC O2 Rate Minute Ventilation POC FiO2 % Tidal Volume PEEP POC Sodium (135-144) mmol/L Sodium (136-145) mmol/L POC Potassium (3.3-5.0) mmol/L Potassium (3.5-5.1) mmol/L Chloride (98-107) mmol/L Carbon Dioxide (21-32) mmol/L Anion Gap (3-11) BUN (6-23) mg/dl Creatinine (0.6-1.4) mg/dl Est Cr Clr Drug Dosing Est GFR ( Amer) ml/min Est GFR (Non-Af Amer) ml/min BUN/Creatinine Ratio (10-20) Glucose (70-99(Fasting)) mg/dl POC Glucose (70-99) mg/dl POC Glucose (other) (70-99) mg/dl Lactate 2.4 H* 3.2 H* (0.4-2.0) mmol/L Calcium (8.6-10.3) mg/dl Phosphorus (2.5-4.9) mg/dl Magnesium (1.7-2.4) mg/dl Total Bilirubin (0.2-1.0) mg/dl Direct Bilirubin (0-0.2) mg/dl AST (13-39) U/L ALT (7-52) U/L Alkaline Phosphatase (34-104) U/L Troponin I High Sens (0-20) pg/ml Total Protein (6.0-8.3) gm/dl Albumin (3.4-5.0) gm/dl Triglycerides (0-150) mg/dl Cholesterol (0-200) mg/dl LDL Cholesterol, Calc mg/dl VLDL Cholesterol, Calc (0-30) mg/dl HDL Cholesterol mg/dl Cholesterol/HDL Ratio (0-5) Procalcitonin (0-0.5) ng/ml Urine Color Urine Appearance (Clear) Urine pH (4.5-7.5) Ur Specific [place] (1.000-1.030) Urine Protein (Negative) Urine Glucose (UA) (Negative) Urine Ketones (Negative) Urine Blood (Negative) Urine Nitrite (Negative) Urine Bilirubin (Negative) Urine Urobilinogen (Negative) Ur Leukocyte Esterase (Negative) Urine WBC (Auto) (0-5) /hpf Urine RBC (Auto) (0-2) /hpf U Hyaline Cast (Auto) (0-2) /lpf U Epithel Cells (Auto) (0-2) /hpf Urine Bacteria (Auto) (None Seen) Nasal Screen MRSA (PCR) Negative (Negative) Urine Opiates Screen (Neg) Ur Methadone, Qual (Neg) Urine Barbiturates (Neg) Ur Phencyclidine (PCP) (Neg) U Amphetamin/Meth Scrn (Neg) MDMA (Ecstasy) Screen (Neg) U Benzodiazepines Scrn (Neg) Ur Cocaine Metabolite (Neg) U Marijuana (THC) Screen (Neg) Ethyl Alcohol mg/dL (<10.0) mg/dl 08/31/23 08/31/23 08/31/23 Range/Units 18:38 18:22 17:18 WBC (4.8-10.8) K/ul RBC (4.70-6.10) M/uL Hgb (14.0-18.0) g/dl POC Hgb 13.6 L (14.0-18.0) g/dl Hct (42.0-52.0) % POC Hct 40 L (42-52) % MCV (80.0-100.0) fL MCH (25.0-34.0) pg MCHC (32.0-36.0) g/dL RDW Std Deviation (36.4-46.3) fL RDW Coeff of Edouard (11.5-14.5) % Plt Count (130-400) K/uL MPV (9.4-12.4) fL Immature Gran % (Auto) % Neut % (Auto) % Lymph % (Auto) % [place] % (Auto) % Eos % (Auto) % Baso % (Auto) % Neut # (Auto) (1.40-6.50) K/uL Lymph # (Auto) (1.20-3.40) K/uL [place] # (Auto) (0.11-0.59) K/uL Eos # (Auto) (0.00-0.50) K/uL Baso # (Auto) (0.00-0.20) K/uL Immature Gran # (Auto) (0.01-0.20) K/uL PT (9.0-12.0) Seconds INR (0.9-1.1) APTT (21-31) Seconds PTT Ratio Sample Site L Radial POC pH 7.27 L (7.35-7.45) POC pCO2 36 (35-46) mmHg POC pO2 107 H (80-95) mmHg POC HCO3 16 L (19-24) lazaro/L POC Total CO2 17 L (24-31) mmol/L POC Base Excess -10.0 L (-9-1.8) lazaro/L ABG pH (7.35-7.45) ABG pH (Temp Correct) 7.302 L (7.35-7.45) ABG pCO2 (35-46) mmHg ABG pCO2 (Temp Corrct 32 L (35-46) mmHg ABG pO2 (80-95) mmHg POC ABG pO2 at Pt Temp 95 ABG HCO3 (19-24) mmol/L POC ABG O2 Sat 97.0 H (90-95) % ABG O2 Saturation (90-95) % ABG Base Excess (-9-1.8) mEq/L Ramírez Test NA (Pos) Oxygen Given O2 Delivery Device Ventilator POC O2 Rate 20 Minute Ventilation 10.5 POC FiO2 80 % Tidal Volume 500 PEEP 8 POC Sodium 139 (135-144) mmol/L Sodium 140 (136-145) mmol/L POC Potassium 3.2 L (3.3-5.0) mmol/L Potassium 3.3 L (3.5-5.1) mmol/L Chloride 104 (98-107) mmol/L Carbon Dioxide 18 L (21-32) mmol/L Anion Gap 18 H (3-11) BUN 10 (6-23) mg/dl Creatinine 0.82 (0.6-1.4) mg/dl Est Cr Clr Drug Dosing 107.8 Est GFR ( Amer) 110.6 ml/min Est GFR (Non-Af Amer) 95.4 ml/min BUN/Creatinine Ratio 12.2 (10-20) Glucose 101 H (70-99(Fasting)) mg/dl POC Glucose (70-99) mg/dl POC Glucose (other) 100 H (70-99) mg/dl Lactate (0.4-2.0) mmol/L Calcium 8.2 L (8.6-10.3) mg/dl Phosphorus 4.2 (2.5-4.9) mg/dl Magnesium 1.5 L (1.7-2.4) mg/dl Total Bilirubin (0.2-1.0) mg/dl Direct Bilirubin (0-0.2) mg/dl AST (13-39) U/L ALT (7-52) U/L Alkaline Phosphatase (34-104) U/L Troponin I High Sens (0-20) pg/ml Total Protein (6.0-8.3) gm/dl Albumin (3.4-5.0) gm/dl Triglycerides (0-150) mg/dl Cholesterol (0-200) mg/dl LDL Cholesterol, Calc mg/dl VLDL Cholesterol, Calc (0-30) mg/dl HDL Cholesterol mg/dl Cholesterol/HDL Ratio (0-5) Procalcitonin (0-0.5) ng/ml Urine Color Urine Appearance (Clear) Urine pH (4.5-7.5) Ur Specific [place] (1.000-1.030) Urine Protein (Negative) Urine Glucose (UA) (Negative) Urine Ketones (Negative) Urine Blood (Negative) Urine Nitrite (Negative) Urine Bilirubin (Negative) Urine Urobilinogen (Negative) Ur Leukocyte Esterase (Negative) Urine WBC (Auto) (0-5) /hpf Urine RBC (Auto) (0-2) /hpf U Hyaline Cast (Auto) (0-2) /lpf U Epithel Cells (Auto) (0-2) /hpf Urine Bacteria (Auto) (None Seen) Nasal Screen MRSA (PCR) (Negative) Urine Opiates Screen (Neg) Ur Methadone, Qual (Neg) Urine Barbiturates (Neg) Ur Phencyclidine (PCP) (Neg) U Amphetamin/Meth Scrn (Neg) MDMA (Ecstasy) Screen (Neg) U Benzodiazepines Scrn (Neg) Ur Cocaine Metabolite (Neg) U Marijuana (THC) Screen (Neg) Ethyl Alcohol mg/dL (<10.0) mg/dl 08/31/23 08/31/23 08/31/23 Range/Units 17:17 15:29 14:35 WBC 13.33 H (4.8-10.8) K/ul RBC 4.64 L (4.70-6.10) M/uL Hgb 13.9 L (14.0-18.0) g/dl POC Hgb (14.0-18.0) g/dl Hct 43.6 (42.0-52.0) % POC Hct (42-52) % MCV 94.0 (80.0-100.0) fL MCH 30.0 (25.0-34.0) pg MCHC 31.9 L (32.0-36.0) g/dL RDW Std Deviation 55.4 H (36.4-46.3) fL RDW Coeff of Edouard 15.9 H (11.5-14.5) % Plt Count 342 (130-400) K/uL MPV 10.0 (9.4-12.4) fL Immature Gran % (Auto) % Neut % (Auto) % Lymph % (Auto) % [place] % (Auto) % Eos % (Auto) % Baso % (Auto) % Neut # (Auto) (1.40-6.50) K/uL Lymph # (Auto) (1.20-3.40) K/uL [place] # (Auto) (0.11-0.59) K/uL Eos # (Auto) (0.00-0.50) K/uL Baso # (Auto) (0.00-0.20) K/uL Immature Gran # (Auto) (0.01-0.20) K/uL PT (9.0-12.0) Seconds INR (0.9-1.1) APTT (21-31) Seconds PTT Ratio Sample Site POC pH (7.35-7.45) POC pCO2 (35-46) mmHg POC pO2 (80-95) mmHg POC HCO3 (19-24) lazaro/L POC Total CO2 (24-31) mmol/L POC Base Excess (-9-1.8) lazaro/L ABG pH (7.35-7.45) ABG pH (Temp Correct) (7.35-7.45) ABG pCO2 (35-46) mmHg ABG pCO2 (Temp Corrct (35-46) mmHg ABG pO2 (80-95) mmHg POC ABG pO2 at Pt Temp ABG HCO3 (19-24) mmol/L POC ABG O2 Sat (90-95) % ABG O2 Saturation (90-95) % ABG Base Excess (-9-1.8) mEq/L Ramírez Test (Pos) Oxygen Given O2 Delivery Device POC O2 Rate Minute Ventilation POC FiO2 % Tidal Volume PEEP POC Sodium (135-144) mmol/L Sodium (136-145) mmol/L POC Potassium (3.3-5.0) mmol/L Potassium (3.5-5.1) mmol/L Chloride (98-107) mmol/L Carbon Dioxide (21-32) mmol/L Anion Gap (3-11) BUN (6-23) mg/dl Creatinine (0.6-1.4) mg/dl Est Cr Clr Drug Dosing Est GFR ( Amer) ml/min Est GFR (Non-Af Amer) ml/min BUN/Creatinine Ratio (10-20) Glucose (70-99(Fasting)) mg/dl POC Glucose (70-99) mg/dl POC Glucose (other) (70-99) mg/dl Lactate 7.9 H* (0.4-2.0) mmol/L Calcium (8.6-10.3) mg/dl Phosphorus (2.5-4.9) mg/dl Magnesium (1.7-2.4) mg/dl Total Bilirubin (0.2-1.0) mg/dl Direct Bilirubin (0-0.2) mg/dl AST (13-39) U/L ALT (7-52) U/L Alkaline Phosphatase (34-104) U/L Troponin I High Sens 299.6 H* D 248.7 H* D (0-20) pg/ml Total Protein (6.0-8.3) gm/dl Albumin (3.4-5.0) gm/dl Triglycerides 96 (0-150) mg/dl Cholesterol 191 (0-200) mg/dl LDL Cholesterol, Calc 85 mg/dl VLDL Cholesterol, Calc 19 (0-30) mg/dl HDL Cholesterol 87 mg/dl Cholesterol/HDL Ratio 2.2 (0-5) Procalcitonin (0-0.5) ng/ml Urine Color Yellow Urine Appearance Clear (Clear) Urine pH 7.0 (4.5-7.5) Ur Specific [place] 1.008 (1.000-1.030) Urine Protein 1+ H (Negative) Urine Glucose (UA) Negative (Negative) Urine Ketones Negative (Negative) Urine Blood Negative (Negative) Urine Nitrite Negative (Negative) Urine Bilirubin Negative (Negative) Urine Urobilinogen Negative (Negative) Ur Leukocyte Esterase Trace H (Negative) Urine WBC (Auto) 0-5 (0-5) /hpf Urine RBC (Auto) 0-2 (0-2) /hpf U Hyaline Cast (Auto) 3-5 H (0-2) /lpf U Epithel Cells (Auto) 3-5 H (0-2) /hpf Urine Bacteria (Auto) None Seen (None Seen) Nasal Screen MRSA (PCR) (Negative) Urine Opiates Screen Neg (Neg) Ur Methadone, Qual Neg (Neg) Urine Barbiturates Neg (Neg) Ur Phencyclidine (PCP) Neg (Neg) U Amphetamin/Meth Scrn Neg (Neg) MDMA (Ecstasy) Screen Neg (Neg) U Benzodiazepines Scrn Neg (Neg) Ur Cocaine Metabolite Neg (Neg) U Marijuana (THC) Screen Neg (Neg) Ethyl Alcohol mg/dL (<10.0) mg/dl 08/31/23 08/31/23 08/31/23 Range/Units 14:33 14:30 14:29 WBC 8.27 (4.8-10.8) K/ul RBC 4.84 (4.70-6.10) M/uL Hgb 14.5 (14.0-18.0) g/dl POC Hgb (14.0-18.0) g/dl Hct 46.1 (42.0-52.0) % POC Hct (42-52) % MCV 95.2 (80.0-100.0) fL MCH 30.0 (25.0-34.0) pg MCHC 31.5 L (32.0-36.0) g/dL RDW Std Deviation 56.0 H (36.4-46.3) fL RDW Coeff of Edouard 15.9 H (11.5-14.5) % Plt Count 320 (130-400) K/uL MPV 10.0 (9.4-12.4) fL Immature Gran % (Auto) 4.2 % Neut % (Auto) 51.0 % Lymph % (Auto) 34.8 % [place] % (Auto) 7.7 % Eos % (Auto) 1.3 % Baso % (Auto) 1.0 % Neut # (Auto) 4.21 (1.40-6.50) K/uL Lymph # (Auto) 2.88 (1.20-3.40) K/uL [place] # (Auto) 0.64 H (0.11-0.59) K/uL Eos # (Auto) 0.11 (0.00-0.50) K/uL Baso # (Auto) 0.08 (0.00-0.20) K/uL Immature Gran # (Auto) 0.35 H (0.01-0.20) K/uL PT 11.7 (9.0-12.0) Seconds INR 1.1 (0.9-1.1) APTT 27 (21-31) Seconds PTT Ratio 1.0 Sample Site POC pH (7.35-7.45) POC pCO2 (35-46) mmHg POC pO2 (80-95) mmHg POC HCO3 (19-24) lazaro/L POC Total CO2 (24-31) mmol/L POC Base Excess (-9-1.8) lazaro/L ABG pH (7.35-7.45) ABG pH (Temp Correct) (7.35-7.45) ABG pCO2 74 H (35-46) mmHg ABG pCO2 (Temp Corrct (35-46) mmHg ABG pO2 65 L (80-95) mmHg POC ABG pO2 at Pt Temp ABG HCO3 23 (19-24) mmol/L POC ABG O2 Sat (90-95) % ABG O2 Saturation 87.1 L (90-95) % ABG Base Excess -8.7 (-9-1.8) mEq/L Ramírez Test Pos (Pos) Oxygen Given HEART ALERT O2 Delivery Device POC O2 Rate Minute Ventilation POC FiO2 % Tidal Volume PEEP POC Sodium (135-144) mmol/L Sodium 142 (136-145) mmol/L POC Potassium (3.3-5.0) mmol/L Potassium 3.2 L (3.5-5.1) mmol/L Chloride 100 (98-107) mmol/L Carbon Dioxide 24 (21-32) mmol/L Anion Gap 18 H (3-11) BUN 9 (6-23) mg/dl Creatinine 0.86 (0.6-1.4) mg/dl Est Cr Clr Drug Dosing Not Reportable Est GFR ( Amer) 108.5 ml/min Est GFR (Non-Af Amer) 93.6 ml/min BUN/Creatinine Ratio 10.5 (10-20) Glucose 120 H (70-99(Fasting)) mg/dl POC Glucose (70-99) mg/dl POC Glucose (other) (70-99) mg/dl Lactate 9.8 H* (0.4-2.0) mmol/L Calcium 8.1 L (8.6-10.3) mg/dl Phosphorus (2.5-4.9) mg/dl Magnesium 2.1 (1.7-2.4) mg/dl Total Bilirubin 0.9 (0.2-1.0) mg/dl Direct Bilirubin 0.2 (0-0.2) mg/dl AST 162 H (13-39) U/L ALT 84 H (7-52) U/L Alkaline Phosphatase 71 (34-104) U/L Troponin I High Sens 140.1 H* (0-20) pg/ml Total Protein 6.8 (6.0-8.3) gm/dl Albumin 3.8 (3.4-5.0) gm/dl Triglycerides (0-150) mg/dl Cholesterol (0-200) mg/dl LDL Cholesterol, Calc mg/dl VLDL Cholesterol, Calc (0-30) mg/dl HDL Cholesterol mg/dl Cholesterol/HDL Ratio (0-5) Procalcitonin < 0.02 (0-0.5) ng/ml Urine Color Urine Appearance (Clear) Urine pH (4.5-7.5) Ur Specific [place] (1.000-1.030) Urine Protein (Negative) Urine Glucose (UA) (Negative) Urine Ketones (Negative) Urine Blood (Negative) Urine Nitrite (Negative) Urine Bilirubin (Negative) Urine Urobilinogen (Negative) Ur Leukocyte Esterase (Negative) Urine WBC (Auto) (0-5) /hpf Urine RBC (Auto) (0-2) /hpf U Hyaline Cast (Auto) (0-2) /lpf U Epithel Cells (Auto) (0-2) /hpf Urine Bacteria (Auto) (None Seen) Nasal Screen MRSA (PCR) (Negative) Urine Opiates Screen (Neg) Ur Methadone, Qual (Neg) Urine Barbiturates (Neg) Ur Phencyclidine (PCP) (Neg) U Amphetamin/Meth Scrn (Neg) MDMA (Ecstasy) Screen (Neg) U Benzodiazepines Scrn (Neg) Ur Cocaine Metabolite (Neg) U Marijuana (THC) Screen (Neg) Ethyl Alcohol mg/dL 305.3 H (<10.0) mg/dl Diagnostic Findings Chest X-Ray 08/31/23 14:45 XR chest 1V portable, XR chest 1V portable CLINICAL HISTORY: post intub TECHNIQUE: Single frontal radiograph of the chest was obtained at 1445 and 1517 hours Comparison: Comparison is made to chest radiograph 07/14/2020 FINDINGS: 1445 hours: Endotracheal tube terminates 5.7 cm from the lilliana. Cardiomegaly is noted. Patchy airspace opacities most prominent in the left upper lobe superimposed upo n interstitial thickening. Possible small left pleural effusion. 1517 hours: Endotracheal tube now terminates 6.0 cm from the lilliana. IMPRESSION: 1. Satisfactory position of endotracheal tube. 2. Patchy airspace opacities most prominent in the left upper lobe. ACT 112: Negative or not required by law. Electronically signed by: Aníbal Vallecillo M.D. 08/31/2023 3:28 PM Abdomen/Pelvis CT 08/31/23 14:57 CT abd pelvis IV con only CLINICAL HISTORY: found down TECHNIQUE: Helical axial images of the abdomen and pelvis were obtained and displayed. Automated dose lowering techniques and/or adjustment according to patient size were utilized for this exam. This exam was performed with intravenous contrast. COMPARISON: None available at the time of this dictation. FINDINGS: Lower chest: For findings above the diaphragm, please see CT chest performed same day. Liver: Unremarkable. No focal lesions are seen. Gallbladder and biliary tree: No calcified gallstones. Normal caliber wall. No intra- or extrahepatic biliary ductal dilation. Pancreas: Unremarkable, no focal lesions. Spleen: Unremarkable. Adrenals: Unremarkable. Kidneys and ureters: Renal cysts are seen. Bladder: Acosta catheter is seen. Reproductive organs: Unremarkable. Bowel: Diverticulosis is seen without diverticulitis. The appendix is normal. Lymph nodes Retroperitoneal: Unremarkable. Pelvic: Unremarkable. Mesenteric: Unremarkable. Peritoneum: Normal. Vessels: Unremarkable. Abdominal wall: Unremarkable. Bones: Degenerative changes in the visualized spine. Partial visualization of multiple anterior rib fractures. IMPRESSION: No acute abnormalities below the diaphragm. ACT 112: Negative or not required by law. Electronically signed by: Aníbal Vallecillo M.D. 08/31/2023 4:37 PM Chest X-Ray 08/31/23 14:59 XR chest 1V portable, XR chest 1V portable CLINICAL HISTORY: post intub TECHNIQUE: Single frontal radiograph of the chest was obtained at 1445 and 1517 hours Comparison: Comparison is made to chest radiograph 07/14/2020 FINDINGS: 1445 hours: Endotracheal tube terminates 5.7 cm from the lilliana. Cardiomegaly is noted. Patchy airspace opacities most prominent in the left upper lobe superimposed upon interstitial thickening. Possible small left pleural effusion. 1517 hours: Endotracheal tube now terminates 6.0 cm from the lilliana. IMPRESSION: 1. Satisfactory position of endotracheal tube. 2. Patchy airspace opacities most prominent in the left upper lobe. ACT 112: Negative or not required by law. Electronically signed by: Aníbal Vallecillo M.D. 08/31/2023 3:28 PM Chest CTA 08/31/23 15:00 CT angio chest PE protocol CLINICAL HISTORY: PE TECHNIQUE: Multidetector row helical CT of the chest was performed with angiographic protocol. Coronal and sagittal reformations were obtained. Coronal and sagittal MIPS were obtained from the axial data set and were submitted for review. Automated dose lowering techniques and/or adjustment according to patient size were utilized for this exam. Comparison: Comparison is made to chest radiograph 08/31/2023 FINDINGS: Lungs and pleura: Consolidative opacities are seen in left greater than right dependent lungs. Heart and pericardium: Heart size is normal. No pericardial effusion. Vessels: No evidence of pulmonary embolism. Mediastinum and kristie: Subcentimeter lymph nodes are seen. Chest wall and lower neck: Unremarkable. Abdomen: Unremarkable. Bones: Multiple bilateral anterior rib fractures are seen near the costochondral junction. These include the right second through eighth ribs and left second through seventh ribs. IMPRESSION: 1. No evidence of pulmonary embolus. 2. Bilateral dependent consolidative opacities are compatible with aspiration this patient status post resuscitation. 3. Multiple rib fractures compatible with recent resuscitation. ACT 112: Negative or not required by law. Electronically signed by: Aníbal Vallecillo M.D. 08/31/2023 4:[address] 08/31/23 15:00 CT head/brain wo con CLINICAL HISTORY: cardiac arrest Technique: Contiguous axial CT images of the head were acquired from the base of the skull to the vertex without intravenous contrast administration. Images were viewed in brain, subdural and bone windows. Automated dose lowering techniques and/or adjustment according to patient size were utilized for this exam. Comparison: Comparison is made to CT head 06/24/2020 Findings: Areas of decreased attenuation are present in the periventricular and subcortical white matter bilaterally consistent with small vessel ischemic disease. Generalized cerebral atrophy with commensurate enlargement of the ventricles, sulci, and cisterns is also present. There is no acute intracranial hemorrhage or evidence of acute territorial infarction. No shift of the midline structures, mass effect, or extra-axial abnormalities are shown. Atherosclerotic calcifications are present in the intracranial segments of the internal carotid arteries. Imaged portions of the paranasal sinuses and mastoid air cells are clear. The orbits appear normal. There are no acute fractures of the calvaria or scalp swelling. Impression: No acute intracranial hemorrhage, no evidence of acute territorial infarction or other acute intracranial disease process. ACT 112: Negative or not required by law. Electronically signed by: Aníbal Vallecillo M.D. 08/31/2023 4:[address] 08/31/23 15:15 CT cervical spine wo con CLINICAL HISTORY: found down TECHNIQUE: Multidetector row helical CT of the cervical spine was performed without administration of intravenous contrast. Coronal and sagittal reformations were obtained. Automated dose lowering techniques and/or adjustment according to patient size were utilized for this exam. Comparison: None available at the time of this dictation. FINDINGS: No acute fractures or subluxations are identified. Degenerative changes are seen in the visualized spine. The alignment is normal. Airspace opacities in the bilateral lungs may be secondary to aspiration in this patient status post resuscitation. IMPRESSION: Degenerative changes without evidence of acute bony injury. ACT 112: Negative or not required by law. Electronically signed by: Aníbal Vallecillo M.D. 08/31/2023 4:25 PM Chest X-Ray 08/31/23 16:46 XR chest 1V portable CLINICAL HISTORY: left cvc placement TECHNIQUE: Single frontal radiograph of the chest was obtained. Comparison: Comparison is made to chest radiograph 08/31/2023 FINDINGS: Endotracheal tube terminates 4 mm from the lilliana. A left venous catheter terminates in a left-sided SVC. Cardiomegaly is noted. Multifocal airspace opacities are seen. No evidence of pleural effusion or pneumothorax. IMPRESSION: 1. Left venous catheter terminates in a left sided SVC which drains to the right atrium via a prominent coronary sinus. 2. Airspace opacities are again seen compatible with contusion/aspiration. ACT 112: Negative or not required by law. Electronically signed by: Aníbal Vallecillo M.D. 08/31/2023 5:24 PM KUB X-Ray 08/31/23 17:01 XR KUB/Abdomen 1 view CLINICAL HISTORY: OG placement TECHNIQUE: 1 view of the abdomen was obtained. Comparison: Comparison is made to CT abdomen pelvis 08/31/2023 FINDINGS: Enteric tube side-port is at the level of the diaphragm. Degenerative changes are seen in the visualized skeleton. The bowel gas pattern is nonobstructive. IMPRESSION: Enteric tube side-port is at the level of the diaphragm. Enteric tube can be advanced approximately 5 cm for improved positioning. ACT 112: Negative or not required by law. Electronically signed by: Aníbal Vallecillo M.D. 08/31/2023 5:26 PM Chest X-Ray 08/31/23 19:29 XR chest 1V portable CLINICAL HISTORY: subcutaneous air, r/o pneumothorax TECHNIQUE: Single frontal radiograph of the chest was obtained. Comparison: Comparison is made to chest radiograph 08/31/2023 FINDINGS: Endotracheal tube terminates 3.8 cm in the lilliana. Enteric tube is not completely visualized with the tip and side port appear to lie below the lilliana. Left venous catheter is again seen. Multifocal airspace opacities are seen. Stable cardiomegaly. No evidence of pleural effusion or pneumothorax. IMPRESSION: Multifocal airspace opacities without evidence of pneumothorax. ACT 112: Negative or not required by law. Electronically signed by: Aníbal Vallecillo M.D. 08/31/2023 8:07 PM Soft Tissue Ne[address] CT 08/31/23 19:43 Exam(s): CT NECK With Contrast IV Amt: optiray 320 93ml EXAM: CT Neck With Intravenous Contrast CLINICAL HISTORY: Reason for exam: subcutaneous air. TECHNIQUE: Axial computed tomography images of the neck with intravenous contrast. CTDI is 22.67 mGy and DLP is 670.57 mGy-cm. Automated exposure control was utilized for the study. A dose lowering technique was utilized adhering to the principles of ALARA. CONTRAST: Patient received optiray 320 93ml of IV contrast COMPARISON: 09/10/2022 FINDINGS: No subcutaneous air. Diffuse soft tissue edema right greater than left. Obscuration of the normal fat planes. No fluid collection. Endotracheal tube and esophagogastric tubes in place. The vasculature is patent. No clearly identified mass or adenopathy. No acute osseous abnormality. Interstitial and airspace opacities at the lung apices. IMPRESSION: 1. No subcutaneous air. 2. Diffuse soft tissue edema right greater than left. Obscuration of the normal fat planes. No fluid collection. 3. Interstitial and airspace opacities at the lung apices. Electronically signed by: Nathan Corrales MD 08/31/23 23:00 PM Chest X-Ray 09/01/23 07:00 XR chest 1V portable CLINICAL HISTORY: Resp failure TECHNIQUE: Single frontal radiograph of the chest was obtained. Comparison: Comparison is made to chest radiograph 08/31/2023 FINDINGS: Lines and tubes are stable. Cardiomegaly is noted. Airspace opacities have improved from the prior exam. No evidence of pleural effusion or pneumothorax. IMPRESSION: Lines and tubes are stable. Airspace opacities have slightly improved compatible with improving aspiration/contusion. ACT 112: Negative or not required by law. Electronically signed by: Aníbal Vallecillo M.D. 09/01/2023 9:02 AM Brain MRI 09/01/23 11:10 MR brain wo/w con CLINICAL HISTORY: anoxic brain injury TECHNIQUE: Multiplanar and multisequence MR images of the brain were obtained prior to and following administration of gadolinium contrast. Comparison: Comparison is made to CT head 08/31/2023 FINDINGS: No abnormal restricted diffusion is identified. Foci of T2 and FLAIR hyperintensity are noted in the paraventricular areas consistent with chronic small vessel ischemic disease. Ex vacuo ventriculomegaly and sulcal enlargement is noted compatible with diffuse volume loss. No mass or abnormal enhancement is seen. There is no mass effect or midline shift. There is no evidence of acute intraparenchymal hemorrhage. No extra axial fluid collections are seen. The corpus callosum, pituitary gland, and cerebellar tonsils appear grossly unremarkable. Flow voids of the major intracranial arterial vessels are identified. Bilateral maxillary sinus disease is seen. Soft tissue thickening in the ethmoid and sphenoid sinus noted. IMPRESSION: 1. No acute abnormality and in particular no abnormal restricted diffusion to suggest hypoxic ischemic encephalopathy or stroke. No cortical laminar necrosis. 2. Mild sinus disease. ACT 112: Negative or not required by law. Electronically signed by: Aníbal Vallecillo M.D. 09/01/2023 4:29 PM Chest X-Ray 09/02/23 07:00 XR chest 1V portable CLINICAL HISTORY: Respiratory failure. COMPARISON STUDY: Chest CT August 31, 2023. Chest radiograph September 01, 2023. FINDINGS: The tip of the endotracheal tube is 3 cm above the lilliana. Tip of nasogastric tube is below the lower aspect of this image but at least within the stomach. Left subclavian central line is within a left-sided SVC. There is no pneumothorax. No definite pleural effusion is identified. Bibasilar consolidation persists. This is greater on the left. Cardiomegaly. No evidence for overt pulmonary edema. IMPRESSION: 1. Satisfactory positioning of the endotracheal tube. 2. No pneumothorax. 3. Persistent bibasilar consolidation suggestive of pneumonia or aspiration pneumonitis. ACT 112: Negative or not required by law. Electronically signed by: Ebenezer Zhou M.D. 09/02/2023 7:19 AM Chest X-Ray 09/03/23 07:00 SINGLE VIEW CHEST CLINICAL HISTORY: Respiratory failure FINDINGS: 2 AP, portable, upright chest radiographs are compared to study dated 09/02/2023 and correlated with chest CT dated 08/31/2023. An endotracheal tube, an enteric tube, and a left subclavian central venous catheter are unchanged in position. The heart is enlarged. The pulmonary vasculature is noncongested. Chronic interstitial thickening is similar to previous. Bibasilar consolidation is similar previous, left greater than right. Small pleural effusions are suspected. No pneumothorax is seen. The skeletal structures are osteopenic. The bony thorax is grossly intact. IMPRESSION: 1. Stable lines and tubes. 2. Cardiomegaly without radiographic evidence of congestive failure. 3. Bibasilar consolidation is similar to previous, left greater than right. Radiographic follow-up to resolution is recommended. ACT 112: Negative or not required by law. Electronically signed by: David Valles M.D. 09/03/2023 7:08 AM PG Care Time/CCT Total # of Minutes Spent Total Time Spent with Patient: Total time spent is greater than 50% in coordination of care (as documented) at patient's floor/unit and/or counseling patient: I spent 90 minutes overall addressing this case: 25 min in medical data review/discussion with referring provider(s) and/or preparation for the visit incl OSH data review and d/w OSH proider from oncology 25 min in direct interaction with the patient/exam 00 min in Advance Care Planning/Goals of Care discussions as detailed above in note (must be >16min) 20 min in subsequent review and synthesis of assessment and plan 20 min communicating with other providers regarding the patient's case: primary team, [facility], OSH oncology [place] [address] IN/OBS CONSULT LVL 5,80M Patient Type New History Comprehensive Exam Comprehensive Medical Decision Making High Complexity Diagnoses Dyspnea and respiratory abnormalities R06.00; R06.89 Weakness generalized R53.1 Altered mental status R41.82 Discussion about advance care planning held with family member Z71.0 Palliative care by specialist Z51.5 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
[2023-09-03] MEDS: ENOXAPARIN 150 MG/ML SYR SQ SCH (11:17)
[2023-09-03] MEDS: TUBE FEEDING WATER FLUSH OG SCH (12:07)
[2023-09-03] MEDS: PEPTAMEN INTENSE VHP 1.0 CAL 1,000 ML BAG OG SCH (12:07)
--- NOTE | 2023-09-03 15:56 | Hospitalist Progress Note ---
Date of Service September 03, 2023 Assessment & Plan (1) Cardiac arrest: (2) Squamous cell carcinoma of oropharynx: (3) Hypertension: (4) Alcohol abuse: (5) Dyslipidemia: (6) Lymphedema: Plan Mr. Booker Dobbins is a 63 year old male who presents to the ED via EMS after experiencing PEA cardiac arrest on [facility]. Found down by by-stander and unknown downtime. Approximately 15 minutes CPR administered to patient with epi and ROSC thereafter. Pt was intubated by EMS. Heart alert activated prior to arrival. ECG in ED shows AF with RBBB and lateral ST depressions which improved ROSC. no heart cath performed. 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 Elevated lactate 9.8, Troponin 140, alcohol level > 305, no leukocytosis, hypokalemic 3.2. Head CT negative No acute findings Chest CTA negative for AAA but suggestive of L sided PNA. Patient admitted to ICU for further management PEA cardiac arrest, unknown downtime, ROSC after 15 minutes of CPR and 3 rounds of epinephrine Head CT negative for ICH, SDH Chest CTA: negative for PE, suspect bilateral consolidative opacities; suspect aspiration. Numerous rib fractures CSCT negative ECG On admission personally reviewed;AF RVR with RBBB No leukocytosis Lactate 9.8 On admission; down trended Troponin 140 > 248 > 320 Echo shows EF of 40 to 45% with moderate LVH, mild to moderate global hypokinesis of left ventricle MRI brain shows no acute abnormality. EEG was abnormal and showed mild to moderate generalized slowing. No focal abnormality. Patient was extubated on September 02, 2023; required reintubation. His mentation is difficult to reliably assess given history of alcohol use disorder and possibility of anoxic brain injury. He also has oropharyngeal squamous cell carcinoma which can lead to reliably extubate him. As per business strategy manager, patient may need to be transferred to higher level of care if opted for aggressive treatment. Family to decide regarding terminal extubation or possible transfer to tertiary care center. Palliative on consult; family meeting in progress. AF RVR: Known h/o AF and non-compliance with anticoagulation Started on Lovenox subcu Metoprolol q6h Hypertension- on Losartan, metoprolol Acute hypoxic/hypercapnic (Mixed) respiratory failure: Aspiration pneumonia Lactate 9.8;trended down Chest CTA: negative for PE, suspect bilateral consolidative opacities; suspect aspiration. Numerous rib fractures; right second through 8th ribs and left through seventh ribs Started on antibiotics with Zosyn. Discontinued as sputum culture showed light barbara. Likely pneumonitis Alcohol abuse: Chronic has been in and out of [facility] and reportedly has struggled with sobriety serum Alcohol level > 305 Monitor for withdrawal Disposition: PCP: Joe Code Status:No CPR, okay for intubation VTE Prophylaxis: lovenox Time spent evaluating patient, direct bedside care, chart review, placing orders, interpretation of diagnostic studies, discussion with consultants, patient, and family members, as well as other required patient management activities is 50 minutes Please note the above document was generated using voice recognition software. It may contain grammatical, syntax or spelling errors. Any formal questions or concerns about the content, text or information contained within the body of this dictation should be directly addressed to the provider for clarification Admission and Anticipated Discharge Date Admission Date: August 31, 2023 Subjective Patient continues to be sedated and on mechanical ventilation No significant events overnight Minimal vent setting Not on vasopressors Review of Systems Review of Systems: Unobtainable due to reduced consciousness Physical Exam Physical Exam: General; mechanically ventilated, sedated Cardiovascular; irregular, no murmur heard Respiratory; bilateral mechanical breath sounds GI; soft, nondistended. Acosta in place draining clear urine Skin : no rashes Results & Data Results & Data Vital Signs (Past 12 Hours) Vital Signs Temp Pulse Resp BP Pulse Ox O2 Del Method FiO2 09/03/23 15:30 90 22 97 30 09/03/23 12:00 149/105 H 09/03/23 12:00 35.4 C L 67 18 100 09/03/23 12:00 30 09/03/23 11:18 55 L 09/03/23 11:17 64 21 100 30 09/03/23 11:00 136/92 09/03/23 11:00 35.3 C L 67 18 100 09/03/23 10:00 35.2 C L 66 18 100 09/03/23 10:00 133/110 H 09/03/23 09:01 126/96 09/03/23 09:01 35.1 C L 63 18 100 09/03/23 09:00 35.1 C L 64 18 100 09/02/24 08:30 35.1 C L 57 L 18 09/03/23 08:00 128/100 09/03/23 08:00 35.0 C L 57 L 18 09/03/23 08:00 Mechanical Vent 09/03/23 08:00 30 09/03/23 07:37 61 19 100 09/03/23 07:30 34.9 C L 61 19 09/03/23 07:00 34.8 C L 60 18 09/03/23 07:00 139/09/03/23 05:59 64 133/97 09/03/23 05:53 65 133/97 09/03/23 05:50 34.8 C L 64 18 09/03/23 05:40 34.8 C L 71 18 09/03/23 05:30 34.8 C L 68 18 09/03/23 05:20 34.7 C L 65 18 09/03/23 05:10 34.7 C L 61 18 09/03/23 05:00 34.7 C L 61 18 09/03/23 05:00 133/97 09/03/23 04:50 34.7 C L 57 L 18 09/03/23 04:40 34.7 C L 68 18 09/03/23 04:30 34.8 C L 62 18 09/03/23 04:20 34.8 C L 58 L 18 09/03/23 04:10 34.8 C L 67 18 09/03/23 04:01 117/84 09/03/23 04:01 34.8 C L 62 18 09/03/23 04:00 34.9 C L 61 18 09/03/23 04:00 30
[2023-09-03] MEDS ORDERED: PROPOFOL BOLUS FROM BAG IV PRN (16:48)
[2023-09-03] MEDS ORDERED: STAT IV Infusion **Titration per Protocol STA (16:48)
[2023-09-03] MEDS: propofoL 1,000 MG/100 ML VIAL IV SCH (17:27)
--- NOTE | 2023-09-03 22:36 | Palliative Family Discussion ---
Date of Service September 03, 2023 Patient Directed Conference Time of Meetin-3pm face to face ACP Participants: Josette Liz [facility] and Dr Marrero [facility] Patient participation: lacks capacity, intubated/sedated Patient Support System: sister Jo, Mom, dtrs x2 at bedside, brother Bartolo and sister Gail/brother in law Bill by phone Other Healthcare Provider Participation: Dr Nieves /[facility] Meeting Location: bedside then family meeting room Advanced Directive available: None on file The patient's surrogate medical decision maker participated: WALI Act 169 reviewed. He has a legal spouse from whom he has been estranged but not legally . She declines to be SDM. Dtrs x2 defer to their Aunt Jo and grandmother, who is a retired nurse. Jo is SDM per family together with pt mother. An ACP family meeting was held for BOOKER OLIVERA. This meeting was necessary for determining the appropriate course of treatment. Topics of Discussion Topics of Discussion: together with Dr Nieves, we discussed the followin. OOH cardiac arrest with unknown downtime + 15min for ROSC in context of long standing ETOH abuse, head and neck cancer s/p chemoradiation which completed last fall. Recent imaging this spring for increased submandibular edema was not positive for new disease and swelling felt to be post RT changes/new compression therapy ordered by [facility] ENT surgeon. 2. Pt was unable to remain ETOH free and had blackouts weekly which would last up to 4 days. Family routinely asked police to perform wellness checks when pt did not respond to them >2 days. He was unable to stay sober, he derived pleasur e from ETOH. They describe him as a kind person who was loving to their family and who struggled with his demons. They tried hard to "get him to choose us, his family, over alcohol but it was such a strong hold on him." 3. Cancer tx completed and [facility]. Edema from RT was being treated. He struggled with SOB from edema, may have had resp induced cardiac arrest. He was unable to remain extubated and required reintubation within hours. Sedation difficult to lift given risk of withdrawal, seizures, agitation and ETT removal attempts. Given complexity of his airway, his oncology ENT surgeons need involved for poss trach if this is what family desires. How much "better" he can get will take a few months to determine as he needs time to recover from this anoxic arrest and remain etoh free. He will need trach support with VENT SNF/vent LTACH to see how much neuro recovery he will have in time. 4. Reviewed with family I do not believe he will recover to COMMUNITY SERVICE OFFICER COORDINATOR baseline and will emerge a new, lower baseline. HOw much of his prior independence and autonomy can be recovered is unclear bc of neuro status, this is clouded by ETOH abuse issues and their manager terminal impact on neuro system and the human body in general - manager terminal effects of ETOH abuse is cumulative and chronically progressive even after cessation. 5. Vent SNF placement will not be in local [facility]. Jo notes three siblings are out of state. Parents elderly and residing at [facility], dtrs in/near [facility]. He would not be close to family support. Jo asked about could be transferred out of state to a facility closer to her ([place]), sister ([place]) or brother ([place]) but he has [place] Medicaid and would require application for [facility] medical assistance and family would have to pursue this independently and there are likely charges for transport out of state to new facility which would be OOP for them as [place] Medicaid would not cover. 6. Choices at this junction: proceed with trach/vent SNF which requires transfer to [facility] [place] further evaluation/family advised there is no guarantee they would be able to proceed with trach/additional testing may be needed etc vs transition to [facility] with compassionate extubation. Sister from [place] is en route with her , ETA later this evening. Other Content of Meetin. Opportunity given for participants to speak and ask questions. 2. Participants were assured of attention to patient comfort. 3. Reassurance provided. 4. Support was provided for informed, good-joelle decisions. We encouraged them to discuss further as family, and to consider options from perspective of what would better mean for Booker/how would that be defined according to Booker vs what they want emotionally. They asked about option of moving to [facility] with compassionate extubation which was reviewed for them and assurances provided re how symptoms are managed preemptively and in real time, with comfort and freedome from suffering as the goal. 5. Emotions expressed by family were acknowledged and addressed. 6. Follow-up family meeting tomorrow at 12pm 7. Plan of Care: continue current level of care, re affirmed DNR status. TS 60min face to face for ACP outside of new pt consult done earlier today. Thank you for allowing us to participate in the ongoing care of this patient. Please don't hesitate to call or page with any additional concerns. Dr. Josette Liz DNP Director, Palliative Care
[2023-09-04] MEDS: LACTATED RINGER'S 500 ML IV ONE (00:53)
[2023-09-04 04:59] LABS: Basophils # (auto) 0.03 K/uL (0.00-0.20); Basophils % (auto) 0.5 %; Eosinophils # (auto) 0.14 K/uL (0.00-0.50); Eosinophils % (auto) 2.3 %; Hematocrit (blood only) 35.8 % (42.0-52.0); Hemoglobin 11.7 g/dl (14.0-18.0); Immature Granulocytes # (auto) 0.05 K/uL (0.01-0.20); Immature Granulocytes % (auto) 0.8 %; Lymphocytes # (auto) 0.33 K/uL (1.20-3.40); Lymphocytes % (auto) 5.3 %; Mean Corpuscular Hemoglobin 29.3 pg (25.0-34.0); Mean Corpuscular Hgb Conc 32.7 g/dL (32.0-36.0); Mean Corpuscular Volume 89.7 fL (80.0-100.0); Mean Platelet Volume 11.1 fL (9.4-12.4); Monocytes # (auto) 0.56 K/uL (0.11-0.59); Neutrophils % (auto) 82.1 %; Platelet Count 157 K/uL (130-400); RDW Coefficient of Variation 15.9 % (11.5-14.5); RDW Standard Deviation 52.6 fL (36.4-46.3); Red Blood Count 3.99 M/uL (4.70-6.10); White Blood Count 6.21 K/ul (4.8-10.8)
[2023-09-04 05:13] LABS: Albumin Level 2.9 gm/dl (3.4-5.0); BUN Creatinine Ratio 22.1 (10-20); Bilirubin Direct 0.4 mg/dl (0-0.2); Calcium 8.2 mg/dl (8.6-10.3); Creatinine Clr Calc Pharmacy 154.6 ml/min; Est GFR (African American) 119.5 ml/min; Est GFR (Non-African American) 103.1 ml/min; Magnesium 1.7 mg/dl (1.7-2.4); Potassium 3.9 mmol/L (3.5-5.1); Total Protein 5.5 gm/dl (6.0-8.3)
[2023-09-04] MEDS: MAGNESIUM SULFATE / D5W 1 GM/100 ML BAG IV SCH (06:33)
[2023-09-04] MEDS: POTASSIUM CHLORIDE / WTR 20 MEQ/100 ML PLCT IV SCH (07:00)
--- NOTE | 2023-09-04 08:27 | XRay Report ---
XR chest 1V portable HISTORY: 63 years-old Male resp failure acute respiratory failure COMPARISON: Chest radiograph 09/03/2023, CT chest 08/31/2023. TECHNIQUE: AP view of the chest FINDINGS: Endotracheal tube overlies the midline, 3.6 cm superior to the lilliana. Cardiomegaly with pulmonary va scular congestion. Trace pleural effusions with mild right basilar predominant airspace opacities aga in noted. Enteric tube courses into the stomach. 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 Bones appear grossly intact. IMPRESSION: 1. Lines and tubes as above. 2. Cardiomegaly with pulmonary vascular congestion and trace pleural effusions. 3. Persistent right basilar opacities. 4. Left subclavian catheter again noted within the duplicated SVC. ACT 112: Negative or not required by law. The above report was generated using voice recognition software. It may contain grammatical, syntax o r spelling errors. Electronically signed by: Sukhjinder Vick M.D. 09/04/2023 8:25 AM
[2023-09-04] MEDS: MULTI VIT W/MINERALS LIQUID 15 ML UDC NG SCH (08:37)
--- NOTE | 2023-09-04 09:37 | Critical Care Progress Note ---
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 At least 15 minutes as from the time he was found by EMS before they had return of spontaneous circulation was 15 minutes. He is at high risk of anoxic encephalopathy. Recommendations: 1. Neurologic: At high risk for anoxic brain injury. Initial CT scan unrevealing. Concern for anoxic encephalopathy. MRI of the brain reviewed. EEG reviewed. -Gave patient spontaneous awakening trial. No change in responsiveness, highly suggestive of dense encephalopathy 2. Cardiovascular: Shock state: Resolved -History of paroxysmal atrial fibrillation on anticoagulants -History of hypertension - losartan 100 mg daily -Documented history of diastolic heart failure in [facility] records. 3. Pulmonary: Acute hypercapnic respiratory failure secondary to anatomical issues: Mass, lymphedema, status postradiation -Patient failed trial of extubation 09/01. 4. ID: Aspiration pneumonitis 5. Endocrine: Glycemic control per protocol. 6. Renal: Very mild hyponatremia 7. GI: Enteric access in place, tolerating trickle tube feeds -Transaminases improving 8. Heme-onc: History of squamous cell carcinoma the base of the tongue. Completed radiation and chemotherapy. Discussion with family they would like to proceed with palliative extubation and comfort measures only. Given the patient's multiple chronic medical conditions, high risk characteristics of his recent cardiac arrest, I feel the chance of a positive outcome as defined by the patient's surrogate decision makers using best substantive judgment would be highly unlikely and I am in agreement with the decision to proceed with palliative extubation and comfort measures. At this time we are awaiting family's income tax administrator for last rights and would proceed with expectant management I have personally spent 70 minutes of critical care time in the direct management of this patient. This is a life/limb threatening event. This includes time spent evaluating patient, direct bedside care, chart review, placing orders, interpretation of diagnostic studies, discussion with consultants, patient, and/or family members regarding treatment decisions, as well as other required patient management activities. This time is exclusive of all separately billable procedures, and teaching time and separate from and in addition to any other critical care service time. Admission and Anticipated Discharge Date Admission Date: August 31, 2023 Subjective No overnight events. Review of Systems Review of Systems: Unobtainable due to endotracheal tube Physical Exam Physical Exam: General: Sedated. nontoxic. Neuro: (During spontaneous awakening trial): GCS: 9T, no confrontational blink, patient appeared to have vertical upbeat nystagmus and occasional upward gaze deviation, withdraws with nailbed pressure Skin: Warm, dry, Head: Atraumatic Ears, nose, mouth and throat: airway obscured by endotracheal tube Neck: Submandibular swelling: Unchanged Cardiovascular: Normal peripheral perfusion Respiratory: Ventilator settings reviewed Gastrointestinal: Non distended Musculoskeletal: No deformity Results & Data Results & Data Vital Signs (Past 12 Hours) Vital Signs Temp Pulse Resp BP Pulse Ox FiO2 09/04/23 09:04 36.7 C 83 21 127/97 99 09/04/23 08:00 37.0 C 74 19 120/92 100 09/04/23 08:00 30 09/04/23 07:40 74 22 99 30 09/04/23 07:37 76 09/04/23 07:00 37.2 C 72 21 120/95 100 30 09/04/23 06:30 78 148/105 H 09/04/23 06:26 78 148/105 H 09/04/23 04:00 30 09/04/23 03:43 88 22 99 30 09/04/23 03:00 132/95 09/04/23 03:00 38.3 C H 87 22 99 09/04/23 02:50 38.2 C H 95 H 22 98 09/04/23 02:40 38.2 C H 91 H 21 98 09/04/23 02:30 38.2 C H 88 24 98 09/04/23 02:20 38.1 C H 86 21 98 09/04/23 02:10 38.1 C H 90 20 98 09/04/23 02:00 38.0 C H 89 20 98 09/04/23 01:50 38.0 C H 89 20 97 09/04/23 01:40 38.0 C H 83 21 99 09/04/23 01:30 37.9 C H 95 H 21 99 09/04/23 01:20 37.8 C H 89 21 100 09/04/23 01:10 37.9 C H 89 20 100 09/04/23 01:00 37.8 C H 81 18 100 09/04/23 01:00 124/76 09/04/23 00:51 37.9 C H 81 18 100 09/04/23 00:40 37.8 C H 86 18 100 09/04/23 00:30 37.8 C H 84 18 100 09/04/23 00:20 37.8 C H 86 18 100 09/04/23 00:16 95 H 19 100 30 09/04/23 00:10 37.8 C H 82 18 100 09/04/23 00:00 37.8 C H 90 19 100 09/04/23 00:00 92/61 L 09/04/23 00:00 30 09/04/23 00:00 87 09/04/23 00:00 87 93/70 L 09/03/23 23:50 37.8 C H 88 18 100 09/03/23 23:40 37.8 C H 98 H 13 100 09/03/23 23:36 91 H 93/70 L 09/03/23 23:30 37.8 C H 104 H 26 H 99 09/03/23 23:20 37.8 C H 96 H 18 100 09/03/23 23:10 37.7 C H 98 H 18 100 09/03/23 23:00 93/70 L 09/03/23 23:00 37.7 C H 103 H 18 100 09/03/23 22:50 37.6 C H 99 H 19 100 09/03/23 22:40 37.6 C H 104 H 21 100 09/03/23 22:30 37.5 C 110 H 24 100 09/03/23 22:20 37.5 C 100 H 24 97 09/03/23 22:10 37.5 C 109 H 22 100 09/03/23 22:00 119/89 09/03/23 22:00 37.5 C 101 H 24 100 09/03/23 21:50 37.5 C 100 H 22 100 09/03/23 21:40 37.4 C 104 H 22 100 Critical Care Results & Data Vital Signs (Past 12 Hours) Vital Signs Temp Pulse Resp BP Pulse Ox FiO2 09/04/23 10:15 68 22 99 30 09/04/23 09:04 36.7 C 83 21 127/97 99 09/04/23 08:00 37.0 C 74 19 120/92 100 09/04/23 08:00 30 09/04/23 07:40 74 22 99 30 09/04/23 07:37 76 09/04/23 07:00 37.2 C 72 21 120/95 100 30 09/04/23 06:30 78 148/105 H 09/04/23 06:26 78 148/105 H 09/04/23 04:00 30 09/04/23 03:43 88 22 99 30 09/04/23 03:00 132/95 09/04/23 03:00 38.3 C H 87 22 99 09/04/23 02:50 38.2 C H 95 H 22 98 09/04/23 02:40 38.2 C H 91 H 21 98 09/04/23 02:30 38.2 C H 88 24 98 09/04/23 02:20 38.1 C H 86 21 98 09/04/23 02:10 38.1 C H 90 20 98 09/04/23 02:00 38.0 C H 89 20 98 09/04/23 01:50 38.0 C H 89 20 97 09/04/23 01:40 38.0 C H 83 21 99 Lab & Micro Results (Past 24 Hours) RBC 3.99 M/uL (4.70-6.10) L 09/04/23 WBC 6.21 K/ul (4.8-10.8) 09/04/23 Hgb 11.7 g/dl (14.0-18.0) L 09/04/23 Hct 35.8 % (42.0-52.0) L 09/04/23 MCV 89.7 fL (80.0-100.0) 09/04/23 MCH 29.3 pg (25.0-34.0) 09/04/23 MCHC 32.7 g/dL (32.0-36.0) 09/04/23 RDW Standard Deviation 52.6 fL (36.4-46.3) H 09/04/23 RDW Coefficient of Variation 15.9 % (11.5-14.5) H 09/04/23 Plt Count 157 K/uL (130-400) 09/04/23 MPV 11.1 fL (9.4-12.4) 09/04/23 Neutrophils (%) (Auto) 82.1 % 09/04/23 Lymphocytes (%) (Auto) 5.3 % 09/04/23 Monocytes # (Auto) 0.56 K/uL (0.11-0.59) 09/04/23 Eosinophils # (Auto) 0.14 K/uL (0.00-0.50) 09/04/23 Immature Granulocyte % (Auto) 0.8 % 09/04/23 Neutrophils # (Auto) 5.10 K/uL (1.40-6.50) 09/04/23 Lymphocytes # (Auto) 0.33 K/uL (1.20-3.40) L 09/04/23 Monocytes # (Auto) 0.56 K/uL (0.11-0.59) 09/04/23 Eosinophils # (Auto) 0.14 K/uL (0.00-0.50) 09/04/23 Basophils # (Auto) 0.03 K/uL (0.00-0.20) 09/04/23 Immature Granulocyte # (Auto) 0.05 K/uL (0.01-0.20) 4 Na 132 mmol/L (136-145) L 09/04/23 K 3.9 mmol/L (3.5-5.1) 09/04/23 Cl 102 mmol/L (98-107) 09/04/23 CO2 23 mmol/L (21-32) 09/04/23 Anion Gap 7 (3-11) 09/04/23 BUN 15 mg/dl (6-23) 09/04/23 Creatinine 0.68 mg/dl (0.6-1.4) 09/04/23 Estimated GFR ( Amer) 119.5 ml/min 09/04/23 Estimated GFR (Non-Af Amer) 103.1 ml/min 09/04/23 BUN/Creatinine Ratio 22.1 (10-20) H 09/04/23 Glu 77 mg/dl (70-99(Fasting)) 09/04/23 Ca 8.2 mg/dl (8.6-10.3) L 09/04/23 Total Bilirubin 1.0 mg/dl (0.2-1.0) 09/04/23 Direct Bilirubin 0.4 mg/dl (0-0.2) H 09/04/23 AST 24 U/L (13-39) 09/04/23 ALT 23 U/L (7-52) 09/04/23 Alkaline Phosphatase 49 U/L (34-104) 09/04/23 TP 5.5 gm/dl (6.0-8.3) L 09/04/23 Albumin 2.9 gm/dl (3.4-5.0) L 09/04/23 Mg 1.7 mg/dl (1.7-2.4) 09/04/23 04:39 Calcium Level 8.2 mg/dl (8.6-10.3) L 09/04/23 04:39 Diagnostic Findings (Past 24 Hours) Chest X-Ray 09/04/23 07:00 XR chest 1V portable HISTORY: 63 years-old Male resp failure acute respiratory failure COMPARISON: Chest radiograph 09/03/2023, CT chest 08/31/2023. TECHNIQUE: AP view of the chest FINDINGS: Endotracheal tube overlies the midline, 3.6 cm superior to the lilliana. Cardiomegaly with pulmonary vascular congestion. Trace pleural effusions with mild right basilar predominant airspace opacities again noted. Enteric tube courses into the stomach. 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 Bones appear grossly intact. IMPRESSION: 1. Lines and tubes as above. 2. Cardiomegaly with pulmonary vascular congestion and trace pleural effusions. 3. Persistent right basilar opacities. 4. Left subclavian catheter again noted within the duplicated SVC. ACT 112: Negative or not required by law. The above report was generated using voice recognition software. It may contain grammatical, syntax or spelling errors. Electronically signed by: Sukhjinder Vick M.D. 09/04/2023 8:25 AM I & O Totals 24 Hours 09/03/23 09/04/23 09/05/23 06:59 06:59 06:59 Intake Total 1403.196 / 4164.765 0476.693 / 1912.693 604.558 / 604.558 Output Total 985 / 985 529 / 529 75 / 75 Balance 418.196 / 644.540 7749.693 / 1383.693 529.558 / 529.558 Cumulative 08/31/23 14:10 thru 09/04/23 12:52 Intake Total 46473.237 Output Total 4934 Balance 5629.237 RT Ventilator Mngmt (Last Documented) Ventilator Ordered Settings Ventilator Support Mode Assist Control 09/04/23 10:15 Respiratory Rate 22 09/04/23 10:15 Ventilator Tidal Volume 500 09/04/23 10:15 Setting Minute Ventilation 9.8 09/04/23 10:15 Positive End Expiratory 10 09/04/23 10:15 Pressure Fraction of Inspired Oxygen 30 09/04/23 10:15 Peak Inspiratory Flow 57 09/02/23 15:12 Machine Comment Set rate decreased from 20 to 08/31/23 17:[address] Gallardo post ABG Ventilator - PT Measurements Respiratory Rate 22 Exhaled Tidal Volume 500 Minute Ventilation 9.8 Peak Inspiratory Airway 23 Pressure Plateau Pressure 18 Respiratory Cycle Inspiratory: 1:3.7 Expiratory Ratio Inspiratory Phase Time 0.60 End-Tidal CO2 28 Static Lung Compliance 62.50 Dynamic Lung Compliance 38.46 Normal Static Lung Compliance 48.00 Patient Measurements Comment I TIME ADJUSTED FROM 0.70 TO 0.60 Coding Level of Care Code 93148 CRITICAL CARE 1ST 30-74M Diagnoses Cardiac arrest I46.9 Ribs, multiple fractures S22.49XA Acute respiratory acidosis J96.02 Acute lactic acidosis E87.21 Squamous cell carcinoma of oropharynx C10.9
[2023-09-04] MEDS ORDERED: LORazepam 2 MG in SYRINGE 0.25 ML IV PRN (12:36)
[2023-09-04] MEDS ORDERED: HYDROmorphone INJ 0.5 MG/0.5 ML SYR IV PRN (12:36)
[2023-09-04] MEDS ORDERED: GLUCOSE 10 TAB/TUBE PO PRN (12:40)
[2023-09-04] MEDS ORDERED: GLUCOSE 40% GEL 15 GM TUBE PO PRN (12:40)
[2023-09-04] MEDS ORDERED: CARBOHYDRATES FOR HYPOGLYCEMIA PO PRN (12:40)
[2023-09-04] MEDS ORDERED: DEXTROSE 50% 50 ML SYRINGE IV PRN (12:40)
[2023-09-04] MEDS ORDERED: GLUCAGON FOR INJ 1 MG VIAL SQ PRN (12:40)
[2023-09-04] MEDS ORDERED: HYDROmorphone INJ 2 MG/ML SYR/VIAL IV PRN (12:47)
[2023-09-04] MEDS ORDERED: LORAZEPAM IV PRN (13:00)
[2023-09-04] MEDS: TUBE FEEDING WATER FLUSH OG SCH (13:15)
[2023-09-04] MEDS: DEXTROSE 50% 50 ML SYRINGE IV ONE (13:15)
[2023-09-04] MEDS ORDERED: STAT IV Infusion **Titration per Protocol STA (14:08)
--- NOTE | 2023-09-04 14:33 | Palliative Care Progress Note ---
Date of Service September 04, 2023 Assessment & Plan (1) Dyspnea and respiratory abnormalities: (2) Weakness generalized: (3) Discussion about advance care planning held with family member: Plan: Face to face 45min meeting with oJ, Gail/, dtrs x2, son in law x1 and pt mother and brother on phone, meeting held together with Dr Marrero. Family have chosen to pursue comfort care and palliative extubation In their discussions through the night, they agreed he would not return to QOL he enjoys indra if he cannot have ETOH. While they believe a sober life would be better for him/live longer, they note he would not be happy when control of his choices and how he lives is taken away from him. He would not want to be sustained on machinery/artificial means. They had many questions about extubation process and EOL sx mgt. These were all reviewed and answered to their apparent satisfaction. Extensive support/psychosocial reassurance They have called their family marketing proposal specialist for last rites [place] to hospital and adds that Mom is clear she wants to remain by is bedside. Family has had 2 major losses in under the span of a year along with worsening cognition of their patriarch with declining PS. They are in a prolonged state of grief and emotional distress. They are supporting each other and joelle has added comfort. (4) Altered mental status: (5) Palliative care by specialist: (6) Squamous cell carcinoma of oropharynx: (7) Alcohol abuse: Plan FINANCE BROKER no escalation of care palliative extubation after pastoral visit and mother arrives Orders written Discussed with nursing and CCM Thank you for allowing us to participate in the ongoing care of this patient. Please don't hesitate to call or page with any additional concerns. Dr. 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 Review of Systems Review of Systems: Unobtainable due to endotracheal tube and Unobtainable due to reduced consciousness Physical Exam Constitutional: + acute distress, + ill appearing, + alt ered mental status and + mechanically ventilated Eyes: + abnormal light reflex ENMT: radiation changes to neck with right submandibular swelling noted +ETT to vent He is not presently over breathing the vent Neck: + submandibular swelling, + midline defo rmity and + short neck Respiratory: symmetric chest movement (on MV) Auscultation: + diminished lung sounds and + rales Cardiovascular: Rate/Rhythm: + irregularly irregular Extremities: + pedal edema and + edema Gastrointestinal (Abdomen): Inspection/Auscultation: + abdomen distended and normal bowel sounds Musculoskeletal: gen weakness Skin: pale, cool, scattered ecchymoses Neurologic: Comatose Patient: + response to noxious stimuli absent unable to follow commands no response to verbal or noxious stimuli pupils sluggish, no EOM noted Genitourinary: +Acosta Results & Data Vital Signs (Past 12 Hours) Vital Signs Temp Pulse Resp BP Pulse Ox FiO2 09/04/23 10:15 68 22 99 30 09/04/23 09:04 36.7 C 83 21 127/97 99 09/04/23 08:00 37.0 C 74 19 120/92 100 09/04/23 08:00 30 09/04/23 07:40 74 22 99 30 09/04/23 07:37 76 09/04/23 07:00 37.2 C 72 21 120/95 100 30 09/04/23 06:30 78 148/105 H 09/04/23 06:26 78 148/105 H 09/04/23 04:00 30 09/04/23 03:43 88 22 99 30 09/04/23 03:00 132/95 09/04/23 03:00 38.3 C H 87 22 99 09/04/23 02:50 38.2 C H 95 H 22 98 09/04/23 02:40 38.2 C H 91 H 21 98 09/04/23 02:30 38.2 C H 88 24 98 Laboratory Results Abnormal lab results 09/03/23 09/04/23 09/04/23 Range/Units 17:59 04:39 12:26 RBC 3.99 L (4.70-6.10) M/uL Hgb 11.7 L (14.0-18.0) g/dl Hct 35.8 L (42.0-52.0) % RDW Std Deviation 52.6 H (36.4-46.3) fL RDW Coeff of Edouard 15.9 H (11.5-14.5) % Lymph # (Auto) 0.33 L (1.20-3.40) K/uL Sodium 132 L (136-145) mmol/L BUN/Creatinine Ratio 22.1 H (10-20) POC Glucose 52 L* 63 L* (70-99) mg/dl Calcium 8.2 L (8.6-10.3) mg/dl Direct Bilirubin 0.4 H (0-0.2) mg/dl Total Protein 5.5 L (6.0-8.3) gm/dl Albumin 2.9 L (3.4-5.0) gm/dl Diagnostic Findings Abdomen/Pelvis CT 08/31/23 14:57 CT abd pelvis IV con only CLINICAL HISTORY: found down TECHNIQUE: Helical axial images of the abdomen and pelvis were obtained and displayed. Automated dose lowering techniques and/or adjustment according to patient size were utilized for this exam. This exam was performed with intravenous contrast. COMPARISON: None available at the time of this dictation. FINDINGS: Lower chest: For findings above the diaphragm, please see CT chest performed same day. Liver: Unremarkable. No focal lesions are seen. Gallbladder and biliary tree: No calcified gallstones. Normal caliber wall. No intra- or extrahepatic biliary ductal dilation. Pancreas: Unremarkable, no focal lesions. Spleen: Unremarkable. Adrenals: Unremarkable. Kidneys and ureters: Renal cysts are seen. Bladder: Acosta catheter is seen. Reproductive organs: Unremarkable. Bowel: Diverticulosis is seen without diverticulitis. The appendix is normal. Lymph nodes Retroperitoneal: Unremarkable. Pelvic: Unremarkable. Mesenteric: Unremarkable. Peritoneum: Normal. Vessels: Unremarkable. Abdominal wall: Unremarkable. Bones: Degenerative changes in the visualized spine. Partial visualization of multiple anterior rib fractures. IMPRESSION: No acute abnormalities below the diaphragm. ACT 112: Negative or not required by law. Electronically signed by: Aníbal Vallecillo M.D. 08/31/2023 4:37 PM Chest CTA 08/31/23 15:00 CT angio chest PE protocol CLINICAL HISTORY: PE TECHNIQUE: Multidetector row helical CT of the chest was performed with angiographic protocol. Coronal and sagittal reformations were obtained. Coronal and sagittal MIPS were obtained from the axial data set and were submitted for review. Automated dose lowering techniques and/or adjustment according to patient size were utilized for this exam. Comparison: Comparison is made to chest radiograph 08/31/2023 FINDINGS: Lungs and pleura: Consolidative opacities are seen in left greater than right dependent lungs. Heart and pericardium: Heart size is normal. No pericardial effusion. Vessels: No evidence of pulmonary embolism. Mediastinum and kristie: Subcentimeter lymph nodes are seen. Chest wall and lower neck: Unremarkable. Abdomen: Unremarkable. Bones: Multiple bilateral anterior rib fractures are seen near the costochondral junction. These include the right second through eighth ribs and left second th rough seventh ribs. IMPRESSION: 1. No evidence of pulmonary embolus. 2. Bilateral dependent consolidative opacities are compatible with aspiration this patient status post resuscitation. 3. Multiple rib fractures compatible with recent resuscitation. ACT 112: Negative or not required by law. Electronically signed by: Aníbal Vallecillo M.D. 08/31/2023 4:[address] 08/31/23 15:00 CT head/brain wo con CLINICAL HISTORY: cardiac arrest Technique: Contiguous axial CT images of the head were acquired from the base of the skull to the vertex without intravenous contrast administration. Images were viewed in brain, subdural and bone windows. Automated dose lowering techniques and/or adjustment according to patient size were utilized for this exam. Comparison: Comparison is made to CT head 06/24/2020 Findings: Areas of decreased attenuation are present in the periventricular and subcortical white matter bilaterally consistent with small vessel ischemic disease. Generalized cerebral atrophy with commensurate enlargement of the ventricles, sulci, and cisterns is also present. There is no acute intracranial hemorrhage or evidence of acute territorial infarction. No shift of the midline structures, mass effect, or extra-axial abnormalities are shown. Atherosclerotic calcifications are present in the intracranial segments of the internal carotid arteries. Imaged portions of the paranasal sinuses and mastoid air cells are clear. The orbits appear normal. There are no acute fractures of the calvaria or scalp swelling. Impression: No acute intracranial hemorrhage, no evidence of acute territorial infarction or other acute intracranial disease process. ACT 112: Negative or not required by law. Electronically signed by: Aníbal Vallecillo M.D. 08/31/2023 4:[address] 08/31/23 15:15 CT cervical spine wo con CLINICAL HISTORY: found down TECHNIQUE: Multidetector row helical CT of the cervical spine was performed without administration of intravenous contrast. Coronal and sagittal reformations were obtained. Automated dose lowering techniques and/or adjustment according to patient size were utilized for this exam. Comparison: None available at the time of this dictation. FINDINGS: No acute fractures or subluxations are identified. Degenerative changes are seen in the visualized spine. The alignment is normal. Airspace opacities in the bilateral lungs may be secondary to aspiration in this patient status post resuscitation. IMPRESSION: Degenerative changes without evidence of acute bony injury. ACT 112: Negative or not required by law. Electronically signed by: Aníbal Vallecillo M.D. 08/31/2023 4:25 PM KUB X-Ray 08/31/23 17:01 XR KUB/Abdomen 1 view CLINICAL HISTORY: OG placement TECHNIQUE: 1 view of the abdomen was obtained. Comparison: Comparison is made to CT abdomen pelvis 08/31/2023 FINDINGS: Enteric tube side-port is at the level of the diaphragm. Degenerative changes are seen in the visualized skeleton. The bowel gas pattern is nonobstructive. IMPRESSION: Enteric tube side-port is at the level of the diaphragm. Enteric tube can be advanced approximately 5 cm for improved positioning. ACT 112: Negative or not required by law. Electronically signed by: Aníbal Vallecillo M.D. 08/31/2023 5:[address] 08/31/23 19:43 Exam(s): CT NECK With Contrast IV Amt: optiray 320 93ml EXAM: CT Neck With Intravenous Contrast CLINICAL HISTORY: Reason for exam: subcutaneous air. TECHNIQUE: Axial computed tomography images of the neck with intravenous contrast. CTDI is 22.67 mGy and DLP is 670.57 mGy-cm. Automated exposure control was utilized for the study. A dose lowering technique was utilized adhering to the principles of ALARA. CONTRAST: Patient received optiray 320 93ml of IV contrast COMPARISON: 09/10/2022 FINDINGS: No subcutaneous air. Diffuse soft tissue edema right greater than left. Obscuration of the normal fat planes. No fluid collection. Endotracheal tube and esophagogastric tubes in place. The vasculature is patent. No clearly identified mass or adenopathy. No acute osseous abnormality. Interstitial and airspace opacities at the lung apices. IMPRESSION: 1. No subcutaneous air. 2. Diffuse soft tissue edema right greater than left. Obscuration of the normal fat planes. No fluid collection. 3. Interstitial and airspace opacities at the lung apices. Electronically signed by: Nathan Corrales MD 08/31/23 23:00 PM Brain MRI 09/01/23 11:10 MR brain wo/w con CLINICAL HISTORY: anoxic brain injury TECHNIQUE: Multiplanar and multisequence MR images of the brain were obtained prior to and following administration of gadolinium contrast. Comparison: Comparison is made to CT head 08/31/2023 FINDINGS: No abnormal restricted diffusion is identified. Foci of T2 and FLAIR hyperintensity are noted in the paraventricular areas consistent with chronic small vessel ischemic disease. Ex vacuo ventriculomegaly and sulcal enlargement is noted compatible with diffuse volume loss. No mass or abnormal enhancement is seen. There is no mass effect or midline shift. There is no evidence of acute intraparenchymal hemorrhage. No extra axial fluid collections are seen. The corpus callosum, pituitary gland, and cerebellar tonsils appear grossly unremarkable. Flow voids of the major intracranial arterial vessels are identified. Bilateral maxillary sinus disease is seen. Soft tissue thickening in the ethmoid and sphenoid sinus noted. IMPRESSION: 1. No acute abnormality and in particular no abnormal restricted diffusion to suggest hypoxic ischemic encephalopathy or stroke. No cortical laminar necrosis. 2. Mild sinus disease. ACT 112: Negative or not required by law. Electronically signed by: Aníbal Vallecillo M.D. 09/01/2023 4:29 PM Chest X-Ray 09/04/23 07:00 XR chest 1V portable HISTORY: 63 years-old Male resp failure acute respiratory failure COMPARISON: Chest radiograph 09/03/2023, CT chest 08/31/2023. TECHNIQUE: AP view of the chest FINDINGS: Endotracheal tube overlies the midline, 3.6 cm superior to the lilliana. Cardiomegaly with pulmonary vascular congestion. Trace pleural effusions with mild right basilar predominant airspace opacities again noted. Enteric tube courses into the stomach. 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 Bones appear grossly intact. IMPRESSION: 1. Lines and tubes as above. 2. Cardiomegaly with pulmonary vascular congestion and trace pleural effusions. 3. Persistent right basilar opacities. 4. Left subclavian catheter again noted within the duplicated SVC. ACT 112: Negative or not required by law. The above report was generated using voice recognition software. It may contain grammatical, syntax or spelling errors. Electronically signed by: Sukhjinder Vick M.D. 09/04/2023 8:25 AM PG Care Time/CCT Total # of Minutes Spent Total Time Spent with Patient: Total time spent is greater than 50% in coordination of care (as documented) at patient's floor/unit and/or counseling patient: I spent 105 minutes overall addressing this case: 5 min in medical data review/discussion with referring provider(s) and/or preparation for the visit 20 min in direct interaction with the patient/exam 45 min in Advance Care Planning/Goals of Care discussions as detailed above in note (must be >16min) 15 min in subsequent review and synthesis of assessment and plan 20 min communicating with other providers regarding the patient's case: Advanced Care Planning 42235 Advanced Care Planning 30 Min 57807 Advanced Care Planning Additional 30 Min [place] [address] SUB INP/OBS CARE 3/50MIN (25 - SIGNIFICANT, SEPARATELY IDENTIFIABLE ) Patient Type Established Medical Decision Making High Complexity Diagnoses Dyspnea and respiratory abnormalities R06.00; R06.89 Weakness generalized R53.1 Discussion about advance care planning held with family member Z71.0 Coma, unspecified coma depth R40.20 Altered mental status type: coma Coma depth: unspecified coma depth Palliative care by specialist Z51.5 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 Additional Codes Advanced Care Planning - 35447 Advanced Care Planning 30 Min: 48364 Advanced Care Planning 30 Min ([id number]) Advanced Care Planning - 21226 Advanced Care Planning Additional 30 Min: 93147 Advanced Care Planning Additional 30 Min ([id number]) (4) Altered mental status Altered mental status type: coma Coma depth: unspecified coma depth Qualified Code(s): R40.20 - Unspecified coma
[2023-09-04] MEDS: MoRPHine SULF/NSS 100 MG/100 ML BAG IV SCH (14:43)
[2023-09-04] MEDS: LORazepam 2 MG in SYRINGE 1 ML IV PRN (15:20)
[2023-09-04] MEDS: GLYCOPYRROLATE 0.2 MG/ML VIAL IV PRN (15:23)
[2023-09-04] MEDS: MoRPHine BOLUS from BAG IV PRN (15:30)
--- NOTE | 2023-09-04 15:35 | Procedure Note ---
Procedure Note Date of Service September 02, 2023 Note Procedure date: September 02, 2023 Procedure: fiberoptic bronchoscopy, and indirect laryngoscopy Pre-procedure indication: Impending respiratory failure, neck mass Post-procedure Diagnosis: same as above Prior to Procedure: Informed Consent: Emergent consent implied Attending Staff: Lianet Nieves DO Resident/APC: Not applicable Skin Prep: Not applicable Anesthesia: None Description of Procedure: Patient had been liberated from the ventilator and was noted to have sonorous respirations. Bilateral nasal trumpets was then placed with improvement in airflow. Video bronchoscope was inserted through one of the nasal trumpets and a limited evaluation of the upper airway was undertaken. Patient appears to have mild to moderate mass effect presumptively secondary to a known base of tongue mass, there was mild to moderate edema of the false and true vocal cords when the bronchoscope was passed through the glottic opening with ease. There is no evidence of any mucopurulent secretion. Complications: None Specimens: None Estimated blood loss: Zero Procedure Date: September 02, 2023 Procedure: Endotracheal intubation Pre-procedure Diagnosis: Impending respiratory failure Post-procedure Diagnosis: same as above Prior to Procedure: Informed Consent: emergent Attending Staff: Lianet Nieves DO The identity of the patient was confirmed and a bedside time out was performed. Description of Procedure: Patient was evaluated and required intubation for impending respiratory failure. The patient was prepared in the usual fashion. A video laryngoscope was used. A 7.5 mm inner diameter endotrachial tube was placed endotracheally to 28 cm at the teeth. A grade 1 view was obtained. The endotracheal tube was noted to pass through the vocal cords. Chest rise was bilateral. Bilateral breath sounds were heard without air sounds in the abdomen. Mist was noted in the endotracheal tube. End-tidal CO2 measurement was positive. Positioning was confirmed with bronchoscopic evaluation, the right upper lobe was identified as well as the right middle and lower bronchi. During the intubation the edema of the upper airways was slightly increased compared to the limited laryngoscopy that had occurred approximately 2 hours prior. Complications: None Findings: Not applicable Specimens: Not applicable Estimated blood loss: Zero Coding CPT Codes Pulmonary/Thoracic - Pulmonary and Thoracic: 13647 Bronchoscopy, treat blockage ([id number]) ENT - ENT: 41120 Indrect Laryngoscopy,diagnostic ([id number]) [facility] [place] Codes (Charges) ENT ENT: 94059 Indrect Laryngoscopy,diagnostic Pulmonary/Thoracic Procedure 1: Pulmonary and Thoracic: 25686 Bronchoscopy, treat blockage
[2023-09-04] MEDS: LORazepam 2 MG/1 ML VIAL ONE (16:07)
[2023-09-04] MEDS: LORazepam 3 MG in SYRINGE 1.5 ML IV PRN (16:18)
[2023-09-04] MEDS ORDERED: Nursing to Pharmacy Communication SCH (16:45)
--- NOTE | 2023-09-04 17:18 | Death Pronouncement Note ---
Date of Service September 04, 2023 Pronouncement Note Admission Date Admission Date: August 31, 2023 Date and Time of Date of : 09/04/23 Time of : 17:08 PCOD Preliminary cause of : Cardiac arrest due to respiratory disorder Contributing Factors (1) Squamous cell carcinoma of oropharynx: (2) Lymphedema: (3) Respiratory arrest: (4) Alcohol dependence syndrome: (5) Atrial fibrillation with RVR: Hospital Course Hospital Course: Patient was initially presented to the emergency department after being found by a bystander of an unknown duration with bystander initiated CPR with return of spontaneous circulation. Patient's condition slightly stabilized he was not requiring ongoing of active vasoactive medications; however, patient's mental status did not improve. Patient met extubation criteria and was attempted to be liberated from the ventilator; however, he was subsequently reintubated for impending respiratory failure secondary intermittent obstruction secondary to underlying anatomic variants. Patient's family was contacted and several discussions were continued regarding current status and prognosis. Ultimately it was felt that the patient would not want ongoing life-sustaining treatment nor additional extensive medical procedures and it was felt in accordance with the patient wishes to proceed with compassionate extubation and treating to the patient's comfort. Patient was extubated on September 04, 2023, family remained at his bedside. Patient ceased to breathe and at 1708 peacefully with family at his bedside. Additional Data Confirmation of : no pulse, no respirations, no heart sounds, pupils fixed and dilated and other (Asystole on bedside bus driver/monitor) Family: at bedside Attending physician: Ban Askew MD Coding Level of Care Code None Diagnoses Squamous cell carcinoma of oropharynx C10.9 Lymphedema I89.0 Respiratory arrest R09.2 Alcohol dependence syndrome F10.20 Atrial fibrillation with RVR I48.91
--- NOTE | 2023-09-04 18:08 | Hospitalist Progress Note ---
Date of Service September 04, 2023 Assessment & Plan (1) Cardiac arrest: (2) Squamous cell carcinoma of oropharynx: (3) Hypertension: (4) Alcohol abuse: (5) Dyslipidemia: (6) Lymphedema: Plan Mr. Booker Dobbins is a 63 year old male who presents to the ED via EMS after experiencing PEA cardiac arrest on [facility]. Found down by by-stander and unknown downtime. Approximately 15 minutes CPR administered to patient with epi and ROSC thereafter. Pt was intubated by EMS. Heart alert activated prior to arrival. ECG in ED shows AF with RBBB and lateral ST depressions which improved ROSC. no heart cath performed. 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 Elevated lactate 9.8, Troponin 140, alcohol level > 305, no leukocytosis, hypokalemic 3.2. Head CT negative No acute findings Chest CTA negative for AAA but suggestive of L sided PNA. Patient admitted to ICU for further management PEA cardiac arrest, unknown downtime, ROSC after 15 minutes of CPR and 3 rounds of epinephrine Head CT negative for ICH, SDH Chest CTA: negative for PE, suspect bilateral consolidative opacities; suspect aspiration. Numerous rib fractures CSCT negative ECG On admission personally reviewed;AF RVR with RBBB No leukocytosis Lactate 9.8 On admission; down trended Troponin 140 > 248 > 320 Echo shows EF of 40 to 45% with moderate LVH, mild to moderate global hypokinesis of left ventricle MRI brain shows no acute abnormality. EEG was abnormal and showed mild to moderate generalized slowing. No focal abnormality. Patient was extubated on September 02, 2023; required reintubation. His mentation is difficult to reliably assess given history of alcohol use disorder and possibility of anoxic brain injury. He also has oropharyngeal squamous cell carcinoma which can lead to reliably extubate him. As per sales representative printing paper, patient may need to be transferred to higher level of care if opted for aggressive treatment. Family to decide regarding terminal extubation or possible transfer to tertiary care center. Palliative on consult; family meeting in progress. AF RVR: Known h/o AF and non-compliance with anticoagulation Started on Lovenox subcu Metoprolol q6h Hypertension- on Losartan, metoprolol Acute hypoxic/hypercapnic (Mixed) respiratory failure: Aspiration pneumonia Lactate 9.8;trended down Chest CTA: negative for PE, suspect bilateral consolidative opacities; suspect aspiration. Numerous rib fractures; right second through 8th ribs and left through seventh ribs Started on antibiotics with Zosyn. Discontinued as sputum culture showed light barbara. Likely pneumonitis Alcohol abuse: Chronic has been in and out [facility] and reportedly has struggled with sobriety serum Alcohol level > 305 Monitor for withdrawal Disposition: PCP: Joe Code Status:No CPR, okay for intubation VTE Prophylaxis: lovenox Time spent evaluating patient, direct bedside care, chart review, placing orders, interpretation of diagnostic studies, discussion with consultants, patient, and family members, as well as other required patient management activities is 50 minutes Please note the above document was generated using voice recognition software. It may contain grammatical, syntax or spelling errors. Any formal questions or concerns about the content, text or information contained within the body of this dictation should be directly addressed to the provider for clarification Admission and Anticipated Discharge Date Admission Date: August 31, 2023 Results & Data Results & Data Vital Signs (Past 12 Hours) Vital Signs Temp Pulse Resp BP Pulse Ox FiO2 09/04/23 07:40 74 22 99 30 09/04/23 07:37 76 09/04/23 07:00 37.2 C 72 21 120/95 100 30 09/04/23 06:30 78 148/105 H 09/04/23 06:26 78 148/105 H 09/04/23 04:00 30 09/04/23 03:43 88 22 99 30 09/04/23 03:00 132/95 09/04/23 03:00 38.3 C H 87 22 99 09/04/23 02:50 38.2 C H 95 H 22 98 09/04/23 02:40 38.2 C H 91 H 21 98 09/04/23 02:30 38.2 C H 88 24 98 09/04/23 02:20 38.1 C H 86 21 98 09/04/23 02:10 38.1 C H 90 20 98 09/04/23 02:00 38.0 C H 89 20 98 09/04/23 01:50 38.0 C H 89 20 97 09/04/23 01:40 38.0 C H 83 21 99 09/04/23 01:30 37.9 C H 95 H 21 99 09/04/23 01:20 37.8 C H 89 21 100 09/04/23 01:10 37.9 C H 89 20 100 09/04/23 01:00 37.8 C H 81 18 100 09/04/23 01:00 124/76 09/04/23 00:51 37.9 C H 81 18 100 09/04/23 00:40 37.8 C H 86 18 100 09/04/23 00:30 37.8 C H 84 18 100 09/04/23 00:20 37.8 C H 86 18 100 09/04/23 00:16 95 H 19 100 30 09/04/23 00:10 37.8 C H 82 18 100 09/04/23 00:00 37.8 C H 90 19 100 09/04/23 00:00 92/61 L 09/04/23 00:00 30 09/04/23 00:00 87 09/04/23 00:00 87 93/70 L 09/03/23 23:50 37.8 C H 88 18 100 09/03/23 23:40 37.8 C H 98 H 13 100 09/03/23 23:36 91 H 93/70 L 09/03/23 23:30 37.8 C H 104 H 26 H 99 09/03/23 23:20 37.8 C H 96 H 18 100 09/03/23 23:10 37.7 C H 98 H 18 100 09/03/23 23:00 93/70 L 09/03/23 23:00 37.7 C H 103 H 18 100 09/03/23 22:50 37.6 C H 99 H 19 100 09/03/23 22:40 37.6 C H 104 H 21 100 09/03/23 22:30 37.5 C 110 H 24 100 09/03/23 22:20 37.5 C 100 H 24 97 09/03/23 22:10 37.5 C 109 H 22 100 09/03/23 22:00 119/89 09/03/23 22:00 37.5 C 101 H 24 100 09/03/23 21:50 37.5 C 100 H 22 100 09/03/23 21:40 37.4 C 104 H 22 100 09/03/23 21:30 37.4 C 104 H 24 100 09/03/23 21:20 37.4 C 98 H 22 100 09/03/23 21:10 37.4 C 107 H 21 100 09/03/23 21:00 126/90 09/03/23 21:00 37.4 C 100 H 28 H 09/03/23 20:50 37.4 C 101 H 22 100 09/03/23 20:40 37.4 C 99 H 23 100 09/03/23 20:30 37.4 C 102 H 23 100 09/03/23 20:21 93 H 23 99 30 09/03/23 20:20 37.5 C 92 H 21 99
--- NOTE | 2023-09-04 19:00 | Discharge Summary ---
Discharge Summary Date of Service September 04, 2023 Notes For Next Care Provider Pt was compassionately extubated on September 04, 2023 after extensive family discussion. Family remained at his bedside. Patient ceased to breathe and at 1708. Medication Changes From Visit Pt Admission HPI Per Admitting Provider Mr. Booker Dobbins is a 63 year old male who presents to the ED via EMS after experiencing PEA cardiac arrest on [facility]. Found down by by-stander and unknown downtime. Approximately 15 minutes CPR ad ministered to patient with epi and ROSC thereafter. Pt was intubated by EMS. Heart alert activated prior to arrival. ECG in ED shows AF with RBBB and lateral ST depressions which improved ROSC. Dr. Kowalski aware of patient and based on no ST elevation or ventricular arrhythmia, no heart cath performed. 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 Elevated lactate 9.8, Troponin 140, alcohol level > 305, no leukocytosis, hypokalemic 3.2. Head CT negative. Chest CTA negative for AAA but suggestive of L sided PNA; suspect aspiration during intubation. Reportedly patient self discontinued Eliquis and given known AF and cardiac arrest will consider heparinizing patient and discuss with ICU attending. Reportedly patient has a brother in [place] that ED doctor was able to talk to who indicated that he received a text from him some time this morning. He also reports that he does use alcohol reguarly and has been in and out of [facility] for treatment/AA. Pt will be admitted to ICU for further evaluation and management of acute mixed respiratory failure and known cardiac arrest with likely aspiration. Goal to wean off of inotropic support as able. ECHO ordered. Will trend lactate and Troponin. Suspect he will require central line access. Empirically given Zosyn; will continue for now for broad spectrum coverage. Discussed in depth with Dr. Gallardo in ICU. Admission Exam Per Admitting Provider GENERAL APPEARANCE: sedated HEENT: NC, AT. MMM. clear conjunctiva, intubated NECK: thick HEART: tachcardic to 140s, irregular LUNGS: CTAB, moving air well, synchronize with vent ABDOMEN: Soft, nontender, nondistended with good bowel sounds heard. EXTREMITIES: Without cyanosis, clubbing, BLE nonpitting edema NEUROLOGICAL: sedated, no obvious deficits, unable to perform formal neuro exam Skin: lymphedematous changes of BLE Principal Dx & Hospital Course #1 = Principal Diagnosis (1) Cardiac arrest: (2) Squamous cell carcinoma of oropharynx: (3) Hypertension: (4) Alcohol abuse: (5) Dyslipidemia: (6) Lymphedema: Plan Mr. Booker Dobbins was a 63 year old male who presented to the ED via EMS after experiencing PEA, cardiac arrest on [facility]. Found down by a by-stander with unknown downtime. Approximately 15 minutes of CPR administered to patient with epinephrine and ROSC thereafter. Pt was intubated by EMS. Heart alert activated prior to arrival. ECG in ED showed AF with RBBB and lateral ST depressions which improved with ROSC. no heart cath performed. 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 Elevated lactate 9.8, Troponin 140, alcohol level > 305, no leukocytosis, hypokalemic 3.2. Head CT negative No acute findings Chest CTA negative for AAA but suggestive of L sided PNA. Patient was admitted to the ICU for further management. Patient was extubated on September 02, 2023 after being intubated in the field by EMS; He then required reintubation after extubation trial. His mentation is difficult to reliably assess given history of alcohol use disorder and possibility of anoxic brain injury. He also has oropharyngeal squamous cell carcinoma which complicated the intubation/extubation process. As per clinical geneticist, patient would need transfer to higher level of care if opted for aggressive treatment. Family to decide regarding terminal extubation or possible transfer to tertiary care center. Multiple family meetings and extensive discussion on 09/02-09/03 with Int ensivist and Palliative Care. Ultimately it was decided that the pt would desire compassionate extubation as his quality of life would be severely reduced with eventual possible tracheostomy and SNF placement, inability to consume alcohol which reportedly brought him extreme pleasure as well as his baseline mentation being severely compromised in setting of residential effects of alcohol and anoxic brain injury. Pt was compassionately extubated on September 04, 2023 after extensive family discussion. Comfort measures were employed. Family remained at his bedside. Patient ceased to breathe and at 1708 on 09/04/23. He was previously treated and managed for the following: PEA cardiac arrest, unknown downtime, ROSC after 15 minutes of CPR and 3 rounds of epinephrine Head CT negative for ICH, SDH Chest CTA: negative for PE, suspect bilateral consolidative opacities; suspect aspiration. Numerous rib fractures CSCT negative ECG On admission personally reviewed;AF RVR with RBBB No leukocytosis Lactate 9.8 On admission; down trended Troponin 140 > 248 > 320 Echo shows EF of 40 to 45% with moderate LVH, mild to moderate global hypokinesis of left ventricle MRI brain shows no acute abnormality. EEG was abnormal and showed mild to moderate generalized slowing. No focal abnormality. Patient was extubated on September 02, 2023; required reintubation. His mentation is difficult to reliably assess given history of alcohol use disorder and possibility of anoxic brain injury. He also has oropharyngeal squamous cell carcinoma which can lead to reliably extubate him. As per clinical geneticist, patient may need to be transferred to higher level of care if opted for aggressive treatment. Palliative Care consulted, extensive discussion. Family decided to terminally/compassionately extubate rather than transfer to tertiary care center for further aggressive care. AF RVR: Known h/o AF and non-compliance with anticoagulation Started on Lovenox subcu Metoprolol q6h Hypertension on Losartan, metoprolol Acute hypoxic/hypercapnic (Mixed) respiratory failure: Aspiration pneumonia Lactate 9.8;trended down Chest CTA: negative for PE, suspect bilateral consolidative opacities; suspect aspiration. Numerous rib fractures; right second through 8th ribs and left through seventh ribs Started on antibiotics with Zosyn. Discontinued as sputum culture showed light barbara. Likely pneumonitis Alcohol abuse: Chronic has been in and out [facility] and reportedly has struggled with sobriety serum Alcohol level > 305 Monitored for withdrawal Discharge Exam General: laying in bed, still intubated at time of exam Neuro: sedated and intubated at time of exam HEENT: intubated Resp: intubated Updated Medication List Medication Instructions Recorded Confirmed Type amlodipine 5 mg tablet 5 mg PO DAILY 02/29/20 08/31/23 History escitalopram oxalate 10 mg tablet 10 mg PO DAILY 02/29/20 08/31/23 History losartan 100 mg tablet (Cozaar) 100 mg PO DAILY 10/16/22 08/31/23 History multivitamin 1 tab PO DAILY 10/16/22 08/31/23 History Hospital Stay Data Consultations 08/31/23 15:18 ED Decision to Admit Stat 08/31/23 15:20 Consult Cooking Teacher Routine 09/02/23 16:05 Consult Palliative Care Routine Procedures Performed Operation Date: 08/31/23 14:30 Actual Procedures p Cardiac Cath Procedure - Riley Kowalski MD Diagnostic Imagining Performed 08/31/23 14:31 CL Cath Imgs for PACS use only Stat 08/31/23 14:57 CT abd pelvis IV con only Stat 08/31/23 15:00 CT angio chest PE protocol Stat CT head/brain wo con Stat 08/31/23 15:15 CT cervical spine wo con Stat 08/31/23 19:43 CT neck soft tissues [CT soft tissue neck w con] Stat 09/01/23 11:10 MRI Brain [MR brain wo/w con] Urgent Chest X-Ray 08/31/23 14:45 XR chest 1V portable, XR chest 1V portable CLINICAL HISTORY: post intub TECHNIQUE: Single frontal radiograph of the chest was obtained at 1445 and 1517 hours Comparison: Comparison is made to chest radiograph 07/14/2020 FINDINGS: 1445 hours: Endotracheal tube terminates 5.7 cm from the lilliana. Cardiomegaly is noted. Patchy airspace opacities most prominent in the left upper lobe superimposed upon interstitial thickening. Possible small left pleural effusion. 1517 hours: Endotracheal tube now terminates 6.0 cm from the lilliana. IMPRESSION: 1. Satisfactory position of endotracheal tube. 2. Patchy airspace opacities most prominent in the left upper lobe. ACT 112: Negative or not required by law. Electronically signed by: Aníbal Vallecillo M.D. 08/31/2023 3:28 PM Abdomen/Pelvis CT 08/31/23 14:57 CT abd pelvis IV con only CLINICAL HISTORY: found down TECHNIQUE: Helical axial images of the abdomen and pelvis were obtained and displayed. Automated dose lowering techniques and/or adjustment according to patient size were utilized for this exam. This exam was performed with intravenous contrast. COMPARISON: None available at the time of this dictation. FINDINGS: Lower chest: For findings above the diaphragm, please see CT chest performed sa . Liver: Unremarkable. No focal lesions are seen. Gallbladder and biliary tree: No calcified gallstones. Normal caliber wall. No intra- or extrahepatic biliary ductal dilation. Pancreas: Unremarkable, no focal lesions. Spleen: Unremarkable. Adrenals: Unremarkable. Kidneys and ureters: Renal cysts are seen. Bladder: Acosta catheter is seen. Reproductive organs: Unremarkable. Bowel: Diverticulosis is seen without diverticulitis. The appendix is normal. Lymph nodes Retroperitoneal: Unremarkable. Pelvic: Unremarkable. Mesenteric: Unremarkable. Peritoneum: Normal. Vessels: Unremarkable. Abdominal wall: Unremarkable. Bones: Degenerative changes in the visualized spine. Partial visualization of multiple anterior rib fractures. IMPRESSION: No acute abnormalities below the diaphragm. ACT 112: Negative or not required by law. Electronically signed by: Aníbal Vallecillo M.D. 08/31/2023 4:37 PM Chest X-Ray 08/31/23 14:59 XR chest 1V portable, XR chest 1V portable CLINICAL HISTORY: post intub TECHNIQUE: Single frontal radiograph of the chest was obtained at 1445 and 1517 hours Comparison: Comparison is made to chest radiograph 07/14/2020 FINDINGS: 1445 hours: Endotracheal tube terminates 5.7 cm from the lilliana. Cardiomegaly is noted. Patchy airspace opacities most prominent in the left upper lobe superimposed upon interstitial thickening. Possible small left pleural effusion. 1517 hours: Endotracheal tube now terminates 6.0 cm from the lilliana. IMPRESSION: 1. Satisfactory position of endotracheal tube. 2. Patchy airspace opacities most prominent in the left upper lobe. ACT 112: Negative or not required by law. Electronically signed by: Aníbal Vallecillo M.D. 08/31/2023 3:28 PM Chest CTA 08/31/23 15:00 CT angio chest PE protocol CLINICAL HISTORY: PE TECHNIQUE: Multidetector row helical CT of the chest was performed with angiographic protocol. Coronal and sagittal reformations were obtained. Coronal and sagittal MIPS were obtained from the axial data set and were submitted for review. Automated dose lowering techniques and/or adjustment according to patient size were utilized for this exam. Comparison: Comparison is made to chest radiograph 08/31/2023 FINDINGS: Lungs and pleura: Consolidative opacities are seen in left greater than right dependent lungs. Heart and pericardium: Heart size is normal. No pericardial effusion. Vessels: No evidence of pulmonary embolism. Mediastinum and kristie: Subcentimeter lymph nodes are seen. Chest wall and lower neck: Unremarkable. Abdomen: Unremarkable. Bones: Multiple bilateral anterior rib fractures are seen near the costochondral junction. These include the right second through eighth ribs and left second through seventh ribs. IMPRESSION: 1. No evidence of pulmonary embolus. 2. Bilateral dependent consolidative opacities are compatible with aspiration this patient status post resuscitation. 3. Multiple rib fractures compatible with recent resuscitation. ACT 112: Negative or not required by law. Electronically signed by: Aníbal Vallecillo M.D. 08/31/2023 4:[address] 08/31/23 15:00 CT head/brain wo con CLINICAL HISTORY: cardiac arrest Technique: Contiguous axial CT images of the head were acquired from the base of the skull to the vertex without intravenous contrast administration. Images were viewed in brain, subdural and bone windows. Automated dose lowering techniques and/or adjustment according to patient size were utilized for this exam. Comparison: Comparison is made to CT head 06/24/2020 Findings: Areas of decreased attenuation are present in the periventricular and subcortical white matter bilaterally consistent with small vessel ischemic disease. Generalized cerebral atrophy with commensurate enlargement of the ventricles, sulci, and cisterns is also present. There is no acute intracranial hemorrhage or evidence of acute territorial infarction. No shift of the midline structures, mass effect, or extra-axial abnormalities are shown. Atherosclerotic calcifications are present in the intracranial segments of the internal carotid arteries. Imaged portions of the paranasal sinuses and mastoid air cells are clear. The orbits appear normal. There are no acute fractures of the calvaria or scalp swelling. Impression: No acute intracranial hemorrhage, no evidence of acute territorial infarction or other acute intracranial disease process. ACT 112: Negative or not required by law. Electronically signed by: Aníbal Vallecillo M.D. 08/31/2023 4:[address] 08/31/23 15:15 CT cervical spine wo con CLINICAL HISTORY: found down TECHNIQUE: Multidetector row helical CT of the cervical spine was performed without administration of intravenous contrast. Coronal and sagittal reformations were obtained. Automated dose lowering techniques and/or adjustment according to patient size were utilized for this exam. Comparison: None available at the time of this dictation. FINDINGS: No acute fractures or subluxations are identified. Degenerative changes are seen in the visualized spine. The alignment is normal. Airspace opacities in the bilateral lungs may be secondary to aspiration in this patient status post resuscitation. IMPRESSION: Degenerative changes without evidence of acute bony injury. ACT 112: Negative or not required by law. Electronically signed by: Aníbal Vallecillo M.D. 08/31/2023 4:25 PM Chest X-Ray 08/31/23 16:46 XR chest 1V portable CLINICAL HISTORY: left cvc placement TECHNIQUE: Single frontal radiograph of the chest was obtained. Comparison: Comparison is made to chest radiograph 08/31/2023 FINDINGS: Endotracheal tube terminates 4 mm from the lilliana. A left venous catheter terminates in a left-sided SVC. Cardiomegaly is noted. Multifocal airspace opacities are seen. No evidence of pleural effusion or pneumothorax. IMPRESSION: 1. Left venous catheter terminates in a left sided SVC which drains to the right atrium via a prominent coronary sinus. 2. Airspace opacities are again seen compatible with contusion/aspiration. ACT 112: Negative or not required by law. Electronically signed by: Aníbal Vallecillo M.D. 08/31/2023 5:24 PM KUB X-Ray 08/31/23 17:01 XR KUB/Abdomen 1 view CLINICAL HISTORY: OG placement TECHNIQUE: 1 view of the abdomen was obtained. Comparison: Comparison is made to CT abdomen pelvis 08/31/2023 FINDINGS: Enteric tube side-port is at the level of the diaphragm. Degenerative changes are seen in the visualized skeleton. The bowel gas pattern is nonobstructive. IMPRESSION: Enteric tube side-port is at the level of the diaphragm. Enteric tube can be advanced approximately 5 cm for improved positioning. ACT 112: Negative or not required by law. Electronically signed by: Aníbal Vallecillo M.D. 08/31/2023 5:26 PM Chest X-Ray 08/31/23 19:29 XR chest 1V portable CLINICAL HISTORY: subcutaneous air, r/o pneumothorax TECHNIQUE: Single frontal radiograph of the chest was obtained. Comparison: Comparison is made to chest radiograph 08/31/2023 FINDINGS: Endotracheal tube terminates 3.8 cm in the lilliana. Enteric tube is not completely visualized with the tip and side port appear to lie below the lilliana. Left venous catheter is again seen. Multifocal airspace opacities are seen. Stable cardiomegaly. No evidence of pleural effusion or pneumothorax. IMPRESSION: Multifocal airspace opacities without evidence of pneumothorax. ACT 112: Negative or not required by law. Electronically signed by: Aníbal Vallecillo M.D. 08/31/2023 8:[address] 08/31/23 19:43 Exam(s): CT NECK With Contrast IV Amt: optiray 320 93ml EXAM: CT Neck With Intravenous Contrast CLINICAL HISTORY: Reason for exam: subcutaneous air. TECHNIQUE: Axial computed tomography images of the neck with intravenous contrast. CTDI is 22.67 mGy and DLP is 670.57 mGy-cm. Automated exposure control was utilized for the study. A dose lowering technique was utilized adhering to the principles of ALARA. CONTRAST: Patient received optiray 320 93ml of IV contrast COMPARISON: 09/10/2022 FINDINGS: No subcutaneous air. Diffuse soft tissue edema right greater than left. Obscuration of the normal fat planes. No fluid collection. Endotracheal tube and esophagogastric tubes in place. The vasculature is patent. No clearly identified mass or adenopathy. No acute osseous abnormality. Interstitial and airspace opacities at the lung apices. IMPRESSION: 1. No subcutaneous air. 2. Diffuse soft tissue edema right greater than left. Obscuration of the normal fat planes. No fluid collection. 3. Interstitial and airspace opacities at the lung apices. Electronically signed by: Nathan Corrales MD 08/31/23 23:00 PM Chest X-Ray 09/01/23 07:00 XR chest 1V portable CLINICAL HISTORY: Resp failure TECHNIQUE: Single frontal radiograph of the chest was obtained. Comparison: Comparison is made to chest radiograph 08/31/2023 FINDINGS: Lines and tubes are stable. Cardiomegaly is noted. Airspace opacities have improved from the prior exam. No evidence of pleural effusion or pneumothorax. IMPRESSION: Lines and tubes are stable. Airspace opacities have slightly improved compatible with improving aspiration/contusion. ACT 112: Negative or not required by law. Electronically signed by: Aníbal Vallecillo M.D. 09/01/2023 9:02 AM Brain MRI 09/01/23 11:10 MR brain wo/w con CLINICAL HISTORY: anoxic brain injury TECHNIQUE: Multiplanar and multisequence MR images of the brain were obtained prior to and following administration of gadolinium contrast. Comparison: Comparison is made to CT head 08/31/2023 FINDINGS: No abnormal restricted diffusion is identified. Foci of T2 and FLAIR hyperintensity are noted in the paraventricular areas consistent with chronic small vessel ischemic disease. Ex vacuo ventriculomegaly and sulcal enlargement is noted compatible with diffuse volume loss. No mass or abnormal enhancement is seen. There is no mass effect or midline shift. There is no evidence of acute intraparenchymal hemorrhage. No extra axial fluid collections are seen. The corpus callosum, pituitary gland, and cerebellar tonsils appear grossly unremarkable. Flow voids of the major intracranial arterial vessels are identified. Bilateral maxillary sinus disease is seen. Soft tissue thickening in the ethmoid and sphenoid sinus noted. IMPRESSION: 1. No acute abnormality and in particular no abnormal restricted diffusion to suggest hypoxic ischemic encephalopathy or stroke. No cortical laminar necrosis. 2. Mild sinus disease. ACT 112: Negative or not required by law. Electronically signed by: Aníbal Vallecillo M.D. 09/01/2023 4:29 PM Chest X-Ray 09/02/23 07:00 XR chest 1V portable CLINICAL HISTORY: Respiratory failure. COMPARISON STUDY: Chest CT August 31, 2023. Chest radiograph September 01, 2023. FINDINGS: The tip of the endotracheal tube is 3 cm above the lilliana. Tip of nasogastric tube is below the lower aspect of this image but at least within the stomach. Left subclavian central line is within a left-sided SVC. There is no pneumothorax. No definite pleural effusion is identified. Bibasilar consolidation persists. This is greater on the left. Cardiomegaly. No evidence for overt pulmonary edema. IMPRESSION: 1. Satisfactory positioning of the endotracheal tube. 2. No pneumothorax. 3. Persistent bibasilar consolidation suggestive of pneumonia or aspiration pneumonitis. ACT 112: Negative or not required by law. Electronically signed by: Ebenezer Zhou M.D. 09/02/2023 7:19 AM Chest X-Ray 09/03/23 07:00 SINGLE VIEW CHEST CLINICAL HISTORY: Respiratory failure FINDINGS: 2 AP, portable, upright chest radiographs are compared to study dated 09/02/2023 and correlated with chest CT dated 08/31/2023. An endotracheal tube, an enteric tube, and a left subclavian central venous catheter are unchanged in position. The heart is enlarged. The pulmonary vasculature is noncongested. Chronic interstitial thickening is similar to previous. Bibasilar consolidation is similar previous, left greater than right. Small pleural effusions are suspected. No pneumothorax is seen. The skeletal structures are osteopenic. The bony thorax is grossly intact. IMPRESSION: 1. Stable lines and tubes. 2. Cardiomegaly without radiographic evidence of congestive failure. 3. Bibasilar consolidation is similar to previous, left greater than right. Radiographic follow-up to resolution is recommended. ACT 112: Negative or not required by law. Electronically signed by: David Valles M.D. 09/03/2023 7:08 AM Chest X-Ray 09/04/23 07:00 XR chest 1V portable HISTORY: 63 years-old Male resp failure acute respiratory failure COMPARISON: Chest radiograph 09/03/2023, CT chest 08/31/2023. TECHNIQUE: AP view of the chest FINDINGS: Endotracheal tube overlies the midline, 3.6 cm superior to the lilliaan. Cardiomegaly with pulmonary vascular congestion. Trace pleural effusions with mild right basilar predominant airspace opacities again noted. Enteric tube courses into the stomach. 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 Bones appear grossly intact. IMPRESSION: 1. Lines and tubes as above. 2. Cardiomegaly with pulmonary vascular congestion and trace pleural effusions. 3. Persistent right basilar opacities. 4. Left subclavian catheter again noted within the duplicated SVC. ACT 112: Negative or not required by law. The above report was generated using voice recognition software. It may contain grammatical, syntax or spelling errors. Electronically signed by: Sukhjinder Vick M.D. 09/04/2023 8:25 AM Discharge Instructions Given to Patient (Per Discharging Provider) Pt Total Time Total Time Spent Total Time Spent (In Minutes): 75
== END 2023-09-04 18:41 | disposition expired | DRG 208 ==
LOC: ED 14:16 → SUATTDRO 15:20 → 1E 15:20